=== PATIENT | female | born 1950 | race Caucasian/White ===

== ENCOUNTER 2018-09-16 05:23 | Inpatient (IN) | payer MEDICARE, OTHER ==
[2018-09-16] VITALS (16 sets, daily range): BP systolic 97–143; BP diastolic 48–70
[~2018-09-16] VITALS: Ht 157.5 cm; Wt 85.3 kg
--- OUTSIDE RECORDS SUMMARY | 2018-09-16 05:27 | XMS REPORT | Clinical Summary ---
Author Author LAURENCE [facility] Address Unknown Phone Unavailable Care Team Providers Care Senior Client Advisor Name Role Phone Pcp, No PCP Unavailable Allergies Comments Active Allergy Reactions Severity Noted Date "makes my inside shake for days" per pt Albuterol 05/25/2018 Medications End Date Status Medication Sig Dispensed Refills Start Date Active riluzole (RILUTEK) 50 mg Take 1 tablet 60 tablet 0 tablet (50 mg total) 8 by mouth every 12 (twelve) hours. Active acetaminophen (TYLENOL) 2 tablets 30 tablet 0 325 MG tablet (650 mg 8 total) by G-tube route every 6 (six) hours as needed for Pain or Fever (headache). Active acetylcysteine 20% Take 2 mLs by 30 mL 0 (MUCOMYST) 200 mg/mL (20 nebulization 8 %) nebulizer solution every 6 (six) hours. Active carboxymethylcellulose Place 1 drop 28 each 0 sodium (CELLUVISC, into both 8 REFRESH) 1 % DpGe eyes nightly. Active chlorhexidine (PERIDEX) Use as 120 mL 0 0.12 % solution directed 15 8 mLs in the mouth or throat 2 (two) times daily. Active sodium chloride 0.9%, NS, 5 mLs by 5 mL 0 injection Intra-Cathete 8 r route every 8 (eight) hours. Active senna-docusate (SENOKOT 1 tablet by 30 tablet 0 S) 8.6-50 mg per tablet G-tube route 8 nightly. Active pravastatin (PRAVACHOL) 1 tablet (20 30 tablet 0 20 MG tablet mg total) by 8 G-tube route nightly. Active potassium, sodium Take 1 packet 30 packet 0 phosphates (PHOS-NAK) by mouth 3 8 280-160-250 mg PwPk (three) times packet daily Through G-tube. Active ipratropium (ATROVENT) Take 2.5 mLs 75 mL 0 0.02 % nebulizer solution (0.5 mg 8 total) by nebulization every 6 (six) hours. Active heparin injection 5,000 Inject 1 mL 1 mL 0 units/mL for DVT (5,000 Units 8 prophylaxis/dialysis total) lock/IV bolus subcutaneousl y every 8 (eight) hours. Active heparin (PF) injection 10 2 mLs (20 0 units/mL Units total) 8 by Intra-Cathete r route every 8 (eight) hours. Active famotidine (PEPCID) 20 MG 1 tablet (20 60 tablet 0 tablet mg total) by 8 G-tube route every 12 (twelve) hours. 06/05/2019 Active insulin lispro (HUMALOG) Inject 0-8 10 mL 0 100 unit/mL injection Units 8 subcutaneousl y as needed (High blood sugar). Active insulin lispro (HUMALOG) Inject 0-4 10 mL 0 100 unit/mL injection Units 8 subcutaneousl y every night as needed (High blood sugar). Active HYDROmorphone (DILAUDID) Inject 1 mL 5 mL 0 0.5 mg/mL Syrg (0.5 mg 8 total) intravenously every 4 (four) hours as needed (if tramadol not adequate). Max Daily Amount: 3 mg 06/15/2018 simethicone (MYLICON) 80 1 tablet (80 30 tablet 0 MG chewable tablet mg total) by 8 G-tube route 4 (four) times daily for 10 days. 07/05/2018 OLANZapine (ZYPREXA) 2.5 1 tablet (2.5 30 tablet 0 MG tablet mg total) by 8 G-tube route nightly for 30 days. 06/15/2018 traMADol (ULTRAM) 50 mg 1 tablet (50 30 tablet 0 tablet mg total) by 8 G-tube route every 6 (six) hours as needed for Pain for up to 10 days. Max Daily Amount: 200 mg Active Problems Problem Noted Date History of progressive weakness 05/24/2018 Septic shock 05/24/2018 Severe protein-calorie malnutrition ([place]: less than 60% of standard 05/24/2018 weight) Atelectasis of left lung 05/24/2018 Acute respiratory failure with hypoxia and hypercapnia 05/23/2018 Encounters Care Team Description Date Type Specialty Manoj Saunders MD 06/02/2018 Anesthesia Event Edmund Forrest MD TRACHEOSTOMY 06/02/2018 Surgery 05/25/2018 Orders Only General Internal Medicine Stella Serna MD Siddique, MD Millie Velasquez, MD Meredith Acute hypercapnic respiratory failure (HCC); History of progressive weakness; Hypoxemic respiratory failure, chronic (HCC); Acute respiratory failure with hypoxia and hypercapnia (HCC); Atelectasis of left lung; Septic shock (HCC); Severe protein-calorie malnutrition ([place]: less than 60% of standard weight) (HCC); ALS (amyotrophic lateral sclerosis) (HCC); Hypervolemia, unspecified hypervolemia type 05/23/2018 Hospital Intensive Care - Encounter 06/05/2018 05/23/2018 Travel after 09/15/2017 Family History Medical History Relation Name Comments Colon cancer Father Breast cancer Maternal Aunt Pancreatic cancer Maternal Aunt Relation Name Status Comments Father Maternal Aunt Social History Date Tobacco Use Types Packs/Day Years Used Former Smoker Smokeless Tobacco: Never Used Comments: < 10 pack years Sex Assigned at Date Recorded Not on file Industry Job Start Date Occupation Not on file Not on file Not on file Travel End Travel History Travel Start No recent travel history available. Last Filed Vital Signs Time Taken Vital Sign Reading 06/05/2018 5:10 PM [employer] Blood Pressure 120/66 06/05/2018 5:10 PM [employer] Pulse 82 06/05/2018 5:10 PM [employer] Temperature 36.5 C (97.7 F) 06/05/2018 5:10 PM [employer] Respiratory Rate 14 06/05/2018 5:10 PM [employer] Oxygen Saturation 98% 06/05/2018 5:10 PM [employer] Inhaled Oxygen 40% Concentration 06/04/2018 5:00 AM [employer] Weight 117.1 kg (258 lb 2.5 oz) 05/23/2018 8:00 PM [employer] Height 157.5 cm (5' 2") 06/04/2018 5:00 AM [employer] Body Mass Index 47.22 Plan of Treatment Not on file Procedures Comments Procedure Name Priority Date/Time Associated Diagnosis REPORT OF PROCEDURE - 06/12/2018 ENDOSCOPY SCAN 10:21 AM [employer] RHYTHM STRIP - SCAN 06/12/2018 10:21 AM [employer] POCT-GLUCOSE METER Routine 06/05/2018 11:26 AM [employer] POCT-GLUCOSE METER Routine 06/05/2018 6:23 AM [employer] MAGNESIUM Routine 06/05/2018 4:47 AM [employer] BASIC METABOLIC PANEL (7) Routine 06/05/2018 4:47 AM [employer] POCT-GLUCOSE METER Routine 06/05/2018 12:12 AM [employer] CBC (HEMOGRAM ONLY) Routine 06/04/2018 10:02 PM [employer] POCT-GLUCOSE METER Routine 06/04/2018 3:31 PM [employer] POCT-GLUCOSE METER Routine 06/04/2018 1:13 PM [employer] POCT-GLUCOSE METER Routine 06/04/2018 6:42 AM [employer] POCT-GLUCOSE METER Routine 06/04/2018 6:02 AM [employer] BLOOD GAS, VENOUS Routine 06/04/2018 4:01 AM [employer] MAGNESIUM Routine 06/04/2018 4:01 AM [employer] BASIC METABOLIC PANEL (7) Routine 06/04/2018 4:01 AM [employer] XR CHEST 1 VIEW Routine 06/04/2018 PORTABLE/BEDSIDE 2:44 AM [employer] POCT-GLUCOSE METER Routine 06/04/2018 1:09 AM [employer] POCT-GLUCOSE METER Routine 06/04/2018 12:08 AM [employer] POCT-GLUCOSE METER Routine 06/03/2018 8:05 PM [employer] POCT-GLUCOSE METER Routine 06/03/2018 6:06 PM [employer] MAGNESIUM Routine 06/03/2018 12:56 PM [employer] POCT-GLUCOSE METER Routine 06/03/2018 12:52 PM [employer] ECG 12-LEAD Routine 06/03/2018 10:34 AM [employer] XR CHEST 1 VIEW Routine 06/03/2018 PORTABLE/BEDSIDE 3:56 AM [employer] CBC W/PLT COUNT & AUTO Routine 06/03/2018 DIFFERENTIAL 3:37 AM [employer] BLOOD GAS, VENOUS Routine 06/03/2018 3:37 AM [employer] CBC W/PLT COUNT & AUTO Routine 06/03/2018 DIFFERENTIAL 3:37 AM [employer] MAGNESIUM Routine 06/03/2018 3:37 AM [employer] BASIC METABOLIC PANEL (7) Routine 06/03/2018 3:37 AM [employer] POCT-GLUCOSE METER Routine 06/02/2018 7:42 PM [employer] POCT-GLUCOSE METER Routine 06/02/2018 4:43 PM [employer] ESOPHAGOGASTRODUODENOSCOP 06/02/2018 Amyotrophic lateral Y (EGD) 3:05 PM [employer] sclerosis (HCC) Case Notes 90 MINS PER [facility] Special Needs (ENDO EQUIPMENT) EGD SCOPE INSERTION,GASTROSTOMY 06/02/2018 Amyotrophic lateral TUBE-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 [employer] sclerosis (HCC) Case Notes 90 MINS PER [facility] [employer] Needs (ENDO EQUIPMENT) EGD SCOPE TRACHEOSTOMY 06/02/2018 Amyotrophic lateral 3:05 PM [employer] sclerosis (HCC) Case Notes 90 MINS PER [employer] Special Needs (ENDO EQUIPMENT) EGD SCOPE POCT-GLUCOSE METER Routine 06/02/2018 2:51 PM [employer] POCT-GLUCOSE METER Routine 06/02/2018 12:35 PM [employer] XR CHEST 1 VIEW Routine 06/02/2018 PORTABLE/BEDSIDE 7:12 AM [employer] BLOOD GAS, VENOUS Routine 06/02/2018 3:53 AM [employer] MAGNESIUM Routine 06/02/2018 3:53 AM [employer] BASIC METABOLIC PANEL (7) Routine 06/02/2018 3:53 AM [employer] POCT-GLUCOSE METER Routine 06/01/2018 11:56 PM [employer] LACTIC ACID, VENOUS Routine 06/01/2018 8:33 PM [employer] POCT-GLUCOSE METER Routine 06/01/2018 6:41 PM [employer] POCT-GLUCOSE METER Routine 06/01/2018 12:57 PM [employer] XR CHEST 1 VIEW STAT 06/01/2018 PORTABLE/BEDSIDE 8:20 AM [employer] BLOOD GAS, VENOUS Routine 06/01/2018 3:46 AM [employer] HEPARIN ASSAY - LOW Routine 06/01/2018 MOLECULAR WEIGHT 3:46 AM [employer] MAGNESIUM Routine 06/01/2018 3:46 AM [employer] BASIC METABOLIC PANEL (7) Routine 06/01/2018 3:46 AM [employer] POCT-GLUCOSE METER Routine 05/31/2018 5:53 PM [employer] POCT-GLUCOSE METER Routine 05/31/2018 12:38 PM [employer] XR CHEST 1 VIEW STAT 05/31/2018 PORTABLE/BEDSIDE 12:35 PM [employer] POCT-GLUCOSE METER Routine 05/31/2018 12:00 PM [employer] SPUTUM CULTURE + GRAM Routine 05/31/2018 STAIN 10:13 AM [employer] POCT-GLUCOSE METER Routine 05/31/2018 6:17 AM [employer] XR CHEST 1 VIEW Routine 05/31/2018 PORTABLE/BEDSIDE 4:26 AM [employer] CBC W/PLT COUNT & AUTO Routine 05/31/2018 DIFFERENTIAL 4:23 AM [employer] PHOSPHORUS Add-On 05/31/2018 4:23 AM [employer] MAGNESIUM Routine 05/31/2018 4:23 AM [employer] BASIC METABOLIC PANEL (7) Routine 05/31/2018 4:23 AM [employer] CBC W/PLT COUNT & AUTO Routine 05/31/2018 DIFFERENTIAL 4:23 AM [employer] POCT-GLUCOSE METER Routine 05/31/2018 12:05 AM [employer] POCT-GLUCOSE METER Routine 05/30/2018 6:04 PM [employer] MR PELVIS WITHOUT & WITH Routine 05/30/2018 IV CONTRAST 1:11 PM [employer] POCT-GLUCOSE METER Routine 05/30/2018 7:01 AM [employer] XR CHEST 1 VIEW Routine 05/30/2018 PORTABLE/BEDSIDE 6:53 AM [employer] BLOOD GAS, ARTERIAL Routine 05/30/2018 3:37 AM [employer] CBC W/PLT COUNT & AUTO Routine 05/30/2018 DIFFERENTIAL 3:29 AM [employer] MAGNESIUM Routine 05/30/2018 3:29 AM [employer] BASIC METABOLIC PANEL (7) Routine 05/30/2018 3:29 AM [employer] CBC W/PLT COUNT & AUTO Routine 05/30/2018 DIFFERENTIAL 3:29 AM [employer] POCT-GLUCOSE METER Routine 05/30/2018 12:36 AM [employer] POCT-GLUCOSE METER Routine 05/29/2018 6:24 PM [employer] POCT-GLUCOSE METER Routine 05/29/2018 12:28 PM [employer] POCT-GLUCOSE METER Routine 05/29/2018 5:57 AM [employer] XR CHEST 1 VIEW Routine 05/29/2018 PORTABLE/BEDSIDE 4:55 AM [employer] BLOOD GAS, VENOUS STAT 05/29/2018 4:11 AM [employer] CBC W/PLT COUNT & AUTO Routine 05/29/2018 DIFFERENTIAL 4:06 AM [employer] MAGNESIUM Routine 05/29/2018 4:06 AM [employer] BASIC METABOLIC PANEL (7) Routine 05/29/2018 4:06 AM [employer] CBC W/PLT COUNT & AUTO Routine 05/29/2018 DIFFERENTIAL 4:06 AM [employer] POCT-GLUCOSE METER Routine 05/28/2018 11:59 PM [employer] POCT-GLUCOSE METER Routine 05/28/2018 5:07 PM [employer] POCT-GLUCOSE METER Routine 05/28/2018 12:16 PM [employer] XR CHEST 1 VIEW Routine 05/28/2018 PORTABLE/BEDSIDE 8:16 AM [employer] US PELVIS Routine 05/28/2018 6:20 AM [employer] POCT-GLUCOSE METER Routine 05/28/2018 5:36 AM [employer] CBC W/PLT COUNT & AUTO Routine 05/28/2018 DIFFERENTIAL 4:04 AM [employer] PHOSPHORUS Routine 05/28/2018 4:04 AM [employer] MAGNESIUM Routine 05/28/2018 4:04 AM [employer] BASIC METABOLIC PANEL (7) Routine 05/28/2018 4:04 AM [employer] CBC W/PLT COUNT & AUTO Routine 05/28/2018 DIFFERENTIAL 4:04 AM [employer] BLOOD GAS, ARTERIAL Routine 05/28/2018 4:04 AM [employer] POCT-GLUCOSE METER Routine 05/27/2018 11:46 PM [employer] POCT-GLUCOSE METER Routine 05/27/2018 5:59 PM [employer] XR CHEST 1 VIEW Routine 05/27/2018 PORTABLE/BEDSIDE 5:55 PM [employer] XR CHEST 1 VIEW STAT 05/27/2018 PORTABLE/BEDSIDE 4:26 PM [employer] BLOOD GAS, VENOUS STAT 05/27/2018 3:12 PM [employer] POCT-GLUCOSE METER Routine 05/27/2018 12:10 PM [employer] POCT-GLUCOSE METER Routine 05/27/2018 5:32 AM [employer] CBC W/PLT COUNT & AUTO Routine 05/27/2018 DIFFERENTIAL 4:05 AM [employer] APTT Routine 05/27/2018 4:05 AM [employer] PHOSPHORUS Routine 05/27/2018 4:05 AM [employer] MAGNESIUM Routine 05/27/2018 4:05 AM [employer] BASIC METABOLIC PANEL (7) Routine 05/27/2018 4:05 AM [employer] CBC W/PLT COUNT & AUTO Routine 05/27/2018 DIFFERENTIAL 4:05 AM [employer] BLOOD GAS, ARTERIAL Routine 05/27/2018 4:04 AM [employer] POCT-GLUCOSE METER Routine 05/27/2018 12:11 AM [employer] POCT-GLUCOSE METER Routine 05/26/2018 5:34 PM [employer] BLOOD GAS, ARTERIAL STAT 05/26/2018 3:12 PM [employer] NEEDLE EMG, 2 EXTREMITY Routine 05/26/2018 3:11 PM [employer] BLOOD GAS, ARTERIAL STAT 05/26/2018 12:55 PM [employer] POCT-GLUCOSE METER Routine 05/26/2018 11:57 AM [employer] APTT Routine 05/26/2018 11:12 AM [employer] BLOOD GAS, ARTERIAL STAT 05/26/2018 9:40 AM [employer] POCT-GLUCOSE METER Routine 05/26/2018 6:32 AM [employer] APTT Routine 05/26/2018 4:26 AM [employer] CBC W/PLT COUNT & AUTO Routine 05/26/2018 DIFFERENTIAL 4:23 AM [employer] LIPID PANEL Routine 05/26/2018 4:23 AM [employer] PHOSPHORUS Routine 05/26/2018 4:23 AM [employer] MAGNESIUM Routine 05/26/2018 4:23 AM [employer] BASIC METABOLIC PANEL (7) Routine 05/26/2018 4:23 AM [employer] CBC W/PLT COUNT & AUTO Routine 05/26/2018 DIFFERENTIAL 4:23 AM [employer] BLOOD GAS, ARTERIAL Routine 05/26/2018 4:23 AM [employer] XR CHEST 1 VIEW Routine 05/26/2018 PORTABLE/BEDSIDE 3:50 AM [employer] POCT-GLUCOSE METER Routine 05/26/2018 12:09 AM [employer] APTT Routine 05/25/2018 9:37 PM [employer] APTT Routine 05/25/2018 7:49 PM [employer] POCT-GLUCOSE METER Routine 05/25/2018 6:58 PM [employer] B-TYPE NATRIURETIC FACTOR STAT 05/25/2018 (BNP) 1:15 PM [employer] APTT Routine 05/25/2018 12:33 PM [employer] US ABDOMEN LIMITED Routine 05/25/2018 12:10 PM [employer] POCT-GLUCOSE METER Routine 05/25/2018 11:52 AM [employer] RESPIRATORY PANEL [facility] Add-On 05/25/2018 11:08 AM [employer] APTT Routine 05/25/2018 10:55 AM [employer] BLOOD GAS, ARTERIAL Routine 05/25/2018 10:55 AM [employer] APTT Routine 05/25/2018 9:28 AM [employer] VANCOMYCIN LEVEL, TROUGH Timed 05/25/2018 9:28 AM [employer] POCT-GLUCOSE METER Routine 05/25/2018 5:58 AM [employer] XR CHEST 1 VIEW Routine 05/25/2018 PORTABLE/BEDSIDE 5:09 AM [employer] BLOOD GAS, ARTERIAL Routine 05/25/2018 4:48 AM [employer] CBC W/PLT COUNT & AUTO Routine 05/25/2018 DIFFERENTIAL 4:47 AM [employer] HIV-1 ANTIGEN WITH Routine 05/25/2018 HIV-1/2 ANTIBODY 4:47 AM [employer] FOLATE, SERUM Routine 05/25/2018 4:47 AM [employer] PREALBUMIN Routine 05/25/2018 4:47 AM [employer] PHOSPHORUS Routine 05/25/2018 4:47 AM [employer] MAGNESIUM Routine 05/25/2018 4:47 AM [employer] BASIC METABOLIC PANEL (7) Routine 05/25/2018 4:47 AM [employer] CBC W/PLT COUNT & AUTO Routine 05/25/2018 DIFFERENTIAL 4:47 AM [employer] ECG 12-LEAD Routine 05/25/2018 4:46 AM [employer] Procedure Note - Interface, External Ris In - 05/25/2018 4:54 AM [employer] Ventricula r Rate 125 BPM Atrial Rate 110 BPM QRS Duration 96 ms Q-T Interval 274 ms QTC Calculatio n(Bazett) 395 ms R [place] 1 degrees T [place] 70 degrees Atrial fibrillati on with rapid ventricula r response Abnormal ECG No previous ECGs available ECG 12-LEAD STAT 05/25/2018 4:46 AM [employer] MISCELLANEOUS LAB ORDER Routine 05/25/2018 12:59 AM [employer] POCT-GLUCOSE METER Routine 05/24/2018 11:54 PM [employer] URINALYSIS W/ REFLEX Routine 05/24/2018 URINE CULTURE 11:21 PM [employer] CREATININE, RANDOM URINE STAT 05/24/2018 11:21 PM [employer] SODIUM, RANDOM URINE STAT 05/24/2018 11:21 PM [employer] BLOOD GAS, ARTERIAL STAT 05/24/2018 10:28 PM [employer] PROTHROMBIN TIME/INR STAT 05/24/2018 10:28 PM [employer] APTT STAT 05/24/2018 10:28 PM [employer] CYTOLOGY AP Routine 05/24/2018 10:22 PM [employer] BODY FLUID CELL COUNT Routine 05/24/2018 WITH DIFFERENTIAL 8:45 PM [employer] SPIN/CONCENTRATION CHARGE Routine 05/24/2018 8:44 PM [employer] FUNGUS CULTURE + SMEAR BUSTER 05/24/2018 8:44 PM [employer] AFB CULTURE + SMEAR BUSTER 05/24/2018 8:44 PM [employer] LEGIONELLA CULTURE Routine 05/24/2018 8:44 PM [employer] BRONCHIAL CULTURE + GRAM BUSTER 05/24/2018 STAIN 8:44 PM [employer] XR CHEST 1 VIEW STAT 05/24/2018 PORTABLE/BEDSIDE 7:38 PM [employer] POCT-GLUCOSE METER Routine 05/24/2018 6:02 PM [employer] VENOUS DOPPLER LEGS Routine 05/24/2018 BILATERAL 5:49 PM [employer] VENOUS DOPPLER ARMS Routine 05/24/2018 BILATERAL 5:49 PM [employer] MR CERVICAL SPINE W/WO STAT 05/24/2018 CONTRAST 4:59 PM [employer] MR BRAIN WITHOUT & WITH STAT 05/24/2018 IV CONTRAST 4:59 PM [employer] ECHOCARDIOGRAM REPORT - 05/24/2018 SCAN 3:[address] [employer] [address] ABDOMEN/PELVIS WITH IV STAT 05/24/2018 CONTRAST 2:[address] [address] CHEST WITH IV CONTRAST STAT 05/24/2018 2:40 PM [employer] POCT-GLUCOSE METER Routine 05/24/2018 1:24 PM [employer] MRSA SCREEN STAT 05/24/2018 12:38 PM [employer] RAPID INFLUENZA A&B BUSTER 05/24/2018 SCREEN 12:38 PM [employer] FOLATE, RBC STAT 05/24/2018 12:28 PM [employer] VITAMIN B12 STAT 05/24/2018 12:28 PM [employer] TSH/FREE T4 IF INDICATED STAT 05/24/2018 12:28 PM [employer] B-TYPE NATRIURETIC FACTOR Routine 05/24/2018 (BNP) 12:28 PM [employer] 2D ECHO W/ DOPPLER STAT 05/24/2018 (CW/PW/COLOR) 11:42 AM [employer] 2D ECHO W/ DOPPLER Routine 05/24/2018 (CW/PW/COLOR) 10:47 AM [employer] CREATINE KINASE (CK) Routine 05/24/2018 10:23 AM [employer] SJOGREN'S ANTIBODIES Routine 05/24/2018 10:23 AM [employer] DOUBLE-STRANDED DNA Routine 05/24/2018 (DSDNA) ANTIBODY 10:23 AM [employer] ANTI-SHIRA AB (RNA, HENDRICKSON) Routine 05/24/2018 10:23 AM [employer] ANTI-NUCLEAR ANTIBODY Routine 05/24/2018 (GIOVANNI) 10:23 AM [employer] SPUTUM CULTURE + GRAM Routine 05/24/2018 STAIN 10:19 AM [employer] MISCELLANEOUS LAB ORDER Routine 05/24/2018 9:21 AM [employer] XR CHEST 1 VIEW Routine 05/24/2018 PORTABLE/BEDSIDE 5:00 AM [employer] CBC W/PLT COUNT & AUTO Routine 05/24/2018 DIFFERENTIAL 3:19 AM [employer] MAGNESIUM Routine 05/24/2018 3:19 AM [employer] BASIC METABOLIC PANEL (7) Routine 05/24/2018 3:19 AM [employer] CBC W/PLT COUNT & AUTO Routine 05/24/2018 DIFFERENTIAL 3:19 AM [employer] BLOOD GAS, ARTERIAL STAT 05/24/2018 3:15 AM [employer] POCT-GLUCOSE METER Routine 05/24/2018 12:14 AM [employer] BLOOD GAS, ARTERIAL STAT 05/23/2018 9:59 PM [employer] BLOOD CULTURE Routine 05/23/2018 9:59 PM [employer] STREP PNEUMONIAE ANTIGEN Routine 05/23/2018 8:40 PM [employer]ING LEGIONELLA URINE ANTIGEN Routine 05/23/2018 8:39 PM [employer] CBC W/PLT COUNT & AUTO STAT 05/23/2018 DIFFERENTIAL 8:34 PM [employer] TROPONIN I STAT 05/23/2018 8:34 PM [employer] LACTIC ACID, VENOUS STAT 05/23/2018 8:34 PM [employer] MAGNESIUM STAT 05/23/2018 8:34 PM [employer] COMPREHENSIVE METABOLIC STAT 05/23/2018 PANEL 8:34 PM [employer] CBC W/PLT COUNT & AUTO STAT 05/23/2018 DIFFERENTIAL 8:34 PM [employer] BLOOD CULTURE Routine 05/23/2018 8:34 PM [employer] XR CHEST 1 VIEW STAT 05/23/2018 PORTABLE/BEDSIDE 8:27 PM [employer] after 09/15/2017 Results * EKG-SCANNED (06/12/2018 10:21 AM [employer]) Narrative Performed At * RHYTHM STRIP - SCAN (06/12/2018 10:21 AM [employer]) Narrative Performed At * POC-Glucose meter (06/05/2018 11:26 AM [employer]) Only the most recent of 50 results within the time period is included. POC-Glucose Meter 133 (H)Comment: TESTED AT 70 - 110 mg/dL [address] [address] Specimen Blood Performing Organization Address [facility] Phone Number [address] [address] [phone] * Magnesium (06/05/2018 4:47 AM [employer]) Only the most recent of 15 results within the time period is included. Magnesium 1.9Comment: Specimen slightly 1.6 - 2.6 mg/dL [facility] Specimen Blood - Arm, Left Performing Organization Address [facility] Phone Number [address] [address] [phone] [place] [address] * Basic Metabolic Panel (06/05/2018 4:47 AM [employer]) Only the most recent of 13 results within the time period is included. Sodium 138 136 - 145 meq/L [facility] Potassium 3.9Comment: Specimen slightly 3.5 - 5.1 meq/L [facility] Chloride 103 98 - 107 meq/L [facility] CO2 28 22 - 29 meq/L [facility] BUN 13 7 - 21 mg/dL [facility] Creatinine 0.52 (L)Comment: Specimen 0.57 - 1.25 mg/dL [facility] slightly hemolyzed [facility] Glucose 107 (H) 70 - 105 mg/dL [facility] Calcium 9.2 8.4 - 10.2 mg/dL [facility] EGFR 117Comment: ESTIMATED GFR IS mL/min/1.73 sq m [facility] NOT ACCURATE CREATININE [facility] CLEARANCE IN PREDICTING GLOMERULAR FILTRATION RATE. ESTIMATED GFR IS NOT APPLICABLE FOR DIALYSIS PATIENTS. Specimen Blood - Arm, Left Performing Organization Address [facility] Cent[facility]ode Phone Number [facility] [address] [place] [address] [facility] * CBC (Hemogram only) (06/04/2018 10:02 PM [employer]) WBC 5.0 3.5 - 10.5 K/L [facility] RBC 3.98 3.93 - 5.22 M/L [facility] Hemoglobin 11.5 11.2 - 15.7 GM/DL [facility] Hematocrit 37.9 34.1 - 44.9 % [facility] MCV 95.2 (H) 79.4 - 94.8 fL [facility] MCH 28.9 25.6 - 32.2 pg [facility] MCHC 30.3 (L) 32.2 - 35.5 GM/DL [facility] RDW 13.5 11.7 - 14.4 % [facility] Platelets 167 150 - 450 K/CU MM [facility] MPV 9.3 (L) 9.4 - 12.3 fL [facility] nRBC 0 0 - 0 /100 WBC [facility] Specimen Blood - Arm, Left Performing Organization Address City/[facility]/Zipcode Phone Number [facility] [address] [place] [address] [phone] [address] * Blood gas, venous (06/04/2018 4:01 AM [employer]) Only the most recent of 6 results within the time period is included. pH, Luis Carlos 7.42 7.32 - 7.42 [facility] pCO2, Luis Carlos 46 41 - 51 mmHg [facility] pO2, Luis Carlos 41 (H) 25 - 40 mmHg [facility] O2 Sat, Luis Carlos 76.5 (H) 40.0 - 70.0 % [facility] HCO3, Luis Carlos 29 21 - 29 mmol/L [facility] Base Excess, Luis Carlos 4.0 (H) -2.0 - 3.0 mmol/L [facility] Patient Temperature 37.0 C [facility] FIO2 100.0 % [facility] Specimen Blood Performing Organization Address City/State/Zipcode Phone Number [facility] [address] [place] [address] [phone] [place] [address] * XR chest 1 view portable / bedside (06/04/2018 2:44 AM [employer]) Only the most recent of 16 results within the time period is included. Narrative Performed At FINAL REPORT GE RIS CLINICAL INDICATION: Support lines. Comparison: 05/04/2018 The patient is rotated to the right. The cardiomediastinal contours are grossly stable. Central pulmonary vascular prominence and bilateral parenchymal and pleural opacities are similar within variation of acquisition technique. There is no pneumothorax. Support lines are stable. Signed: Dallas Mae MD Report Verified Date/Time:06/04/2018 03:18:20 Reading Location: [address] Reading Room Procedure Note Interface, External Ris In - 06/04/2018 3:36 AM [employer] FINAL REPORT CLINICAL INDICATION: Support lines. Comparison: 05/04/2018 The patient is rotated to the right. The cardiomediastinal contours are grossly stable. Central pulmonary vascular prominence and bilateral parenchymal and pleural opacities are similar within variation of acquisition technique. There is no pneumothorax. Support lines are stable. Signed: Dallas Mae MD Report Verified Date/Time: 06/04/2018 03:18:20 Reading Location: [address] Reading Room Performing Organization Address City/[facility] Phone Number [facility] * ECG 12 lead (06/03/2018 10:34 AM [employer]) Only the most recent of 2 results within the time period is included. Narrative Performed At Ventricular Rate 75 BPM GE MUSE Atrial Rate 75 BPM P-R Interval 176 ms QRS Duration 90 ms Q-T Interval 374 ms QTC Calculation(Bazett) 417 ms P [place] 42 degrees R [place] 18 degrees T [place] 38 degrees Normal sinus rhythm Normal ECG When compared with ECG of 25-MAY-2018 04:46, Sinus rhythm has replaced Atrial fibrillation Vent. rate has decreased BY50 BPM Confirmed by MD MELVIN JORGE ([id number]) on 06/03/2018 1:54:28 PM Procedure Note Interface, External Ris In - 06/03/2018 1:54 PM [employer] Ventricular Rate 75 BPM Atrial Rate 75 BPM P-R Interval 176 ms QRS Duration 90 ms Q-T Interval 374 ms QTC Calculation(Bazett) 417 ms P [place] 42 degrees R [place] 18 degrees T [place] 38 degrees Normal sinus rhythm Normal ECG When compared with ECG of 25-MAY-2018 04:46, Sinus rhythm has replaced Atrial fibrillation Vent. rate has decreased BY 50 BPM Confirmed by MD MELVIN JORGE ([id number]) on 06/03/2018 1:54:28 PM Performing Organization Address [facility] Phone Number [facility] * CBC with platelet count + automated diff (06/03/2018 3:37 AM [employer]) Only the most recent of 10 results within the time period is included. WBC 6.0 3.5 - 10.5 K/L [facility] RBC 4.15 3.93 - 5.22 M/L [facility] Hemoglobin 11.8 11.2 - 15.7 GM/DL [facility] Hematocrit 39.5 34.1 - 44.9 % [facility] MCV 95.2 (H) 79.4 - 94.8 fL [facility] MCH 28.4 25.6 - 32.2 pg [facility] MCHC 29.9 (L) 32.2 - 35.5 GM/DL [facility] RDW 13.3 11.7 - 14.4 % [facility] Platelets 159 150 - 450 K/CU MM [facility] MPV 9.2 (L) 9.4 - 12.3 fL [facility] nRBC 0 0 - 0 /100 WBC [facility] % Neutros 90 % [facility] % Lymphs 6 % [facility] % Monos 3 % [facility] % Eos 0 % [facility] % Baso 0 % [facility] # Neutros 5.39 1.56 - 6.13 K/L [facility] # Lymphs 0.36 (L) 1.18 - 3.74 K/L [facility] # Monos 0.20 (L) 0.24 - 0.36 K/L [facility] # Eos 0.00 (L) 0.04 - 0.36 K/L [facility] # Baso 0.01 0.01 - 0.08 K/L [facility] Immature 1 0 - 1 % [facility] Granulocytes-[facility] Specimen Blood Performing Organization Address City/State/Zipcode Phone Number [facility] [address] [place] [address] MEDICAL CENTER * Lactic acid, venous, whole blood (06/01/2018 8:33 PM [employer]) Only the most recent of 2 results within the time period is included. Lactate, Venous 0.7Comment: Specimen slightly 0.5 - 2.2 mmol/L [facility] hemolyzed [facility] Specimen Blood Performing Organization Address City/[facility]ode Phone Number [place] [phone] [place] [address] [facility] * Heparin Assay - Low Molecular Weight (06/01/2018 3:46 AM [employer]) Anti 10A-Lovenox 0.52 (L) 0.60 - 2.00 u/ml [facility] Specimen Blood Narrative Performed At Anti-Factor 10-A Level (Heparin Assay for Low Molecular Weight Heparin) [facility] Monitoring Guidelines: [facility] Blood samples should be obtained 4 hours post subcutaneous injection (time of Peak level) Therapeutic Peak Levels: 0.6-1.0 units/mLtwice daily enoxaparin 1.0-2.0 units/mLonce daily enoxaparin Ref: CHEST 2012;[id number] Please collect anti-Xa level 4 hours after second Lovenox dose Performing Organization Address [facility] Phone Number [address] [address] [facility] * Sputum Culture + Gram Stain (05/31/2018 10:13 AM [employer]) Only the most recent of 2 results within the time period is included. Result 1+ Normal respiratory jeb [facility] Gram Stain Result 1+ WBCs [facility] Gram Stain Result 5-10 epithelial cells [facility] Gram Stain Result No organisms seen [facility] Specimen Sputum Performing Organization Address City/[facility]ode Phone Number [place] [phone] [place] [address] [facility] * Phosphorus (05/31/2018 4:23 AM [employer]) Only the most recent of 5 results within the time period is included. Phosphorus 3.6 2.3 - 4.7 mg/dL [facility] Specimen Blood - Line, Venous Performing Organization Address City/State/Zipcode Phone Number [facility] [address] [place] [address] MEDICAL CENTER * MR pelvis without & with IV contrast (05/30/2018 1:11 PM [employer]) Narrative Performed At FINAL REPORT [employer] RIS TECHNIQUE: MRI of the pelvis WITHOUT and WITH intravenous contrast. INDICATION: 68-year-old woman with adnexal mass. COMPARISON: Pelvic ultrasound 05/28/2018. FINDINGS: UTERUS: The uterus measures 9.1 x 7.7 x 6.9 cm cm. 6.3 x 5.7 x 6.9 cm T2 hyperintense intramural fibroid in the posterior fundus enhances to a lesser degree than the myometrium. Tiny cervical nabothian cysts. ENDOMETRIUM: IUD within the endometrial canal. The endometrium is homogeneous and measures 1.2 cm in thickness. OVARIES/ADNEXA: 9.1 x 4.6 x 4 cm fluid-filled tubular structure in the left adnexum abuts the left ovary, which is otherwise unremarkable. Right ovary is unremarkable. PERITONEUM/RETROPERITONEUM: No free fluid. BLADDER: The bladder is decompressed by Sanchez catheter. RECTUM: Rectum and mesorectum are unremarkable. LYMPH NODES: No lymphadenopathy. BONES AND SOFT TISSUES: Unremarkable. IMPRESSION: 9.1 cm fluid-filled tubular structure in the left adnexum, likely hydrosalpinx. Left ovarian cyst is less likely. Prominentand homogeneous endometrium, suggestive of endometrial hyperplasia. No focal endometrial lesion. Intramural uterine fibroid. RECOMMENDATION: Consider gynecology consultation. The above findings may be reassessed on follow-up pelvic ultrasound. Signed: Merced Jacob MD Report Verified Date/Time:05/30/2018 17:01:50 Reading Location: [facility] C013Y CT Body Reading Room Procedure Note Interface, External Ris In - 05/30/2018 5:04 PM [employer] FINAL REPORT TECHNIQUE: MRI of the pelvis WITHOUT and WITH intravenous contrast. INDICATION: 68-year-old woman with adnexal mass. COMPARISON: Pelvic ultrasound 05/28/2018. FINDINGS: UTERUS: The uterus measures 9.1 x 7.7 x 6.9 cm cm. 6.3 x 5.7 x 6.9 cm T2 hyperintense intramural fibroid in the posterior fundus enhances to a lesser degree than the myometrium. Tiny cervical nabothian cysts. ENDOMETRIUM: IUD within the endometrial canal. The endometrium is homogeneous and measures 1.2 cm in thickness. OVARIES/ADNEXA: 9.1 x 4.6 x 4 cm fluid-filled tubular structure in the left adnexum abuts the left ovary, which is otherwise unremarkable. Right ovary is unremarkable. PERITONEUM/RETROPERITONEUM: No free fluid. BLADDER: The bladder is decompressed by Sanchez catheter. RECTUM: Rectum and mesorectum are unremarkable. LYMPH NODES: No lymphadenopathy. BONES AND SOFT TISSUES: Unremarkable. IMPRESSION: 9.1 cm fluid-filled tubular structure in the left adnexum, likely hydrosalpinx. Left ovarian cyst is less likely. Prominent and homogeneous endometrium, suggestive of endometrial hyperplasia. No focal endometrial lesion. Intramural uterine fibroid. RECOMMENDATION: Consider gynecology consultation. The above findings may be reassessed on follow-up pelvic ultrasound. Signed: Merced Jacob MD Report Verified Date/Time: 05/30/2018 17:01:50 Reading Location: [facility] B1 C013Y CT Body Reading Room Performing Organization Address City/State/Zipcode Phone Number [facility] * Blood gas, arterial (05/30/2018 3:37 AM [employer]) Only the most recent of 12 results within the time period is included. pH, Arterial 7.49 (H) 7.35 - 7.45 [facility] pCO2, Arterial 41 35 - 45 mmHg [facility] pO2, Arterial 193 (H) 80 - 90 mmHg [facility] O2 Sat, Arterial 99.4 (H) 96.0 - 97.0 % [facility] HCO3, Arterial 31 (H) 21 - 29 mmol/L [facility] Base Excess, Arterial 6.7 (H) -2.0 - 3.0 mmol/L [facility] Patient Temperature 37.0 C [facility] FIO2 60.0 % [facility] Specimen Blood, Arterial Performing Organization Address City/State/Zipcode Phone Number [facility] [address] [place] [address] MEDICAL CENTER * US pelvis (05/28/2018 6:20 AM [employer]) Narrative Performed At FINAL REPORT Robin TECHNIQUE: Transabdominal grayscale ultrasound of the pelvis. INDICATION: 68-year-old woman with left ovarian cyst. COMPARISON: Chest, abdomen, and pelvis CT 05/24/2018. FINDINGS: UTERUS: The uterus measures 7.5 x 3.3 x 6.4 cm. Subserosal fibroid arising from the posterior uterine body measures 7.2 x 6.2 x 6.8 cm The endometrial echo complex measures approximately 0.5 cm, and contains a linear echogenic structure which correlates with implanted device on recent CT. OVARIES/ADNEXA: The right ovary is grossly unremarkable in appearance and measures 2.1 x 1.5 x 2 cm. 8.9 x 4.6 x 4.6 cm cystic structure in the left adnexum with suspected internal septations. PELVIS: No free fluid. IMPRESSION: Suboptimal evaluation on this transabdominal pelvic ultrasound. 8.9 cm complex appearing left adnexal cystic lesion. Primary ovarian neoplasm cannot be excluded. The endometrium appears slightly prominent, however accurate evaluation is somewhat limited on this transabdominal ultrasound and by artifact from implanted device in the endometrium. Subserosal uterine fibroid. RECOMMENDATION: Transvaginal pelvic ultrasound may be obtained for further evaluation of above findings. Alternatively, pelvic MRI with and without intravenous contrast may be obtained. Signed: Merced Jacob MD Report Verified Date/Time:05/28/2018 08:57:20 Reading Location: [address] Ultrasound Reading Room Procedure Note Interface, External Ris In - 05/28/2018 8:59 AM [employer] FINAL REPORT TECHNIQUE: Transabdominal grayscale ultrasound of the pelvis. INDICATION: 68-year-old woman with left ovarian cyst. COMPARISON: Chest, abdomen, and pelvis CT 05/24/2018. FINDINGS: UTERUS: The uterus measures 7.5 x 3.3 x 6.4 cm. Subserosal fibroid arising from the posterior uterine body measures 7.2 x 6.2 x 6.8 cm The endometrial echo complex measures approximately 0.5 cm, and contains a linear echogenic structure which correlates with implanted device on recent CT. OVARIES/ADNEXA: The right ovary is grossly unremarkable in appearance and measures 2.1 x 1.5 x 2 cm. 8.9 x 4.6 x 4.6 cm cystic structure in the left adnexum with suspected internal septations. PELVIS: No free fluid. IMPRESSION: Suboptimal evaluation on this transabdominal pelvic ultrasound. 8.9 cm complex appearing left adnexal cystic lesion. Primary ovarian neoplasm cannot be excluded. The endometrium appears slightly prominent, however accurate evaluation is somewhat limited on this transabdominal ultrasound and by artifact from implanted device in the endometrium. Subserosal uterine fibroid. RECOMMENDATION: Transvaginal pelvic ultrasound may be obtained for further evaluation of above findings. Alternatively, pelvic MRI with and without intravenous contrast may be obtained. Signed: Merced Jacob MD Report Verified Date/Time: 05/28/2018 08:57:20 Reading Location: [address] Ultrasound Reading Room Performing Organization Address City/[facility] Phone Number [facility] * aPTT (05/27/2018 4:05 AM [employer]) Only the most recent of 9 results within the time period is included. PTT 88.2 (H) 22.5 - 36.0 seconds [facility] Specimen Blood Performing Organization Address City/[facility]/Zipcode Phone Number [facility] [address] [place] [address] MEDICAL CENTER * NEEDLE EMG, 2 EXTREMITY (05/26/2018 3:11 PM [employer]) Narrative Performed At [facility] Neurophysiology Department ELECTROMYOGRAPHY / NERVE CONDUCTION STUDY [address] [place] [address] [phone] [place] [address] Name: Maira Early Address:Date of : 1950 Gender: Female Date of Exam: 05/26/2018 3:46 PM Referring Physician: Stella Serna Examining Physician: Lanie Cobb Patient History: Patient presents with several month history of weakness in arms and legs, weight loss, difficulty swallowing and breathing.Exam shows 5/5 strength except for 4/5 shoulder abduction, 2/5 hipflexor strength and 4/5 toe extensors.This study was done to evaluate for diffuse motor neuron disease, myopathy, or neuromuscular junction disorder. Temperature correction:Latency: 2.0 ms / C Velocity: 2 m/s / C Temperature RUE 26.8 C, RLE 22.8 C, LLE 24 C Motor Nerve Conduction: Nerve and Site Latency Amplitude Segment Latency Difference Distance Conduction Velocity Peroneal.R Ankle 7.1 ms *5.3 corrected 2.2 mV Extensor digitorum brevis-Ankle 7.1 ms 80 mm Fibula (head) 12.5 ms 2.1 mV Ankle-Fibula (head) 5.4 ms 280 mm 52 m/s Knee 14.6 ms 2.2 mV Fibula (head)-Knee 2.1 ms 105 mm 50 m/s Tibial.R Ankle 5.6 ms 4.7 mV Abductor hallucis-Ankle 5.6 ms 80 mm Popliteal fossa 13.8 ms 3.7 mV Ankle-Popliteal fossa 8.2 ms 335 mm 41 m/s Peroneal.L Ankle 6.0 ms 1.4 mV Extensor digitorum brevis-Ankle 6.0 ms 80 mm Fibula (head) 13.6 ms 1.4 mV Ankle-Fibula (head) 7.6 ms 280 mm 37 m/s *53 corrected Knee 16.5 ms 1.4 mV Fibula (head)-Knee 2.9 ms 105 mm 36 m/s *52 corrected Tibial.L Ankle 5.9 ms 3.0 mV Abductor hallucis-Ankle 5.9 ms 80 mm Popliteal fossa 14.5 ms 2.6 mV Ankle-Popliteal fossa 8.6 ms 345 mm 40 m/s Peroneal.L Fibula (head) 3.4 ms 1.5 mV Tibialis anterior-Fibula (head) 3.4 ms Popliteal fossa 5.2 ms 1.4 mV Fibula (head)-Popliteal fossa 1.8 ms 100 mm 56 m/s Peroneal.R Fibula (head) 4.0 ms 3.6 mV Tibialis anterior-Fibula (head) 4.0 ms Popliteal fossa 6.4 ms 2.5 mV Fibula (head)-Popliteal fossa 2.4 ms 100 mm 42 m/s Median.R Wrist 5.1 ms *4.1 corrected 1.6 mV Abductor pollicis brevis-Wrist 5.1 ms 60 mm Elbow 9.6 ms 1.6 mV Wrist-Elbow 4.5 ms 200 mm 44 m/s *54 corrected Ulnar.R Wrist 3.9 ms *2.9 corrected 5.2 mV Abductor digiti minimi (manus)-Wrist 3.9 ms 60 mm Below elbow 7.8 ms 4.2 mV Wrist-Below elbow 3.9 ms 180 mm 46 m/s *56 corrected Above elbow 9.6 ms 4.3 mV Below elbow-Above elbow 1.8 ms 90 mm 50 m/s F-Wave Studies Nerve M-Latency F-Latency Peroneal.R 14.6 53.4 Tibial.R 5.6 54.7 Peroneal.L 13.6 51.5 Tibial.L 14.5 56.3 Median.R 9.6 30.2 Ulnar.R 7.8 30.9 Sensory Nerve Conduction: Nerve and Site Onset Latency Peak Latency Amplitude Segment Latency Difference Distance Conduction Velocity Sural.R Lower leg 3.0 ms 4.2 ms 14 mV Ankle-Lower leg 3.0 ms 140 mm 33 m/s Sural.L Lower leg 3.5 ms 4.4 ms 4 mV Ankle-Lower leg 3.5 ms 140 mm 32 m/s Median.R Wrist 3.7 ms 5.1 ms *4.1 corrected 14 mV Digit II (index finger)-Wrist 3.7 ms 130 mm 36 m/s Ulnar.R Wrist 3.3 ms 4.1 ms *3.1 corrected 16 mV Digit V (little finger)-Wrist 3.3 ms 110 mm 33 m/s Radial.R Forearm 2.3 ms 2.9 ms 21 mV Anatomical snuff box-Forearm 2.3 ms 100 mm 34 m/s H-waves: Nerve Latency Amplitude (max) Tibial.R M-wave: 6.8 ms 2.6 mV H-wave: 33.5 ms 0.3 mV Tibial.L M-wave: 6.3 ms 2.0 mV H-wave: 33.1 ms 0.2 mV Repetitive Stimulation: Nerve Potential Amplitude Area Number Cecelia. Decr. Cecelia. Decr. Ulnar.R Baseline 10 stimuli at 2Hz 1 4.86 mV 0 % 19.50 mVms 0 % 2 4.85 mV 0 % 19.00 mVms 3 % 3 4.76 mV 2 % 18.60 mVms 5 % 4 4.76 mV 2 % 18.40 mVms 6 % 5 4.73 mV 3 % 18.00 mVms 8 % 6 4.66 mV 4 % 18.10 mVms 7 % 7 4.70 mV 3 % 18.20 mVms 7 % 8 4.83 mV 1 % 18.50 mVms 5 % 9 4.83 mV 1 % 18.00 mVms 8 % 10 4.75 mV 2 % 18.30 mVms 6 % 10 stimuli at 2Hz Immediately after exercise 1 4.77 mV 0 % 19.90 mVms 0 % 2 4.83 mV -1 % 19.40 mVms 3 % 3 4.83 mV -1 % 19.20 mVms 4 % 4 4.84 mV -1 % 19.20 mVms 4 % 5 4.88 mV -2 % 19.30 mVms 3 % 6 4.86 mV -2 % 19.20 mVms 4 % 7 4.85 mV -2 % 19.10 mVms 4 % 8 4.89 mV -3 % 19.20 mVms 4 % 9 4.97 mV -4 % 19.60 mVms 2 % 10 4.85 mV -2 % 18.70 mVms 6 % 10 stimuli at 2Hz1 minute post-exercise 1 5.05 mV 0 % 20.60 mVms 0 % 2 5.05 mV 0 % 20.10 mVms 2 % 3 5.03 mV 0 % 19.70 mVms 4 % 4 4.90 mV 3 % 19.70 mVms 4 % 5 5.07 mV 0 % 20.00 mVms 3 % 6 5.03 mV 0 % 19.80 mVms 4 % 7 5.14 mV -2 % 20.20 mVms 2 % 8 5.07 mV 0 % 19.90 mVms 3 % 9 5.10 mV -1 % 19.90 mVms 3 % 10 5.10 mV -1 % 20.00 mVms 3 % 10 stimuli at 2Hz 2 minutes post-exercise 1 5.13 mV 0 % 21.10 mVms 0 % 2 5.16 mV -1 % 20.30 mVms 4 % 3 5.16 mV -1 % 20.40 mVms 3 % 4 5.09 mV 1 % 20.00 mVms 5 % 5 5.07 mV 1 % 19.90 mVms 6 % 6 5.10 mV 1 % 20.20 mVms 4 % 7 5.06 mV 1 % 19.80 mVms 6 % 8 5.11 mV 0 % 20.10 mVms 5 % 9 5.14 mV 0 % 20.00 mVms 5 % 10 5.06 mV 1 % 19.80 mVms 6 % 10 stimuli at 2Hz 3 minutes post-exercise 1 5.31 mV 0 % 21.30 mVms 0 % 2 5.35 mV -1 % 20.60 mVms 3 % 3 5.18 mV 2 % 19.80 mVms 7 % 4 5.22 mV 2 % 20.20 mVms 5 % 5 5.13 mV 3 % 19.80 mVms 7 % 6 5.16 mV 3 % 19.70 mVms 8 % 7 5.22 mV 2 % 19.90 mVms 7 % 8 5.18 mV 2 % 19.80 mVms 7 % 9 5.23 mV 2 % 19.90 mVms 7 % 10 5.22 mV 2 % 20.00 mVms 6 % Accessory (spinal).R 5 stimuli at 2Hz Baseline 1 1.77 mV 0 % 13.80 mVms 0 % 2 1.88 mV -6 % 14.10 mVms -2 % 3 1.65 mV 7 % 13.40 mVms 3 % 4 1.75 mV 1 % 14.10 mVms -2 % 5 1.55 mV 12 % 12.30 mVms 11 % 5 stimuli at 2Hz Immediately after exercise 1 2.56 mV 0 % 24.70 mVms 0 % 2 2.52 mV 2 % 25.40 mVms -3 % 3 2.49 mV 3 % 22.60 mVms 9 % 4 2.61 mV -2 % 25.80 mVms -4 % 5 2.43 mV 5 % 22.70 mVms 8 % 5 stimuli at 2Hz 1 minute after exercise 1 2.46 mV 0 % 21.80 mVms 0 % 2 2.30 mV 7 % 20.60 mVms 6 % 3 2.40 mV 2 % 20.20 mVms 7 % 4 2.20 mV 11 % 19.40 mVms 11 % 5 2.16 mV 12 % 17.70 mVms 19 % 5 stimuli at 2Hz 2 minutes after exercise 1 2.71 mV 0 % 24.60 mVms 0 % 2 2.58 mV 5 % 22.80 mVms 7 % 3 2.60 mV 4 % 21.40 mVms 13 % 4 2.57 mV 5 % 21.40 mVms 13 % 5 2.49 mV 8 % 21.20 mVms 14 % 5 stimuli at 2Hz 3 minutes after exercise 1 2.59 mV 0 % 25.10 mVms 0 % 2 2.60 mV 0 % 23.20 mVms 8 % 3 2.51 mV 3 % 22.30 mVms 11 % 4 2.52 mV 3 % 22.20 mVms 12 % 5 2.52 mV 3 % 20.90 mVms 17 % Needle EMG Examination: Insertional Spontaneous Activity Volitional MUAPs Muscle Insertional Fibs +Wave Fasc Duration Amplitude Poly Pattern Effort Tibialis anterior.R Increased 1+ 1+ None Sl. Incr. Sl. Incr. None Mild Reduced Max. Gastrocnemius (Med head).R Increased None None None Normal Normal None Normal Max. Vastus medialis.R Increased 2+ 1+ None Sl. Incr. Normal None Mild Reduced Sub Max. Soleus.R Increased None 2+ None Sl. Incr. Normal Few Mild Reduced Max. Adductor longus.R Increased None 1+ None Normal Normal Few Normal Max. 1st dorsal interosseous.R Increased None 2+ None Sl. Incr. Sl. Incr. Few Mild Reduced Max. Flexor carpi radialis.R CRD None None None Sl. Incr. Sl. Incr. Few Mild Reduced Max. Biceps brachii.R Normal None None None Sl. Incr. Normal Few Mild Reduced Max. Triceps brachii.R Normal None None None Sl. Incr. Sl. Incr. Few Mild Reduced Max. Deltoid.R Increased None 1+ Few Sl. Incr. Sl. Incr. Few Mild Reduced Max. Ext digitorum communis.R Increased 1+ 2+ None Sl. Incr. Normal Few Mild Reduced Max. Brachioradialis.R Increased 1+ None None Sl. Incr. Normal Few Normal Max. Genioglossus.R Normal None None None TI TI TI TI TI Genioglossus.L Normal None None None TI TI TI TI TI Thoracic paraspinal.L Increased 2+ 2+ None Normal Normal None Normal Max. TI - limited by artifact Interpretation and Conclusions: 1.Sensory studies of the bilateral sural nerves showed normal findings except for slightly low left sural amplitude.The right median and ulnar nerves showed mild prolongation of peak latencies. The right radial nerve showed normal findings. 2.Motor studies of the bilateral peroneal (EDB), left peroneal (TA), and right median and ulnar nerves showed low amplitudes otherwise normal with temperature correction.The right peroneal (TA) and bilateral tibial nerves showed normal findings.F-wave latencies were normal. 3.H-wave reflexes recording at the soleus muscles showed normal but low amplitude latencies. 4.Repetitive nerve stimulation was done recording at the right ADM (abductor digiti minimi) and trapezius using stimulations at 2 Hz with a train of 10 for ulnar and 5 for trapezius, at baseline, immediately after 1 minute of exercise, and at 1, 2, and 3 minutes post-exercise.There was no significant decrement found. 5.Electromyography of the right upper, lower, left thoracic paraspinals and genioglossus was done using a disposable concentric needle.There was abnormal spontaneous activity in the L3-S1 myotomes (adductor longus, vastus medialis, anterior tibialis, soleus) and C5-C8 (deltoid, FCR, BR, EDC, FDI), as well as mid-thoracic paraspinals.There were mild chronic neurogenic changes in all muscles tested except the gastrocnemius and the genioglossus though the latter limited by artifact. 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 There is no electrophysiologic evidence of neuromuscular junction disorder. Lanie Cobb M.D. Procedure Note Interface, External Ris In - 05/26/2018 5:18 PM [employer]GER [employer] [facility] Neurophysiology Department ELECTROMYOGRAPHY / NERVE CONDUCTION STUDY [address] [place] [address] Name: Maira Early Address: Date of : 1950 Gender: Female Date of Exam: 05/26/2018 3:46 PM Referring Physician: Stella Serna Examining Physician: Lanie Cobb Patient History: Patient presents with several month history of weakness in arms and legs, weight loss, difficulty swallowing and breathing. Exam shows 5/5 strength except for 4/5 shoulder abduction, 2/5 hipflexor strength and 4/5 toe extensors. This study was done to evaluate for diffuse motor neuron disease, myopathy, or neuromuscular junction disorder. Temperature correction: Latency: 2.0 ms / C Velocity: 2 m/s / C Temperature RUE 26.8 C, RLE 22.8 C, LLE 24 C Motor Nerve Conduction: Nerve and Site Latency Amplitude Segment Latency Difference Distance Conduction Velocity Peroneal.R Ankle 7.1 ms *5.3 corrected 2.2 mV Extensor digitorum brevis-Ankle 7.1 ms 80 mm Fibula (head) 12.5 ms 2.1 mV Ankle-Fibula (head) 5.4 ms 280 mm 52 m/s Knee 14.6 ms 2.2 mV Fibula (head)-Knee 2.1 ms 105 mm 50 m/s Tibial.R Ankle 5.6 ms 4.7 mV Abductor hallucis-Ankle 5.6 ms 80 mm Popliteal fossa 13.8 ms 3.7 mV Ankle-Popliteal fossa 8.2 ms 335 mm 41 m/s Peroneal.L Ankle 6.0 ms 1.4 mV Extensor digitorum brevis-Ankle 6.0 ms 80 mm Fibula (head) 13.6 ms 1.4 mV Ankle-Fibula (head) 7.6 ms 280 mm 37 m/s *53 corrected Knee 16.5 ms 1.4 mV Fibula (head)-Knee 2.9 ms 105 mm 36 m/s *52 corrected Tibial.L Ankle 5.9 ms 3.0 mV Abductor hallucis-Ankle 5.9 ms 80 mm Popliteal fossa 14.5 ms 2.6 mV Ankle-Popliteal fossa 8.6 ms 345 mm 40 m/s Peroneal.L Fibula (head) 3.4 ms 1.5 mV Tibialis anterior-Fibula (head) 3.4 ms Popliteal fossa 5.2 ms 1.4 mV Fibula (head)-Popliteal fossa 1.8 ms 100 mm 56 m/s Peroneal.R Fibula (head) 4.0 ms 3.6 mV Tibialis anterior-Fibula (head) 4.0 ms Popliteal fossa 6.4 ms 2.5 mV Fibula (head)-Popliteal fossa 2.4 ms 100 mm 42 m/s Median.R Wrist 5.1 ms *4.1 corrected 1.6 mV Abductor pollicis brevis-Wrist 5.1 ms 60 mm Elbow 9.6 ms 1.6 mV Wrist-Elbow 4.5 ms 200 mm 44 m/s *54 corrected Ulnar.R Wrist 3.9 ms *2.9 corrected 5.2 mV Abductor digiti minimi (manus)-Wrist 3.9 ms 60 mm Below elbow 7.8 ms 4.2 mV Wrist-Below elbow 3.9 ms 180 mm 46 m/s *56 corrected Above elbow 9.6 ms 4.3 mV Below elbow-Above elbow 1.8 ms 90 mm 50 m/s F-Wave Studies Nerve M-Latency F-Latency Peroneal.R 14.6 53.4 Tibial.R 5.6 54.7 Peroneal.L 13.6 51.5 Tibial.L 14.5 56.3 Median.R 9.6 30.2 Ulnar.R 7.8 30.9 Sensory Nerve Conduction: Nerve and Site Onset Latency Peak Latency Amplitude Segment Latency Difference Distance Conduction Velocity Sural.R Lower leg 3.0 ms 4.2 ms 14 mV Ankle-Lower leg 3.0 ms 140 mm 33 m/s Sural.L Lower leg 3.5 ms 4.4 ms 4 mV Ankle-Lower leg 3.5 ms 140 mm 32 m/s Median.R Wrist 3.7 ms 5.1 ms *4.1 corrected 14 mV Digit II (index finger)-Wrist 3.7 ms 130 mm 36 m/s Ulnar.R Wrist 3.3 ms 4.1 ms *3.1 corrected 16 mV Digit V (little finger)-Wrist 3.3 ms 110 mm 33 m/s Radial.R Forearm 2.3 ms 2.9 ms 21 mV Anatomical snuff box-Forearm 2.3 ms 100 mm 34 m/s H-waves: Nerve Latency Amplitude (max) Tibial.R M-wave: 6.8 ms 2.6 mV H-wave: 33.5 ms 0.3 mV Tibial.L M-wave: 6.3 ms 2.0 mV H-wave: 33.1 ms 0.2 mV Repetitive Stimulation: Nerve Potential Amplitude Area Number Cecelia. Decr. Cecelia. Decr. Ulnar.R Baseline 10 stimuli at 2Hz 1 4.86 mV 0 % 19.50 mVms 0 % 2 4.85 mV 0 % 19.00 mVms 3 % 3 4.76 mV 2 % 18.60 mVms 5 % 4 4.76 mV 2 % 18.40 mVms 6 % 5 4.73 mV 3 % 18.00 mVms 8 % 6 4.66 mV 4 % 18.10 mVms 7 % 7 4.70 mV 3 % 18.20 mVms 7 % 8 4.83 mV 1 % 18.50 mVms 5 % 9 4.83 mV 1 % 18.00 mVms 8 % 10 4.75 mV 2 % 18.30 mVms 6 % 10 stimuli at 2Hz Immediately after exercise 1 4.77 mV 0 % 19.90 mVms 0 % 2 4.83 mV -1 % 19.40 mVms 3 % 3 4.83 mV -1 % 19.20 mVms 4 % 4 4.84 mV -1 % 19.20 mVms 4 % 5 4.88 mV -2 % 19.30 mVms 3 % 6 4.86 mV -2 % 19.20 mVms 4 % 7 4.85 mV -2 % 19.10 mVms 4 % 8 4.89 mV -3 % 19.20 mVms 4 % 9 4.97 mV -4 % 19.60 mVms 2 % 10 4.85 mV -2 % 18.70 mVms 6 % 10 stimuli at 2Hz 1 minute post-exercise 1 5.05 mV 0 % 20.60 mVms 0 % 2 5.05 mV 0 % 20.10 mVms 2 % 3 5.03 mV 0 % 19.70 mVms 4 % 4 4.90 mV 3 % 19.70 mVms 4 % 5 5.07 mV 0 % 20.00 mVms 3 % 6 5.03 mV 0 % 19.80 mVms 4 % 7 5.14 mV -2 % 20.20 mVms 2 % 8 5.07 mV 0 % 19.90 mVms 3 % 9 5.10 mV -1 % 19.90 mVms 3 % 10 5.10 mV -1 % 20.00 mVms 3 % 10 stimuli at 2Hz 2 minutes post-exercise 1 5.13 mV 0 % 21.10 mVms 0 % 2 5.16 mV -1 % 20.30 mVms 4 % 3 5.16 mV -1 % 20.40 mVms 3 % 4 5.09 mV 1 % 20.00 mVms 5 % 5 5.07 mV 1 % 19.90 mVms 6 % 6 5.10 mV 1 % 20.20 mVms 4 % 7 5.06 mV 1 % 19.80 mVms 6 % 8 5.11 mV 0 % 20.10 mVms 5 % 9 5.14 mV 0 % 20.00 mVms 5 % 10 5.06 mV 1 % 19.80 mVms 6 % 10 stimuli at 2Hz 3 minutes post-exercise 1 5.31 mV 0 % 21.30 mVms 0 % 2 5.35 mV -1 % 20.60 mVms 3 % 3 5.18 mV 2 % 19.80 mVms 7 % 4 5.22 mV 2 % 20.20 mVms 5 % 5 5.13 mV 3 % 19.80 mVms 7 % 6 5.16 mV 3 % 19.70 mVms 8 % 7 5.22 mV 2 % 19.90 mVms 7 % 8 5.18 mV 2 % 19.80 mVms 7 % 9 5.23 mV 2 % 19.90 mVms 7 % 10 5.22 mV 2 % 20.00 mVms 6 % Accessory (spinal).R 5 stimuli at 2Hz Baseline 1 1.77 mV 0 % 13.80 mVms 0 % 2 1.88 mV -6 % 14.10 mVms -2 % 3 1.65 mV 7 % 13.40 mVms 3 % 4 1.75 mV 1 % 14.10 mVms -2 % 5 1.55 mV 12 % 12.30 mVms 11 % 5 stimuli at 2Hz Immediately after exercise 1 2.56 mV 0 % 24.70 mVms 0 % 2 2.52 mV 2 % 25.40 mVms -3 % 3 2.49 mV 3 % 22.60 mVms 9 % 4 2.61 mV -2 % 25.80 mVms -4 % 5 2.43 mV 5 % 22.70 mVms 8 % 5 stimuli at 2Hz 1 minute after exercise 1 2.46 mV 0 % 21.80 mVms 0 % 2 2.30 mV 7 % 20.60 mVms 6 % 3 2.40 mV 2 % 20.20 mVms 7 % 4 2.20 mV 11 % 19.40 mVms 11 % 5 2.16 mV 12 % 17.70 mVms 19 % 5 stimuli at 2Hz 2 minutes after exercise 1 2.71 mV 0 % 24.60 mVms 0 % 2 2.58 mV 5 % 22.80 mVms 7 % 3 2.60 mV 4 % 21.40 mVms 13 % 4 2.57 mV 5 % 21.40 mVms 13 % 5 2.49 mV 8 % 21.20 mVms 14 % 5 stimuli at 2Hz 3 minutes after exercise 1 2.59 mV 0 % 25.10 mVms 0 % 2 2.60 mV 0 % 23.20 mVms 8 % 3 2.51 mV 3 % 22.30 mVms 11 % 4 2.52 mV 3 % 22.20 mVms 12 % 5 2.52 mV 3 % 20.90 mVms 17 % Needle EMG Examination: Insertional Spontaneous Activity Volitional MUAPs Muscle Insertional Fibs +Wave Fasc Duration Amplitude Poly Pattern Effort Tibialis anterior.R Increased 1+ 1+ None Sl. Incr. Sl. Incr. None Mild Reduced Max. Gastrocnemius (Med head).R Increased None None None Normal Normal None Normal Max. Vastus medialis.R Increased 2+ 1+ None Sl. Incr. Normal None Mild Reduced Sub Max. Soleus.R Increased None 2+ None Sl. Incr. Normal Few Mild Reduced Max. Adductor longus.R Increased None 1+ None Normal Normal Few Normal Max. 1st dorsal interosseous.R Increased None 2+ None Sl. Incr. Sl. Incr. Few Mild Reduced Max. Flexor carpi radialis.R CRD None None None Sl. Incr. Sl. Incr. Few Mild Reduced Max. Biceps brachii.R Normal None None None Sl. Incr. Normal Few Mild Reduced Max. Triceps brachii.R Normal None None None Sl. Incr. Sl. Incr. Few Mild Reduced Max. Deltoid.R Increased None 1+ Few Sl. Incr. Sl. Incr. Few Mild Reduced Max. Ext digitorum communis.R Increased 1+ 2+ None Sl. Incr. Normal Few Mild Reduced Max. Brachioradialis.R Increased 1+ None None Sl. Incr. Normal Few Normal Max. Genioglossus.R Normal None None None TI TI TI TI TI Genioglossus.L Normal None None None TI TI TI TI TI Thoracic paraspinal.L Increased 2+ 2+ None Normal Normal None Normal Max. TI - limited by artifact Interpretation and Conclusions: 1. Sensory studies of the bilateral sural nerves showed normal findings except for slightly low left sural amplitude. The right median and ulnar nerves showed mild prolongation of peak latencies. The right radial nerve showed normal findings. 2. Motor studies of the bilateral peroneal (EDB), left peroneal (TA), and right median and ulnar nerves showed low amplitudes otherwise normal with temperature correction. The right peroneal (TA) and bilateral tibial nerves showed normal findings. F-wave latencies were normal. 3. H-wave reflexes recording at the soleus muscles showed normal but low amplitude latencies. 4. Repetitive nerve stimulation was done recording at the right ADM (abductor digiti minimi) and trapezius using stimulations at 2 Hz with a train of 10 for ulnar and 5 for trapezius, at baseline, immediately after 1 minute of exercise, and at 1, 2, and 3 minutes post-exercise. There was no significant decrement found. 5. Electromyography of the right upper, lower, left thoracic paraspinals and genioglossus was done using a disposable concentric needle. There was abnormal spontaneous activity in the L3-S1 myotomes (adductor longus, vastus medialis, anterior tibialis, soleus) and C5-C8 (deltoid, FCR, BR, EDC, FDI), as well as mid-thoracic paraspinals. There were mild chronic neurogenic changes in all muscles tested except the gastrocnemius and the genioglossus though the latter limited by artifact. Conclusions: This is an abnormal electrodiagnostic study due to the followin. 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 There was no significant denervation in the bulbar region but testing in this region was limited by artifact. There is no electrophysiologic evidence of neuromuscular junction disorder. Lanie Cobb M.D. Performing Organization Address City/[facility] Phone Number Robin * Lipid panel (05/26/2018 4:23 AM [employer]NAGER [employer]) Triglycerides 135 mg/dL [facility] Cholesterol 122 mg/dL [facility] HDL 32 mg/dL [facility] LDL Calculated 63 mg/dL [facility] Specimen Blood Narrative Performed At Triglyceride Reference Range: [facility] Low Risk <150 [facility] [id number] High Risk 200-499 Very High Risk>=500 Cholesterol Reference Range: Low Risk <200 [id number] High Risk>240 HDL Cholesterol Reference Range: Low Risk >=60 High Risk <40 LDL Cholesterol Reference Range: Optimal<100 Near [id number] Very High >=190 Performing Organization Address [facility] Phone Number [place] [phone] [place] [address] [facility] * B-type Natriuretic Factor (BNP) (05/25/2018 1:15 PM [employer]) Only the most recent of 2 results within the time period is included. BNP 48 0 - 100 pg/mL [facility] Specimen Blood Performing Organization Address [facility] Cent[facility]ode Phone Number [facility] [address] [place] [address] [facility] * US abdomen limited (05/25/2018 12:10 PM [employer]NAGER [employer]) Narrative Performed At FINAL REPORT Robin History: Distended gallbladder, possible cholecystitis. FINDINGS: No previous ultrasounds are available for comparison. Correlation is made with CT of abdomen and pelvis performed May 24, 2018. Real-time sonographic examination of the right upper quadrant of the abdomen reveals a mildly enlarged liver measuring up to 17.4 cm in length. Hepatic echotexture appears normal. Two well-circumscribed anechoic lesions are seen in the liver, the largest in the right lobe measuring up to 3.7 x 3.0 x 3.2 cm in greatest dimensions. A smaller 1.5 x 1.2 x 1.3 cm anechoic lesion is seen in the left hepatic lobe. These are most consistent with benign hepatic cysts. No solid masses or other focal liver abnormalities are identified. The gallbladder is normal size measuring up to 3.5 cm in greatest transverse diameter. A large approximately 3.8 x 2.5 x 3.0 cm shadowing structure is seen in the gallbladder lumen, likely a large stone. There is no wall thickening or pericholecystic fluid to suggest acute cholecystitis. Sonographic Edgar sign is negative. No intra or extrahepatic ductal dilatation. The common bile duct measures up to 6 mm in diameter. No intrahepatic biliary ductal dilatation or visible intraductal stones. The portal vein measures 10 mm in diameter and appears patent by very limited color Doppler examination. The right kidney is normal size and echogenicity measuring up to 9.7 cm in length. There are no visible solid masses, cysts, stones or evidence for obstruction. Right renal cortical thickness measures 11 mm. No perinephric fluid collections are identified. The pancreas is unremarkable where visible but incompletely evaluated secondary to overlying bowel gas. Aorta and IVC are unremarkable. No ascites or abdominal fluid collections. IMPRESSION: 1. Cholelithiasis without ultrasound evidence for acute cholecystitis. 2. Probable benign hepatic cysts, the largest measuring up to 3.7 cm in the right hepatic lobe. 3. Mild hepatomegaly. Signed: Geremias Strauss MD Report Verified Date/Time:05/25/2018 13:25:12 Reading Location: [address] Ultrasound Reading Room Procedure Note Interface, External Ris In - 05/25/2018 1:27 PM MANAGER [employer]ING FINAL REPORT History: Distended gallbladder, possible cholecystitis. FINDINGS: No previous ultrasounds are available for comparison. Correlation is made with CT of abdomen and pelvis performed May 24, 2018. Real-time sonographic examination of the right upper quadrant of the abdomen reveals a mildly enlarged liver measuring up to 17.4 cm in length. Hepatic echotexture appears normal. Two well-circumscribed anechoic lesions are seen in the liver, the largest in the right lobe measuring up to 3.7 x 3.0 x 3.2 cm in greatest dimensions. A smaller 1.5 x 1.2 x 1.3 cm anechoic lesion is seen in the left hepatic lobe. These are most consistent with benign hepatic cysts. No solid masses or other focal liver abnormalities are identified. The gallbladder is normal size measuring up to 3.5 cm in greatest transverse diameter. A large approximately 3.8 x 2.5 x 3.0 cm shadowing structure is seen in the gallbladder lumen, likely a large stone. There is no wall thickening or pericholecystic fluid to suggest acute cholecystitis. Sonographic Edgar sign is negative. No intra or extrahepatic ductal dilatation. The common bile duct measures up to 6 mm in diameter. No intrahepatic biliary ductal dilatation or visible intraductal stones. The portal vein measures 10 mm in diameter and appears patent by very limited color Doppler examination. The right kidney is normal size and echogenicity measuring up to 9.7 cm in length. There are no visible solid masses, cysts, stones or evidence for obstruction. Right renal cortical thickness measures 11 mm. No perinephric fluid collections are identified. The pancreas is unremarkable where visible but incompletely evaluated secondary to overlying bowel gas. Aorta and IVC are unremarkable. No ascites or abdominal fluid collections. IMPRESSION: 1. Cholelithiasis without ultrasound evidence for acute cholecystitis. 2. Probable benign hepatic cysts, the largest measuring up to 3.7 cm in the right hepatic lobe. 3. Mild hepatomegaly. Signed: Geremias Strauss MD Report Verified Date/Time: 05/25/2018 13:25:12 Reading Location: [facility] B1 [id number] Ultrasound Reading Room Performing Organization Address City/State/Zipcode Phone Number GE RIS * RESPIRATORY PANEL [facility] (05/25/2018 11:08 AM MANAGER [employer]INING) Human Metapneumovirus Not detected Not detected, Equivocal [facility] Rhinovirus Not detected Not detected, [facility]ocal [facility] Influenza A Not detected Not detected, Equivocal [facility] INFLUENZA A (NO SUBTYPE) Not detected Not detected, Equivocal [facility] Influenza A subtype H1 Not detected Not detected, Equivocal [facility] Influenza A Subtype H3 Not detected Not detected, Equivocal [facility] Influenza A Subtype Not detected Not detected, Equivocal [facility] H1-2009 [facility] Influenza B Not detected Not detected, Equivocal [facility] Respiratory Syncytial Not detected Not detected, Equivocal [facility] Virus [facility] Parainfluenza Virus 1 Not detected Not detected, Equivocal [facility] Parainfluenza Virus 2 Not detected Not detected, Equivocal [facility] Parainfluenza virus 3 Not detected Not detected, Equivocal [facility] Parainfluenza Virus 4 Not detected Not detected, Equivocal [facility] Adenovirus Not detected Not detected, Equivocal [facility] Coronavirus 229E Not detected Not detected, Equivocal [facility] Coronavirus HKU1 Not detected Not detected, Equivocal [facility] Coronavirus NL63 Not detected Not detected, Equivocal [facility] Coronavirus OC43 Not detected Not detected, Equivocal [facility] Bordetella Pertussis Not detected Not detected, Equivocal [facility] Chlamydophila Pneumoniae Not detected Not detected, Equivocal [facility] Mycoplasma Pneumoniae Not detected Not detected, Equivocal [facility] Specimen Nasopharyngeal Narrative Performed At Other viruses and bacteria not targeted by this PCR panel cannot be excluded; [facility] therefore clinical correlation and follow up of serology, culture results, and [facility] other molecular studies is required. The results are not intended to be used as the sole means for clinical diagnosis or patient management decisions. This sample was tested at the [facility] using the [employer] Film[employer] Respiratory Panel. It is FDA cleared and has been verified and approved by the [facility] for clinical use on nasal swab specimens. It is not FDA-cleared for use on bronchial wash/lavage samples. However, for this sample type, validation was performed and test characteristics were determined and approved, by [facility] for clinical use under the Clinical Laboratory Improvement Amendments (CLIA) of 1988 requirements. Therefore, FDA clearance is not required.This laboratory is CLIA-certified and [employer] (CAP)-accredited to perform high complexity testing. Performing Organization Address City/[facility] Phone Number [address] * Vancomycin level, trough (05/25/2018 9:28 AM [employer]NAGER [employer]ING) Vancomycin Tr 6.5 (L) 10.0 - 20.0 ug/mL [facility] Specimen Blood Performing Organization Address [facility] Phone Number [address] * HIV-1 Antigen with HIV-1/2 Antibody (05/25/2018 4:47 AM MANAGER SALES TRAINING) HIV-1 Antigen with HIV NON-REACTIVE Nonreactive [facility] 1&2 Antibody [facility] Specimen Blood Performing Organization Address [facility] Phone Number [address] * Prealbumin (05/25/2018 4:47 AM [employer]GER [employer]ING) Prealbumin <3 (L) 14 - 45 mg/dL [facility] Specimen Blood Performing Organization Address [facility] Phone Number [address] * Folate, Serum (05/25/2018 4:47 AM MANAGER [employer]) Folate 2.6 (L) >=7.0 ng/mL [facility] Specimen Blood Performing Organization Address [facility] Phone Number [address] [address] [facility] * CMV PCR,quantitative (05/25/2018 12:59 AM [employer]GER [employer]ING) Only the most recent of 2 results within the time period is included. Scan Result [facility] Specimen BAL - BAL Narrative Performed At Performing Organization Address City/State/Zipcode Phone Number [facility] [address] [place], [place] * Urinalysis w/Microscopic + Reflex to Culture (05/24/2018 11:21 PM [employer]) Color, UA Yellow [facility] Clarity, UA Clear [facility] Specific Carbon, UA >1.050 (H) 1.001 - 1.035 [facility] pH, UA 6.5 5.0 - 8.0 [facility] Protein, UA 50 mg/dL (A) Negative [facility] Glucose, UA Negative Negative [facility] Ketones, UA 40 mg/dL (A) Negative [facility] Bilirubin, UA Negative Negative [facility] Blood, UA Trace (A) Negative [facility] Nitrite, UA Negative Negative [facility] Leukocytes, UA Negative Negative [facility] Urobilinogen, UA 2.0 (H) 0.2 - 1.0 mg/dL [facility] RBC, UA 4 /HPF [facility] WBC, UA 1 /HPF [facility] Mucus Many [facility] Squam Epithel, UA <1 /HPF [facility] Specimen Source [facility] Specimen Urine Performing Organization Address City/State/Zipcode Phone Number [place] [phone] [place], [place] [id number] [facility] * Sodium, random urine (05/24/2018 11:21 PM [employer]) Sodium Urine 28 meq/L [facility] Specimen Urine Narrative Performed At Reference Range: No Normals [facility] Performing Organization Address City/[facility] Phone Number [address] [address] [facility] * Creatinine, random urine (05/24/2018 11:21 PM [employer]GER [employer]) Creatinine, Ur 144.6 mg/dL [facility] Specimen Urine Narrative Performed At Reference Range: No Normals [facility] Performing Organization Address [facility] Phone Number [address] [address] [facility] * Prothrombin time/INR (05/24/2018 10:28 PM [employer]) Protime 16.6 (H) 11.7 - 14.7 seconds [facility] INR 1.3 <=5.9 [facility] Specimen Blood Narrative Performed At RECOMMENDED COUMADIN/WARFARIN INR THERAPY RANGES [facility] STANDARD DOSE: 2.0 - 3.0 Includes: PROPHYLAXIS for venous thrombosis, [facility] systemic embolization; TREATMENT for venous thrombosis and/or pulmonary embolus. HIGH RISK: Target INR is 2.5-3.5 for patients with mechanical heart valves. Performing Organization Address City/[facility] Phone Number [address] [address] [facility] * Cytology (05/24/2018 10:22 PM [employer]) Case Report Medical Cytology [facility] Report [facility] Case: [id number] Authorizing Provider:Ambrose Weinberg MDCollected: 05/24/20182 Ordering Location: [place] [address] ICUReceived: 05/25/20 18 0819 Pathologist: Thong, Vicenta Ella Specimen:Lung, Left Upper Lobe, GMS/PCP DIAGNOSIS LEFT UPPER LOBE LUNG BAL [facility] (CYTOSPINS): [facility] - NEGATIVE FOR MALIGNANCY SQUAMOUS CELLS, ACUTE INFLAMMATION, AND FEW MACROPHAGES The GMS stains are negative for Pneumocystis organisms. Other fungal elements (YEAST) are identified. No viral inclusions are seen. Signing Pathologist Direct Phone Line: [phone] CPT Code(s) 72687, 99571 [facility] CLINICAL DATA Acute hypoxemic respiratory [facility] failure, history of basal cell [facility] carcinoma SPECIMEN SOURCE LEFT UPPER LOBE LUNG BAL [facility] GROSS DESCRIPTION 20 mls mucoid; 3 cytospins, 1 [facility] Collected: [id number] Received: [id number] STATEMENT OF ADEQUACY Satisfactory [facility] SPECIAL STUDIES The interpretation of this [facility] case included the use of [facility] immunohistochemistry or special stains. GMS Immunohistochemistry technical testing was performed at [facility], Pathology Laboratory where it was developed and its performance characteristics were determined. It has not been cleared or approved by the U.S. Food and Drug Administration. The FDA has determined that such clearance or approval is not necessary. The test is used for clinical purposes. It should not be regarded as investigational or for research. This laboratory is certified under the Clinical Laboratory Improvement Amendments of 1988 (CLIA-88) as qualified to perform high complexity clinical laboratory testing. Gross assessment was [facility] [place] performed at [place], Department of [facility] Pathology, [address] [place] [id number], Technical component was [facility] [place] [facility] [place] performed at [place], [facility] Pathology, [address] [place] [id number], Professional component [facility] [place] [facility] [place] was performed at [place], Department [facility] Pathology, [address] [place] [id number], Specimen BAL - Lung, Left Upper Lobe Narrative Performed At Performing Organization Address [facility]/Zipcode Phone Number [facility] [address] [place] [address] [facility] * Body fluid cell count with differential (05/24/2018 8:45 PM [employer]NAGER [employer]) Appearance Slightly Cloudy (A) Clear [facility] Color Colorless Colorless, Straw [facility] RBCs 1,530 (H) <=1 /cu mm [facility] Adjusted WBC Count 1,545 (H) <=5 /cu mm [facility] Lining Cells 15 (H) <=1 /cu mm [facility] % Segs 83 % [facility] % Lymphs 9 % [facility] % Monos 8 % [facility] % Eos 0 % [facility] % Baso 0 % [facility] Container Body Fluid EDTA Tube [facility] Specimen BAL - Lung, Left Upper Lobe Performing Organization Address [facility]/Zipcode Phone Number [facility] [address] [place] [address] [facility] * SPIN/CONCENTRATION CHARGE (05/24/2018 8:44 PM [employer]GER [employer]) Concentration charged Done [facility] Specimen BAL - Lung, Left Upper Lobe Performing Organization Address City/[facility]/Zipcode Phone Number [facility] [address] [place] [address] [facility] * AFB culture + smear (05/24/2018 8:44 PM [employer]GER [employer]) Result No acid-fast bacilli isolated [facility] in 42 days [facility] AFB Smear No acid fast bacilli seen [facility] Specimen BAL - Lung, Left Upper Lobe Performing Organization Address [facility]/Zipcode Phone Number [facility] [address] [place] [phone] [facility] * Legionella culture (05/24/2018 8:44 PM [employer]GER [employer]) Result No Legionella species isolated [facility] Specimen BAL - Lung, Left Upper Lobe Performing Organization Address [facility]ode Phone Number [facility] [address] [place] [address] [facility] * Bacterial culture + gram stain (05/24/2018 8:44 PM [employer]GER [employer]) Result 3+ Normal respiratory jeb [facility] Gram Stain Result 2+ WBCs [facility] Gram Stain Result No organisms seen [facility] Specimen BAL - Lung, Left Upper Lobe Performing Organization Address [facility] Centercoor Phone Number [address] [address] [facility] * Fungus culture + smear (05/24/2018 8:44 PM [employer]GER [employer]) Result KAROL TROPICALIS (A) [facility] Result YEAST (A) [facility] Fungus Smear No fungi seen [facility] Specimen BAL - Lung, Left Upper Lobe Narrative Performed At Corrected report: mold entered in error. [facility] Performing Organization Address [facility] Centercoor Phone Number [address] [address] [facility] * Venous doppler legs bilateral (05/24/2018 5:49 PM [employer]GER [employer]) Ejection Fraction [facility]ART[facility] MKCKESSON CPACS Impressions Performed At Right Impression [facility] 1. There is no deep venous obstruction in the common femoral, profunda MKCKESSON CPACS femoral, femoral, popliteal, posterior tibial or peroneal veins. 2. There is no superficial venous obstruction in the great saphenous vein. Left Impression 1. There is no deep venous obstruction in the common femoral, profunda femoral, femoral, popliteal, posterior tibial or peroneal veins. 2. There is no superficial venous obstruction in the great saphenous vein. Conclusions Summary Venous duplex imaging and compression of the bilateral lower extremities were performed. The veins were adequately visualized. The bilateral venous systems were patent and compressible with no evidence of thrombus. The venous Doppler waveforms were phasic with respiration . Signature Velocities are measured in cm/s ; Diameters are measured in cm Narrative Performed At [facility] - Lower Extremities DVT Study [facility] Demographics [facility] Patient NameCOLLINS,Date of Study 05/24/2018 MAIRA 68 Visit [id number] male of 1950 Referring Stella Pringle Room Number [id number] Physician Daphne Net Technical Architect Richy Fatima Aisha Physician MD Ritesh Juan Procedure Type of Study: Veins: Lower Extremities DVT Study, VENOUS DOPPLER LEG, BILATERAL. Indications for Study:Arm swelling and concern for thrombus. Patient Status:TODAY. Study Location:Portable. Technical Quality:Adequate visualization. Risk Factors History of Disease + + + + !Diagnosis!Date!Comments ! + + + + !History/Risk Factors:!05/24/2018!HTN, DM, Morbid obesity! + + + + Procedure Note Interface, External Ris In - 05/25/2018 9:37 AM MANAGER [employer]ING [facility] - Lower Extremities DVT Study Demographics Patient Name EARLY, Date of Study 05/24/2018 MAIRA Age 68 Visit Number [id number] Gender Female Accession Number [id number] Date of 1950 Referring Stella Pringle Room Number [id number] Physician Daphne Net Technical Architect Richy Sanchez Interpreting Veronica Fatima S Physician MD Ritesh Juan Procedure Type of Study: Veins: Lower Extremities DVT Study, VENOUS DOPPLER LEG, BILATERAL. Indications for Study:Arm swelling and concern for thrombus. Patient Status:TODAY. Study Location:Portable. Technical Quality:Adequate visualization. Risk Factors History of Disease + + + + !Diagnosis !Date !Comments ! + + + + !History/Risk Factors: !05/24/2018!HTN, DM, Morbid obesity ! + + + + Impressions Right Impression 1. There is no deep venous obstruction in the common femoral, profunda femoral, femoral, popliteal, posterior tibial or peroneal veins. 2. There is no superficial venous obstruction in the great saphenous vein. Left Impression 1. There is no deep venous obstruction in the common femoral, profunda femoral, femoral, popliteal, posterior tibial or peroneal veins. 2. There is no superficial venous obstruction in the great saphenous vein. Conclusions Summary Venous duplex imaging and compression of the bilateral lower extremities were performed. The veins were adequately visualized. The bilateral venous systems were patent and compressible with no evidence of thrombus. The venous Doppler waveforms were phasic with respiration . Signature Velocities are measured in cm/s ; Diameters are measured in cm Performing Organization Address City/State/Zipcode Phone Number [facility] [employer] * Venous doppler arms bilateral (05/24/2018 5:49 PM MANAGER SAL[employer] TRAINING) Ejection Fraction [facility]CHO HEART[facility] ?ESSON CPACS Impressions Performed At Right Impression [facility] [employer] 1. There is no deep venous obstruction in the jugular, subclavian, axillary, [employer] brachial, radial or ulnar veins. 2. There is no superficial venous obstruction in the cephalic or basilic veins. Left Impression 1. There is no deep venous obstruction in the jugular, subclavian, axillary, brachial, radial or ulnar veins. 2. There is no superficial venous obstruction in the cephalic or basilic veins. Conclusions Summary Venous duplex imaging and compression of the bilateral upper extremities was performed. The veins were adequately visualized. The bilateral venous systems were patent and compressible with no evidence of thrombus. Signature Velocities are measured in cm/s ; Diameters are measured in cm Narrative Performed At [facility] - Upper Extremities Veins [facility]ART[facility] Demographics [facility] Patient NameCOLLINS,Date of Study 05/24/2018 MAIRA 68 Visit [id number] male of 1950 Referring Stella Pringle Room Number [id number] Physician Daphne Net Technical Architect SHMAIR Henley Physician MD Ritesh Juan Procedure Type of Study: Veins: Upper Extremities Veins, VENOUS DOPPLER ARMS, BILATERAL. Indications for Study:Leg swelling and concern for thrombus. Patient Status:TODAY. Study Location:Portable. Technical Quality:Adequate visualization. Risk Factors History of Disease + + + + !Diagnosis!Date!Comments ! + + + + !History/Risk Factors:!05/24/2018!HTN, DM, Morbid obesity! + + + + Procedure Note Interface, External Ris In - 05/25/2018 9:36 AM MANAGER SALES TRAINING [facility] - Upper Extremities Veins Demographics Patient Name EARLY, Date of Study 05/24/2018 MAIRA Age 68 Visit Number [id number] Gender Female Accession Number [id number] Date of 1950 Referring Stella Pringle Room Number [id number] Physician Daphne Net Technical Architect Richy Sanchez Interpreting Veronica Fatima S Physician MD Ritesh Juan Procedure Type of Study: Veins: Upper Extremities Veins, VENOUS DOPPLER ARMS, BILATERAL. Indications for Study:Leg swelling and concern for thrombus. Patient Status:TODAY. Study Location:Portable. Technical Quality:Adequate visualization. Risk Factors History of Disease + + + + !Diagnosis !Date !Comments ! + + + + !History/Risk Factors: !05/24/2018!HTN, DM, Morbid obesity ! + + + + Impressions Right Impression 1. There is no deep venous obstruction in the jugular, subclavian, axillary, brachial, radial or ulnar veins. 2. There is no superficial venous obstruction in the cephalic or basilic veins. Left Impression 1. There is no deep venous obstruction in the jugular, subclavian, axillary, brachial, radial or ulnar veins. 2. There is no superficial venous obstruction in the cephalic or basilic veins. Conclusions Summary Venous duplex imaging and compression of the bilateral upper extremities was performed. The veins were adequately visualized. The bilateral venous systems were patent and compressible with no evidence of thrombus. Signature Velocities are measured in cm/s ; Diameters are measured in cm Performing Organization Address City/State/Zipcode Phone Number [facility] [employer] [facility] MKCKESSON CPACS * MR cervical spine without & with IV contrast (05/24/2018 4:59 PM MANAGER SAL[employer]INING) Narrative Performed At FINAL REPORT [facility] MRI cervical spine with and without contrast 05/24/2018 at 1631. CLINICAL HISTORY: Neck pain, progressive weakness. TECHNIQUE: MRI of the cervical spine was performed utilizing the following sequences: Sagittal T1, T2, STIR; axial T1 and T2; postcontrast sagittal and axial T1. COMPARISON: None available. FINDINGS: The spinal cord is normal in size and contains no areas of abnormal signal intensity or enhancement. There is no fracture or malalignment. The skeleton is osteopenic. There are no osteolytic or osteoblastic lesions. Spinal canal diameter is within normal limits. Degenerative changes result in central canal and foraminal stenosis as follows: C2-3: Mild left foraminal stenosis. C3-4: Severe bilateral foraminal stenosis. C4-5: Mild central canal stenosis. Severe bilateral foraminal stenosis. C5-6: Moderate central canal stenosis. Severe bilateral foraminal stenosis. C6-7: Moderate central canal stenosis. Severe bilateral foraminal stenosis. There is atelectasis in the visualized left upper lung, with surrounding circumferential pleural fluid. IMPRESSION: 1. Normal cervical spinal cord. 2. Chronic appearing degenerative changes, without high-grade central canal stenosis. 3. Left upper lung atelectasis with surrounding pleural fluid. Signed: Vineet Macedo MD Report Verified Date/Time:05/24/2018 16:37:21 Reading Location: [address] Neuro Reading Room Procedure Note Interface, External Ris In - 05/24/2018 5:01 PM MANAGER SAL[employer] TRAINING FINAL REPORT MRI cervical spine with and without contrast 05/24/2018 at 1631. CLINICAL HISTORY: Neck pain, progressive weakness. TECHNIQUE: MRI of the cervical spine was performed utilizing the following sequences: Sagittal T1, T2, STIR; axial T1 and T2; postcontrast sagittal and axial T1. COMPARISON: None available. FINDINGS: The spinal cord is normal in size and contains no areas of abnormal signal intensity or enhancement. There is no fracture or malalignment. The skeleton is osteopenic. There are no osteolytic or osteoblastic lesions. Spinal canal diameter is within normal limits. Degenerative changes result in central canal and foraminal stenosis as follows: C2-3: Mild left foraminal stenosis. C3-4: Severe bilateral foraminal stenosis. C4-5: Mild central canal stenosis. Severe bilateral foraminal stenosis. C5-6: Moderate central canal stenosis. Severe bilateral foraminal stenosis. C6-7: Moderate central canal stenosis. Severe bilateral foraminal stenosis. There is atelectasis in the visualized left upper lung, with surrounding circumferential pleural fluid. IMPRESSION: 1. Normal cervical spinal cord. 2. Chronic appearing degenerative changes, without high-grade central canal stenosis. 3. Left upper lung atelectasis with surrounding pleural fluid. Signed: Vineet Macedo MD Report Verified Date/Time: 05/24/2018 16:37:21 Reading Location: [address] Neuro Reading Room Performing Organization Address City/State/Zipcode Phone Number [employer] [facility] * MR brain without & with IV contrast (05/24/2018 4:59 PM MANAGER SALES TRAINING) Narrative Performed At FINAL REPORT [facility] MRI Brain with and without contrast 05/24/2018 4:53 PM CLINICAL HISTORY: Neuro deficit(s), subacute ? MS, ALS, motor neuron disease; progressive weakness TECHNIQUE: Multiplanar, multisequence MR imaging of the brain was performed, utilizing the following imaging sequences: Axial T1, T2, FLAIR, GRE, DWI/ADC; sagittal T1; postcontrast axial, sagittal, and coronal T1. COMPARISON: None available. FINDINGS: There is no acute infarct, mass, hematoma, hydrocephalus, extra-axial collection, or abnormal intracranial enhancement. There is mild chronic supratentorial white matter leukoencephalopathy, which may be of microvascular or demyelinating etiology. There is generalized parenchymal volume loss. Normal appearing flow-voids are present within the major intracranial vascular structures. The sellar and pineal regions are normal. The craniovertebral junction is intact. The orbits, face, and skull base are without worrisome finding. IMPRESSION: Mild chronic supratentorial white matter leukoencephalopathy. No acute intracranial abnormality. Signed: Vineet Macedo MD Report Verified Date/Time:05/24/2018 16:55:17 Reading Location: [address] Neuro Reading Room Procedure Note Interface, External Ris In - 05/24/2018 5:01 PM MANAGER SAL[employer] TRAINING FINAL REPORT MRI Brain with and without contrast 05/24/2018 4:53 PM CLINICAL HISTORY: Neuro deficit(s), subacute ? MS, ALS, motor neuron disease; progressive weakness TECHNIQUE: Multiplanar, multisequence MR imaging of the brain was performed, utilizing the following imaging sequences: Axial T1, T2, FLAIR, GRE, DWI/ADC; sagittal T1; postcontrast axial, sagittal, and coronal T1. COMPARISON: None available. FINDINGS: There is no acute infarct, mass, hematoma, hydrocephalus, extra-axial collection, or abnormal intracranial enhancement. There is mild chronic supratentorial white matter leukoencephalopathy, which may be of microvascular or demyelinating etiology. There is generalized parenchymal volume loss. Normal appearing flow-voids are present within the major intracranial vascular structures. The sellar and pineal regions are normal. The craniovertebral junction is intact. The orbits, face, and skull base are without worrisome finding. IMPRESSION: Mild chronic supratentorial white matter leukoencephalopathy. No acute intracranial abnormality. Signed: Vineet Macedo MD Report Verified Date/Time: 05/24/2018 16:55:17 Reading Location: [address] Neuro Reading Room Performing Organization Address City/State/Zipcode Phone Number [facility] * ECHOCARDIOGRAM REPORT - SCAN (05/24/2018 3:50 PM MANAGER SALES TRAINING) Narrative Performed At * CT abdomen/pelvis with IV contrast (05/24/2018 2:40 PM MANAGER SALES TRAINING) Narrative Performed At FINAL REPORT Robin CT of the Chest, abdomen and pelvis dated Clinical information: Weight loss, unintended, non-localized abd pain Comment:Axial images of the chest, abdomen, and pelvis were obtained from thoracic inlet to the pubic symphysis [with GI and intravenous] contrast. This exam was performed according to our departmental dose-optimization program, which includes automated exposure control, adjustment of the mA and/or kV according to patient size and/or use of interactive reconstruction technique. Heart is normal in size.Great vessels are unremarkable. No adenopathy in the mediastinum or perihilar region. Trachea and mainstem bronchi are patent. Vague filling defects are seen in the right lower lobe pulmonary arteries. This may be artifactual. Recommend clinical correlation or further evaluated with CT PE protocol if is clinically indicated. There is atelectasis involving the left upper and lower lobe but. Subsegmental atelectasis is seen in the right lower lobe. Liver and spleen are normal in size. A cyst is seen in the right hepatic dome measuring 3 cm in size. A 1.5 cm cyst is seen in the lateral segment left hepatic lobe. Gallbladder is distended. Sludge is seen in the gallbladder. No biliary dilatation is noted. Pancreas and adrenals are unremarkable. Both kidneys are normal in size and functioning with bilateral excretion.No hydronephrosis, hydroureter, or urolithiasis is noted. The opacified small and large bowel are unremarkable. Appendix is not visualized. Uterus is normal in size. A 5.6 x 6.8 cm subserosal fibroid is noted. Diabetes seen. A 3.2 x 7.9 cm cyst is seen in the left adnexa suggestive of a left ovarian cyst. Impression: 1. Vague filling defects in the right lower lobe pulmonary artery. Please correlate clinically or further evaluate with CT PE study. 2. Atelectasis involving the left upper and lower lobe subsegmental atelectasis in the right lower lobe. 3. Liver cysts. 4. Left ovary cyst. Recommend follow-up with pelvic ultrasound. 5. Uterine leiomyoma. Signed: Ani Knox MD Report Verified Date/Time:05/24/2018 15:16:50 Reading Location: [address] Consult Reading Room Procedure Note Interface, External Ris In - 05/24/2018 3:18 PM MANAGER SALES TRAINING FINAL REPORT CT of the Chest, abdomen and pelvis dated Clinical information: Weight loss, unintended, non-localized abd pain Comment: Axial images of the chest, abdomen, and pelvis were obtained from thoracic inlet to the pubic symphysis [with GI and intravenous] contrast. This exam was performed according to our departmental dose-optimization program, which includes automated exposure control, adjustment of the mA and/or kV according to patient size and/or use of interactive reconstruction technique. Heart is normal in size. Great vessels are unremarkable. No adenopathy in the mediastinum or perihilar region. Trachea and mainstem bronchi are patent. Vague filling defects are seen in the right lower lobe pulmonary arteries. This may be artifactual. Recommend clinical correlation or further evaluated with CT PE protocol if is clinically indicated. There is atelectasis involving the left upper and lower lobe but. Subsegmental atelectasis is seen in the right lower lobe. Liver and spleen are normal in size. A cyst is seen in the right hepatic dome measuring 3 cm in size. A 1.5 cm cyst is seen in the lateral segment left hepatic lobe. Gallbladder is distended. Sludge is seen in the gallbladder. No biliary dilatation is noted. Pancreas and adrenals are unremarkable. Both kidneys are normal in size and functioning with bilateral excretion. No hydronephrosis, hydroureter, or urolithiasis is noted. The opacified small and large bowel are unremarkable. Appendix is not visualized. Uterus is normal in size. A 5.6 x 6.8 cm subserosal fibroid is noted. Diabetes seen. A 3.2 x 7.9 cm cyst is seen in the left adnexa suggestive of a left ovarian cyst. Impression: 1. Vague filling defects in the right lower lobe pulmonary artery. Please correlate clinically or further evaluate with CT PE study. 2. Atelectasis involving the left upper and lower lobe subsegmental atelectasis in the right lower lobe. 3. Liver cysts. 4. Left ovary cyst. Recommend follow-up with pelvic ultrasound. 5. Uterine leiomyoma. Signed: Ani Knox MD Report Verified Date/Time: 05/24/2018 15:16:50 Reading Location: [address] Consult Reading Room Performing Organization Address City/State/Zipcode Phone Number [facility] * CT chest with IV contrast (05/24/2018 2:40 PM MANAGER SALES TRAINING) Narrative Performed At FINAL REPORT Robin CT of the Chest, abdomen and pelvis dated Clinical information: Weight loss, unintended, non-localized abd pain Comment:Axial images of the chest, abdomen, and pelvis were obtained from thoracic inlet to the pubic symphysis [with GI and intravenous] contrast. This exam was performed according to our departmental dose-optimization program, which includes automated exposure control, adjustment of the mA and/or kV according to patient size and/or use of interactive reconstruction technique. Heart is normal in size.Great vessels are unremarkable. No adenopathy in the mediastinum or perihilar region. Trachea and mainstem bronchi are patent. Vague filling defects are seen in the right lower lobe pulmonary arteries. This may be artifactual. Recommend clinical correlation or further evaluated with CT PE protocol if is clinically indicated. There is atelectasis involving the left upper and lower lobe but. Subsegmental atelectasis is seen in the right lower lobe. Liver and spleen are normal in size. A cyst is seen in the right hepatic dome measuring 3 cm in size. A 1.5 cm cyst is seen in the lateral segment left hepatic lobe. Gallbladder is distended. Sludge is seen in the gallbladder. No biliary dilatation is noted. Pancreas and adrenals are unremarkable. Both kidneys are normal in size and functioning with bilateral excretion.No hydronephrosis, hydroureter, or urolithiasis is noted. The opacified small and large bowel are unremarkable. Appendix is not visualized. Uterus is normal in size. A 5.6 x 6.8 cm subserosal fibroid is noted. Diabetes seen. A 3.2 x 7.9 cm cyst is seen in the left adnexa suggestive of a left ovarian cyst. Impression: 1. Vague filling defects in the right lower lobe pulmonary artery. Please correlate clinically or further evaluate with CT PE study. 2. Atelectasis involving the left upper and lower lobe subsegmental atelectasis in the right lower lobe. 3. Liver cysts. 4. Left ovary cyst. Recommend follow-up with pelvic ultrasound. 5. Uterine leiomyoma. Signed: Ani Knox MD Report Verified Date/Time:05/24/2018 15:16:50 Reading Location: [address] Consult Reading Room Procedure Note Interface, External Ris In - 05/24/2018 3:18 PM MANAGER SALES TRAINING FINAL REPORT CT of the Chest, abdomen and pelvis dated Clinical information: Weight loss, unintended, non-localized abd pain Comment: Axial images of the chest, abdomen, and pelvis were obtained from thoracic inlet to the pubic symphysis [with GI and intravenous] contrast. This exam was performed according to our departmental dose-optimization program, which includes automated exposure control, adjustment of the mA and/or kV according to patient size and/or use of interactive reconstruction technique. Heart is normal in size. Great vessels are unremarkable. No adenopathy in the mediastinum or perihilar region. Trachea and mainstem bronchi are patent. Vague filling defects are seen in the right lower lobe pulmonary arteries. This may be artifactual. Recommend clinical correlation or further evaluated with CT PE protocol if is clinically indicated. There is atelectasis involving the left upper and lower lobe but. Subsegmental atelectasis is seen in the right lower lobe. Liver and spleen are normal in size. A cyst is seen in the right hepatic dome measuring 3 cm in size. A 1.5 cm cyst is seen in the lateral segment left hepatic lobe. Gallbladder is distended. Sludge is seen in the gallbladder. No biliary dilatation is noted. Pancreas and adrenals are unremarkable. Both kidneys are normal in size and functioning with bilateral excretion. No hydronephrosis, hydroureter, or urolithiasis is noted. The opacified small and large bowel are unremarkable. Appendix is not visualized. Uterus is normal in size. A 5.6 x 6.8 cm subserosal fibroid is noted. Diabetes seen. A 3.2 x 7.9 cm cyst is seen in the left adnexa suggestive of a left ovarian cyst. Impression: 1. Vague filling defects in the right lower lobe pulmonary artery. Please correlate clinically or further evaluate with CT PE study. 2. Atelectasis involving the left upper and lower lobe subsegmental atelectasis in the right lower lobe. 3. Liver cysts. 4. Left ovary cyst. Recommend follow-up with pelvic ultrasound. 5. Uterine leiomyoma. Signed: Ani Knox MD Report Verified Date/Time: 05/24/2018 15:16:50 Reading Location: [facility] [id number] Consult Reading Room Performing Organization Address City/State/Zipcode Phone Number GE RIS * Rapid Influenza A&B Screen (05/24/2018 12:38 PM MANAGER SALES TRAINING) Rapid Influenza A Antigen NEGATIVE LABORATORY FINDING Negative, Inconclusive [facility] Rapid influenza B Antigen NEGATIVE LABORATORY FINDING Negative, Inconclusive [facility] Specimen Nasal - Nares Performing Organization Address City/[facility]/Zipcode Phone Number [facility] * MRSA screen (05/24/2018 12:38 PM MANAGER SALES TRAINING) Result No MRSA isolated [facility] Specimen Nasal - Nares Performing Organization Address [facility] Phone Number [place] [phone] * TSH/Free T4 If Indicated (05/24/2018 12:28 PM MANAGER SALES TRAINING) TSH 1.88 0.35 - 4.94 uIU/mL [facility] Specimen Blood Performing Organization Address [facility] Phone Number [address] * Folate, RBC (05/24/2018 12:28 PM MANAGER SALES TRAINING) Folate, Rbc 606 >280 ng/mL RBC [facility] Specimen Blood Narrative Performed At Performing Lab [facility] [place] [address] [address] Delia Dow MD, PhD, [place] Performing Organization Address [facility] Phone Number [facility], [address] [place] [id number] * Vitamin B12 (05/24/2018 12:28 PM MANAGER SALES TRAINING) Vitamin B12 411 213 - 816 pg/mL [facility] Specimen Blood Performing Organization Address [facility] Phone Number [address] * 2D Echo W/Doppler(CW/PW/Color) (05/24/2018 10:47 AM MANAGER SALES TRAINING) Ejection Fraction [facility] Narrative Performed At Transthoracic Echocardiography Report (TTE) [facility] Demographics [facility] Patient Name EARLY, Date of Study 05/24/2018 MAIRA [id number] GenderFemale Visit Number [id number] RaceUnknown [id number] Number [id number] Number Date of Birth1950 Referring Physician Ambrose Weinberg MD Age68 year(s) Net Technical Architect Daria Benito [facility] Tere Davila InterpretingBuddy Coppola MD Physician Procedure Type of Study TTE procedure:2DECHO W DOPPLER(CW/PW/COLOR) (STAT) Indications:Shortness of breath. Clinical History HTN, DM, Former smoker, Asthma, AVERY on BiPAP, Hypoxemic, Hypercapnic, Intubated, Progressive weaknes, PINO, Basal cell carcinoma HGB 12.2 HCT 40.1 % Contrast Medium: Definity. Amount - 2 ml Height: 62 inches Weight: 112.04 kg (247 lbs) BSA: 2.09 m^2 BMI: 45.18 kg/m^2 HR: 83 bpm BP: 111/54 mmHg Summary 1. Normal LV size and function. LVEF is > 60% 2. Diastology: Unable to comment due to presence of significant MAC 3. Normal RV size and function 4. No significant valvular heart disease 5. Mild TR. Estimated PASP is 45-50 mm Hg 6. No pericardial effusion noted Previous Study No prior exam available for comparison. Signature Findings Technical Quality: Technically difficult exam. Left Ventricle The left ventricle is chamber size (by PSLAX dimension) is normal (female - LVIDd 3.8-5.2cm) . Normal LV wall thickness. All of the LV segments contract normally . Global LV systolic function normal . Estimated LVEF by qualitative assessment is normal (60%) . LV endocardium is adequately visualized with IV ultrasound enhancing agent. Degree of diastolic dysfunction (LAP assessment) is inconclusive due to mitral annular calcification . Increased (cardiac index 3.5-4.0 L/min/m2) cardiac output state at rest is noted. Left AtriumLA size is moderately enlarged (42-48 ml/m2) . Right VentricleThe right ventricular chamber size and systolic function are within normal limits. Right Atrium RA cavity size is normal . Aortic Valve Mild AoV cusp thickening and calcification. AoV cusp mobility is normal . A trace of aortic regurgitation. Mitral Valve Moderate mitral annular calcification. Tricuspid ValveMild tricuspid regurgitation. Estimated peak systolic PA pressure is 45-50 mmHg . Pulmonic Valve Normal PV structure and function by limited views and Doppler. AortaAortic root size (SInus of Valsalva diameter) is normal . Proximal ascending aorta size is normal . PericardiumNo significant pericardial effusion is visualized. IVC/SVC/PA/PV/PleuralThe estimated RA pressure by IVC dynamics 16-20mmHg . Chambers/Structures Left Atrium LA Volume: 93.19 ml LA Area: 26.68 cm^2 LA Vol. Index: 45 ml/m^2 Left Ventricle LVIDd: 3.89 cm LVEDV:80.77 ml LV Septum Diastolic: 0.95 cm LV PW Diastolic: 0.98 cm LVOT Diameter: 2.11 cm Right Atrium RA Vol. (Sngl Plane): 37.87 ml Right Ventricle TAPSE: 2.37 cm Aorta Ao Root S of Cecelia.: 2.85 cmAscending Aorta: 3.37 cm Doppler/Quantitative Measurements Mitral Valve MV Peak E-Wave: 0.74 m/sMV Peak A-Wave: 1.11 m/s E/A Ratio: 0.66 Peak Gradient: 2.17 mmHg Deceleration Time: 141 msec MV Noe. Peak: Tissue Doppler E' Lateral Velocity: 0.06 m/s E/E': 12.95 Aortic Valve Peak Velocity: 1.93 m/sMean Velocity: 1.37 m/s Peak Gradient: 14.89 mmHgMean Gradient: 8.44 mmHg AV Area (continuity): 2.87 cm^2 AV VTI: 35.78 cm AV DVI: 0.82 LVOT Peak Velocity: 1.37 m/s Peak Gradient: 7.5 mmHg Mean Velocity: 0.94 m/s Mean Gradient: 4.01 mmHg LVOT Diameter: 2.11 cmLVOT VTI: 29.35 cm LVOT Area: 3.5 cm^2 LVOT SV:102.58 ml LVOT CO: 8.51 l/min LVOT CI: 4.07 l/min/m^2 Tricuspid Valve TR Velocity: 2.84 m/s TR Gradient: 32.34 mmHg Procedure Note Interface, External Ris In - 05/24/2018 3:06 PM MANAGER SALES TRAINING Transthoracic Echocardiography Report (TTE) Demographics Patient Name EARLY, Date of Study 05/24/2018 MAIRA Gender Female Visit Number [id number] Race Unknown Room Number 7106 Number Date of 1950 Referring Physician Ambrose Weinberg MD Age 68 year(s) Net Technical Architect Daria Benito, [facility] Box Folding Machine Operator Ashlie Davila Interpreting Buddy Coppola MD Physician Procedure Type of Study TTE procedure:2DECHO W DOPPLER(CW/PW/COLOR) (STAT) Indications:Shortness of breath. Clinical History HTN, DM, Former smoker, Asthma, AVERY on BiPAP, Hypoxemic, Hypercapnic, Intubated, Progressive weaknes, PINO, Basal cell carcinoma HGB 12.2 HCT 40.1 % Contrast Medium: Definity. Amount - 2 ml Height: 62 inches Weight: 112.04 kg (247 lbs) BSA: 2.09 m^2 BMI: 45.18 kg/m^2 HR: 83 bpm BP: 111/54 mmHg Summary 1. Normal LV size and function. LVEF is > 60% 2. Diastology: Unable to comment due to presence of significant MAC 3. Normal RV size and function 4. No significant valvular heart disease 5. Mild TR. Estimated PASP is 45-50 mm Hg 6. No pericardial effusion noted Previous Study No prior exam available for comparison. Signature Findings Technical Quality: Technically difficult exam. Left Ventricle The left ventricle is chamber size (by PSLAX dimension) is normal (female - LVIDd 3.8-5.2cm) . Normal LV wall thickness. All of the LV segments contract normally . Global LV systolic function normal . Estimated LVEF by qualitative assessment is normal (60%) . LV endocardium is adequately visualized with IV ultrasound enhancing agent. Degree of diastolic dysfunction (LAP assessment) is inconclusive due to mitral annular calcification . Increased (cardiac index 3.5-4.0 L/min/m2) cardiac output state at rest is noted. Left Atrium LA size is moderately enlarged (42-48 ml/m2) . Right Ventricle The right ventricular chamber size and systolic function are within normal limits. Right Atrium RA cavity size is normal . Aortic Valve Mild AoV cusp thickening and calcification. AoV cusp mobility is normal . A trace of aortic regurgitation. Mitral Valve Moderate mitral annular calcification. Tricuspid Valve Mild tricuspid regurgitation. Estimated peak systolic PA pressure is 45-50 mmHg . Pulmonic Valve Normal PV structure and function by limited views and Doppler. Aorta Aortic root size (SInus of Valsalva diameter) is normal . Proximal ascending aorta size is normal . Pericardium No significant pericardial effusion is visualized. IVC/SVC/PA/PV/Pleural The estimated RA pressure by IVC dynamics 16-20mmHg . Chambers/Structures Left Atrium LA Volume: 93.19 ml LA Area: 26.68 cm^2 LA Vol. Index: 45 ml/m^2 Left Ventricle LVIDd: 3.89 cm LVEDV:80.77 ml LV Septum Diastolic: 0.95 cm LV PW Diastolic: 0.98 cm LVOT Diameter: 2.11 cm Right Atrium RA Vol. (Sngl Plane): 37.87 ml Right Ventricle TAPSE: 2.37 cm Aorta Ao Root S of Cecelia.: 2.85 cm Ascending Aorta: 3.37 cm Doppler/Quantitative Measurements Mitral Valve MV Peak E-Wave: 0.74 m/s MV Peak A-Wave: 1.11 m/s E/A Ratio: 0.66 Peak Gradient: 2.17 mmHg Deceleration Time: 141 msec MV Noe. Peak: Tissue Doppler E' Lateral Velocity: 0.06 m/s E/E': 12.95 Aortic Valve Peak Velocity: 1.93 m/s Mean Velocity: 1.37 m/s Peak Gradient: 14.89 mmHg Mean Gradient: 8.44 mmHg AV Area (continuity): 2.87 cm^2 AV VTI: 35.78 cm AV DVI: 0.82 LVOT Peak Velocity: 1.37 m/s Peak Gradient: 7.5 mmHg Mean Velocity: 0.94 m/s Mean Gradient: 4.01 mmHg LVOT Diameter: 2.11 cm LVOT VTI: 29.35 cm LVOT Area: 3.5 cm^2 LVOT SV:102.58 ml LVOT CO: 8.51 l/min LVOT CI: 4.07 l/min/m^2 Tricuspid Valve TR Velocity: 2.84 m/s TR Gradient: 32.34 mmHg Performing Organization Address [facility] Phone Number [facility] MKCKESSON CPA * Sjogren's antibodies (05/24/2018 10:23 AM MANAGER SALES TRAINING) Anti-Ss-A <1.0 NEG <1.0 NEGATIVE AI [facility] Anti-Ss-B <1.0 NEG <1.0 NEGATIVE AI [facility] Specimen Blood Narrative Performed At Performing Lab [facility] [employer] [address] Delia Dow MD, PhD, [place] Performing Organization Address [facility] [place] Phone Number [facility] [place], [address] [place], [place] [address] [employer] [id number] * Anti-SHIRA Ab (RNA, Hendricks[place]) (05/24/2018 10:23 AM MANAGER SALES TRAINING) Sm Antibody <1.0 NEG <1.0 NEGATIVE AI [facility] Sm/TOMOGRAPHY TECHNOLOGIST Antibody <1.0 NEG <1.0 NEGATIVE AI [facility] Specimen Blood Narrative Performed At Performing Lab [facility] [employer] [address] [address] Delia Dow MD, PhD, [place] Performing Organization Address [facility] [place] Phone Number [facility], [address] [place], [place] [address] [address] * Double-Stranded DNA (dsDNA) Antibody (05/24/2018 10:23 AM MANAGER SALES TRAINING) ds DNA Ab Negative [facility] Specimen Blood Performing Organization Address City/[facility] [place] [phone] [place] [address] * Anti-Nuclear Antibody (GIOVANNI) (05/24/2018 10:23 AM MANAGER SALES TRAINING) GIOVANNI Negative Negative [facility] Specimen Blood Narrative Performed At Test performed by IFA method. [facility] Test performed by IFA method. [facility] Performing Organization Address [facility] Phone Number [place] [phone] * Creatine Kinase (CK) (05/24/2018 10:23 AM MANAGER SALES TRAINING) Total CK 196 29 - 200 U/L [facility] Specimen Blood Performing Organization Address [facility] [place] [address] [phone] [place] [address] * Blood culture (05/23/2018 9:59 PM MANAGER SALES TRAINING) Only the most recent of 2 results within the time period is included. Result No growth in 5 days [facility] Specimen Blood - Arm, Left Performing Organization Address [facility] [place] [address] [phone] * Strep pneumoniae antigen (05/23/2018 8:40 PM MANAGER SALES TRAINING) Strep pneumoniae Antigen Presumptive negative for Presumptive negative for [facility] pneumococcal pneumonia - see pneumococcal pneumonia - [facility] comment see comment, Presumptive negative for pneumococcal meningitis - see comment Specimen Urine - Urine, Unspecified Source Narrative Performed At Presumptive negative for pneumococcal pneumonia, suggesting no current or recent [facility] pneumococcal infection. Infection due to S. pneumoniae cannot be ruled out since [facility] the antigen present in the sample may be below the detection limit of the test. Performing Organization Address City/[facility]/Zipcode Phone Number [address] [address] [facility] * Legionella antigen, urine (05/23/2018 8:39 PM MANAGER SALES TRAINING) Legionella Urine Antigen Negative - see commentComment: [facility] Negative for L. pneumophila [facility] serogroup 1 antigen, suggesting no recent or current infection with this serogroup. Legionellosis cannot be ruled out since other serogroups and species may cause disease. Specimen Urine Performing Organization Address City/[facility]/Zipcode Phone Number [address] [address] [facility] * Troponin I (05/23/2018 8:34 PM MANAGER SALES TRAINING) Troponin I 0.02 0.00 - 0.03 ng/mL [facility] Specimen Blood Performing Organization Address City/[facility] Phone Number [address] [address] [facility] * Comprehensive metabolic panel (05/23/2018 8:34 PM MANAGER SALES TRAINING) Protein, Total 6.2 6.0 - 8.3 gm/dL [facility] Albumin 3.2 (L) 3.5 - 5.0 g/dL [facility] Alkaline Phosphatase 54 40 - 150 U/L [facility] Total Bilirubin 0.4 0.2 - 1.2 mg/dL [facility] Sodium 139 136 - 145 meq/L [facility] Potassium 4.5 3.5 - 5.1 meq/L [facility] Chloride 101 98 - 107 meq/L [facility] CO2 31 (H) 22 - 29 meq/L [facility] BUN 20 7 - 21 mg/dL [facility] Creatinine 0.61 0.57 - 1.25 mg/dL [facility] Glucose 131 (H) 70 - 105 mg/dL [facility] Calcium 8.6 8.4 - 10.2 mg/dL [facility] AST 21 5 - 34 U/L [facility] ALT 17 6 - 55 U/L [facility] EGFR 97Comment: ESTIMATED GFR IS mL/min/1.73 sq m [facility] NOT ACCURATE CREATININE [facility] CLEARANCE IN PREDICTING GLOMERULAR FILTRATION RATE. ESTIMATED GFR IS NOT APPLICABLE FOR DIALYSIS PATIENTS. Specimen Blood Performing Organization Address City/State/Zipcode Phone Number [address] [address] [facility] after 09/15/2017 Insurance Payer Benefit Subscriber ID Type Phone Address Plan / Group MEDICARE MEDICARE A xxxxxxxxxxx Medicare B OTHER-COMMERCIAL GENERIC xxxxxxxxxx COMMERCIAL [phone] (Work) Advance Directives For more information, please contact: [place] [id number] [place] [address] Date Inactivated Comments Code Status Date Activated Full Code 05/23/2018 8:08 PM This code status was determined by: Patient
--- OUTSIDE RECORDS SUMMARY | 2018-09-16 05:29 | XMS REPORT ---
Author Author [facility] Address Unknown Phone Unavailable Care Team Providers Care Computer Operations Manager Name Role Phone WILD [place] Unavailable Unavailable Deonte Calvert Unavailable Unavailable Ed Simmons Unavailable Unavailable Kristin Reich Unavailable Unavailable Vitaly Thao Unavailable Unavailable Payers Payer Name Policy Type Policy Number Effective Date Expiration Date Problems This patient has no known problems. Allergies, Adverse Reactions, Alerts Allergy Name Allergy Type Status Severity Reaction(s) Onset Date Inactive Date Treating Clinician Comments albuterol DA Active U 2018-07-30 00:00:00 Medications This patient has no known medications. Results Test Description Test Time Test Comments Text Results Atomic Results Result Comments GLUBED 2018-08-06 11:15:00 GLUBED (test code=GLUBED) 113 MG/DL 70-110 Performed by certified sorter operator at [facility] CBC W/O [id number] 09:33:00* Test Item Value Reference Range Comments WHITE BLOOD CELL (test code=WBC) 7.70 x10 3/uL 4.5-11.0 RED BLOOD CELL (test code=RBC) 3.20 x10 6/uL 3.54-5.02 HEMOGLOBIN (test code=HGB) 9.6 g/dL 11.0-15.0 HEMATOCRIT (test code=HCT) 30.6 % 33.0-45.0 MEAN CELL VOLUME (test code=MCV) 95.6 fL 81.0-99.0 MEAN CELL HGB (test code=MCH) 30.0 pg 27.0-33.0 MEAN CELL HGB CONCETRATION (test code=MCHC) 31.4 g/dL 33.0-37.0 RED CELL DISTRIBUTION WIDTH CV (test code=RDW) 14.7 % 11.5-14.5 RED CELL DISTRIBUTION WIDTH SD (test code=RDW-SD) 51.1 fL 37.0-54.0 PLATELET COUNT (test code=PLT) 195 x10 3/uL 150-400 MEAN PLATELET VOLUME (test code=MPV) 10.0 fL 7.0-9.0 BASIC METABOLIC [id number] 07:01:00* Test Item Value Reference Range Comments SODIUM (test code=NA) 138 mEq/L 134-147 POTASSIUM (test code=K) 3.2 mEq/L 3.4-5.0 CHLORIDE (test code=CL) 105 mEq/L 100-108 CARBON DIOXIDE (test code=CO2) 29 mEq/L 21-33 ANION GAP (test code=GAP) 7 0-20 GLUCOSE (test code=GLU) 95 mg/dL 70-110 BLOOD UREA NITROGEN (test code=BUN) 11 mg/dL 7-18 GLOMERULAR FILTRATION RATE (test code=GFR) 352.2 80-90 Units of measure=ml/min/1.73 m2 CREATININE (test code=CREAT) 0.2 mg/dL 0.6-1.3 CALCIUM (test code=CA) 8.5 mg/dL 8.0-10.5 [id number] 07:01:00* Test Item Value Reference Range Comments PHOSPHOROUS (test code=PHOS) 2.5 mg/dL 2.5-4.9 [id number] 07:01:00* Test Item Value Reference Range Comments MAGNESIUM (test code=MAG) 2.00 mg/dL 1.8-2.4 [id number] 06:46:00* Test Item Value Reference Range Comments GLUBED (test code=GLUBED) 96 MG/DL 70-110 Performed by certified sorter operator at [facility] [id number] 23:31:00* Test Item Value Reference Range Comments GLUBED (test code=GLUBED) 117 MG/DL 70-110 Performed by certified sorter operator at [facility] [id number] 13:12:00* Test Item Value Reference Range Comments GLUBED (test code=GLUBED) 163 MG/DL 70-110 Performed by certified sorter operator at [facility] - XR CHEST 1 [id number] 09:09:00 FAX: She Mittal MD [place]: St: [facility] FAX: Elias Fowler I [phone] Name: MAIRA EARLY [facility] : 1950 Age/S: 68/F [address] [place] [address] Unit #: [id number] Loc: G.M301 [place] [address] Phys: She Mittal MD Acct: [id number] Dis Date: Status: ADM IN PHONE #: [phone] Exam Date: 08/05/2018534 FAX #: [phone] Reason: trach/vented pt EXAMS: CPT CODE: [id number] XR CHEST 1 V [id number] EXAM: CHEST SINGLE VIEW HISTORY: 68-year-old female with tracheostomy COMPARISON: None. FINDINGS: Interstitial opacities in the bilateral lung bases. Additional haziness in the right lung base with obscuration of the right hemidiaphragm. Mild biapical scarring. The cardiomediastinal silhouette is normal for projection. No acute osseous abnormality. Right upper extremity PICC noted with the catheter tip at the superior cavoatrial junction. Tracheostomy tube noted terminating approximately 4.8 cm from the elissa. IMPRESSION: 1. Interstitial opacities in the bilateral lower lungs. Differential considerations include chronic fibrotic changes, edema, and atypical infection. 2. Additional haziness in the right lung base may represent atelectasis/consolidation versus small effusion. SL: [id number] at 0909 Reported and signed by: Macrina Jerome M.D. CC: She Mittal MD; Elias Suazo MD Technologist: Sudha Ponce RT(R); RT Fortunato(R) Trnscrd Date/Time/By: 08/05/2018 (908) : By: [email or web address] Orig Print D/T: S: 08/05/2018 (911) PAGE 1 Signed Report BASIC METABOLIC [id number] 05:35:00* Test Item Value Reference Range Comments SODIUM (test code=NA) 138 mEq/L 134-147 POTASSIUM (test code=K) 3.7 mEq/L 3.4-5.0 CHLORIDE (test code=CL) 105 mEq/L 100-108 CARBON DIOXIDE (test code=CO2) 29 mEq/L 21-33 ANION GAP (test code=GAP) 8 0-20 GLUCOSE (test code=GLU) 135 mg/dL 70-110 BLOOD UREA NITROGEN (test code=BUN) 13 mg/dL 7-18 GLOMERULAR FILTRATION RATE (test code=GFR) 352.2 80-90 Units of measure=ml/min/1.73 m2 CREATININE (test code=CREAT) 0.2 mg/dL 0.6-1.3 CALCIUM (test code=CA) 9.1 mg/dL 8.0-10.5 [id number] 05:35:00* Test Item Value Reference Range Comments PHOSPHOROUS (test code=PHOS) 2.6 mg/dL 2.5-4.9 [id number] 05:35:00* Test Item Value Reference Range Comments MAGNESIUM (test code=MAG) 1.80 mg/dL 1.8-2.4 [id number] 04:30:00* Test Item Value Reference Range Comments GLUBED (test code=GLUBED) 178 MG/DL 70-110 Performed by certified sorter operator at [facility] [id number] 18:00:00* Test Item Value Reference Range Comments GLUBED (test code=GLUBED) 121 MG/DL 70-110 Performed by certified sorter operator at [facility] [id number] 12:01:00* Test Item Value Reference Range Comments GLUBED (test code=GLUBED) 128 MG/DL 70-110 Performed by certified sorter operator at [facility] BASIC METABOLIC [id number] 06:53:00* Test Item Value Reference Range Comments SODIUM (test code=NA) 137 mEq/L 134-147 POTASSIUM (test code=K) 3.7 mEq/L 3.4-5.0 CHLORIDE (test code=CL) 104 mEq/L 100-108 CARBON DIOXIDE (test code=CO2) 30 mEq/L 21-33 ANION GAP (test code=GAP) 7 0-20 GLUCOSE (test code=GLU) 126 mg/dL 70-110 BLOOD UREA NITROGEN (test code=BUN) 17 mg/dL 7-18 GLOMERULAR FILTRATION RATE (test code=GFR) 220.6 80-90 Units of measure=ml/min/1.73 m2 CREATININE (test code=CREAT) 0.3 mg/dL 0.6-1.3 CALCIUM (test code=CA) 8.4 mg/dL 8.0-10.5 [id number] 06:53:00* Test Item Value Reference Range Comments PHOSPHOROUS (test code=PHOS) 2.2 mg/dL 2.5-4.9 [id number] 06:53:00* Test Item Value Reference Range Comments MAGNESIUM (test code=MAG) 1.90 mg/dL 1.8-2.4 [id number] 06:02:00* Test Item Value Reference Range Comments GLUBED (test code=GLUBED) 117 MG/DL 70-110 Performed by certified sorter operator at [facility] [id number] 23:40:00* Test Item Value Reference Range Comments GLUBED (test code=GLUBED) 150 MG/DL 70-110 Performed by certified sorter operator at [facility] [id number] 21:24:00* Test Item Value Reference Range Comments GLUBED (test code=GLUBED) 197 MG/DL 70-110 Performed by certified sorter operator at [facility] [id number] 11:43:00* Test Item Value Reference Range Comments GLUBED (test code=GLUBED) 133 MG/DL 70-110 Performed by certified sorter operator at [facility] COMPREHENSIVE METABOLIC [id number] 06:22:00* Test Item Value Reference Range Comments SODIUM (test code=NA) 137 mEq/L 134-147 POTASSIUM (test code=K) 3.5 mEq/L 3.4-5.0 CHLORIDE (test code=CL) 103 mEq/L 100-108 CARBON DIOXIDE (test code=CO2) 30 mEq/L 21-33 ANION GAP (test code=GAP) 8 0-20 GLUCOSE (test code=GLU) 135 mg/dL 70-110 BLOOD UREA NITROGEN (test code=BUN) 14 mg/dL 7-18 GLOMERULAR FILTRATION RATE (test code=GFR) 352.2 80-90 Units of measure=ml/min/1.73 m2 CREATININE (test code=CREAT) 0.2 mg/dL 0.6-1.3 TOTAL PROTEIN (test code=PROT) 6.7 g/dL 6.4-8.2 ALBUMIN (test code=ALB) 2.00 g/dL 3.4-5.0 CALCIUM (test code=CA) 8.8 mg/dL 8.0-10.5 BILIRUBIN TOTAL (test code=BILT) 0.20 mg/dL 0.0-1.0 SGOT/AST (test code=AST) 20 IUnit/L 15-37 SGPT/ALT (test code=ALT) 44 IUnit/L 15-65 ALKALINE PHOSPHATASE TOTAL (test code=ALKP) 99 IUnit/L 20-125 [id number] 06:22:00* Test Item Value Reference Range Comments PHOSPHOROUS (test code=PHOS) 2.7 mg/dL 2.5-4.9 [id number] 06:22:00* Test Item Value Reference Range Comments TRIGLYCERIDES (test code=TRIG) 171 mg/dL 40-150 [id number] 06:22:00* Test Item Value Reference Range Comments MAGNESIUM (test code=MAG) 1.80 mg/dL 1.8-2.4 [id number] 06:22:00* Test Item Value Reference Range Comments PREALBUMIN (test code=PREALB) 16.6 mg/dL 16.0-40.0 PROTHROMBIN [id number] 06:17:00* Test Item Value Reference Range Comments PROTHROMBIN TIME PATIENT (test code=PTP) 13.7 SECONDS 9.3-12.9 INTERNATIONAL NORMAL RATIO (test code=INR) 1.2 0.8-1.2 TARGET INR BY INDICATION Indication INR1. Prophylaxis of venous thrombosis 2.0 - 3.0 (orthopedic surgery), Prophylaxis of venous thrombosis (other than high-risk surgery), Treatment of Deep Vein Thrombosis/Pulmonary Embolism, Prevention of systemic embolism - Tissue heart valves, Acute Myocardial Infarction (to prevent systemic embolism), Valvular heart disease, Atrial Fibrillation, B[place]aflet mechanical valve in aortic position.2. Mechanical prosthetic valves (high risk), 2.5 - 3.5 Presence of Lupus Anticoagulant or Antiphospholipid Antibodies, Prevention of systemic embolism - Acute Myocardial Infarction (to prevent recurrent infarct). THROMBOPLASTIN TIME [id number] 06:17:00* Test Item Value Reference Range Comments THROMBOPLASTIN TIME PARTIAL (test code=PTT) 28.7 Seconds 25.0-39.5 Therapeutic Range: 61.8-83.8 Sec Effective 07/28/2013 CBC W/AUTO [id number] 05:58:00* Test Item Value Reference Range Comments WHITE BLOOD CELL (test code=WBC) 7.44 x10 3/uL 4.5-11.0 RED BLOOD CELL (test code=RBC) 3.53 x10 6/uL 3.54-5.02 HEMOGLOBIN (test code=HGB) 10.4 g/dL 11.0-15.0 HEMATOCRIT (test code=HCT) 33.7 % 33.0-45.0 MEAN CELL VOLUME (test code=MCV) 95.5 fL 81.0-99.0 MEAN CELL HGB (test code=MCH) 29.5 pg 27.0-33.0 MEAN CELL HGB CONCETRATION (test code=MCHC) 30.9 g/dL 33.0-37.0 RED CELL DISTRIBUTION WIDTH CV (test code=RDW) 14.1 % 11.5-14.5 RED CELL DISTRIBUTION WIDTH SD (test code=RDW-SD) 49.0 fL 37.0-54.0 PLATELET COUNT (test code=PLT) 196 x10 3/uL 150-400 MEAN PLATELET VOLUME (test code=MPV) 9.8 fL 7.0-9.0 NEUTROPHIL % (test code=NT%) 57.8 % 56.0-77.0 IMMATURE GRANULOCYTE % (test code=IG%) 0.5 % 0.0-2.0 LYMPHOCYTE % (test code=LY%) 30.5 % 14.0-32.0 MONOCYTE % (test code=MO%) 8.6 % 4.8-9.0 EOSINOPHIL % (test code=EO%) 2.2 % 0.3-3.7 BASOPHIL % (test code=BA%) 0.4 % 0.0-2.0 NUCLEATED RBC % (test code=NRBC%) 0.0 % 0-0 NEUTROPHIL # (test code=NT#) 4.30 x10 3/uL 2.0-7.6 IMMATURE GRANULOCYTE # (test code=IG#) 0.04 x10 3/uL 0.00-0.03 LYMPHOCYTE # (test code=LY#) 2.27 x10 3/uL 1.0-3.8 MONOCYTE # (test code=MO#) 0.64 x10 3/uL 0.1-0.8 EOSINOPHIL # (test code=EO#) 0.16 x10 3/uL 0.0-0.2 BASOPHIL # (test code=BA#) 0.03 x10 3/uL 0.0-0.2 NUCLEATED RBC # (test code=NRBC#) 0.00 x10 3/uL 0.0-0.1 MANUAL DIFF REQUIRED (test code=MDIFF) NO [id number] 05:39:00* Test Item Value Reference Range Comments GLUBED (test code=GLUBED) 124 MG/DL 70-110 Performed by certified sorter operator at [facility] [id number] 23:36:00* Test Item Value Reference Range Comments GLUBED (test code=GLUBED) 201 MG/DL 70-110 Performed by certified sorter operator at [facility] [id number] 17:21:00* Test Item Value Reference Range Comments GLUBED (test code=GLUBED) 151 MG/DL 70-110 Performed by certified sorter operator at [facility] [id number] 12:07:00* Test Item Value Reference Range Comments GLUBED (test code=GLUBED) 115 MG/DL 70-110 Performed by certified sorter operator at [facility] [id number] 07:55:00* Test Item Value Reference Range Comments PHOSPHOROUS (test code=PHOS) 2.8 mg/dL 2.5-4.9 COMMENTS: ADD ON LABS TO THIS MORNING OR DRAW THEM [id number] 07:55:00* Test Item Value Reference Range Comments MAGNESIUM (test code=MAG) 2.10 mg/dL 1.8-2.4 COMMENTS: ADD ON LABS TO THIS MORNING OR DRAW THEM [facility] 2018-08-02 05:42:00* Test Item Value Reference Range Comments SODIUM (test code=NA) 136 mEq/L 134-147 POTASSIUM (test code=K) 3.1 mEq/L 3.4-5.0 CHLORIDE (test code=CL) 98 mEq/L 100-108 CARBON DIOXIDE (test code=CO2) 34 mEq/L 21-33 ANION GAP (test code=GAP) 7 0-20 GLUCOSE (test code=GLU) 157 mg/dL 70-110 BLOOD UREA NITROGEN (test code=BUN) 17 mg/dL 7-18 GLOMERULAR FILTRATION RATE (test code=GFR) 220.6 80-90 Units of measure=ml/min/1.73 m2 CREATININE (test code=CREAT) 0.3 mg/dL 0.6-1.3 CALCIUM (test code=CA) 9.8 mg/dL 8.0-10.5 CBC W/AUTO [id number] 05:34:00* Test Item Value Reference Range Comments WHITE BLOOD CELL (test code=WBC) 7.94 x10 3/uL 4.5-11.0 RED BLOOD CELL (test code=RBC) 3.65 x10 6/uL 3.54-5.02 HEMOGLOBIN (test code=HGB) 10.6 g/dL 11.0-15.0 HEMATOCRIT (test code=HCT) 35.0 % 33.0-45.0 MEAN CELL VOLUME (test code=MCV) 95.9 fL 81.0-99.0 MEAN CELL HGB (test code=MCH) 29.0 pg 27.0-33.0 MEAN CELL HGB CONCETRATION (test code=MCHC) 30.3 g/dL 33.0-37.0 RED CELL DISTRIBUTION WIDTH CV (test code=RDW) 14.2 % 11.5-14.5 RED CELL DISTRIBUTION WIDTH SD (test code=RDW-SD) 49.4 fL 37.0-54.0 PLATELET COUNT (test code=PLT) 190 x10 3/uL 150-400 MEAN PLATELET VOLUME (test code=MPV) 9.9 fL 7.0-9.0 NEUTROPHIL % (test code=NT%) 60.4 % 56.0-77.0 IMMATURE GRANULOCYTE % (test code=IG%) 0.9 % 0.0-2.0 LYMPHOCYTE % (test code=LY%) 28.1 % 14.0-32.0 MONOCYTE % (test code=MO%) 7.9 % 4.8-9.0 EOSINOPHIL % (test code=EO%) 2.3 % 0.3-3.7 BASOPHIL % (test code=BA%) 0.4 % 0.0-2.0 NUCLEATED RBC % (test code=NRBC%) 0.0 % 0-0 NEUTROPHIL # (test code=NT#) 4.80 x10 3/uL 2.0-7.6 IMMATURE GRANULOCYTE # (test code=IG#) 0.07 x10 3/uL 0.00-0.03 LYMPHOCYTE # (test code=LY#) 2.23 x10 3/uL 1.0-3.8 MONOCYTE # (test code=MO#) 0.63 x10 3/uL 0.1-0.8 EOSINOPHIL # (test code=EO#) 0.18 x10 3/uL 0.0-0.2 BASOPHIL # (test code=BA#) 0.03 x10 3/uL 0.0-0.2 NUCLEATED RBC # (test code=NRBC#) 0.00 x10 3/uL 0.0-0.1 MANUAL DIFF REQUIRED (test code=MDIFF) NO [id number] 23:46:00* Test Item Value Reference Range Comments GLUBED (test code=GLUBED) 86 MG/DL 70-110 Performed by certified sorter operator at [facility] [id number] 20:27:00* Test Item Value Reference Range Comments GLUBED (test code=GLUBED) 146 MG/DL 70-110 Performed by certified sorter operator at [facility] [id number] 17:54:00* Test Item Value Reference Range Comments GLUBED (test code=GLUBED) 119 MG/DL 70-110 Performed by certified sorter operator at [facility] [id number] 12:17:00* Test Item Value Reference Range Comments GLUBED (test code=GLUBED) 127 MG/DL 70-110 Performed by certified sorter operator at [facility] COMPREHENSIVE METABOLIC [id number] 08:52:00* Test Item Value Reference Range Comments SODIUM (test code=NA) 139 mEq/L 134-147 POTASSIUM (test code=K) 2.7 mEq/L 3.4-5.0 CHLORIDE (test code=CL) 98 mEq/L 100-108 CARBON DIOXIDE (test code=CO2) 37 mEq/L 21-33 ANION GAP (test code=GAP) 7 0-20 GLUCOSE (test code=GLU) 99 mg/dL 70-110 BLOOD UREA NITROGEN (test code=BUN) 22 mg/dL 7-18 GLOMERULAR FILTRATION RATE (test code=GFR) 220.6 80-90 Units of measure=ml/min/1.73 m2 CREATININE (test code=CREAT) 0.3 mg/dL 0.6-1.3 TOTAL PROTEIN (test code=PROT) 7.5 g/dL 6.4-8.2 ALBUMIN (test code=ALB) 2.10 g/dL 3.4-5.0 CALCIUM (test code=CA) 10.0 mg/dL 8.0-10.5 BILIRUBIN TOTAL (test code=BILT) 0.30 mg/dL 0.0-1.0 SGOT/AST (test code=AST) 32 IUnit/L 15-37 SGPT/ALT (test code=ALT) 69 IUnit/L 15-65 ALKALINE PHOSPHATASE TOTAL (test code=ALKP) 126 IUnit/L 20-125 [id number] 08:52:00* Test Item Value Reference Range Comments PHOSPHOROUS (test code=PHOS) 3.3 mg/dL 2.5-4.9 [id number] 08:52:00* Test Item Value Reference Range Comments TRIGLYCERIDES (test code=TRIG) 172 mg/dL 40-150 [id number] 08:52:00* Test Item Value Reference Range Comments MAGNESIUM (test code=MAG) 2.00 mg/dL 1.8-2.4 [id number] 08:52:00* Test Item Value Reference Range Comments PREALBUMIN (test code=PREALB) 16.0 mg/dL 16.0-40.0 [id number] 07:07:00* Test Item Value Reference Range Comments GLUBED (test code=GLUBED) 143 MG/DL 70-110 Performed by certified sorter operator at [facility] [id number] 07:07:00* Test Item Value Reference Range Comments GLUBED (test code=GLUBED) 141 MG/DL 70-110 Performed by certified sorter operator at [facility] [id number] 03:42:00* Test Item Value Reference Range Comments GLUBED (test code=GLUBED) 144 MG/DL 70-110 Performed by certified sorter operator at [facility] [id number] 03:42:00* Test Item Value Reference Range Comments GLUBED (test code=GLUBED) 148 MG/DL 70-110 Performed by certified sorter operator at [facility] [id number] 17:57:00* Test Item Value Reference Range Comments GLUBED (test code=GLUBED) 141 MG/DL 70-110 Performed by certified sorter operator at [facility] [id number] 12:29:00* Test Item Value Reference Range Comments GLUBED (test code=GLUBED) 96 MG/DL 70-110 Performed by certified sorter operator at [facility] COMPREHENSIVE METABOLIC [id number] 07:36:00* Test Item Value Reference Range Comments SODIUM (test code=NA) 139 mEq/L 134-147 POTASSIUM (test code=K) 3.5 mEq/L 3.4-5.0 CHLORIDE (test code=CL) 98 mEq/L 100-108 CARBON DIOXIDE (test code=CO2) 39 mEq/L 21-33 ANION GAP (test code=GAP) 6 0-20 GLUCOSE (test code=GLU) 171 mg/dL 70-110 BLOOD UREA NITROGEN (test code=BUN) 27 mg/dL 7-18 GLOMERULAR FILTRATION RATE (test code=GFR) 220.6 80-90 Units of measure=ml/min/1.73 m2 CREATININE (test code=CREAT) 0.3 mg/dL 0.6-1.3 TOTAL PROTEIN (test code=PROT) 7.3 g/dL 6.4-8.2 ALBUMIN (test code=ALB) 2.00 g/dL 3.4-5.0 CALCIUM (test code=CA) 10.1 mg/dL 8.0-10.5 BILIRUBIN TOTAL (test code=BILT) 0.20 mg/dL 0.0-1.0 SGOT/AST (test code=AST) 48 IUnit/L 15-37 SGPT/ALT (test code=ALT) 84 IUnit/L 15-65 ALKALINE PHOSPHATASE TOTAL (test code=ALKP) 125 IUnit/L 20-125 COMPREHENSIVE METABOLIC [id number] 07:33:00* Test Item Value Reference Range Comments SODIUM (test code=NA) 139 mEq/L 134-147 POTASSIUM (test code=K) 3.5 mEq/L 3.4-5.0 CHLORIDE (test code=CL) 98 mEq/L 100-108 CARBON DIOXIDE (test code=CO2) 39 mEq/L 21-33 ANION GAP (test code=GAP) 6 0-20 GLUCOSE (test code=GLU) 171 mg/dL 70-110 BLOOD UREA NITROGEN (test code=BUN) 27 mg/dL 7-18 GLOMERULAR FILTRATION RATE (test code=GFR) 220.6 80-90 Units of measure=ml/min/1.73 m2 CREATININE (test code=CREAT) 0.3 mg/dL 0.6-1.3 TOTAL PROTEIN (test code=PROT) g/dL 6.4-8.2 ALBUMIN (test code=ALB) 2.00 g/dL 3.4-5.0 CALCIUM (test code=CA) 10.1 mg/dL 8.0-10.5 BILIRUBIN TOTAL (test code=BILT) mg/dL 0.0-1.0 SGOT/AST (test code=AST) 48 IUnit/L 15-37 SGPT/ALT (test code=ALT) 84 IUnit/L 15-65 ALKALINE PHOSPHATASE TOTAL (test code=ALKP) IUnit/L 20-125 CBC W/AUTO [id number] 07:29:00* Test Item Value Reference Range Comments WHITE BLOOD CELL (test code=WBC) 7.24 x10 3/uL 4.5-11.0 RED BLOOD CELL (test code=RBC) 3.57 x10 6/uL 3.54-5.02 HEMOGLOBIN (test code=HGB) 10.4 g/dL 11.0-15.0 HEMATOCRIT (test code=HCT) 35.0 % 33.0-45.0 MEAN CELL VOLUME (test code=MCV) 98.0 fL 81.0-99.0 MEAN CELL HGB (test code=MCH) 29.1 pg 27.0-33.0 MEAN CELL HGB CONCETRATION (test code=MCHC) 29.7 g/dL 33.0-37.0 RED CELL DISTRIBUTION WIDTH CV (test code=RDW) 14.1 % 11.5-14.5 RED CELL DISTRIBUTION WIDTH SD (test code=RDW-SD) 51.3 fL 37.0-54.0 PLATELET COUNT (test code=PLT) 176 x10 3/uL 150-400 MEAN PLATELET VOLUME (test code=MPV) 9.9 fL 7.0-9.0 NEUTROPHIL % (test code=NT%) 61.6 % 56.0-77.0 IMMATURE GRANULOCYTE % (test code=IG%) 0.3 % 0.0-2.0 LYMPHOCYTE % (test code=LY%) 27.2 % 14.0-32.0 MONOCYTE % (test code=MO%) 9.4 % 4.8-9.0 EOSINOPHIL % (test code=EO%) 1.2 % 0.3-3.7 BASOPHIL % (test code=BA%) 0.3 % 0.0-2.0 NUCLEATED RBC % (test code=NRBC%) 0.0 % 0-0 NEUTROPHIL # (test code=NT#) 4.46 x10 3/uL 2.0-7.6 IMMATURE GRANULOCYTE # (test code=IG#) 0.02 x10 3/uL 0.00-0.03 LYMPHOCYTE # (test code=LY#) 1.97 x10 3/uL 1.0-3.8 MONOCYTE # (test code=MO#) 0.68 x10 3/uL 0.1-0.8 EOSINOPHIL # (test code=EO#) 0.09 x10 3/uL 0.0-0.2 BASOPHIL # (test code=BA#) 0.02 x10 3/uL 0.0-0.2 NUCLEATED RBC # (test code=NRBC#) 0.00 x10 3/uL 0.0-0.1 MANUAL DIFF REQUIRED (test code=MDIFF) NO URINALYSIS [id number] 07:23:00* Test Item Value Reference Range Comments UA COLOR (test code=COLU) DAJA YEL/STRAW UA APPEARANCE (test code=APPU) CLOUDY CLEAR UA GLUCOSE DIPSTICK (test code=DGLUU) NEGATIVE NEGATIVE UA BILIRUBIN DIPSTICK (test code=BILU) NEGATIVE NEGATIVE UA KETONE DIPSTICK (test code=KETU) NEGATIVE NEGATIVE UA SPECIFIC GRAVITY (test code=SGU) 1.025 1.005-1.030 UA BLOOD DIPSTICK (test code=LUKE) 1+ NEGATIVE UA PH DIPSTICK (test code=MICHELLE) 6.0 5.0-7.0 UA PROTEIN DIPSTICK (test code=PROU) 1+ NEGATIVE UA UROBILINIOGEN DIPSTICK (test code=URO) 0.2 mg/dL 0.2-1.0 UA NITRITE DIPSTICK (test code=SURAJ) NEGATIVE NEGATIVE UA LEUKOCYTE ESTERASE DIPSTICK (test code=LEUU) 3+ NEGATIVE UA WBC (test code=WBCU) >50 WBC/HPF 0-3 UA RBC (test code=RBCU) 21-50 RBC/HPF 0-3 UA BACTERIA (test code=BACU) 4+ /HPF NONE SEEN UA SQUAMOUS CELLS (test code=SQU) 0-5 /HPF NONE SEEN UA CALCIUM OXALATE CRYSTALS (test code=CAOXU) TRACE /HPF NONE SEEN UA HYALINE CAST (test code=HYALU) 3-5 /LPF NONE SEEN UA MUCUS (test code=MUCU) 3+ /LPF NONE SEEN UA YEAST (BUDDING) (test code=YEASTUBD) 1+ /HPF NONE UA CULT [id number] 07:23:00* Test Item Value Reference Range Comments UA CULTURE NEEDED? (test code=UACULT) YES,WBC>10 & EPI<=25 Criteria Culture Chk Criteria met, Urine Culture in-process. PROTHROMBIN [id number] 07:19:00* Test Item Value Reference Range Comments PROTHROMBIN TIME PATIENT (test code=PTP) 13.7 SECONDS 9.3-12.9 INTERNATIONAL NORMAL RATIO (test code=INR) 1.2 0.8-1.2 TARGET INR BY INDICATION Indication INR1. Prophylaxis of venous thrombosis 2.0 - 3.0 (orthopedic surgery), Prophylaxis of venous thrombosis (other than high-risk surgery), Treatment of Deep Vein Thrombosis/Pulmonary Embolism, Prevention of systemic embolism - Tissue heart valves, Acute Myocardial Infarction (to prevent systemic embolism), Valvular heart disease, Atrial Fibrillation, Bileaflet mechanical valve in aortic position.2. Mechanical prosthetic valves (high risk), 2.5 - 3.5 Presence of Lupus Anticoagulant or Antiphospholipid Antibodies, Prevention of systemic embolism - Acute Myocardial Infarction (to prevent recurrent infarct). [id number] 01:15:00* Test Item Value Reference Range Comments GLUBED (test code=GLUBED) 82 MG/DL 70-110 Performed by certified sorter operator at [facility] AFB CULTURE + [id number] 07:00:00* Test Item Value Reference Range Comments CULTURE (BEAKER) (test iofg=1675) No acid-fast bacilli isolated in 42 days AFB SMEAR (BEAKER) (test afub=926) No acid fast bacilli seen FUNGUS CULTURE + [id number] 13:57:00* Test Item Value Reference Range Comments CULTURE (BEAKER) (test kguf=2286) Yeast FUNGUS SMEAR (BEAKER) (test tufe=0216) No fungi seen Corrected report: mold entered in error. POCT-GLUCOSE [id number] 11:31:00* Test Item Value Reference Range Comments POC-GLUCOSE METER (BEAKER) (test jvsi=9526) 133 mg/dL 70-110 TESTED AT [address] [address] POCT-GLUCOSE [id number] 06:41:00* Test Item Value Reference Range Comments POC-GLUCOSE METER (BEAKER) (test enun=0192) 118 mg/dL 70-110 TESTED AT [address] [address] [id number] 05:27:00* Test Item Value Reference Range Comments MAGNESIUM (BEAKER) (test slhe=638) 1.9 mg/dL 1.6-2.6 Specimen slightly hemolyzed BASIC METABOLIC [id number] 05:27:00* Test Item Value Reference Range Comments SODIUM (BEAKER) (test xwyt=905) 138 meq/L 136-145 POTASSIUM (BEAKER) (test ltqu=447) 3.9 meq/L 3.5-5.1 Specimen slightly hemolyzed CHLORIDE (BEAKER) (test cdiw=295) 103 meq/L 98-107 CO2 (BEAKER) (test cwrb=747) 28 meq/L 22-29 BLOOD UREA NITROGEN (BEAKER) (test miyn=510) 13 mg/dL 7-21 CREATININE (BEAKER) (test iljz=354) 0.52 mg/dL 0.57-1.25 Specimen slightly hemolyzed GLUCOSE RANDOM (BEAKER) (test fole=522) 107 mg/dL 70-105 CALCIUM (BEAKER) (test ujjw=004) 9.2 mg/dL 8.4-10.2 EGFR (BEAKER) (test kqul=9660) 117 mL/min/1.73 sq m ESTIMATED GFR IS NOT ACCURATE CREATININE CLEARANCE IN PREDICTING GLOMERULAR FILTRATION RATE. ESTIMATED GFR IS NOT APPLICABLE FOR DIALYSIS PATIENTS. POCT-GLUCOSE [id number] 00:14:00* Test Item Value Reference Range Comments POC-GLUCOSE METER (BEAKER) (test jzoj=0236) 90 mg/dL 70-110 TESTED AT [address] [address] CBC (HEMOGRAM ONLY)2018-06-04 22:51:00* Test Item Value Reference Range Comments WHITE BLOOD CELL COUNT (BEAKER) (test okhn=017) 5.0 K/ L 3.5-10.5 RED BLOOD CELL COUNT (BEAKER) (test hlus=631) 3.98 M/ L 3.93-5.22 HEMOGLOBIN (BEAKER) (test zjii=086) 11.5 GM/DL 11.2-15.7 HEMATOCRIT (BEAKER) (test jhyr=938) 37.9 % 34.1-44.9 MEAN CORPUSCULAR VOLUME (BEAKER) (test lftv=759) 95.2 fL 79.4-94.8 MEAN CORPUSCULAR HEMOGLOBIN (BEAKER) (test etiw=859) 28.9 pg 25.6-32.2 MEAN CORPUSCULAR HEMOGLOBIN CONC (BEAKER) (test ibjw=690) 30.3 GM/DL 32.2-35.5 RED CELL DISTRIBUTION WIDTH (BEAKER) (test bfki=926) 13.5 % 11.7-14.4 PLATELET COUNT (BEAKER) (test pbre=390) 167 K/CU MM 150-450 MEAN PLATELET VOLUME (BEAKER) (test sbre=476) 9.3 fL 9.4-12.3 NUCLEATED RED BLOOD CELLS (BEAKER) (test hfgr=393) 0 /100 WBC 0-0 POCT-GLUCOSE [id number] 15:34:00* Test Item Value Reference Range Comments POC-GLUCOSE METER (BEAKER) (test jgyt=0588) 139 mg/dL 70-110 TESTED AT [address] [address] POCT-GLUCOSE [id number] 13:15:00* Test Item Value Reference Range Comments POC-GLUCOSE METER (BEAKER) (test hpii=9446) 75 mg/dL 70-110 TESTED AT [address] [address] POCT-GLUCOSE [id number] 06:44:00* Test Item Value Reference Range Comments POC-GLUCOSE METER (BEAKER) (test dfkf=5880) 108 mg/dL 70-110 TESTED AT [address] [address] POCT-GLUCOSE [id number] 06:12:00* Test Item Value Reference Range Comments POC-GLUCOSE METER (BEAKER) (test fmlf=6856) 73 mg/dL 70-110 TESTED AT [address] [address] [id number] 04:46:00* Test Item Value Reference Range Comments MAGNESIUM (BEAKER) (test zxnb=064) 1.8 mg/dL 1.6-2.6 BASIC METABOLIC [id number] 04:46:00* Test Item Value Reference Range Comments SODIUM (BEAKER) (test gjxo=401) 134 meq/L 136-145 POTASSIUM (BEAKER) (test xhel=918) 3.4 meq/L 3.5-5.1 CHLORIDE (BEAKER) (test rlpr=720) 100 meq/L 98-107 CO2 (BEAKER) (test pxzl=028) 25 meq/L 22-29 BLOOD UREA NITROGEN (BEAKER) (test ohnn=008) 15 mg/dL 7-21 CREATININE (BEAKER) (test bilq=546) 0.53 mg/dL 0.57-1.25 GLUCOSE RANDOM (BEAKER) (test qxwy=237) 74 mg/dL 70-105 CALCIUM (BEAKER) (test ksgv=636) 9.0 mg/dL 8.4-10.2 EGFR (BEAKER) (test xjgd=2703) 114 mL/min/1.73 sq m ESTIMATED GFR IS NOT ACCURATE CREATININE CLEARANCE IN PREDICTING GLOMERULAR FILTRATION RATE. ESTIMATED GFR IS NOT APPLICABLE FOR DIALYSIS PATIENTS. BLOOD GAS, [id number] 04:22:00* Test Item Value Reference Range Comments PH VENOUS (BEAKER) (test gyno=988) 7.42 7.32-7.42 PCO2 VENOUS (BEAKER) (test veql=306) 46 mmHg 41-51 PO2 VENOUS (BEAKER) (test jtwt=590) 41 mmHg 25-40 O2 SATURATION VENOUS (BEAKER) (test yjxh=486) 76.5 % 40.0-70.0 HCO3 VENOUS (BEAKER) (test ajco=669) 29 mmol/L 21-29 BASE EXCESS VENOUS (BEAKER) (test vifw=321) 4.0 mmol/L -2.0-3.0 PATIENT TEMPERATURE (BEAKER) (test mcnu=1176) 37.0 C FIO2 (BEAKER) (test dyln=6245) 100.0 % RAD, CHEST, 1 VIEW, NON [id number] 03:18:00Reason for exam:->intubated patientShould this be performed at the bedside?->YesFINAL REPORT CLINICAL INDICATION: Support lines. Comparison: 05/04/2018 The patient is rotated to the right. The cardiomediastinal contours are grossly stable. Central pulmonary vascular prominence and bilateral parenchymal and pleural opacities are similar within variation of acquisition technique. There is no pneumothorax. Support lines are stable. Signed: Linette Mae MDReport Verified Date/Time: 06/04/2018 03:18:20 Reading Location: [address] Reading Room -GLUCOSE [id number] 01:11:00* Test Item Value Reference Range Comments POC-GLUCOSE METER (BEAKER) (test bxsy=0694) 108 mg/dL 70-110 TESTED AT [place] [id number] [facility] [address] POCT-GLUCOSE [id number] 00:10:00* Test Item Value Reference Range Comments POC-GLUCOSE METER (BEAKER) (test zjvj=5631) 77 mg/dL 70-110 TESTED AT [address] [address] POCT-GLUCOSE [id number] 20:07:00* Test Item Value Reference Range Comments POC-GLUCOSE METER (BEAKER) (test xpha=7984) 123 mg/dL 70-110 TESTED AT [address] [address] SPUTUM CULTURE + GRAM [id number] 18:39:00* Test Item Value Reference Range Comments CULTURE (BEAKER) (test lifr=3880) 1+ Normal respiratory jeb present GRAM STAIN RESULT (BEAKER) (test exjh=8277) 1+ WBCs GRAM STAIN RESULT (BEAKER) (test sqtg=06366) 5-10 epithelial cells GRAM STAIN RESULT (BEAKER) (test mgwp=55940) No organisms seen LEGIONELLA [id number] 18:32:00* Test Item Value Reference Range Comments CULTURE (BEAKER) (test jtiq=3651) No Legionella species isolated POCT-GLUCOSE [id number] 18:28:00* Test Item Value Reference Range Comments POC-GLUCOSE METER (BEAKER) (test qsfa=1698) 70 mg/dL 70-110 TESTED AT [address] [address] [id number] 13:34:00* Test Item Value Reference Range Comments MAGNESIUM (BEAKER) (test ygbg=219) 2.0 mg/dL 1.6-2.6 POCT-GLUCOSE [id number] 12:55:00* Test Item Value Reference Range Comments POC-GLUCOSE METER (BEAKER) (test nyji=8691) 81 mg/dL 70-110 TESTED AT [address] [address] RAD, CHEST, 1 VIEW, NON [id number] 06:18:00Reason for exam:->intubated patientShould this be performed at the bedside?->YesFINAL REPORT RAD, CHEST, 1 VIEW, NON DEPT INDICATION: intubated patient COMPARISON: Prior day's exam FINDINGS: Portable frontal view of the chest. IMPRESSION: Support Lines: Interval placement of tracheostomy cannula. Interval removal of the previously seen enteric tube. Otherwise unchanged support apparatus. Lungs and pleura: Unchanged airspace and pleural opacities. No pneumothorax.Heart and mediastinum: Stable contours. Additional findings: None. Signed: Trish Ruiz Verified Date/Time: 06/03/2018 06:18:49 Reading Location: [address] Neuro Reading Room [id number] 04:31:00* Test Item Value Reference Range Comments MAGNESIUM (BEAKER) (test yaqt=071) 1.9 mg/dL 1.6-2.6 BASIC METABOLIC [id number] 04:31:00* Test Item Value Reference Range Comments SODIUM (BEAKER) (test adau=611) 136 meq/L 136-145 POTASSIUM (BEAKER) (test olph=738) 4.6 meq/L 3.5-5.1 CHLORIDE (BEAKER) (test uiam=450) 102 meq/L 98-107 CO2 (BEAKER) (test defs=732) 27 meq/L 22-29 BLOOD UREA NITROGEN (BEAKER) (test ahdw=419) 10 mg/dL 7-21 CREATININE (BEAKER) (test ootr=874) 0.51 mg/dL 0.57-1.25 GLUCOSE RANDOM (BEAKER) (test dmgf=897) 107 mg/dL 70-105 CALCIUM (BEAKER) (test emmg=039) 9.0 mg/dL 8.4-10.2 EGFR (BEAKER) (test vzwh=1817) 120 mL/min/1.73 sq m ESTIMATED GFR IS NOT ACCURATE CREATININE CLEARANCE IN PREDICTING GLOMERULAR FILTRATION RATE. ESTIMATED GFR IS NOT APPLICABLE FOR DIALYSIS PATIENTS. BLOOD GAS, [id number] 04:22:00* Test Item Value Reference Range Comments PH VENOUS (BEAKER) (test bkzy=942) 7.39 7.32-7.42 PCO2 VENOUS (BEAKER) (test nfnm=743) 51 mmHg 41-51 PO2 VENOUS (BEAKER) (test acdl=169) 42 mmHg 25-40 O2 SATURATION VENOUS (BEAKER) (test gvzn=925) 76.4 % 40.0-70.0 HCO3 VENOUS (BEAKER) (test alzv=360) 30 mmol/L 21-29 BASE EXCESS VENOUS (BEAKER) (test lmos=409) 3.9 mmol/L -2.0-3.0 PATIENT TEMPERATURE (BEAKER) (test rpal=8973) 37.0 C CBC W/PLT COUNT & AUTO [id number] 03:58:00* Test Item Value Reference Range Comments WHITE BLOOD CELL COUNT (BEAKER) (test audu=069) 6.0 K/ L 3.5-10.5 RED BLOOD CELL COUNT (BEAKER) (test fjzh=915) 4.15 M/ L 3.93-5.22 HEMOGLOBIN (BEAKER) (test rems=619) 11.8 GM/DL 11.2-15.7 HEMATOCRIT (BEAKER) (test ymwl=469) 39.5 % 34.1-44.9 MEAN CORPUSCULAR VOLUME (BEAKER) (test gjhh=046) 95.2 fL 79.4-94.8 MEAN CORPUSCULAR HEMOGLOBIN (BEAKER) (test tsad=182) 28.4 pg 25.6-32.2 MEAN CORPUSCULAR HEMOGLOBIN CONC (BEAKER) (test apvq=315) 29.9 GM/DL 32.2-35.5 RED CELL DISTRIBUTION WIDTH (BEAKER) (test jhjq=708) 13.3 % 11.7-14.4 PLATELET COUNT (BEAKER) (test skdl=560) 159 K/CU MM 150-450 MEAN PLATELET VOLUME (BEAKER) (test hkbb=159) 9.2 fL 9.4-12.3 NUCLEATED RED BLOOD CELLS (BEAKER) (test wvnj=425) 0 /100 WBC 0-0 NEUTROPHILS RELATIVE PERCENT (BEAKER) (test nsqv=431) 90 % LYMPHOCYTES RELATIVE PERCENT (BEAKER) (test sioz=960) 6 % MONOCYTES RELATIVE PERCENT (BEAKER) (test xfqs=187) 3 % EOSINOPHILS RELATIVE PERCENT (BEAKER) (test qcpw=696) 0 % BASOPHILS RELATIVE PERCENT (BEAKER) (test oglp=593) 0 % NEUTROPHILS ABSOLUTE COUNT (BEAKER) (test pted=029) 5.39 K/ L 1.56-6.13 LYMPHOCYTES ABSOLUTE COUNT (BEAKER) (test fnir=772) 0.36 K/ L 1.18-3.74 MONOCYTES ABSOLUTE COUNT (BEAKER) (test lefx=293) 0.20 K/ L 0.24-0.36 EOSINOPHILS ABSOLUTE COUNT (BEAKER) (test ptvh=139) 0.00 K/ L 0.04-0.36 BASOPHILS ABSOLUTE COUNT (BEAKER) (test avci=300) 0.01 K/ L 0.01-0.08 IMMATURE GRANULOCYTES-RELATIVE PERCENT (BEAKER) (test rikl=2645) 1 % 0-1 POCT-GLUCOSE [id number] 19:44:00* Test Item Value Reference Range Comments POC-GLUCOSE METER (BEAKER) (test fifn=4565) 95 mg/dL 70-110 TESTED AT [facility] [address] [facility] [address] POCT-GLUCOSE [id number] 16:45:00* Test Item Value Reference Range Comments POC-GLUCOSE METER (BEAKER) (test kwdq=1296) 75 mg/dL 70-110 TESTED AT [facility] [address] [facility] [address] POCT-GLUCOSE [id number] 14:52:00* Test Item Value Reference Range Comments POC-GLUCOSE METER (BEAKER) (test jrkx=6365) 78 mg/dL 70-110 TESTED AT [facility] [address] [facility] [address] POCT-GLUCOSE [id number] 12:42:00* Test Item Value Reference Range Comments POC-GLUCOSE METER (BEAKER) (test wlbi=2892) 66 mg/dL 70-110 TESTED AT [facility] [address] [facility] [address] RAD, CHEST, 1 VIEW, NON [id number] 07:34:00Reason for exam:->intubated patientShould this be performed at the bedside?->YesFINAL REPORT Chest one view. Clinical history: intubated patient Comparison: 06/01/2018 Discussion: A frontal chest is provided. Cardiomediastinal contours are unchanged. Lines and tubes are in stable position. There is mild vascular congestion. Unchanged bibasilar pleural parenchymal opacities. No pneumothorax. Signed: Devon Ortega Verified Date/Time: 06/02/2018 07:34:14 Reading Location: [facility] Radiology Reading Room D GAS, [id number] 04:48:00* Test Item Value Reference Range Comments PH VENOUS (BEAKER) (test gxvo=841) 7.43 7.32-7.42 PCO2 VENOUS (BEAKER) (test wfbo=527) 49 mmHg 41-51 PO2 VENOUS (BEAKER) (test mxfr=105) 35 mmHg 25-40 O2 SATURATION VENOUS (BEAKER) (test hjqj=595) 67.8 % 40.0-70.0 HCO3 VENOUS (BEAKER) (test jyif=175) 32 mmol/L 21-29 BASE EXCESS VENOUS (BEAKER) (test bzoz=704) 6.4 mmol/L -2.0-3.0 PATIENT TEMPERATURE (BEAKER) (test smkl=1157) 37.0 C [id number] 04:27:00* Test Item Value Reference Range Comments MAGNESIUM (BEAKER) (test obpw=118) 1.9 mg/dL 1.6-2.6 BASIC METABOLIC [id number] 04:27:00* Test Item Value Reference Range Comments SODIUM (BEAKER) (test pkub=264) 138 meq/L 136-145 POTASSIUM (BEAKER) (test dyim=089) 3.7 meq/L 3.5-5.1 CHLORIDE (BEAKER) (test izrc=293) 101 meq/L 98-107 CO2 (BEAKER) (test cguk=202) 31 meq/L 22-29 BLOOD UREA NITROGEN (BEAKER) (test usyj=480) 13 mg/dL 7-21 CREATININE (BEAKER) (test yccn=608) 0.52 mg/dL 0.57-1.25 GLUCOSE RANDOM (BEAKER) (test mhmv=793) 94 mg/dL 70-105 CALCIUM (BEAKER) (test cvaa=279) 8.8 mg/dL 8.4-10.2 EGFR (BEAKER) (test omcs=2429) 117 mL/min/1.73 sq m ESTIMATED GFR IS NOT ACCURATE CREATININE CLEARANCE IN PREDICTING GLOMERULAR FILTRATION RATE. ESTIMATED GFR IS NOT APPLICABLE FOR DIALYSIS PATIENTS. POCT-GLUCOSE [id number] 00:18:00* Test Item Value Reference Range Comments POC-GLUCOSE METER (BEAKER) (test pydc=3301) 106 mg/dL 70-110 TESTED AT [address] [address] LACTIC ACID, VENOUS, WHOLE [id number] 21:06:00* Test Item Value Reference Range Comments LACTATE BLOOD VENOUS (2) (BEAKER) (test wzmj=2010) 0.7 mmol/L 0.5-2.2 Specimen slightly hemolyzed POCT-GLUCOSE [id number] 18:43:00* Test Item Value Reference Range Comments POC-GLUCOSE METER (BEAKER) (test lpbv=8898) 71 mg/dL 70-110 TESTED AT [address] [address] POCT-GLUCOSE [id number] 12:59:00* Test Item Value Reference Range Comments POC-GLUCOSE METER (BEAKER) (test hrdm=5046) 91 mg/dL 70-110 TESTED AT [facility] [address] [facility] [address] RAD, CHEST, 1 VIEW, NON [id number] 08:53:00Reason for exam:->intubated patientShould this be performed at the bedside?->YesFINAL REPORT Chest one view. Clinical history: intubated patient Comparison: 05/31/2018 Discussion: A frontal chest is provided. Cardiomediastinal contours are unchanged. Lines and tubes are in stable position. There is bibasilar atelectasis/consolidation, and small bilateral pleural effusions, similar to the prior exam. No pneumothorax. Signed: Devon Ortega Verified Date/Time: 06/01/2018 08:53:09 Reading Location: [facility] Radiology Reading Room RIN ASSAY - LOW MOLECULAR [id number] 07:50:00* Test Item Value Reference Range Comments LOVENOX-ANTI 10A (BEAKER) (test dvzi=5647) 0.52 u/ml 0.60-2.00 Anti-Factor 10-A Level (Heparin Assay for Low Molecular Weight Heparin)Monitorin g Guidelines: Blood samples should be obtained 4 hours post subcutaneous injecti on (time of Peak level) Therapeutic Peak Levels: 0.6-1.0 units/mL twice daily e noxaparin 1.0-2.0 units/mL once daily enoxaparinRef: CHEST 2012;141:[id number] ease collect anti-Xa level 4 hours after second Lovenox doseBLOOD GAS, VENOUS 2018-06-01 04:28:00* Test Item Value Reference Range Comments PH VENOUS (BEAKER) (test dodk=846) 7.40 7.32-7.42 PCO2 VENOUS (BEAKER) (test urpg=223) 50 mmHg 41-51 PO2 VENOUS (BEAKER) (test vnre=954) 43 mmHg 25-40 O2 SATURATION VENOUS (BEAKER) (test npdr=003) 78.3 % 40.0-70.0 HCO3 VENOUS (BEAKER) (test sifm=647) 30 mmol/L 21-29 BASE EXCESS VENOUS (BEAKER) (test drnp=130) 4.4 mmol/L -2.0-3.0 PATIENT TEMPERATURE (BEAKER) (test rhag=5978) 37.0 C [id number] 04:19:00* Test Item Value Reference Range Comments MAGNESIUM (BEAKER) (test mdxp=394) 1.7 mg/dL 1.6-2.6 BASIC METABOLIC [id number] 04:19:00* Test Item Value Reference Range Comments SODIUM (BEAKER) (test cqat=612) 136 meq/L 136-145 POTASSIUM (BEAKER) (test fffy=120) 3.5 meq/L 3.5-5.1 CHLORIDE (BEAKER) (test enma=309) 102 meq/L 98-107 CO2 (BEAKER) (test wbhh=169) 26 meq/L 22-29 BLOOD UREA NITROGEN (BEAKER) (test tifm=485) 11 mg/dL 7-21 CREATININE (BEAKER) (test oxfz=306) 0.51 mg/dL 0.57-1.25 GLUCOSE RANDOM (BEAKER) (test dyyz=613) 104 mg/dL 70-105 CALCIUM (BEAKER) (test xfzq=954) 8.6 mg/dL 8.4-10.2 EGFR (BEAKER) (test mssm=9786) 120 mL/min/1.73 sq m ESTIMATED GFR IS NOT ACCURATE CREATININE CLEARANCE IN PREDICTING GLOMERULAR FILTRATION RATE. ESTIMATED GFR IS NOT APPLICABLE FOR DIALYSIS PATIENTS. POCT-GLUCOSE [id number] 17:56:00* Test Item Value Reference Range Comments POC-GLUCOSE METER (BEAKER) (test nfyl=7099) 77 mg/dL 70-110 TESTED AT [facility] [address] [facility] [address] [id number] 16:11:00* Test Item Value Reference Range Comments PHOSPHORUS (BEAKER) (test zise=647) 3.6 mg/dL 2.3-4.7 RAD, CHEST, 1 VIEW, NON [id number] 13:20:00Reason for exam:->Post Power PICC insertion LUE for tip verificationShould this be performed at the bedside?->Yes FINAL REPORT AP chest HISTORY: PICC placement COMPARISON: 05/31/2018 IMPRESSION:Left arm PICC present. Tip at mid SVC. Remainder support l jeannette unchanged. Cardiomegaly, hypoinflation and interstitial edema unchanged. No pneumothorax. Signed: Noelle Farrar Verified Date/Time: 05/31/2018 13:20:55 Reading Location: [facility] C013X Ortho Consult Reading Room Electronical ly signed by: NOELLE FARRAR M.D. on 05/31/2018 01:20 PM POCT-GLUCOSE [id number] 12:39:00* Test Item Value Reference Range Comments POC-GLUCOSE METER (BEAKER) (test crxz=3880) 134 mg/dL 70-110 TESTED AT [address] [address] POCT-GLUCOSE [id number] 12:11:00* Test Item Value Reference Range Comments POC-GLUCOSE METER (BEAKER) (test zjza=1086) 67 mg/dL 70-110 Notified KWABENA HANSON/TESTED AT [address] [address] POCT-GLUCOSE [id number] 06:44:00* Test Item Value Reference Range Comments POC-GLUCOSE METER (BEAKER) (test ykds=0599) 112 mg/dL 70-110 TESTED AT [address] [address] RAD, CHEST, 1 VIEW, NON [id number] 05:19:00Reason for exam:->intubated patientShould this be performed at the bedside?->YesFINAL REPORT RAD, CHEST, 1 VIEW, NON DEPT INDICATION: intubated patient COMPARISON: Prior day's exam FINDINGS: Portable frontal view of the chest. IMPRESSION: Support Lines: Endotracheal tube terminates 4.0 cm above the elissa. Slight interval retraction of the left IJ central venous catheter with tip overlying the cavoatrial junction. Otherwise unchanged support apparatus. Lungs and pleura: Grossly airspace and pleural opacities, when allowing for differences in technique /projection. No pneumothorax.Heart and mediastinum: Stable contours. Additional findings: None. Signed: Trish Ruiz Verified Date/Time: 05/31/2018 05:19:01 Reading Location: [facility] B1 C013T Transitional Reading Room Electronically signed by: TRISH RUIZ MD on 2017 05:19 AM [id number] 05:06:00* Test Item Value Reference Range Comments MAGNESIUM (BEAKER) (test mnxf=586) 1.9 mg/dL 1.6-2.6 BASIC METABOLIC [id number] 05:06:00* Test Item Value Reference Range Comments SODIUM (BEAKER) (test oiac=585) 136 meq/L 136-145 POTASSIUM (BEAKER) (test gbmw=723) 3.9 meq/L 3.5-5.1 CHLORIDE (BEAKER) (test kesz=499) 101 meq/L 98-107 CO2 (BEAKER) (test bany=417) 28 meq/L 22-29 BLOOD UREA NITROGEN (BEAKER) (test ryjq=471) 7 mg/dL 7-21 CREATININE (BEAKER) (test iocm=396) 0.50 mg/dL 0.57-1.25 GLUCOSE RANDOM (BEAKER) (test ehjr=381) 102 mg/dL 70-105 CALCIUM (BEAKER) (test oswq=935) 8.9 mg/dL 8.4-10.2 EGFR (BEAKER) (test irbf=1678) 122 mL/min/1.73 sq m ESTIMATED GFR IS NOT ACCURATE CREATININE CLEARANCE IN PREDICTING GLOMERULAR FILTRATION RATE. ESTIMATED GFR IS NOT APPLICABLE FOR DIALYSIS PATIENTS. CBC W/PLT COUNT & AUTO [id number] 04:49:00* Test Item Value Reference Range Comments WHITE BLOOD CELL COUNT (BEAKER) (test orsb=548) 5.8 K/ L 3.5-10.5 RED BLOOD CELL COUNT (BEAKER) (test bhqq=626) 3.85 M/ L 3.93-5.22 HEMOGLOBIN (BEAKER) (test zcwh=037) 11.4 GM/DL 11.2-15.7 HEMATOCRIT (BEAKER) (test ests=240) 36.0 % 34.1-44.9 MEAN CORPUSCULAR VOLUME (BEAKER) (test xdid=512) 93.5 fL 79.4-94.8 MEAN CORPUSCULAR HEMOGLOBIN (BEAKER) (test rqcr=598) 29.6 pg 25.6-32.2 MEAN CORPUSCULAR HEMOGLOBIN CONC (BEAKER) (test hkqs=699) 31.7 GM/DL 32.2-35.5 RED CELL DISTRIBUTION WIDTH (BEAKER) (test fzqd=138) 13.8 % 11.7-14.4 PLATELET COUNT (BEAKER) (test bscl=494) 163 K/CU MM 150-450 MEAN PLATELET VOLUME (BEAKER) (test zgka=025) 10.0 fL 9.4-12.3 NUCLEATED RED BLOOD CELLS (BEAKER) (test ahnr=983) 0 /100 WBC 0-0 NEUTROPHILS RELATIVE PERCENT (BEAKER) (test bbys=196) 64 % LYMPHOCYTES RELATIVE PERCENT (BEAKER) (test mzpz=013) 22 % MONOCYTES RELATIVE PERCENT (BEAKER) (test nlac=850) 11 % EOSINOPHILS RELATIVE PERCENT (BEAKER) (test qmsp=262) 2 % BASOPHILS RELATIVE PERCENT (BEAKER) (test xhlv=823) 0 % NEUTROPHILS ABSOLUTE COUNT (BEAKER) (test hbik=109) 3.68 K/ L 1.56-6.13 LYMPHOCYTES ABSOLUTE COUNT (BEAKER) (test epdi=916) 1.28 K/ L 1.18-3.74 MONOCYTES ABSOLUTE COUNT (BEAKER) (test sfta=968) 0.65 K/ L 0.24-0.36 EOSINOPHILS ABSOLUTE COUNT (BEAKER) (test gvla=719) 0.12 K/ L 0.04-0.36 BASOPHILS ABSOLUTE COUNT (BEAKER) (test lnzl=277) 0.02 K/ L 0.01-0.08 IMMATURE GRANULOCYTES-RELATIVE PERCENT (BEAKER) (test tosy=3705) 0 % 0-1 POCT-GLUCOSE [id number] 00:22:00* Test Item Value Reference Range Comments POC-GLUCOSE METER (BEAKER) (test wodp=9347) 113 mg/dL 70-110 TESTED AT [facility] [address] [facility] [address] POCT-GLUCOSE [id number] 18:08:00* Test Item Value Reference Range Comments POC-GLUCOSE METER (BEAKER) (test grin=2402) 127 mg/dL 70-110 TESTED AT [facility] [address] [facility] [address] MR, PELVIS, [id number] 17:01:00FINAL REPORT TECHNIQUE: MRI of the pelvis WITHOUT and WITH intravenous contrast. INDICATION: 68-year-old woman with adnexal mass. COMPARISON: Pelvic ultrasound 05/28/2018. FINDINGS: UTERUS: The uterus measures 9.1 x 7.7 x 6.9 cm cm. 6.3 x 5.7 x 6.9 cm T2 hyperintense intramural fibroid in the posterior fundus enhances to a lesser degree than the myometrium. Tiny cervical nabothian cysts.ENDOMETRIUM: IUD within the endometrial canal. The endometrium is homogeneous and measures 1.2 cm in thickness.OVARIES/ADNEXA: 9.1 x 4.6 x 4 cm fluid-filled tubular structure in the left adnexum abuts the left ovary, which is otherwise unremarkable. Right ovary is unremarkable. PERITONEUM/RETROPERITONEUM: No free fluid. BLADDER: The bladder is decompressed by Sanchez catheter.RECTUM: Rectum and mesorectum are unremarkable. LYMPH NODES: No lymphadenopathy. BONES AND SOFT TISSUES: Unremarkable. IMPRESSION:9.1 cm fluid-filled tubular structure in the left adnexum, likely hydrosalpinx. Left ovarian cyst is less likely. Prominent and homogeneous endometrium, suggestive of endometrial hyperplasia. No focal endometrial lesion. Intramural uterine fibroid. RECOMMENDATION:Consider gyne cology consultation. The above findings may be reassessed on follow-up pelvic ul trasound. Signed: Merced Jacob MDReport Verified Date/Time: 05/30/2018 17:01 :50 Reading Location: [place] [id number] CT Body Reading Room , CHEST, 1 VIEW, NON DEPT 2018-05-30 10:35:00Reason for exam:->intubated patientShould this be performed at the bedside?->YesFINAL REPORT TECHNIQUE: Frontal view of the chest. INDICATION: 68-year-old woman after intubation. COMPARISON: Chest radiograph 05/29/2018. FINDINGS: LINES/TUBES: Unchanged. LUNGS: No significant change in patchy airspace opacities in the right lower lung zone and reticular opacities in the left lower lung zone. PLEURA: Unchanged small bilateral pleural effusions. No pneumothorax. HEART AND MEDIASTINUM: The cardiomediastinal silhouette is prominent, but unchanged. Atherosclerotic calcifications in the thoracic aorta. SOFT TISSUES AND BONES: Unremarkable. IMPRESSION:No significant change since 05/29/2018. Signed: Merced Jacob MDReport Verified Date/Time: 05/30/2018 10:35:20 Reading Location: [facility] C013Y CT Body Reading Room - GLUCOSE [id number] 07:02:00* Test Item Value Reference Range Comments POC-GLUCOSE METER (BEAKER) (test qsjv=0644) 131 mg/dL 70-110 TESTED AT [facility] [address] [facility] [address] [id number] 04:50:00* Test Item Value Reference Range Comments MAGNESIUM (BEAKER) (test tvke=839) 1.8 mg/dL 1.6-2.6 BASIC METABOLIC [id number] 04:50:00* Test Item Value Reference Range Comments SODIUM (BEAKER) (test ppud=510) 138 meq/L 136-145 POTASSIUM (BEAKER) (test dxxm=113) 4.0 meq/L 3.5-5.1 CHLORIDE (BEAKER) (test bqbg=742) 100 meq/L 98-107 CO2 (BEAKER) (test cdxj=821) 30 meq/L 22-29 BLOOD UREA NITROGEN (BEAKER) (test vcjt=207) 6 mg/dL 7-21 CREATININE (BEAKER) (test qjpl=106) 0.51 mg/dL 0.57-1.25 GLUCOSE RANDOM (BEAKER) (test ecbr=665) 121 mg/dL 70-105 CALCIUM (BEAKER) (test akyt=890) 8.8 mg/dL 8.4-10.2 EGFR (BEAKER) (test jygp=2878) 120 mL/min/1.73 sq m ESTIMATED GFR IS NOT ACCURATE CREATININE CLEARANCE IN PREDICTING GLOMERULAR FILTRATION RATE. ESTIMATED GFR IS NOT APPLICABLE FOR DIALYSIS PATIENTS. BLOOD GAS, [id number] 04:20:00* Test Item Value Reference Range Comments PH ARTERIAL (BEAKER) (test nfkq=218) 7.49 7.35-7.45 PCO2 ARTERIAL (BEAKER) (test nvvx=982) 41 mmHg 35-45 PO2 ARTERIAL (BEAKER) (test bdbu=784) 193 mmHg 80-90 O2 SATURATION ARTERIAL (BEAKER) (test uuuy=715) 99.4 % 96.0-97.0 HCO3 ARTERIAL (BEAKER) (test lhes=502) 31 mmol/L 21-29 BASE EXCESS ARTERIAL (BEAKER) (test udql=079) 6.7 mmol/L -2.0-3.0 PATIENT TEMPERATURE (BEAKER) (test gvoa=7613) 37.0 C FIO2 (BEAKER) (test pgbe=6465) 60.0 % CBC W/PLT COUNT & AUTO [id number] 04:20:00* Test Item Value Reference Range Comments WHITE BLOOD CELL COUNT (BEAKER) (test tzhw=870) 6.2 K/ L 3.5-10.5 RED BLOOD CELL COUNT (BEAKER) (test aisl=892) 4.05 M/ L 3.93-5.22 HEMOGLOBIN (BEAKER) (test ohxo=460) 11.7 GM/DL 11.2-15.7 HEMATOCRIT (BEAKER) (test kewl=298) 37.7 % 34.1-44.9 MEAN CORPUSCULAR VOLUME (BEAKER) (test bgsf=575) 93.1 fL 79.4-94.8 MEAN CORPUSCULAR HEMOGLOBIN (BEAKER) (test icig=197) 28.9 pg 25.6-32.2 MEAN CORPUSCULAR HEMOGLOBIN CONC (BEAKER) (test rapd=179) 31.0 GM/DL 32.2-35.5 RED CELL DISTRIBUTION WIDTH (BEAKER) (test ipoj=301) 13.9 % 11.7-14.4 PLATELET COUNT (BEAKER) (test bnyf=673) 144 K/CU MM 150-450 MEAN PLATELET VOLUME (BEAKER) (test llec=969) 10.0 fL 9.4-12.3 NUCLEATED RED BLOOD CELLS (BEAKER) (test mloi=247) 0 /100 WBC 0-0 NEUTROPHILS RELATIVE PERCENT (BEAKER) (test bdsm=972) 69 % LYMPHOCYTES RELATIVE PERCENT (BEAKER) (test qnil=974) 17 % MONOCYTES RELATIVE PERCENT (BEAKER) (test wlhm=323) 12 % EOSINOPHILS RELATIVE PERCENT (BEAKER) (test xbcz=051) 1 % BASOPHILS RELATIVE PERCENT (BEAKER) (test yflj=014) 0 % NEUTROPHILS ABSOLUTE COUNT (BEAKER) (test bhyp=053) 4.28 K/ L 1.56-6.13 LYMPHOCYTES ABSOLUTE COUNT (BEAKER) (test rllx=622) 1.08 K/ L 1.18-3.74 MONOCYTES ABSOLUTE COUNT (BEAKER) (test zsmv=514) 0.76 K/ L 0.24-0.36 EOSINOPHILS ABSOLUTE COUNT (BEAKER) (test dglr=747) 0.08 K/ L 0.04-0.36 BASOPHILS ABSOLUTE COUNT (BEAKER) (test gsyv=609) 0.02 K/ L 0.01-0.08 IMMATURE GRANULOCYTES-RELATIVE PERCENT (BEAKER) (test vkxz=4954) 0 % 0-1 POCT-GLUCOSE [id number] 00:38:00* Test Item Value Reference Range Comments POC-GLUCOSE METER (BEAKER) (test jejb=2998) 147 mg/dL 70-110 TESTED AT [address] [address] POCT-GLUCOSE [id number] 18:41:00* Test Item Value Reference Range Comments POC-GLUCOSE METER (ADRYAN) (test lybf=7225) 116 mg/dL 70-110 TESTED AT [address] [address] POCT-GLUCOSE [id number] 13:16:00* Test Item Value Reference Range Comments POC-GLUCOSE METER (ADRYAN) (test rqix=9500) 133 mg/dL 70-110 TESTED AT [address] [address] RAD, CHEST, 1 VIEW, NON [id number] 07:22:00Reason for exam:->intubated patientShould this be performed at the bedside?->YesFINAL REPORT RAD, CHEST, 1 VIEW, NON DEPT INDICATION: intubated patient COMPARISON: Prior day's exam FINDINGS: Portable frontal view of the chest. IMPRESSION: Support Lines: Stable. Lungs and pleura: Unchanged appearance of the air spaces. No pneumothorax.Heart and mediastinum: Stable contours. Additional findings: None. Signed: JR Dominguez Robert MDReport Verified Date/Time: 05/29/2018 07:22:09 Reading Location: [facility] Radiology Reading Room - GLUCOSE [id number] 05:59:00* Test Item Value Reference Range Comments POC-GLUCOSE METER (BEAKER) (test skej=2916) 148 mg/dL 70-110 TESTED AT [facility] [address] [facility] [address] BLOOD [id number] 05:02:00* Test Item Value Reference Range Comments CULTURE (BEAKER) (test inyn=3597) No growth in 5 days BLOOD [id number] 05:02:00* Test Item Value Reference Range Comments CULTURE (BEAKER) (test avgp=2910) No growth in 5 days [id number] 04:40:00* Test Item Value Reference Range Comments MAGNESIUM (BEAKER) (test tdny=055) 1.7 mg/dL 1.6-2.6 BASIC METABOLIC [id number] 04:40:00* Test Item Value Reference Range Comments SODIUM (BEAKER) (test cxia=724) 139 meq/L 136-145 POTASSIUM (BEAKER) (test tfhl=503) 3.8 meq/L 3.5-5.1 CHLORIDE (BEAKER) (test qabh=488) 99 meq/L 98-107 CO2 (BEAKER) (test doqc=026) 31 meq/L 22-29 BLOOD UREA NITROGEN (BEAKER) (test dlhz=231) 6 mg/dL 7-21 CREATININE (BEAKER) (test xeqp=527) 0.49 mg/dL 0.57-1.25 GLUCOSE RANDOM (BEAKER) (test ceii=560) 122 mg/dL 70-105 CALCIUM (BEAKER) (test ibzq=092) 8.9 mg/dL 8.4-10.2 EGFR (BEAKER) (test qhnn=2741) 125 mL/min/1.73 sq m ESTIMATED GFR IS NOT ACCURATE CREATININE CLEARANCE IN PREDICTING GLOMERULAR FILTRATION RATE. ESTIMATED GFR IS NOT APPLICABLE FOR DIALYSIS PATIENTS. BLOOD GAS, [id number] 04:24:00* Test Item Value Reference Range Comments PH VENOUS (BEAKER) (test veyw=495) 7.45 7.32-7.42 PCO2 VENOUS (BEAKER) (test ibdb=477) 49 mmHg 41-51 PO2 VENOUS (BEAKER) (test nvja=507) 36 mmHg 25-40 O2 SATURATION VENOUS (BEAKER) (test ninh=022) 70.1 % 40.0-70.0 HCO3 VENOUS (BEAKER) (test nime=187) 34 mmol/L 21-29 BASE EXCESS VENOUS (BEAKER) (test gjwo=578) 8.4 mmol/L -2.0-3.0 PATIENT TEMPERATURE (BEAKER) (test knuc=3000) 37.0 C CBC W/PLT COUNT & AUTO [id number] 04:17:00* Test Item Value Reference Range Comments WHITE BLOOD CELL COUNT (BEAKER) (test ibgs=695) 5.8 K/ L 3.5-10.5 RED BLOOD CELL COUNT (BEAKER) (test prmi=705) 3.86 M/ L 3.93-5.22 HEMOGLOBIN (BEAKER) (test csgp=578) 11.2 GM/DL 11.2-15.7 HEMATOCRIT (BEAKER) (test xzmi=159) 35.9 % 34.1-44.9 MEAN CORPUSCULAR VOLUME (BEAKER) (test lnpm=927) 93.0 fL 79.4-94.8 MEAN CORPUSCULAR HEMOGLOBIN (BEAKER) (test gkkd=537) 29.0 pg 25.6-32.2 MEAN CORPUSCULAR HEMOGLOBIN CONC (BEAKER) (test umku=786) 31.2 GM/DL 32.2-35.5 RED CELL DISTRIBUTION WIDTH (BEAKER) (test atlr=678) 13.9 % 11.7-14.4 PLATELET COUNT (BEAKER) (test lddu=765) 136 K/CU MM 150-450 MEAN PLATELET VOLUME (BEAKER) (test lqyt=279) 9.7 fL 9.4-12.3 NUCLEATED RED BLOOD CELLS (BEAKER) (test ntbt=335) 0 /100 WBC 0-0 NEUTROPHILS RELATIVE PERCENT (BEAKER) (test vuxj=625) 69 % LYMPHOCYTES RELATIVE PERCENT (BEAKER) (test fbax=137) 16 % MONOCYTES RELATIVE PERCENT (BEAKER) (test ytne=362) 13 % EOSINOPHILS RELATIVE PERCENT (BEAKER) (test hlxg=976) 1 % BASOPHILS RELATIVE PERCENT (BEAKER) (test wosf=734) 0 % NEUTROPHILS ABSOLUTE COUNT (BEAKER) (test crrp=077) 4.02 K/ L 1.56-6.13 LYMPHOCYTES ABSOLUTE COUNT (BEAKER) (test qvrf=153) 0.94 K/ L 1.18-3.74 MONOCYTES ABSOLUTE COUNT (BEAKER) (test isln=332) 0.75 K/ L 0.24-0.36 EOSINOPHILS ABSOLUTE COUNT (BEAKER) (test ekoq=821) 0.07 K/ L 0.04-0.36 BASOPHILS ABSOLUTE COUNT (BEAKER) (test iqrn=775) 0.02 K/ L 0.01-0.08 IMMATURE GRANULOCYTES-RELATIVE PERCENT (BEAKER) (test cmor=3576) 0 % 0-1 POCT-GLUCOSE [id number] 00:04:00* Test Item Value Reference Range Comments POC-GLUCOSE METER (BEAKER) (test wvul=8529) 126 mg/dL 70-110 TESTED AT [facility] [address] [facility] [address] POCT-GLUCOSE [id number] 17:21:00* Test Item Value Reference Range Comments POC-GLUCOSE METER (BEAKER) (test ysmu=8155) 81 mg/dL 70-110 TESTED AT [facility] [address] [facility] [address] BRONCHIAL CULTURE + GRAM [id number] 16:46:00* Test Item Value Reference Range Comments CULTURE (BEAKER) (test vsqc=2061) 3+ Normal respiratory jeb present GRAM STAIN RESULT (BEAKER) (test fhsi=2914) 2+ WBCs GRAM STAIN RESULT (BEAKER) (test rzra=47463) No organisms seen POCT-GLUCOSE [id number] 12:21:00* Test Item Value Reference Range Comments POC-GLUCOSE METER (BEAKER) (test jpkf=4049) 139 mg/dL 70-110 TESTED AT [facility] [address] [facility] [address] Aerobic bacterial blood [id number] 11:38:00Test Ordered to Rule Out VTE/DVT? NNo growth in 5 days.^No growth in 5 days.^LBlood anaerobic culture 2018-05-28 11:38:00Test Ordered to Rule Out VTE/DVT? NNo growth in 5 days.^No growth in 5 days.^[place]/S, [id number] 08:57:00Reason for exam:->left ovarian cyst, ? malignancyShould this be performed at the bedside?->YesFINAL REPORT TECHNIQUE: Transabdominal grayscale ultrasound of the [...] a linear echogenic structure which correlates with impl anted device on recent CT. OVARIES/ADNEXA: The right ovary is grossly unremarkab le in appearance and measures 2.1 x 1.5 x 2 cm. 8.9 x 4.6 x 4.6 cm cystic struct ure in the left adnexum with suspected internal septations. PELVIS: No free flui d. IMPRESSION:Suboptimal evaluation on this transabdominal pelvic ultrasound. 8.9 cm complex appearing left adnexal cystic lesion. Primary ovarian neoplasm ca nnot be excluded. The endometrium appears slightly prominent, however accurate e valuation is somewhat limited on this transabdominal ultrasound and by artifact from implanted device in the endometrium. Subserosal uterine fibroid. RECOMMENDA TION:Transvaginal pelvic ultrasound may be obtained for further evaluation of ab ove findings. Alternatively, pelvic MRI with and without intravenous contrast ma y be obtained. Signed: Merced Jacob MDReport Verified Date/Time: 05/28/2018 08:57:20 Reading Location: [address] Ultrasound Reading Room Electronicall y signed by: MERCED JACOB MD on 05/28/2018 08:57 AM RAD, CHEST, 1 VIEW, NON [id number] 08:31:00Reason for exam:->intubated patientShould this be performed at the bedside?->YesFINAL REPORT RAD, CHEST, 1 VIEW, NON DEPT INDICATION: intubated patient COMPARISON: Prior day's exam FINDINGS: Portable frontal view of the chest. IMPRESSION: Support Lines: Interval placement of enteric tube. Side port is not visible and likely outside the imaged volume. Remaining support hardware is stable. Lungs and pleura: Layering right effusion is unchanged. Left lung remains clear. No pneumothorax.Heart and mediastinum: The visible contours are stable.Additional findings: None. Signed: JR Dominguez Robert MDReport Verified Date/Time: 05/28/2018 08:31:07 Reading Location: [facility] Rad[facility] Reading Room - GLUCOSE [id number] 05:52:00* Test Item Value Reference Range Comments POC-GLUCOSE METER (BEAKER) (test qicp=5545) 155 mg/dL 70-110 TESTED AT [facility] [address] [facility] [address] CBC W/PLT COUNT & AUTO [id number] 05:21:00* Test Item Value Reference Range Comments WHITE BLOOD CELL COUNT (BEAKER) (test mwsc=135) 9.3 K/ L 3.5-10.5 RED BLOOD CELL COUNT (BEAKER) (test ngpn=877) 3.77 M/ L 3.93-5.22 HEMOGLOBIN (BEAKER) (test dqfq=383) 11.0 GM/DL 11.2-15.7 HEMATOCRIT (BEAKER) (test fbud=316) 35.7 % 34.1-44.9 MEAN CORPUSCULAR VOLUME (BEAKER) (test citf=678) 94.7 fL 79.4-94.8 MEAN CORPUSCULAR HEMOGLOBIN (BEAKER) (test eppk=438) 29.2 pg 25.6-32.2 MEAN CORPUSCULAR HEMOGLOBIN CONC (BEAKER) (test hght=803) 30.8 GM/DL 32.2-35.5 RED CELL DISTRIBUTION WIDTH (BEAKER) (test tmtl=173) 13.5 % 11.7-14.4 PLATELET COUNT (BEAKER) (test uxnk=895) 151 K/CU MM 150-450 MEAN PLATELET VOLUME (BEAKER) (test usgr=538) 10.2 fL 9.4-12.3 NUCLEATED RED BLOOD CELLS (BEAKER) (test leun=981) 0 /100 WBC 0-0 NEUTROPHILS RELATIVE PERCENT (BEAKER) (test tomr=989) 81 % LYMPHOCYTES RELATIVE PERCENT (BEAKER) (test ghwz=067) 9 % MONOCYTES RELATIVE PERCENT (BEAKER) (test pxlo=648) 11 % EOSINOPHILS RELATIVE PERCENT (BEAKER) (test qysa=003) 0 % BASOPHILS RELATIVE PERCENT (BEAKER) (test jjlq=023) 0 % NEUTROPHILS ABSOLUTE COUNT (BEAKER) (test ewuy=082) 7.46 K/ L 1.56-6.13 LYMPHOCYTES ABSOLUTE COUNT (BEAKER) (test jtyk=484) 0.79 K/ L 1.18-3.74 MONOCYTES ABSOLUTE COUNT (BEAKER) (test ynrm=449) 0.97 K/ L 0.24-0.36 EOSINOPHILS ABSOLUTE COUNT (BEAKER) (test mtfe=479) 0.01 K/ L 0.04-0.36 BASOPHILS ABSOLUTE COUNT (BEAKER) (test xtfh=823) 0.01 K/ L 0.01-0.08 IMMATURE GRANULOCYTES-RELATIVE PERCENT (BEAKER) (test rizp=9332) 0 % 0-1 [id number] 05:11:00* Test Item Value Reference Range Comments PHOSPHORUS (BEAKER) (test kbdk=899) 2.4 mg/dL 2.3-4.7 [id number] 05:11:00* Test Item Value Reference Range Comments MAGNESIUM (BEAKER) (test ucrx=135) 1.6 mg/dL 1.6-2.6 BASIC METABOLIC [id number] 05:11:00* Test Item Value Reference Range Comments SODIUM (BEAKER) (test boko=007) 136 meq/L 136-145 POTASSIUM (BEAKER) (test zjqz=183) 4.2 meq/L 3.5-5.1 CHLORIDE (BEAKER) (test cnol=591) 102 meq/L 98-107 CO2 (BEAKER) (test fvyu=945) 27 meq/L 22-29 BLOOD UREA NITROGEN (BEAKER) (test hssq=514) 11 mg/dL 7-21 CREATININE (BEAKER) (test fwqr=376) 0.48 mg/dL 0.57-1.25 GLUCOSE RANDOM (BEAKER) (test vezv=248) 126 mg/dL 70-105 CALCIUM (BEAKER) (test wjau=162) 8.5 mg/dL 8.4-10.2 EGFR (BEAKER) (test knri=7334) 128 mL/min/1.73 sq m ESTIMATED GFR IS NOT ACCURATE CREATININE CLEARANCE IN PREDICTING GLOMERULAR FILTRATION RATE. ESTIMATED GFR IS NOT APPLICABLE FOR DIALYSIS PATIENTS. BLOOD GAS, [id number] 04:55:00* Test Item Value Reference Range Comments PH ARTERIAL (BEAKER) (test lszp=797) 7.46 7.35-7.45 PCO2 ARTERIAL (BEAKER) (test ykex=450) 42 mmHg 35-45 PO2 ARTERIAL (BEAKER) (test zksa=434) 229 mmHg 80-90 O2 SATURATION ARTERIAL (BEAKER) (test afis=819) 99.5 % 96.0-97.0 HCO3 ARTERIAL (BEAKER) (test bliw=050) 30 mmol/L 21-29 BASE EXCESS ARTERIAL (BEAKER) (test urjm=745) 5.0 mmol/L -2.0-3.0 PATIENT TEMPERATURE (BEAKER) (test rerm=8599) 36.5 C FIO2 (BEAKER) (test niea=0912) 100.0 % POCT-GLUCOSE [id number] 23:55:00* Test Item Value Reference Range Comments POC-GLUCOSE METER (BEAKER) (test fldu=0169) 197 mg/dL 70-110 [address]ED AT [address] [address] RAD, CHEST, 1 VIEW, NON [id number] 18:08:00Reason for exam:->reassess ET tube placementShould this be performed at the bedside?->YesFINAL REPORT Follow up Chest radiograph Clinical History: Reassess endotracheal tube placementComparison: May 27, 2018Views: One AP portable Chest x-ray:The cardiac and mediastinal silhouettes are unchanged. There is no evidence of a pneumothorax. There is evidence of a moderate right pleural effusion. There is no evidence of overt cardiac failure. There is evidence of a right lower lung zone focal parenchymal opacity. The endotracheal tube and left internal jugular catheter are satisfactorily positioned and unchanged. Impression:As compared to the prior study the endotracheal tube has been retracted. There is improved aeration in the right lung. There remains a right pleural effusion with compressive atelectasis or pneumonia in the right lung base. Signed: Kylah Viramontes Verified Date/Time: 05/27/2018 18:08:06 Read ing Location: [facility] B1 C013W Consult Reading Room -GLUCOSE [id number] 18:00:00* Test Item Value Reference Range Comments POC-GLUCOSE METER (BEAKER) (test hdox=9273) 100 mg/dL 70-110 TESTED AT [facility] [address] [facility] [address] RAD, CHEST, 1 VIEW, NON [id number] 16:48:00Reason for exam:->s/p intubationShould this be performed at the bedside?->YesFINAL REPORT RAD, CHEST, 1 VIEW, NON DEPT INDICATION: s/p intubation COMPARISON: Prior day's exam FINDINGS: Portable frontal view of the chest. IMPRESSION: Support Lines: Stable. Lungs and pleura: Increasing consolidation and enlarging effusion on the right. Left lung is unchanged. No pneumothorax.Heart and mediastinum: Stable contours. Additional findings: None. Signed: JR Dominguez Robert MDReport Verified Date/Time: 05/27/2018 16:48:34 Reading Location: [address] Consult Reading Room D GAS, [id number] 15:32:00* Test Item Value Reference Range Comments PH VENOUS (BEAKER) (test fxbd=641) 7.23 7.32-7.42 PCO2 VENOUS (BEAKER) (test bnzg=800) 77 mmHg 41-51 PO2 VENOUS (BEAKER) (test bqlt=376) 45 mmHg 25-40 O2 SATURATION VENOUS (BEAKER) (test ktfj=095) 70.4 % 40.0-70.0 HCO3 VENOUS (BEAKER) (test etsr=961) 31 mmol/L 21-29 BASE EXCESS VENOUS (BEAKER) (test hdfs=271) 1.8 mmol/L -2.0-3.0 PATIENT TEMPERATURE (BEAKER) (test wcds=7390) 37.0 C POCT-GLUCOSE [id number] 12:15:00* Test Item Value Reference Range Comments POC-GLUCOSE METER (BEAKER) (test nwru=8529) 96 mg/dL 70-110 TESTED AT [facility] [address] [facility] [address] SPIN/CONCENTRATION [id number] 07:12:00* Test Item Value Reference Range Comments CONCENTRATION CHARGED (BEAKER) (test yuvj=1467) Done POCT-GLUCOSE [id number] 05:55:00* Test Item Value Reference Range Comments POC-GLUCOSE METER (BEAKER) (test twdf=9897) 96 mg/dL 70-110 TESTED AT [facility] [address] [facility] [address] [id number] 05:11:00* Test Item Value Reference Range Comments PHOSPHORUS (BEAKER) (test jsrv=067) 3.3 mg/dL 2.3-4.7 [id number] 05:11:00* Test Item Value Reference Range Comments MAGNESIUM (BEAKER) (test dtmi=441) 2.1 mg/dL 1.6-2.6 BASIC METABOLIC [id number] 05:11:00* Test Item Value Reference Range Comments SODIUM (BEAKER) (test xyln=983) 136 meq/L 136-145 POTASSIUM (BEAKER) (test ixit=411) 4.7 meq/L 3.5-5.1 CHLORIDE (BEAKER) (test bkqa=868) 102 meq/L 98-107 CO2 (BEAKER) (test flpi=511) 30 meq/L 22-29 BLOOD UREA NITROGEN (BEAKER) (test uixu=138) 12 mg/dL 7-21 CREATININE (BEAKER) (test cfwr=322) 0.45 mg/dL 0.57-1.25 GLUCOSE RANDOM (BEAKER) (test eesk=629) 79 mg/dL 70-105 CALCIUM (BEAKER) (test wqvl=408) 8.6 mg/dL 8.4-10.2 EGFR (BEAKER) (test kxmj=3071) 138 mL/min/1.73 sq m ESTIMATED GFR IS NOT ACCURATE CREATININE CLEARANCE IN PREDICTING GLOMERULAR FILTRATION RATE. ESTIMATED GFR IS NOT APPLICABLE FOR DIALYSIS PATIENTS. [id number] 05:08:00* Test Item Value Reference Range Comments PARTIAL THROMBOPLASTIN TIME (BEAKER) (test wfht=065) 88.2 seconds 22.5-36.0 BLOOD GAS, [id number] 04:53:00* Test Item Value Reference Range Comments PH ARTERIAL (BEAKER) (test lehd=752) 7.33 7.35-7.45 PCO2 ARTERIAL (BEAKER) (test vuuu=005) 62 mmHg 35-45 PO2 ARTERIAL (BEAKER) (test srpj=134) 209 mmHg 80-90 O2 SATURATION ARTERIAL (BEAKER) (test ulcs=192) 99.3 % 96.0-97.0 HCO3 ARTERIAL (BEAKER) (test uemw=302) 32 mmol/L 21-29 BASE EXCESS ARTERIAL (BEAKER) (test xepv=977) 4.6 mmol/L -2.0-3.0 PATIENT TEMPERATURE (BEAKER) (test hmbg=1506) 36.5 C FIO2 (BEAKER) (test pxzl=6388) 40.0 % CBC W/PLT COUNT & AUTO [id number] 04:51:00* Test Item Value Reference Range Comments WHITE BLOOD CELL COUNT (BEAKER) (test hoie=868) 5.3 K/ L 3.5-10.5 RED BLOOD CELL COUNT (BEAKER) (test zosu=007) 3.85 M/ L 3.93-5.22 HEMOGLOBIN (BEAKER) (test eofj=338) 11.1 GM/DL 11.2-15.7 HEMATOCRIT (BEAKER) (test rgmw=270) 37.7 % 34.1-44.9 MEAN CORPUSCULAR VOLUME (BEAKER) (test dhud=676) 97.9 fL 79.4-94.8 MEAN CORPUSCULAR HEMOGLOBIN (BEAKER) (test alip=850) 28.8 pg 25.6-32.2 MEAN CORPUSCULAR HEMOGLOBIN CONC (BEAKER) (test lxbj=578) 29.4 GM/DL 32.2-35.5 RED CELL DISTRIBUTION WIDTH (BEAKER) (test qgjk=782) 13.9 % 11.7-14.4 PLATELET COUNT (BEAKER) (test ahjl=716) 104 K/CU MM 150-450 MEAN PLATELET VOLUME (BEAKER) (test sbwg=225) 10.2 fL 9.4-12.3 NUCLEATED RED BLOOD CELLS (BEAKER) (test lqqv=543) 0 /100 WBC 0-0 NEUTROPHILS RELATIVE PERCENT (BEAKER) (test ycdu=794) 77 % LYMPHOCYTES RELATIVE PERCENT (BEAKER) (test uiwf=444) 13 % MONOCYTES RELATIVE PERCENT (BEAKER) (test chqn=462) 9 % EOSINOPHILS RELATIVE PERCENT (BEAKER) (test wwda=805) 1 % BASOPHILS RELATIVE PERCENT (BEAKER) (test pdjh=446) 0 % NEUTROPHILS ABSOLUTE COUNT (BEAKER) (test toct=049) 4.04 K/ L 1.56-6.13 LYMPHOCYTES ABSOLUTE COUNT (BEAKER) (test wnsz=312) 0.67 K/ L 1.18-3.74 MONOCYTES ABSOLUTE COUNT (BEAKER) (test zzip=566) 0.47 K/ L 0.24-0.36 EOSINOPHILS ABSOLUTE COUNT (BEAKER) (test ajcu=619) 0.04 K/ L 0.04-0.36 BASOPHILS ABSOLUTE COUNT (BEAKER) (test kzns=224) 0.01 K/ L 0.01-0.08 IMMATURE GRANULOCYTES-RELATIVE PERCENT (BEAKER) (test vhfv=4892) 1 % 0-1 DOUBLE-STRANDED DNA (DSDNA) [id number] 03:43:00* Test Item Value Reference Range Comments ANTI-DNA DS (BEAKER) (test gtvn=7629) Negative POCT-GLUCOSE [id number] 00:22:00* Test Item Value Reference Range Comments POC-GLUCOSE METER (BEAKER) (test zamh=5060) 92 mg/dL 70-110 TESTED AT [address] [address] MRSA [id number] 18:53:00* Test Item Value Reference Range Comments CULTURE (BEAKER) (test ogul=5392) No MRSA isolated SPUTUM CULTURE + GRAM [id number] 18:51:00* Test Item Value Reference Range Comments CULTURE (BEAKER) (test nbyw=2141) <1+ Normal respiratory jeb present GRAM STAIN RESULT (BEAKER) (test kbef=6402) 2+ WBCs GRAM STAIN RESULT (BEAKER) (test qbah=08168) 0-5 epithelial cells GRAM STAIN RESULT (BEAKER) (test sdav=90804) <1+ gram positive rods GRAM STAIN RESULT (BEAKER) (test xmuz=160872) <1+ gram positive cocci in pairs POCT-GLUCOSE [id number] 17:40:00* Test Item Value Reference Range Comments POC-GLUCOSE METER (BEAKER) (test pixc=9617) 103 mg/dL 70-110 TESTED AT [address] [address] NEEDLE EMG, 2 [id number] 17:18:00Reason for exam:->c/f motor neuron diseaseBaylor Kentfield HospitalNeurophysiology DepartmentELECTROMYOGRAPHY / NERVE CONDUCTION STUDY [address] [place] [address] [address] [place], [place] [id number] Name: Maira Early : Date of : 1950 Gender: Female Date of Exam: 05/26/2018 3:46 PMReferring Physician: Lyla Tomlin Physician: Lanie Alston Patient History: Patient presents with several month [...] 22.8 C, LLE 24 C Motor Nerve Conduction:Nerve and Site Latency Amplitude Segment LatencyDifference Distance Cond uctionVelocityPeroneal.RAnkle 7.1 ms *5.3 corrected 2.2 mV Extensor digitorum br eran-Ankle 7.1 ms 80 mm Fibula (head) 12.5 ms 2.1 mV Ankle-Fibula (head) 5.4 ms 280 mm 52 m/sKnee 14.6 ms 2.2 mV Fibula (head)-Knee 2.1 ms 105 mm 50 m/sTibial.R Ankle 5.6 ms 4.7 mV Abductor hallucis-Ankle 5.6 ms 80 mm Popliteal fossa 13.8 ms 3.7 mV Ankle-Popliteal fossa 8.2 ms 335 mm 41 m/sPeroneal.LAnkle 6.0 ms 1.4 mV Extensor digitorum brevis-Ankle 6.0 ms 80 mm Fibula (head) 13.6 ms 1.4 mV Ankle- Fibula (head) 7.6 ms 280 mm 37 m/s *53 corrected Knee 16.5 ms 1.4 mV Fibula (hea d)-Knee 2.9 ms 105 mm 36 m/s *52 correctedTibial.LAnkle 5.9 ms 3.0 mV Abductor h allucis-Ankle 5.9 ms 80 mm Popliteal fossa 14.5 ms 2.6 mV Ankle-Popliteal fossa 8.6 ms 345 mm 40 m/sPeroneal.LFibula (head) 3.4 ms 1.5 mV Tibialis anterior-Fibu la (head) 3.4 ms Popliteal fossa 5.2 ms 1.4 mV Fibula (head)-Popliteal fossa 1. 8 ms 100 mm 56 m/sPeroneal.RFibula (head) 4.0 ms 3.6 mV Tibialis anterior-Fibula (head) 4.0 ms Popliteal fossa 6.4 ms 2.5 mV Fibula (head)-Popliteal fossa 2.4 ms 100 mm 42 m/sMedian.RWrist 5.1 ms *4.1 corrected 1.6 mV Abductor pollicis christiano vis-Wrist 5.1 ms 60 mm Elbow 9.6 ms 1.6 mV Wrist-Elbow 4.5 ms 200 mm 44 m/s *54 correctedUlnar.RWrist 3.9 ms *2.9 corrected 5.2 mV Abductor digiti minimi (manu s)-Wrist 3.9 ms 60 mm Below elbow 7.8 ms 4.2 mV Wrist-Below elbow 3.9 ms 180 mm 46 m/s *56 correctedAbove elbow 9.6 ms 4.3 mV Below elbow-Above elbow 1.8 ms 90 mm 50 m/sF-Wave StudiesNerve M-Latency F-LatencyPeroneal.R 14.6 53.4Tibial.R 5.6 54.7Peroneal.L 13.6 51.5Tibial.L 14.5 56.3Median.R 9.6 30.2Ulnar.R 7.8 30.9Sens ory Nerve Conduction:Nerve and Site Onset Latency PeakLatency Amplitude Segment LatencyDifference Distance ConductionVelocitySural.RLower leg 3.0 ms 4.2 ms 14 & #[id number];V Ankle-Lower leg 3.0 ms 140 mm 33 m/sSural.LLower leg 3.5 ms 4.4 ms 4 & #[id number];V Ankle-Lower leg 3.5 ms 140 mm 32 m/sMedian.RWrist 3.7 ms 5.1 ms *4.1 co rrected 14 婍V Digit II (index finger)-Wrist 3.7 ms 130 mm 36 m/sUlnar.RWrist 3.3 ms 4.1 ms *3.1 corrected 16 𑵂V Digit V (little finger)-Wrist 3.3 ms 110 mm 33 m/sRadial.RForearm 2.3 ms 2.9 ms 21 𔣨V Anatomical snuff box-Forearm 2.3 ms 100 mm 34 m/sH-waves:Nerve Latency Amplitude (max)Tibial.R M-wave: 6.8 ms 2.6 mVH-wave: 33.5 ms 0.3 mVTibial.L M-wave: 6.3 ms 2.0 mVH-wave: 33.1 ms 0.2 mVRepetitive Stimulation:Nerve Potential Amplitude Area Number Cecelia. Decr. Cecelia. [...] 5.22 mV 2 % 20.00 mVms 6 %Accessory (spinal).R 5 stimuli at 2Hz Baseline 1 [...] 2.52 mV 3 % 20.90 mVms 17 %Needle EMG Examination: Insertional S pontaneous Activity Volitional MUAPsMuscle Insertional Fibs +Wave Fasc Duration Amplitude Poly Pattern EffortTibialis anterior.R Increased 1+ 1+ None Sl. Incr. Sl. Incr. None Mild Reduced Max.Gastrocnemius (Med head).R Increased None None N one Normal Normal None Normal Max.Vastus medialis.R Increased 2+ 1+ None Sl. Inc r. Normal None Mild Reduced Sub Max.Soleus.R Increased None 2+ None Sl. Incr. No rmal Few Mild Reduced Max.Adductor longus.R Increased None 1+ None Normal Normal Few Normal Max.1st dorsal interosseous.R Increased None 2+ None Sl. Incr. Sl. I ncr. Few Mild Reduced Max.Flexor carpi radialis.R CRD None None None Sl. Incr. S l. Incr. Few Mild Reduced Max.Biceps brachii.R Normal None None None Sl. Incr. N ormal Few Mild Reduced Max.Triceps brachii.R Normal None None None Sl. Incr. Sl. Incr. Few Mild Reduced Max.Deltoid.R Increased None 1+ Few Sl. Incr. Sl. Incr. Few Mild Reduced Max.Ext digitorum communis.R Increased 1+ 2+ None Sl. Incr. Nor mal Few Mild Reduced Max.Brachioradialis.R Increased 1+ None None Sl. Incr. Norm al Few Normal Max.Genioglossus.R Normal None None None TI TI TI TI TIGenioglossu s.L Normal None None None TI TI TI TI TIThoracic paraspinal.L Increased 2+ 2+ No ne Normal Normal None Normal Max.TI - limited by artifactInterpretation and Conc lusions: 1. Sensory studies of the bilateral sural nerves showed normal finding s except for slightly low left sural amplitude. The right median and ulnar nerv es showed mild prolongation of peak latencies. The right radial nerve showed no rmal findings.2. Motor studies of the bilateral peroneal (EDB), left peroneal ( TA), and right median and ulnar nerves showed low amplitudes otherwise normal wi th temperature correction. The right peroneal (TA) and bilateral tibial nerves showed normal findings. F-wave latencies were normal. 3. H-wave reflexes recor ding at the soleus muscles showed normal but low amplitude latencies.4. Repetit jazmine nerve stimulation was done recording at the right ADM (abductor digiti minim i) and trapezius using stimulations at 2 Hz with a train of 10 for ulnar and 5 f or trapezius, at baseline, immediately after 1 minute of exercise, and at 1, 2, and 3 minutes post-exercise. There was no significant decrement found.5. Elect romyography of the right upper, lower, left thoracic paraspinals and genioglossu s was done using a disposable concentric needle. There was abnormal spontaneous activity in the L3-S1 myotomes (adductor longus, vastus medialis, anterior tibi geena, soleus) and C5-C8 (deltoid, FCR, BR, EDC, FDI), as well as mid-thoracic pa raspinals. There were mild chronic neurogenic changes in all muscles tested exc ept the gastrocnemius and the genioglossus though the latter limited by artifact . Conclusions: This is an abnormal electrodiagnostic study due to the followin. 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 There was no significant denervation in the bulbar region but testing in this region was limi nikhil by artifact. There is no electrophysiologic evidence of neuromuscular junct ion disorder. Lanie Cobb M.D. Electr onically signed by: LANIE COBB MD on 05/26/2018 05:18 PM BLOOD GAS, [id number] 15:38:00* Test Item Value Reference Range Comments PH ARTERIAL (BEAKER) (test eytm=864) 7.31 7.35-7.45 PCO2 ARTERIAL (BEAKER) (test lwwt=482) 62 mmHg 35-45 PO2 ARTERIAL (BEAKER) (test wpgw=781) 96 mmHg 80-90 O2 SATURATION ARTERIAL (BEAKER) (test uibw=561) 96.5 % 96.0-97.0 HCO3 ARTERIAL (BEAKER) (test yzzz=795) 31 mmol/L 21-29 BASE EXCESS ARTERIAL (BEAKER) (test pcbz=970) 2.9 mmol/L -2.0-3.0 PATIENT TEMPERATURE (BEAKER) (test qdnm=6784) 37.0 C FIO2 (BEAKER) (test vyzx=4623) 40.0 % BLOOD GAS, [id number] 13:25:00* Test Item Value Reference Range Comments PH ARTERIAL (BEAKER) (test hzju=082) 7.32 7.35-7.45 PCO2 ARTERIAL (BEAKER) (test nxux=747) 59 mmHg 35-45 PO2 ARTERIAL (BEAKER) (test zqqg=800) 183 mmHg 80-90 O2 SATURATION ARTERIAL (BEAKER) (test rpbm=352) 99.1 % 96.0-97.0 HCO3 ARTERIAL (BEAKER) (test klrp=860) 30 mmol/L 21-29 BASE EXCESS ARTERIAL (BEAKER) (test ktof=647) 2.5 mmol/L -2.0-3.0 PATIENT TEMPERATURE (BEAKER) (test gsir=5137) 36.4 C FIO2 (BEAKER) (test rnbo=0793) 40.0 % POCT-GLUCOSE [id number] 12:04:00* Test Item Value Reference Range Comments POC-GLUCOSE METER (BEAKER) (test qyrl=1973) 116 mg/dL 70-110 [address]ED AT [address] [address] [id number] 11:36:00* Test Item Value Reference Range Comments PARTIAL THROMBOPLASTIN TIME (BEAKER) (test iziu=313) 74.1 seconds 22.5-36.0 BLOOD GAS, [id number] 09:53:00* Test Item Value Reference Range Comments PH ARTERIAL (BEAKER) (test wmpc=157) 7.35 7.35-7.45 PCO2 ARTERIAL (BEAKER) (test txub=685) 58 mmHg 35-45 PO2 ARTERIAL (BEAKER) (test yxex=806) 186 mmHg 80-90 O2 SATURATION ARTERIAL (BEAKER) (test ibpi=249) 99.2 % 96.0-97.0 HCO3 ARTERIAL (BEAKER) (test ovws=882) 31 mmol/L 21-29 BASE EXCESS ARTERIAL (BEAKER) (test xynl=843) 4.1 mmol/L -2.0-3.0 PATIENT TEMPERATURE (BEAKER) (test ycde=4952) 36.3 C FIO2 (BEAKER) (test sxsh=1414) 40.0 % POCT-GLUCOSE [id number] 06:41:00* Test Item Value Reference Range Comments POC-GLUCOSE METER (BEAKER) (test osqs=9655) 111 mg/dL 70-110 TESTED AT [address] [address] [id number] 05:26:00* Test Item Value Reference Range Comments PHOSPHORUS (BEAKER) (test wsrj=857) 2.1 mg/dL 2.3-4.7 [id number] 05:26:00* Test Item Value Reference Range Comments MAGNESIUM (BEAKER) (test xscg=974) 2.0 mg/dL 1.6-2.6 BASIC METABOLIC [id number] 05:26:00* Test Item Value Reference Range Comments SODIUM (BEAKER) (test wufk=641) 138 meq/L 136-145 POTASSIUM (BEAKER) (test vyyw=234) 3.8 meq/L 3.5-5.1 CHLORIDE (BEAKER) (test daxw=743) 104 meq/L 98-107 CO2 (BEAKER) (test ckab=904) 31 meq/L 22-29 BLOOD UREA NITROGEN (BEAKER) (test cazc=450) 18 mg/dL 7-21 CREATININE (BEAKER) (test uatr=444) 0.52 mg/dL 0.57-1.25 GLUCOSE RANDOM (BEAKER) (test inph=282) 140 mg/dL 70-105 CALCIUM (BEAKER) (test wwdh=888) 8.3 mg/dL 8.4-10.2 EGFR (BEAKER) (test ukae=0107) 117 mL/min/1.73 sq m ESTIMATED GFR IS NOT ACCURATE CREATININE CLEARANCE IN PREDICTING GLOMERULAR FILTRATION RATE. ESTIMATED GFR IS NOT APPLICABLE FOR DIALYSIS PATIENTS. LIPID [id number] 05:26:00* Test Item Value Reference Range Comments TRIGLYCERIDES (BEAKER) (test kxeo=505) 135 mg/dL CHOLESTEROL (BEAKER) (test fwgt=810) 122 mg/dL HDL CHOLESTEROL (BEAKER) (test fnhf=370) 32 mg/dL LDL CHOLESTEROL CALCULATED (BEAKER) (test ambl=079) 63 mg/dL Triglyceride Reference Range: Low Risk <150 Borderline 150-199 High Risk 200-499 Very High Risk >=500Cholesterol Reference Range: Low Risk <200 Borderline 200-239 High Risk >240HDL Cholesterol Reference Range: Low Risk >=60 High Risk <40LDL Cholesterol Reference Range: Optimal <100 Near Optimal 100-129 Borderline 130-159 High 160-189 Very High >=190 APTT 2018-05-26 05:23:00* Test Item Value Reference Range Comments PARTIAL THROMBOPLASTIN TIME (BEAKER) (test ycwt=660) 77.9 seconds 22.5-36.0 BLOOD GAS, [id number] 05:13:00* Test Item Value Reference Range Comments PH ARTERIAL (BEAKER) (test bvbh=447) 7.37 7.35-7.45 PCO2 ARTERIAL (BEAKER) (test alvy=110) 53 mmHg 35-45 PO2 ARTERIAL (BEAKER) (test vejb=877) 220 mmHg 80-90 O2 SATURATION ARTERIAL (BEAKER) (test gkfw=949) 99.4 % 96.0-97.0 HCO3 ARTERIAL (BEAKER) (test etqx=102) 30 mmol/L 21-29 BASE EXCESS ARTERIAL (BEAKER) (test wgpo=502) 3.1 mmol/L -2.0-3.0 PATIENT TEMPERATURE (BEAKER) (test ebqm=3882) 37.0 C FIO2 (BEAKER) (test bhkx=0018) 40.0 % ANTI-NUCLEAR ANTIBODY (GIOVANNI)2018-05-26 05:08:00* Test Item Value Reference Range Comments ANTI-NUCLEAR ANTIBODY (GIOVANNI) (BEAKER) (test hqnu=048) Negative Negative Test performed by IFA method.Test performed by IFA method.CBC W/PLT COUNT & AUTO [id number] 05:05:00* Test Item Value Reference Range Comments WHITE BLOOD CELL COUNT (BEAKER) (test ltxt=648) 7.4 K/ L 3.5-10.5 RED BLOOD CELL COUNT (BEAKER) (test atea=682) 4.18 M/ L 3.93-5.22 HEMOGLOBIN (BEAKER) (test fapu=761) 12.7 GM/DL 11.2-15.7 HEMATOCRIT (BEAKER) (test nmrn=901) 40.1 % 34.1-44.9 MEAN CORPUSCULAR VOLUME (BEAKER) (test xppo=695) 95.9 fL 79.4-94.8 MEAN CORPUSCULAR HEMOGLOBIN (BEAKER) (test dkki=390) 30.4 pg 25.6-32.2 MEAN CORPUSCULAR HEMOGLOBIN CONC (BEAKER) (test yqya=173) 31.7 GM/DL 32.2-35.5 RED CELL DISTRIBUTION WIDTH (BEAKER) (test prhq=152) 14.0 % 11.7-14.4 PLATELET COUNT (BEAKER) (test jqht=217) 143 K/CU MM 150-450 MEAN PLATELET VOLUME (BEAKER) (test vmiv=041) 10.4 fL 9.4-12.3 NUCLEATED RED BLOOD CELLS (BEAKER) (test sdlo=047) 0 /100 WBC 0-0 NEUTROPHILS RELATIVE PERCENT (BEAKER) (test tluz=102) 69 % LYMPHOCYTES RELATIVE PERCENT (BEAKER) (test wais=199) 21 % MONOCYTES RELATIVE PERCENT (BEAKER) (test yyuz=123) 9 % EOSINOPHILS RELATIVE PERCENT (BEAKER) (test hlzb=776) 1 % BASOPHILS RELATIVE PERCENT (BEAKER) (test gppr=516) 0 % NEUTROPHILS ABSOLUTE COUNT (BEAKER) (test wxcx=840) 5.15 K/ L 1.56-6.13 LYMPHOCYTES ABSOLUTE COUNT (BEAKER) (test stkr=336) 1.52 K/ L 1.18-3.74 MONOCYTES ABSOLUTE COUNT (BEAKER) (test gnck=963) 0.65 K/ L 0.24-0.36 EOSINOPHILS ABSOLUTE COUNT (BEAKER) (test fwfb=111) 0.06 K/ L 0.04-0.36 BASOPHILS ABSOLUTE COUNT (BEAKER) (test pvgb=442) 0.01 K/ L 0.01-0.08 IMMATURE GRANULOCYTES-RELATIVE PERCENT (BEAKER) (test ngwg=9687) 0 % 0-1 RAD, CHEST, 1 VIEW, NON [id number] 03:57:00Reason for exam:-> intubationShould this be performed at the bedside?->YesFINAL REPORT CLINICAL INDICATION: Support lines. Comparison: 05/25/2018 The patient is rotated to the right. The cardiomediastinal contours are stable. The lung volumes are low. Central pulmonary vascular congestion and bilateral parenchymal and pleural opacities are similar within variation of acquisition technique. There is no pneumothorax. Support lines are stable. Signed: Linette Mae Verified Date/Time: 05/26/2018 03:57:14 Reading Location: [address] Reading Room -GLUCOSE [id number] 00:20:00* Test Item Value Reference Range Comments POC-GLUCOSE METER (BEAKER) (test gcih=0893) 111 mg/dL 70-110 TESTED AT [facility] [address] [facility] [address] [id number] 21:56:00* Test Item Value Reference Range Comments PARTIAL THROMBOPLASTIN TIME (BEAKER) (test imxb=886) 55.1 seconds 22.5-36.0 [id number] 20:16:00* Test Item Value Reference Range Comments PARTIAL THROMBOPLASTIN TIME (BEAKER) (test ubgu=987) 110.4 seconds 22.5-36.0 POCT-GLUCOSE [id number] 19:29:00* Test Item Value Reference Range Comments POC-GLUCOSE METER (ADRYAN) (test lbuy=8754) 109 mg/dL 70-110 TESTED AT [facility] [address] [facility] [address] B-TYPE NATRIURETIC FACTOR (BNP)2018-05-25 14:06:00* Test Item Value Reference Range Comments B-TYPE NATRIURETIC PEPTIDE (ROSAAKER) (test udem=403) 48 pg/mL 0-100 U/S, ABDOMINAL, [id number] 13:25:00Abdomen limited area? Add comment if clarification is needed.->Gall BladderReason for exam:->? cholecystitis; gallbladder distended on CTShould this be performed at the bedside?->YesFINAL REPORT History: Distended gallbladder, possible cho lecystitis. FINDINGS: No previous ultrasounds are available for comparison. Darrin elation is made with CT of abdomen and pelvis performed May 24, 2018. Real- time sonographic examination of the right upper quadrant of the abdomen reveals a mildly enlarged liver measuring up to 17.4 cm in length. Hepatic echotexture a ppears normal. Two well-circumscribed anechoic lesions are seen in the liver, th e largest in the right lobe measuring up to 3.7 x 3.0 x 3.2 cm in greatest dimen sions. A smaller 1.5 x 1.2 x 1.3 cm anechoic lesion is seen in the left hepatic lobe. These are most consistent with benign hepatic cysts. No solid masses or ot her focal liver abnormalities are identified. The gallbladder is normal size dasha suring up to 3.5 cm in greatest transverse diameter. A large approximately 3.8 x 2.5 x 3.0 cm shadowing structure is seen in the gallbladder lumen, likely a lar ge stone. There is no wall thickening or pericholecystic fluid to suggest acute cholecystitis. Sonographic Edgar sign is negative. No intra or extrahepatic eagle geovanna dilatation. The common bile duct measures up to 6 mm in diameter. No intrahe patic biliary ductal dilatation or visible intraductal stones. The portal vein m easures 10 mm in diameter and appears patent by very limited color Doppler exami nation. The right kidney is normal size and echogenicity measuring up to 9.7 cm in length. There are no visible solid masses, cysts, stones or evidence for obst ruction. Right renal cortical thickness measures 11 mm. No perinephric fluid col lections are identified. The pancreas is unremarkable where visible but incomple tely evaluated secondary to overlying bowel gas. Aorta and IVC are unremarkable. No ascites or abdominal fluid collections. IMPRESSION: 1. Cholelithiasis without ultrasound evidence for acute cholecystitis. 2. Probable benign hepatic cysts, the largest measuring up to 3.7 cm in the right hepatic lobe. 3. Mild hepatomeg jaylene. Signed: Geremias Strauss MDReport Verified Date/Time: 05/25/2018 13:25:12 Estefany gonsalez Location: [facility] [id number] Ultrasound Reading Room [id number] 13:01:00 Medical Cytology Report Case: [id number] Authorizing Provider: Ambrose Weinberg MD Collected: 05/24/20182221 Ordering Location: [place] [address] ICU Received: 05/25/2018 0819 Pathologist: Vicenta Benito Specimen: Lung, Left Upper Lobe, GMS/PCP LEFT UPPER LOBE LUNG BAL (CYTOSPINS): - NEGATIVE FOR MALIGNANCY SQUAMOUS CELLS, ACUTE INFLAMMATION, AND FEW MACROPHAGES The GMS stains are negative for Pneumocystis organisms. Other fungal elements (YEAST) are i dentified. No viral inclusions are seen. Signing Pathologist Direct Catarina ne Line: [phone] signed by Vicenta Benito on 05/25/2018 at 1:01 [id number], [id number] hypoxemic respiratory failure, history of basal ce ll carcinomaLEFT UPPER LOBE LUNG BAL20 mls mucoid; 3 cytospins, 1 GMS Collected: [id number]: [id number] interpretation of this case included the use of immunohistochemistry or special stains. GMSImmunohistochemistry technical testing was performed at [facility], Pathology Laboratory where it was developed and its performance characteristics were determined. It has not been cleared or approved by the U.S. Food and Drug Administration. The [facility] has determined that such clearance or approval is not necessary. The test is used for clinical purposes. It should not be regarded as investigational or for research. This laboratory is certified under the Clinical Laboratory Improvement Amendments of 1988 (CLIA-88) as qualified to perform high complexity clinical l aboratory testing.[facility], Department of Pathology, [address] [place] [address], [facility], [facility], [address] [place] [address], [facility], [facility], [address] [place] [address], [id number] 13:00:00* Test Item Value Reference Range Comments PARTIAL THROMBOPLASTIN TIME (BEAKER) (test vvwq=630) 65.1 seconds 22.5-36.0 POCT-GLUCOSE [id number] 12:12:00* Test Item Value Reference Range Comments POC-GLUCOSE METER (BEAKER) (test idtc=6871) 102 mg/dL 70-110 TESTED AT [address] [address] [id number] 11:43:00* Test Item Value Reference Range Comments PARTIAL THROMBOPLASTIN TIME (BEAKER) (test ewed=606) 119.5 seconds 22.5-36.0 RESPIRATORY PANEL [id number] 11:10:00* Test Item Value Reference Range Comments HUMAN METAPNEUMOVIRUS (BEAKER) (test ajcu=4016) Not detected Not detected, Equivocal RHINOVIRUS (BEAKER) (test zkfq=4680) Not detected Not detected, Equivocal INFLUENZA A (BEAKER) (test sppq=9228) Not detected Not detected, Equivocal INFLUENZA A (NO SUBTYPE) (test ccuw=2261) Not detected Not detected, Equivocal INFLUENZA A SUBTYPE H1 (BEAKER) (test ryuy=4455) Not detected Not detected, Equivocal INFLUENZA A SUBTYPE H3 (BEAKER) (test fstd=1406) Not detected Not detected, Equivocal INFLUENZA A SUBTYPE H1-2009 (BEAKER) (test juov=9812) Not detected Not detected, Equivocal INFLUENZA B (BEAKER) (test gcms=2455) Not detected Not detected, Equivocal RESPIRATORY SYNCYTIAL VIRUS (BEAKER) (test xzqm=8327) Not detected Not detected, Equivocal PARAINFLUENZA VIRUS 1 (BEAKER) (test nhff=1302) Not detected Not detected, Equivocal PARAINFLUENZA VIRUS 2 (BEAKER) (test tbsa=7497) Not detected Not detected, Equivocal PARAINFLUENZA VIRUS 3 (BEAKER) (test mwlh=3448) Not detected Not detected, Equivocal PARAINFLUENZA VIRUS 4 (BEAKER) (test pevd=0279) Not detected Not detected, Equivocal ADENOVIRUS (BEAKER) (test auoi=6467) Not detected Not detected, Equivocal CORONAVIRUS 229E (BEAKER) (test llmc=1020) Not detected Not detected, Equivocal CORONAVIRUS HKU1 (BEAKER) (test uuwz=2115) Not detected Not detected, Equivocal CORONAVIRUS NL63 (BEAKER) (test tkzm=4517) Not detected Not detected, Equivocal CORONAVIRUS OC43 (BEAKER) (test uucl=0286) Not detected Not detected, Equivocal BORDETELLA PERTUSSIS (BEAKER) (test yofp=3741) Not detected Not detected, Equivocal CHLAMYDOPHILA PNEUMONIAE (BEAKER) (test gumh=2581) Not detected Not detected, Equivocal MYCOPLASMA PNEUMONIAE (BEAKER) (test drtl=3687) Not detected Not detected, Equivocal Other viruses and bacteria not targeted by this PCR panel cannot be excluded; th erefore clinical correlation and follow up of serology, culture results, and oth er molecular studies is required. The results are not intended to be used as the sole means for clinical diagnosis or patient management decisions. This sample was tested at the [facility] Molecular Diagnostics Laboratory using the [employer] Film[employer] rray Respiratory Panel. It is FDA cleared and has been verified and approved by the [facility] for clinical use on nasal swab specim ens. It is not FDA-cleared for use on bronchial wash/lavage samples. However, fo r this sample type, validation was performed and test characteristics were deter mined and approved, by [facility] laboratory for clinical use u nder the Clinical Laboratory Improvement Amendments (CLIA) of 1988 requirements. Therefore, FDA clearance is not required. This laboratory is CLIA-certified and [employer] (CAP)-accredited to perform high complexity t esting.BLOOD GAS, [id number] 11:09:00* Test Item Value Reference Range Comments PH ARTERIAL (AKER) (test kbts=480) 7.34 7.35-7.45 PCO2 ARTERIAL (BEAKER) (test xeeq=706) 57 mmHg 35-45 PO2 ARTERIAL (BEAKER) (test tdvo=057) 101 mmHg 80-90 O2 SATURATION ARTERIAL (BEAKER) (test tnfj=442) 97.1 % 96.0-97.0 HCO3 ARTERIAL (BEAKER) (test vanh=332) 30 mmol/L 21-29 BASE EXCESS ARTERIAL (BEAKER) (test wcas=835) 2.8 mmol/L -2.0-3.0 PATIENT TEMPERATURE (BEAKER) (test vyhf=7951) 37.0 C FIO2 (BEAKER) (test ofxh=6556) 40.0 % VANCOMYCIN LEVEL, [id number] 10:35:00* Test Item Value Reference Range Comments VANCOMYCIN TROUGH (BEAKER) (test pcqq=482) 6.5 ug/mL 10.0-20.0 [id number] 10:15:00* Test Item Value Reference Range Comments PARTIAL THROMBOPLASTIN TIME (BEAKER) (test bjgq=563) > seconds 22.5-36.0 POCT-GLUCOSE [id number] 06:10:00* Test Item Value Reference Range Comments POC-GLUCOSE METER (BEAKER) (test qczq=4328) 95 mg/dL 70-110 TESTED AT [facility] [address] [facility] [address] FOLATE, [id number] 05:57:00* Test Item Value Reference Range Comments FOLATE (BEAKER) (test slpv=999) 2.6 ng/mL >=7.0 HIV-1 ANTIGEN WITH HIV-1/2 [id number] 05:40:00* Test Item Value Reference Range Comments HIV-1 ANTIGEN WITH HIV 1\T\2 ANTIBODY (2) (BEAKER) (test cwmp=1777) Nonreactive Nonreactive CBC W/PLT COUNT & AUTO [id number] 05:33:00* Test Item Value Reference Range Comments WHITE BLOOD CELL COUNT (BEAKER) (test lzki=980) 7.5 K/ L 3.5-10.5 RED BLOOD CELL COUNT (BEAKER) (test qxtu=579) 3.95 M/ L 3.93-5.22 HEMOGLOBIN (BEAKER) (test jrix=781) 11.4 GM/DL 11.2-15.7 HEMATOCRIT (BEAKER) (test jqhk=129) 37.7 % 34.1-44.9 MEAN CORPUSCULAR VOLUME (BEAKER) (test vrxc=670) 95.4 fL 79.4-94.8 MEAN CORPUSCULAR HEMOGLOBIN (BEAKER) (test alqc=598) 28.9 pg 25.6-32.2 MEAN CORPUSCULAR HEMOGLOBIN CONC (BEAKER) (test gxlj=178) 30.2 GM/DL 32.2-35.5 RED CELL DISTRIBUTION WIDTH (BEAKER) (test ltrc=961) 13.9 % 11.7-14.4 PLATELET COUNT (BEAKER) (test aget=469) 129 K/CU MM 150-450 MEAN PLATELET VOLUME (BEAKER) (test lfex=376) 10.0 fL 9.4-12.3 NUCLEATED RED BLOOD CELLS (BEAKER) (test pthh=831) 0 /100 WBC 0-0 NEUTROPHILS RELATIVE PERCENT (BEAKER) (test vhmi=689) 83 % LYMPHOCYTES RELATIVE PERCENT (BEAKER) (test dipu=215) 10 % MONOCYTES RELATIVE PERCENT (BEAKER) (test fyyb=922) 7 % EOSINOPHILS RELATIVE PERCENT (BEAKER) (test iamj=715) 0 % BASOPHILS RELATIVE PERCENT (BEAKER) (test llyh=596) 0 % NEUTROPHILS ABSOLUTE COUNT (BEAKER) (test lvdu=515) 6.22 K/ L 1.56-6.13 LYMPHOCYTES ABSOLUTE COUNT (BEAKER) (test xgul=434) 0.74 K/ L 1.18-3.74 MONOCYTES ABSOLUTE COUNT (BEAKER) (test lqqo=386) 0.54 K/ L 0.24-0.36 EOSINOPHILS ABSOLUTE COUNT (BEAKER) (test jlbm=764) 0.01 K/ L 0.04-0.36 BASOPHILS ABSOLUTE COUNT (BEAKER) (test ummi=432) 0.01 K/ L 0.01-0.08 IMMATURE GRANULOCYTES-RELATIVE PERCENT (BEAKER) (test ehpr=1870) 0 % 0-1 [id number] 05:24:00* Test Item Value Reference Range Comments PHOSPHORUS (BEAKER) (test chir=849) 1.9 mg/dL 2.3-4.7 [id number] 05:24:00* Test Item Value Reference Range Comments MAGNESIUM (BEAKER) (test fqyp=724) 1.7 mg/dL 1.6-2.6 BASIC METABOLIC [id number] 05:24:00* Test Item Value Reference Range Comments SODIUM (BEAKER) (test fzqr=638) 134 meq/L 136-145 POTASSIUM (BEAKER) (test zjzx=789) 3.8 meq/L 3.5-5.1 CHLORIDE (BEAKER) (test zvft=927) 100 meq/L 98-107 CO2 (BEAKER) (test qsls=114) 28 meq/L 22-29 BLOOD UREA NITROGEN (BEAKER) (test glba=197) 19 mg/dL 7-21 CREATININE (BEAKER) (test mbar=522) 0.52 mg/dL 0.57-1.25 GLUCOSE RANDOM (BEAKER) (test kmcy=085) 79 mg/dL 70-105 CALCIUM (BEAKER) (test jkuu=901) 8.1 mg/dL 8.4-10.2 EGFR (BEAKER) (test oqpn=3877) 117 mL/min/1.73 sq m ESTIMATED GFR IS NOT ACCURATE CREATININE CLEARANCE IN PREDICTING GLOMERULAR FILTRATION RATE. ESTIMATED GFR IS NOT APPLICABLE FOR DIALYSIS PATIENTS. [id number] 05:23:00* Test Item Value Reference Range Comments PREALBUMIN (BEAKER) (test orgy=346) < mg/dL 14-45 BLOOD GAS, [id number] 05:18:00* Test Item Value Reference Range Comments PH ARTERIAL (BEAKER) (test sncs=611) 7.44 7.35-7.45 PCO2 ARTERIAL (BEAKER) (test gkpm=985) 44 mmHg 35-45 PO2 ARTERIAL (BEAKER) (test goli=703) 147 mmHg 80-90 O2 SATURATION ARTERIAL (BEAKER) (test acax=205) 98.9 % 96.0-97.0 HCO3 ARTERIAL (BEAKER) (test ibwn=976) 29 mmol/L 21-29 BASE EXCESS ARTERIAL (BEAKER) (test efjn=880) 4.5 mmol/L -2.0-3.0 PATIENT TEMPERATURE (BEAKER) (test pair=3292) 38.0 C FIO2 (BEAKER) (test xqsr=3040) 40.0 % RAD, CHEST, 1 VIEW, NON [id number] 04:11:00Reason for exam:-> intubationShould this be performed at the bedside?->YesFINAL REPORT CLINICAL INDICATION: Support lines. Comparison: 05/24/2018 1933 hours The cardiomediastinal contours are stable. Central pulmonary vascular congestion and bilateral parenchymal and left pleural opacities are similar within variation of acquisition technique. There is no pneumothorax. Support lines are stable. Signed: Linette Mae MDReport Verified Date/Time: 05/25/2018 04:11:27 Reading Location: [address] Reading Room -GLUCOSE METER 2018-05-25 00:07:00* Test Item Value Reference Range Comments POC-GLUCOSE METER (BEAKER) (test lkyr=4633) 105 mg/dL 70-110 TESTED AT [address] [address] URINALYSIS W/ REFLEX URINE [id number] 23:49:00* Test Item Value Reference Range Comments COLOR (BEAKER) (test qglr=941) Yellow CLARITY (BEAKER) (test zwuv=054) Clear SPECIFIC GRAVITY UA (BEAKER) (test ppcn=623) > 1.001-1.035 PH UA (BEAKER) (test uxec=301) 6.5 5.0-8.0 PROTEIN UA (BEAKER) (test sizy=289) 50 mg/dL Negative GLUCOSE UA (BEAKER) (test iadc=981) Negative Negative KETONES UA (BEAKER) (test jvwc=623) 40 mg/dL Negative BILIRUBIN UA (BEAKER) (test gcyb=021) Negative Negative BLOOD UA (BEAKER) (test mfsu=992) Trace Negative NITRITE UA (BEAKER) (test stnm=991) Negative Negative LEUKOCYTE ESTERASE UA (BEAKER) (test uczz=429) Negative Negative UROBILINOGEN UA (BEAKER) (test lhpx=484) 2.0 mg/dL 0.2-1.0 RBC UA (BEAKER) (test hrir=822) 4 /HPF WBC UA (BEAKER) (test lwbi=808) 1 /HPF MUCUS (BEAKER) (test lbbz=6271) Many SQUAMOUS EPITHELIAL (BEAKER) (test cvct=424) < /HPF SOURCE(BEAKER) (test nqbx=2373) CREATININE, RANDOM [id number] 23:41:00* Test Item Value Reference Range Comments CREATININE URINE (BEAKER) (test zfjx=434) 144.6 mg/dL Reference Range: No NormalsSODIUM, RANDOM [id number] 23:41:00* Test Item Value Reference Range Comments SODIUM URINE (BEAKER) (test vwrz=622) 28 meq/L Reference Range: No NormalsBODY FLUID CELL COUNT WITH [id number] 23:35:00* Test Item Value Reference Range Comments APPEARANCE FLUID (BEAKER) (test rpiu=905) Slightly Cloudy Clear COLOR FLUID (BEAKER) (test pfss=512) Colorless Colorless, Straw RBC FLUID (BEAKER) (test zupz=598) 1530 /cu mm <=1 ADJUSTED WBC FLUID (BEAKER) (test czzp=7438) 1545 /cu mm <=5 LINING CELLS (BEAKER) (test nrdr=7281) 15 /cu mm <=1 NEUTROPHILS FLUID (BEAKER) (test lqpy=6294) 83 % LYMPHS FLUID (BEAKER) (test yykr=605) 9 % MONO/MACROPHAGE FLUID (BEAKER) (test agpl=204) 8 % EOSINOPHILS FLUID (BEAKER) (test dtua=927) 0 % BASO FLUID (BEAKER) (test rowf=665) 0 % CONTAINER BODY FLUID (BEAKER) (test ggra=2787) EDTA Tube [id number] 22:50:00* Test Item Value Reference Range Comments PARTIAL THROMBOPLASTIN TIME (BEAKER) (test ixaz=357) 30.9 seconds 22.5-36.0 PROTHROMBIN TIME/[id number] 22:49:00* Test Item Value Reference Range Comments PROTIME (BEAKER) (test csog=016) 16.6 seconds 11.7-14.7 INR (BEAKER) (test mfel=708) 1.3 <=5.9 RECOMMENDED COUMADIN/WARFARIN INR THERAPY RANGESSTANDARD DOSE: 2.0 - 3.0 Inclu audrey: PROPHYLAXIS for venous thrombosis, systemic embolization; TREATMENT for raimundo ous thrombosis and/or pulmonary embolus.HIGH RISK: Target INR is 2.5-3.5 for pat ients with mechanical heart valves.BLOOD GAS, [id number] 22:38:00* Test Item Value Reference Range Comments PH ARTERIAL (BEAKER) (test yxea=519) 7.35 7.35-7.45 PCO2 ARTERIAL (BEAKER) (test cgwu=595) 56 mmHg 35-45 PO2 ARTERIAL (BEAKER) (test bvos=114) 86 mmHg 80-90 O2 SATURATION ARTERIAL (BEAKER) (test hyly=861) 96.1 % 96.0-97.0 HCO3 ARTERIAL (BEAKER) (test bcnh=721) 30 mmol/L 21-29 BASE EXCESS ARTERIAL (BEAKER) (test lsxr=711) 3.0 mmol/L -2.0-3.0 PATIENT TEMPERATURE (BEAKER) (test gfmc=7993) 36.5 C FIO2 (BEAKER) (test pjdd=1620) 40.0 % RAD, CHEST, 1 VIEW, NON [id number] 20:03:00Reason for exam:->for central line placementShould this be performed at the bedside?->YesFINAL REPORT CLINICAL INDICATION: Central line placement Comparison: Same dated 0459 hours The examination is limited by low lung volumes and significant rightward rotation. A left IJ CVC tip overlies the superior vena cava without associated pneumothorax or hematoma. The cardiomediastinal contours are grossly stable. Worsening opacity in the perihilar lungs may reflect accommodation of atelectasis and edema but pneumonitis should be excluded clinically. Support lines are otherwise stable. 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 No acute intracranial abnormality. Signed: [facility] Date/Time: 05/24/2018 16:55:17 Reading Location: [address] Neuro Reading Room , SPINE, CERVICAL, [id number] 16:37:00FINAL REPORT MRI cervical spine with and without [...] as follows: C2-3: Mild left foraminal stenosis. C3- 4: Severe bilateral foraminal stenosis. C4-5: Mild central canal stenosis. Severe bilateral foraminal stenosis. C5-6: Moderate central canal stenosis. Severe bilateral foraminal stenosis. C6-7: Moderate central canal stenosis. Severe bilateral foraminal stenosis. There is atelectasis in the visualized left upper lung, with surrounding circumferential pleural fluid. IMPRESSION: 1. Nor mal cervical spinal cord. 2. Chronic appearing degenerative changes, without hig h-grade central canal stenosis. 3. Left upper lung atelectasis with surrounding pleural fluid. Signed: Iris Macedo MDReport Verified Date/Time: 05/24/2018 16:37:21 Reading Location: [facility] C013V Neuro Reading Room Electronically s igned by: IRIS MACEDO M.D. on 05/24/2018 04:[address], CHEST, WITH CONTRAST 2018-05-24 15:16:00FINAL REPORT CT of the Chest, abdomen and pelvis dated Clinical information: Weight loss, unintended, non- localized abd pain Comment: Axial images of the chest, abdomen, and pelvis were obtained from thoracic inlet to the pubic symphysis [with GI and intravenous] contrast. This exam was performed according to our departmental dose- optimization program, which includes automated exposure control, adjustment [...] 5.6 x 6.8 cm subserosal fibroid is noted . Diabetes seen. A 3.2 x 7.9 cm cyst is seen in the left adnexa suggestive of a left ovarian cyst. Impression: 1. Vague filling defects in the right lower lobe pulmonary artery. Please correlate clinically or further evaluate with CT PE lizzette dy.2. Atelectasis involving the left upper and lower lobe subsegmental atelectas is in the right lower lobe.3. Liver cysts.4. Left ovary cyst. Recommend follow-u p with pelvic ultrasound.5. Uterine leiomyoma. Signed: Ani Knoxstephon Garcia fipark Date/Time: 05/24/2018 15:16:50 Reading Location: [facility] B1 C013W Consult Read ing Room P M CT, [id number] 15:16:00FINAL REPORT CT of the Chest, abdomen and [...] 5.6 x 6.8 cm subserosal fibroid is noted . Diabetes seen. A 3.2 x 7.9 cm cyst is seen in the left adnexa suggestive of a left ovarian cyst. Impression: 1. Vague filling defects in the right lower lobe pulmonary artery. Please correlate clinically or further evaluate with CT PE lizzette dy.2. Atelectasis involving the left upper and lower lobe subsegmental atelectas is in the right lower lobe.3. Liver cysts.4. Left ovary cyst. Recommend follow-u p with pelvic ultrasound.5. Uterine leiomyoma. Signed: Ani Knox MDReport Veri fied Date/Time: 05/24/2018 15:16:50 Reading Location: [address] Consult Read [facility] Room P M POCT-GLUCOSE [id number] 13:50:00* Test Item Value Reference Range Comments POC-GLUCOSE METER (BEAKER) (test ddiq=8689) 103 mg/dL 70-110 TESTED AT [facility] [address] [place] [address] VITAMIN [id number] 13:36:00* Test Item Value Reference Range Comments VITAMIN B12 (BEAKER) (test howe=212) 411 pg/mL 213-816 TSH/FREE T4 IF [id number] 13:36:00* Test Item Value Reference Range Comments THYROID STIMULATING HORMONE (BEAKER) (test lopi=249) 1.88 uIU/mL 0.35-4.94 RAPID INFLUENZA A&B [id number] 13:30:00* Test Item Value Reference Range Comments RAPID INFLUENZA A AG (BEAKER) (test cmwf=3847) Negative Negative, Inconclusive RAPID INFLUENZA B AG (BEAKER) (test isrk=9559) Negative Negative, Inconclusive B-TYPE NATRIURETIC FACTOR (BNP)2018-05-24 12:59:00* Test Item Value Reference Range Comments B-TYPE NATRIURETIC PEPTIDE (BEAKER) (test spcj=163) 65 pg/mL 0-100 CREATINE KINASE (CK)2018-05-24 10:57:00* Test Item Value Reference Range Comments CREATINE KINASE TOTAL (BEAKER) (test aupx=064) 196 U/L 29-200 STREP PNEUMONIAE [id number] 09:59:00* Test Item Value Reference Range Comments STREP PNEUMONIAE ANTIGEN (BEAKER) (test lbbg=6751) Presumptive negative for pneumococcal pneumonia - see comment Presumptive negative for pneumococcal pneumonia - see commen Presumptive negative for pneumococcal pneumonia, suggesting no current or recent pneumococcal infection. Infection due to S. pneumoniae cannot be ruled out since the antigen present in the sample may be below the detection limit of the test. LEGIONELLA ANTIGEN, [id number] 09:58:00* Test Item Value Reference Range Comments L. PNEUMOPHILA SEROGP 1 UR AG (BEAKER) (test stgi=8856) Negative - see comment Negative for L. pneumophila serogroup 1 antigen, suggesting no recent or current infection with this serogroup. Legionellosis cannot be ruled out since other serogroups and species may cause disease. Glucose blood [id number] 09:13:00* Test Item Value Reference Range Comments Glucose blood fingerstick (test zbrq=CQO3156) 108 mg/dL 65-120 RAD, CHEST, 1 VIEW, NON [id number] 07:19:00Reason for exam:-> intubationShould this be performed at the bedside?->YesFINAL REPORT INDICATION: intubation COMPARISON:May 23, 2018 at 8:12 PM TECHNIQUE: Chest radiograph, single view, portable technique. FINDINGS / IMPRESSION: Endotracheal tube appears in good position. Nasogastric tube also noted. There is widening of the mid mediastinum which may be related to slight obliquity of the radiograph. Cardiac shadow is prominent and there is suggestion of pulmonary venous congestion. No overt pulmonary edema and no large pleural effusion. No pneumothorax demonstrated. Signed: [facility] Verified Date/Time: 05/24/2018 07:19:22 Reading Location: [address] Consult Reading Room D GAS, [id number] 04:30:00* Test Item Value Reference Range Comments PH ARTERIAL (BEAKER) (test yrrb=645) 7.44 7.35-7.45 PCO2 ARTERIAL (BEAKER) (test bhxj=105) 46 mmHg 35-45 PO2 ARTERIAL (BEAKER) (test xdnp=055) 163 mmHg 80-90 O2 SATURATION ARTERIAL (BEAKER) (test rhof=153) 99.1 % 96.0-97.0 HCO3 ARTERIAL (BEAKER) (test yqrh=812) 30 mmol/L 21-29 BASE EXCESS ARTERIAL (BEAKER) (test ypdj=672) 5.4 mmol/L -2.0-3.0 PATIENT TEMPERATURE (BEAKER) (test mojv=9594) 37.8 C FIO2 (BEAKER) (test hzso=4792) 60.0 % [id number] 03:47:00* Test Item Value Reference Range Comments MAGNESIUM (BEAKER) (test lqsi=269) 2.2 mg/dL 1.6-2.6 Specimen slightly hemolyzed BASIC METABOLIC [id number] 03:47:00* Test Item Value Reference Range Comments SODIUM (BEAKER) (test rtph=190) 139 meq/L 136-145 POTASSIUM (BEAKER) (test ijxl=389) 4.3 meq/L 3.5-5.1 Specimen slightly hemolyzed CHLORIDE (BEAKER) (test abbm=219) 102 meq/L 98-107 CO2 (BEAKER) (test kysd=136) 29 meq/L 22-29 BLOOD UREA NITROGEN (BEAKER) (test vwtn=688) 22 mg/dL 7-21 CREATININE (BEAKER) (test ccpw=741) 0.59 mg/dL 0.57-1.25 Specimen slightly hemolyzed GLUCOSE RANDOM (BEAKER) (test tvrd=048) 112 mg/dL 70-105 CALCIUM (BEAKER) (test mpsh=527) 8.6 mg/dL 8.4-10.2 EGFR (BEAKER) (test ftim=1184) 101 mL/min/1.73 sq m ESTIMATED GFR IS NOT ACCURATE CREATININE CLEARANCE IN PREDICTING GLOMERULAR FILTRATION RATE. ESTIMATED GFR IS NOT APPLICABLE FOR DIALYSIS PATIENTS. CBC W/PLT COUNT & AUTO [id number] 03:32:00* Test Item Value Reference Range Comments WHITE BLOOD CELL COUNT (BEAKER) (test kjnq=894) 8.5 K/ L 3.5-10.5 RED BLOOD CELL COUNT (BEAKER) (test nrvl=983) 4.09 M/ L 3.93-5.22 HEMOGLOBIN (BEAKER) (test hibn=915) 12.2 GM/DL 11.2-15.7 HEMATOCRIT (BEAKER) (test ktnb=778) 40.1 % 34.1-44.9 MEAN CORPUSCULAR VOLUME (BEAKER) (test gljb=685) 98.0 fL 79.4-94.8 MEAN CORPUSCULAR HEMOGLOBIN (BEAKER) (test nhxw=693) 29.8 pg 25.6-32.2 MEAN CORPUSCULAR HEMOGLOBIN CONC (BEAKER) (test rhzq=778) 30.4 GM/DL 32.2-35.5 RED CELL DISTRIBUTION WIDTH (BEAKER) (test sabz=894) 13.5 % 11.7-14.4 PLATELET COUNT (BEAKER) (test kdtf=168) 153 K/CU MM 150-450 MEAN PLATELET VOLUME (BEAKER) (test myuu=308) 10.2 fL 9.4-12.3 NUCLEATED RED BLOOD CELLS (BEAKER) (test dgcq=908) 0 /100 WBC 0-0 NEUTROPHILS RELATIVE PERCENT (BEAKER) (test rxrd=912) 78 % LYMPHOCYTES RELATIVE PERCENT (BEAKER) (test liih=521) 11 % MONOCYTES RELATIVE PERCENT (BEAKER) (test yugb=140) 10 % EOSINOPHILS RELATIVE PERCENT (BEAKER) (test mxpy=809) 0 % BASOPHILS RELATIVE PERCENT (BEAKER) (test flbk=576) 0 % NEUTROPHILS ABSOLUTE COUNT (BEAKER) (test erip=156) 6.68 K/ L 1.56-6.13 LYMPHOCYTES ABSOLUTE COUNT (BEAKER) (test fske=727) 0.94 K/ L 1.18-3.74 MONOCYTES ABSOLUTE COUNT (BEAKER) (test utsw=046) 0.86 K/ L 0.24-0.36 EOSINOPHILS ABSOLUTE COUNT (BEAKER) (test mtbv=009) 0.00 K/ L 0.04-0.36 BASOPHILS ABSOLUTE COUNT (BEAKER) (test ctjn=256) 0.00 K/ L 0.01-0.08 IMMATURE GRANULOCYTES-RELATIVE PERCENT (BEAKER) (test pvnn=2118) 1 % 0-1 POCT-GLUCOSE [id number] 00:20:00* Test Item Value Reference Range Comments POC-GLUCOSE METER (BEAKER) (test wzac=2758) 117 mg/dL 70-110 TESTED AT [facility] [address] [facility] [address] BLOOD GAS, [id number] 22:10:00* Test Item Value Reference Range Comments PH ARTERIAL (BEAKER) (test hlom=548) 7.58 7.35-7.45 PCO2 ARTERIAL (BEAKER) (test azmj=837) 33 mmHg 35-45 PO2 ARTERIAL (BEAKER) (test mici=652) 196 mmHg 80-90 O2 SATURATION ARTERIAL (BEAKER) (test wkyl=740) 99.5 % 96.0-97.0 HCO3 ARTERIAL (BEAKER) (test lkhb=430) 30 mmol/L 21-29 BASE EXCESS ARTERIAL (BEAKER) (test wdvj=388) 8.3 mmol/L -2.0-3.0 PATIENT TEMPERATURE (BEAKER) (test ethp=1693) 37.5 C FIO2 (BEAKER) (test powy=0538) 100.0 % TROPONIN [id number] 21:34:00* Test Item Value Reference Range Comments TROPONIN I (BEAKER) (test lkrv=492) 0.02 ng/mL 0.00-0.03 [id number] 21:28:00* Test Item Value Reference Range Comments MAGNESIUM (BEAKER) (test gexs=494) 2.1 mg/dL 1.6-2.6 COMPREHENSIVE METABOLIC [id number] 21:28:00* Test Item Value Reference Range Comments TOTAL PROTEIN (BEAKER) (test innh=956) 6.2 gm/dL 6.0-8.3 ALBUMIN (BEAKER) (test zewm=2196) 3.2 g/dL 3.5-5.0 ALKALINE PHOSPHATASE (BEAKER) (test jhlw=245) 54 U/L 40-150 BILIRUBIN TOTAL (BEAKER) (test oasu=189) 0.4 mg/dL 0.2-1.2 SODIUM (BEAKER) (test lzrz=125) 139 meq/L 136-145 POTASSIUM (BEAKER) (test bcgi=413) 4.5 meq/L 3.5-5.1 CHLORIDE (BEAKER) (test kfup=769) 101 meq/L 98-107 CO2 (BEAKER) (test vyit=841) 31 meq/L 22-29 BLOOD UREA NITROGEN (BEAKER) (test yxex=374) 20 mg/dL 7-21 CREATININE (BEAKER) (test wjfy=761) 0.61 mg/dL 0.57-1.25 GLUCOSE RANDOM (BEAKER) (test bhte=541) 131 mg/dL 70-105 CALCIUM (BEAKER) (test dziz=348) 8.6 mg/dL 8.4-10.2 AST (SGOT) (BEAKER) (test hsmi=505) 21 U/L 5-34 ALT (SGPT) (BEAKER) (test qbtq=268) 17 U/L 6-55 EGFR (BEAKER) (test rdzc=3121) 97 mL/min/1.73 sq m ESTIMATED GFR IS NOT ACCURATE CREATININE CLEARANCE IN PREDICTING GLOMERULAR FILTRATION RATE. ESTIMATED GFR IS NOT APPLICABLE FOR DIALYSIS PATIENTS. LACTIC ACID, VENOUS, WHOLE [id number] 21:24:00* Test Item Value Reference Range Comments LACTATE BLOOD VENOUS (2) (BEAKER) (test fhrd=6862) 1.2 mmol/L 0.5-2.2 CBC W/PLT COUNT & AUTO [id number] 21:15:00* Test Item Value Reference Range Comments WHITE BLOOD CELL COUNT (BEAKER) (test tpeg=062) 6.4 K/ L 3.5-10.5 RED BLOOD CELL COUNT (BEAKER) (test upjv=662) 4.26 M/ L 3.93-5.22 HEMOGLOBIN (BEAKER) (test qskr=064) 12.5 GM/DL 11.2-15.7 HEMATOCRIT (BEAKER) (test xpts=071) 41.6 % 34.1-44.9 MEAN CORPUSCULAR VOLUME (BEAKER) (test vyne=488) 97.7 fL 79.4-94.8 MEAN CORPUSCULAR HEMOGLOBIN (BEAKER) (test qvdz=442) 29.3 pg 25.6-32.2 MEAN CORPUSCULAR HEMOGLOBIN CONC (BEAKER) (test kbku=694) 30.0 GM/DL 32.2-35.5 RED CELL DISTRIBUTION WIDTH (BEAKER) (test niha=568) 13.5 % 11.7-14.4 PLATELET COUNT (BEAKER) (test pxkv=825) 140 K/CU MM 150-450 MEAN PLATELET VOLUME (BEAKER) (test ubdv=268) 10.0 fL 9.4-12.3 NUCLEATED RED BLOOD CELLS (BEAKER) (test xfpd=082) 0 /100 WBC 0-0 NEUTROPHILS RELATIVE PERCENT (BEAKER) (test zslm=447) 87 % LYMPHOCYTES RELATIVE PERCENT (BEAKER) (test deve=293) 10 % MONOCYTES RELATIVE PERCENT (BEAKER) (test eibq=538) 2 % EOSINOPHILS RELATIVE PERCENT (BEAKER) (test twgd=460) 0 % BASOPHILS RELATIVE PERCENT (BEAKER) (test grpq=516) 0 % NEUTROPHILS ABSOLUTE COUNT (BEAKER) (test rwxa=417) 5.57 K/ L 1.56-6.13 LYMPHOCYTES ABSOLUTE COUNT (BEAKER) (test lkec=629) 0.66 K/ L 1.18-3.74 MONOCYTES ABSOLUTE COUNT (BEAKER) (test wfzz=829) 0.15 K/ L 0.24-0.36 EOSINOPHILS ABSOLUTE COUNT (BEAKER) (test gyob=288) 0.00 K/ L 0.04-0.36 BASOPHILS ABSOLUTE COUNT (BEAKER) (test roqj=748) 0.00 K/ L 0.01-0.08 IMMATURE GRANULOCYTES-RELATIVE PERCENT (BEAKER) (test oaqy=6910) 0 % 0-1 RAD, CHEST, 1 VIEW, NON [id number] 20:29:00Reason for exam:-> intubationShould this be performed at the bedside?->YesFINAL REPORT History: Intubation. Comparison: None. Findings: A single view of the chest is submitted. The examination is limited by low lung volumes and rotation to the left. The tip of an endotracheal tube is above the elissa at the level of the superior clavicular heads. The cardiac silhouette is partially obscured by elevated left hemidiaphragm and leftward rotation. There is atherosclerotic calcification of the aorta. A small left pleural effusion is suspected. There is mild central pulmonary vascular congestion. Bibasilar opacities may reflect a combination of atelectasis and edema but pneumonitis should be excluded clinically. There is no pneumothorax or acute bony abnormality. An enteric tube traverses examination to the upper abdomen. Signed: Linette Mae MDReport Verified Date/Time: 05/23/2018 20:29:16 Reading Location: [address] Reading Room Chest Single [id number] 20:01:00[place] [address] RADIOLOGY SERVICES REPORT Name: MAIRA EARLY Acct Number: [id number] :1950 Age:68 Sex:F Ord Phys: Patrick Fuller A PAC Unit Number: [id number] Prim Care Dr: Rashard Simmons MD Status: [facility] ER ER Exam Date: 05/23/18 EXAM DESCRI PTION: RAD - Chest Single View - 05/23/2018 6:05 pm CLINICAL HISTORY: In tubation, respiratory distress COMPARISON: May 23 TECHNIQUE: AP portable chest image was obtained 1750 hour . FINDINGS: Endotracheal t ube has been repositioned. Tip is mid aortic arch level 2 cm above the elissa. N o identifiable change to the NG tube. Heart, vasculature and lung markings are s table. IMPRESSION: ET tube repositioned to the mid aortic arch level, 2 c m above the elissa. Signed By: Geremias Garcia MD Signed AT: 07/23/172009 Chest Single [id number] 17:53:00[facility] [place] [address] RADIOLOGY SERVICES REPORT Name: MAIRA EARLY Acct Number: [id number] :1950 Age:68 Sex:F Ord Phys: Patrick Fuller PAC Unit Number: [id number] Prim Care Dr: Rashard Simmons MD Status: [facility] ER ER Exam Date: 05/23/18 EXAM DESCRI PTION: RAD - Chest Single View - 05/23/2018 5:43 pm CLINICAL HISTORY: In tubation, respiratory distress COMPARISON: May 23 TECHNIQUE: AP portable chest image was obtained 1731 hours . FINDINGS: Endotracheal tube tip is at the right mainstem bronchus origin. NG tube is well positioned. L susan volumes are low. Patchy left base opacification is present along with small left pleural effusion. This is similar to the exam earlier in the day. Heart siz e is normal. No pneumothorax. No right-sided pleural effusion. No acute bony abn ormality seen. No acute aortic findings suspected. IMPRESSION: Endotrache al tube tip is at the right mainstem bronchus origin. NG tube is well posi tioned. Left base pneumonia with minimal pleural effusion unchanged from e arlier in the day. Signed By: Geremias Garcia MD Signed AT: 175 Arterial blood gas [id number] 17:44:00* Test Item Value Reference Range Comments Blood gas pH assay (test zugt=48526-1) 7.35 7.35-7.45 Repaeat ABG, RRD, PT ON VENT:AC16, VT500, FIO2.35@Other Dr: Repeated & Called to MUSHTAQ HUA on 05/23/18 at 1744 by BELENSOUMYA Was there 100% Readback? Y Blood partial pressure of carbon dioxide measurement (test lqme=85426-9) 66.6 mm[Hg] 35-45 Blood partial pressure of oxygen measurement (test bkyl=03473-9) 103.0 mm[Hg] 75-100 Blood Gas HCO3 (test code=ABGHCO3) 35.4 mmol/L 22-28 Blood base excess determination (test hgcj=2270-4) 9.6 mmol/L Arterial blood oxygen saturation measurement (test iejh=3683-2) 97.7 % 92-98.5 Arterial blood fractional oxyhemoglobin (test xulx=4930-4) 95.3 % 94-97 Arterial blood carboxyhemoglobin measurement (test dqqd=2745-1) 1.4 % 0-1.5 Blood Gas Methemoglobin (test code=ABGMETHB) 1.1 % 0-1.5 Blood Gas THB (test code=ABGTHB) 14.1 g/dL 12-18 Blood Gas Inspired Oxygen (test code=ABGFIO2) 35.0 % Comment Bed:2Urine dipstick testing at pvnoj-ts-icrf8935-11-24 17:31:00* Test Item Value Reference Range Comments Urine specific gravity measurement (test txak=1572-7) 1.030 1.005-1.030 Urine glucose detection (test hwyl=9234-6) Negative NEG Urine Ketones (test code=UKET) NEGATIVE NEG Urine blood detection (test ukte=17207-0) Negative NEG Urine pH (test niqt=3326-8) 5.5 5.0-7.0 Urinalysis with microscopy (test xtvq=54976-7) 1+ NEG Urine Nitrate (test code=UNIT) NEGATIVE NEG Urine Leukocyte Esterase (test code=UESTR) NEGATIVE NEG Comment Bed:2 mdm NEG NEG NEG NEG NEG 5.5 1+ Y 1.030Arterial blood gas vaslcsyazvh7088-70-18 15:38:00* Test Item Value Reference Range Comments Blood gas pH assay (test oyvk=16271-4) 7.25 7.35-7.45 +ID//ALLENS, RRA DRAW, PT ON BIPAP 14/02,R14, FIO2.30@Other Dr: Repeated & Called to MUSHTAQ HUA on 05/23/18 at 1537 by BELENSOUMYA Was there 100% Readback?Y Blood partial pressure of carbon dioxide measurement (test mzwm=50613-9) 89.4 mm[Hg] 35-45 Blood partial pressure of oxygen measurement (test kpha=26570-3) 71.4 mm[Hg] 75-100 Blood Gas HCO3 (test code=ABGHCO3) 38.1 mmol/L 22-28 Blood base excess determination (test ruax=5653-7) 10.8 mmol/L Arterial blood oxygen saturation measurement (test ibnw=5199-3) 91.5 % 92-98.5 Arterial blood fractional oxyhemoglobin (test bwmj=5041-5) 89.4 % 94-97 Arterial blood carboxyhemoglobin measurement (test wwwt=3110-8) 1.3 % 0-1.5 Blood Gas Methemoglobin (test code=ABGMETHB) 1.0 % 0-1.5 Blood Gas THB (test code=ABGTHB) 14.3 g/dL 12-18 Blood Gas Inspired Oxygen (test code=ABGFIO2) 30.0 % Comment Bed:7Complete blood count (CBC) with automated white blood cell (WBC) aoncuivqckbi4060-94-50 13:40:00* Test Item Value Reference Range Comments White blood cell count (test sdqc=MPR5149) 7.0 4.3-10.9 Blood erythrocytes count (number/volume) (test icey=05626-5) 4.81 M/ul 3.86-4.86 Hemoglobin measurement (test hzhq=AFY0057) 14.6 g/dL 12.0-15.0 Blood hematocrit (volume fraction) (test ejne=97809-8) 45.2 % 36.0-45.0 MCV (test xdmu=14451-1) 93.8 fL 80-100 MCH (test jgtp=85854-2) 30.4 pg 27.0-35.0 MCHC (test code=MCHC) 32.4 g/dL 32.0-36.0 Platelets (test code=PLT) 176 152-406 Red Cell Distribution Width (test code=RDW) 14.4 % 12.1-15.2 Blood platelet mean volume (test debi=84583-5) 8.2 fL 7.6-11.3 Neutrophils % (test code=KELLI%) 90.6 % 41.7-73.7 Lymphocytes/leuk NFr Bld (test defw=93550-3) 6.0 % 15.3-44.8 Monocyte percentage (test sbge=9388-6) 3.1 % 3.3-12.3 Eosinophil % (test ooco=161-6) 0.0 % 0-4.4 Basophil % (test bqkn=31466-2) 0.3 % 0-1.3 Absolute neutrophil count (test fgst=995-8) 6.3 1.8-8.0 Absolute lymphocyte count (test wyty=87780-1) 0.4 0.7-4.9 Absolute monocyte count (test igut=214-4) 0.2 0.1-1.3 Absolute Eosinophils (test code=EOA) 0.0 0-0.5 Absolute Basophils (test code=BASA) 0.0 0-0.5 Complete blood count, platelets with manual bjsnazvbzstx7525-86-46 13:40:00* Test Item Value Reference Range Comments Segmented Neutrophils (test code=SEG) 88 % 40-80 Lymphocyte count (test pfes=JCY2787) 9 % 15-42 Monocytes (test code=MN) 3 % 0-10 Blood morphology interpretation narrative (test binh=45234-0) NOT SEEN NOT SEEN Head Brain Wo [id number] 13:32:00[place] [address] RADIOLOGY SERVICES REPORT Name: MAIRA EARLY Acct Number: [id number] :1950 Age:68 Sex:F Ord Phys: Patrick Fuller PAC Unit Number: [id number] [facility] Dr: Rashard Simmons MD Status: REG ER ER Exam Date: 05/23/18 EXAM DESCRIPTION: CT - Head Brain Wo Cont - 05/23/2018 1:16 pm CLINICAL HISTORY: Transient alteration of awareness COMPARISON: None. TECHNIQUE: Axial 5 mm thick images of the head were obtained without IV contrast. All CT scans are performed using dose optimization technique as appropriate and may include automated exposure control or mA/KV adjustment according to patient size. FINDINGS: No intracranial hemorrhage, mass, edema or shift of mid-line structures. No acute infarction changes seen. No significant atrophy or chronic ischemic change. Ventricles are normal. Mastoid air cells and visualized portions of the paranasal sinuses are clear. No acute bony findings. IMPRESSION: Negative non- contrast CT head examination for acute finding. Signed By: Geremias Garcia MD Signed AT: 05/23/18 1333 [id number] 13:21:00 * Test Item Value Reference Range Comments Procalcitonin (test code=PROCAL) 0.41 ng/mL <0.50 Reference Range: </=0.5 ng/mL Systemic infection (sepsis) is not likely. Local bacterial infection is possible. >0.5 to </=2.0 ng/mL Systemic infection (sepsis) is possible, but other conditions are known to elevate PCT as well. > 2 ng/mL Systemic infection (sepsis) is likely, unless other causes are known. >10 ng/mL Important systemic inflammatory response, almost exclusively due to severe bacterial sepsis or septic shock. Test Ordered to Rule Out VTE/DVT? NBasic Metabolic [id number] 13:10:00* Test Item Value Reference Range Comments Serum or plasma sodium measurement (moles/volume) (test zwrr=1667-8) 140 mmol/L 136-145 Potassium [Moles/volume] in Serum or Plasma (test pbzm=9926-7) 4.5 mmol/L 3.5-5.1 Chloride [Moles/volume] in Serum or Plasma (test yejr=3419-5) 96 mmol/L 98-107 Carbon dioxide, total [Moles/volume] in Serum or Plasma (test xrjx=1664-3) 39 mmol/L 21-32 Glucose [Mass/volume] in Serum or Plasma (test npcq=9529-8) 121 mg/dL 74-106 Urea nitrogen [Mass/volume] in Serum or Plasma (test rlry=6744-3) 20 mg/dL 7-18 Creatinine [Mass/volume] in Serum or Plasma (test icmn=4591-7) 0.60 mg/dL 0.55-1.3 Glomerular Filtration Rate (test code=GFR) > 90 =/>90 FOR CHRONIC KIDNEY DISEASE: GFR STAGE DESCRIPTION=/>90 STAGE 1 NORMAL--OR-- MINIMAL KIDNEY DAMAGE WITH NORMAL GFR 60-89 STAGE 2 MILD DECREASE IN GFR 30-59 STAGE 3 MODERATE DECREASE IN GFR 15-29 STAGE 4 SEVERE DECREASE IN GFR <15 STAGE 5 KIDNEY FAILURE The Glomerular Filtration Rate (GFR) has been calculated using the IDMS-Traceable MDRD Study Equation. Calcium [Mass/volume] in Serum or Plasma (test zmsl=01347-8) 8.9 mg/dL 8.5-10.1 Test Ordered to Rule Out VTE/DVT? NLiver (Hepatic) Syaeuzbm0898-61-83 13:10:00* Test Item Value Reference Range Comments Aspartate aminotransferase [Enzymatic activity/volume] in Serum or Plasma by With P-5 (test ijcg=30465-7) 30 U/L 15-37 Alanine aminotransferase [Enzymatic activity/volume] in Serum or Plasma by With P-5'- (test ftkk=8172-7) 27 U/L 12-78 Alkaline phosphatase [Enzymatic activity/volume] in Serum or Plasma (test lwlx=4787-8) 77 U/L 45-117 Bilirubin.total [Mass/volume] in Serum or Plasma (test oidf=4239-9) 0.4 mg/dL 0.2-1.0 Bilirubin.direct [Mass/volume] in Serum or Plasma (test dhmy=6030-7) 0.2 mg/dL 0-0.2 Protein [Mass/volume] in Serum or Plasma (test aisi=9303-3) 7.7 g/dL 6.4-8.2 Albumin [Mass/volume] in Serum or Plasma by Bromocresol purple (BCP) dye binding meth (test mxyq=23336-8) 3.3 g/dL 3.4-5.0 Globulin (test code=GLOB) 4.4 g/dL 2.3-3.5 Albumin/Globulin Ratio (test code=A/G) 0.8 1.1-1.8 Test Ordered to Rule Out VTE/DVT? NTroponin I.cardiac [Mass/volume] in Serum or Iitrxe2580-84-33 13:10:00* Test Item Value Reference Range Comments Troponin I.cardiac [Mass/volume] in Serum or Plasma (test cicc=53170-4) 0.04 ng/mL 0.0-0.045 Test Ordered to Rule Out VTE/DVT? NNatriuretic peptide.B prohormone N-Terminal [Mass/volume] in Serum or Uwrqoc6630-40-19 13:10:00* Test Item Value Reference Range Comments Natriuretic peptide.B prohormone N-Terminal [Mass/volume] in Serum or Plasma (test wdqy=76637-0) 1453 pg/mL <125 Test Ordered to Rule Out VTE/DVT? NMagnesium [Mass/volume] in Serum or Plasma 2018-05-23 13:10:00* Test Item Value Reference Range Comments Magnesium [Mass/volume] in Serum or Plasma (test cdfi=54402-6) 2.5 mg/dL 1.8-2.4 Test Ordered to Rule Out VTE/DVT? NProthrombin time (PT) with international normalized ratio (INR)2018-05-23 12:52:00* Test Item Value Reference Range Comments PT Prothrombin Time (test code=PROTIME) 14.6 s 9.5-12.5 INR in Blood by Coagulation assay (test oijx=87472-6) 1.23 Monitor pts using INR value (not prothrombin time) INR Coumadin Therapy: Low Range (prophylaxis) 2.0-3.0 High Range (high risk of clot formation) 2.5-3.5 [facility] 12:19:00[facility] [place] [address] [facility] REPORT Name: MAIRA EARLY Acct Number: [id number] :1950 Age:68 Sex:F Ord Phys: Patrick Fuller PAC Unit Number: [id number] Prim Care Dr: Rashard Simmons MD Status: REG ER ER Exam Date: 05/23/18 EXAM DESCRIPTION: RAD - Chest Single View - 05/23/2018 11:18 am CLINICAL HISTORY: Decreased O2 saturation COMPARISON: Portable September 2017 TECHNIQUE: AP portable chest image was obtained 1103 hours . FINDINGS: Left base patchy opacification is present suspected to be pneumonia. Minimal pleural fluid likely present as well. Baseline interstitial pattern is not substantially different from comparison. Heart and vasculature are normal. No pneumothorax or measurable right pleural effusion. No acute bony abnormality seen. No acute aortic findings suspected. IMPRESSION: Suspected mild or early left lung base pneumonia. Signed By: Geremias Garcia MD Signed AT: 05/23/18 1220 Arterial blood gas djitwesziyr0022-21-96 12:14:00* Test Item Value Reference Range Comments Blood gas pH assay (test prmq=14750-1) 7.18 7.35-7.45 Blood partial pressure of carbon dioxide measurement (test kbuh=87765-0) 113.0 mm[Hg] 35-45 Blood partial pressure of oxygen measurement (test zmol=53772-9) 79.3 mm[Hg] 75-100 Blood Gas HCO3 (test code=ABGHCO3) 40.2 mmol/L 22-28 Blood base excess determination (test ykrc=0510-4) 11.8 mmol/L Arterial blood oxygen saturation measurement (test hosw=2021-8) 91.3 % 92-98.5 Arterial blood fractional oxyhemoglobin (test sjkf=0258-8) 89.5 % 94-97 Arterial blood carboxyhemoglobin measurement (test iqgn=6791-0) 1.0 % 0-1.5 Blood Gas Methemoglobin (test code=ABGMETHB) 1.0 % 0-1.5 Blood Gas THB (test code=ABGTHB) 14.6 g/dL 12-18 Blood Gas Inspired Oxygen (test code=ABGFIO2) 30.0 % DRAWN FROM R-RA (+ID/) PT ON BIPAP E=16 E=7 RATE 14 FIO2 .30 Repeated & Called to MUSHTAQ SWANN on 05/23/18 at 1213 by SHANNON Was there 100% Readback? Y Lactate [Moles/volume] in Serum or Vguuyf1168-56-49 11:21:00* Test Item Value Reference Range Comments Lactate [Moles/volume] in Serum or Plasma (test xuch=3926-3) 1.0 mmol/L 0.4-2.0 Test Ordered to Rule Out VTE/DVT? NInfluenza Type A Vhjfjqe4781-20-45 11:17:00* Test Item Value Reference Range Comments FLU A ----- (test code=FLUA) NEGATIVE (could be below detectable limits, suggest culture) Comment Bed:7 Test Ordered to Rule Out VTE/DVT? NInfluenza Type B Antigen 2018-05-23 11:17:00* Test Item Value Reference Range Comments FLU B ----- (test code=FLUB) NEGATIVE (could be below detectable levels, suggest culture) Comment Bed:7 Test Ordered to Rule Out VTE/DVT? NArterial blood gas measurement 2018-05-23 11:09:00* Test Item Value Reference Range Comments Blood gas pH assay (test xydh=21301-4) 7.13 7.35-7.45 Blood partial pressure of carbon dioxide measurement (test sqch=91798-2) 127.0 mm[Hg] 35-45 Blood partial pressure of oxygen measurement (test mmvf=71927-8) 336.0 mm[Hg] 75-100 Blood Gas HCO3 (test code=ABGHCO3) 40.7 mmol/L 22-28 Blood base excess determination (test lakp=8373-1) 11.5 mmol/L Arterial blood oxygen saturation measurement (test esab=8326-2) 99.0 % 92-98.5 Arterial blood fractional oxyhemoglobin (test xfdv=0734-6) 97.2 % 94-97 Arterial blood carboxyhemoglobin measurement (test aprc=0051-1) 0.8 % 0-1.5 Blood Gas Methemoglobin (test code=ABGMETHB) 1.0 % 0-1.5 Blood Gas THB (test code=ABGTHB) 14.7 g/dL 12-18 Blood Gas Inspired Oxygen (test code=ABGFIO2) 100.0 % POSITIVE ID//ALLENS TEST; FIO2 100% NRB; LEFT RADIAL STICK. @Other Dr: Repeated & Called to MART LANDIN on 05/23/18 at 1108 by NEHEMIAS Was there 100% Readback? Comment Bed:7DEXA, BONE DENSITY AXIAL EHTHD7374-26-93 00:00:00[place] [address] RAD[facility]OLOGY SERVICES REPORT Name: EARLYMAIRA Acct Number: [id number] :1950 Age:67 Sex:F Ord Phys: Rashard Simmons MD Unit Number: [id number] Prim Care Dr: Status: REG REF RAD Exam Date: 02/18/18 Indication: postmenopaus al; screening for osteoporosis; height loss; Clinical Information Provided b y Patient: Patient maximum height was 64 Menopause Age 47 No regular weight bearing exercise Do es not regularly consume dairy products Drinks caffeinated beverages O nset of menses at age 9 Number of children 1 Bone Density: Exam date 02/18/2018 BMD Region (g/cm2) T-score Z- Score Classif ication AP Spine (L1-L4) 1.142 0.9 2.9 Normal Femoral Ne ck (Left) 0.723 -1.1 0.6 Osteopenia Total Hip (Left) 0.941 0.0 1.4 Normal World Health Organizati on criteria for BMD impression classify patients as normal (T-score at or above -1.0), Osteopenia (T-score between -1.0 and -2.5), or Osteoporosis (T-score at o r below -2.5 10-year Fracture Risk: Major Osteoporotic Fracture 7 .5% Hip Fracture 0.7% Reported Risk Factors: [place] ( ), Neck BMD=0.723, BMI=45.7 Impression: The patient has low bone mass, based on the Left Femoral Neck T-score. The patient has an estimated ten-year risk of hip fracture of 0.7% and an estimated ten-year risk of major fracture of 7.5% ba sed on the WHO FRAX algorithm. Discussion: BONE DENSITY IS LOW AT ONE OR MOR E SKELETAL SITES. This patients T-score is low at one or more skeletal sites. It meets the World Health Organizations (WHO) criteria for low bone mass (T-score between -1.0 and 2.5). The patients 10-year risk of hip fracture as c alculated by FRAX is less than the threshold where pharmacological therapy is re commended by the National Osteoporosis Foundation (NOF). However, all treatment decisions require clinical judgment and consideration of individual patient fac tors, including patient preferences, comorbidities, previous drug use, risk fact ors not captured in the FRAX model (e.g., frailty, falls, vitamin D deficiency, increased bone turnover, interval significant decline in bone density) and possi ble under or overestimation of fracture risk by FRAX, The patient should follow a healthful lifestyle (good nutrition with adequate calcium and vitamin D, and appropriate weight bearing exercise.) Follow-Up: Consider repeating this stud y in 2-3 years to reassess this patients status, or sooner if there is some ne w clinical indications: Reported by: Dr. Balbuena on 02/18/2018 at 9:08:00 AM Signed By: Pedro Balbuena MD Signed AT: 02/25/18 1507 Glucose blood eexfomcsdif1608-20-69 12:04:00* Test Item Value Reference Range Comments Glucose blood fingerstick (test dtci=NHV8152) 191 mg/dL 65-120 Glucose blood vymosnjjlwh1389-60-23 08:15:00* Test Item Value Reference Range Comments Glucose blood fingerstick (test olxr=SCT2956) 171 mg/dL 65-120 Basic Metabolic Pjpvh0865-73-98 04:33:00* Test Item Value Reference Range Comments Sodium level (test pfpd=BOE7050) 138 meq/L 135-145 3.7 Chloride measurement (test qctk=YTE8386) 106 meq/L 101-111 Bicarbonate (test code=CO2) 28 meq/L 21-31 Glucose measurement (test fgqs=ZTF1696) 217 mg/dL 65-120 ADA Clinical Practice Recommendation: <100 mg/dl=Normal Fasting Glucose BUN Bld-mCnc (test fbwa=9030-1) 22 mg/dL 6-20 Creatinine measurement (test ebrs=AMR4075) 0.64 mg/dL 0.44-1.00 The creatinine method used has been calibrated to be traceable to Isotope dilution Mass Spectrometry (IDMS). For more information: www.nkdep.nih.gov Estimated glomerular filtration rate (GFR) determination (test vmiw=94954-8) >90 mL =/>90 FOR CHRONIC KIDNEY DISEASE: GFR STAGE DESCRIPTION=/>90 STAGE 1 NORMAL--OR-- MINIMAL KIDNEY DAMAGE WITH NORMAL GFR 60-89 STAGE 2 MILD DECREASE IN GFR 30-59 STAGE 3 MODERATE DECREASE IN GFR 15-29 STAGE 4 SEVERE DECREASE IN GFR <15 STAGE 5 KIDNEY FAILURE The Glomerular Filtration Rate (GFR) has been calculated using the IDMS-Traceable MDRD Study Equation. Calcium Level (test code=CA) 8.7 mg/dL 8.5-10.5 Primary Language Nepali Primary Language QusgzrjLltawgpkk3354-41-05 04:33:00* Test Item Value Reference Range Comments Magnesium (test code=MG) 1.7 mg/dL 1.8-2.5 Primary Language Nepali Primary Language EnglishComplete blood count (CBC) with automated white blood cell (WBC) wnhqxfhghtmf5989-94-49 04:25:00* Test Item Value Reference Range Comments White blood cell count (test rqrr=CQZ0061) 5.5 4.3-10.9 Blood erythrocytes count (number/volume) (test fiao=83524-1) 4.39 M/ul 3.86-4.86 Hemoglobin measurement (test zhpz=MSZ1807) 13.0 g/dL 12.0-15.0 Blood hematocrit (volume fraction) (test gpoe=14179-3) 40.2 % 36.0-45.0 MCV (test tvgs=08145-2) 91.5 fL 80-100 MCH (test pxwp=20839-7) 29.7 pg 27.0-35.0 MCHC (test code=MCHC) 32.4 g/dL 32.0-36.0 Platelets (test code=PLT) 178 152-406 Red Cell Distribution Width (test code=RDW) 13.5 % 12.1-15.2 Blood platelet mean volume (test fcdi=45393-0) 8.0 fL 7.6-11.3 Neutrophils % (test code=KELLI%) 83.0 % 41.7-73.7 Lymphocytes/leuk NFr Bld (test lacn=09630-5) 14.8 % 15.3-44.8 Monocyte percentage (test fnor=8788-2) 1.9 % 3.3-12.3 Eosinophil % (test vhbg=401-4) 0.1 % 0-4.4 Basophil % (test qxne=76184-9) 0.2 % 0-1.3 Absolute neutrophil count (test gphh=111-7) 4.6 1.8-8.0 Absolute lymphocyte count (test etir=87390-8) 0.8 0.7-4.9 Absolute monocyte count (test jlbl=178-3) 0.1 0.1-1.3 Absolute Eosinophils (test code=EOA) 0.0 0-0.5 Absolute Basophils (test code=BASA) 0.0 0-0.5 Primary Language EnglishComprehensive metabolic cczkg9899-03-79 21:33:00* Test Item Value Reference Range Comments Sodium level (test nryq=PAV1013) 136 meq/L 135-145 3.1 Chloride measurement (test hkre=ASH6746) 101 meq/L 101-111 Bicarbonate (test code=CO2) 31 meq/L 21-31 Glucose measurement (test nxny=JSR2712) 133 mg/dL 65-120 ADA Clinical Practice Recommendation: <100 mg/dl=Normal Fasting Glucose BUN Bld-mCnc (test jzga=6627-4) 21 mg/dL 6-20 Creatinine measurement (test qdyt=ONU7454) 0.64 mg/dL 0.44-1.00 The creatinine method used has been calibrated to be traceable to Isotope dilution Mass Spectrometry (IDMS). For more information: www.nkdep.nih.gov Estimated glomerular filtration rate (GFR) determination (test qukp=94336-0) >90 mL =/>90 FOR CHRONIC KIDNEY DISEASE: GFR STAGE DESCRIPTION=/>90 STAGE 1 NORMAL--OR-- MINIMAL KIDNEY DAMAGE WITH NORMAL GFR 60-89 STAGE 2 MILD DECREASE IN GFR 30-59 STAGE 3 MODERATE DECREASE IN GFR 15-29 STAGE 4 SEVERE DECREASE IN GFR <15 STAGE 5 KIDNEY FAILURE The Glomerular Filtration Rate (GFR) has been calculated using the IDMS-Traceable MDRD Study Equation. Aspartate aminotransferase (AST) measurement (test dtqz=SOE9746) 21 [iU]/L 10-42 ALT/SGPT (test code=SGPT) 22 [iU]/L 10-60 Alkaline Phosphatase (test code=ALK) 75 [iU]/L 42-121 Bilirubin total (test ulyk=HZA9312) 0.3 mg/dL 0.3-1.2 Calcium Level (test code=CA) 9.1 mg/dL 8.5-10.5 Serum total protein measurement (test mqvu=8681-3) 6.9 g/dL 6.0-8.3 Albumin measurement (test yqxk=QUH1066) 2.9 g/dL 3.2-5.5 Globulin (test code=GLOB) 4.0 g/dL 2.3-3.5 Albumin/Globulin Ratio (test code=A/G) 0.7 1.1-1.8 Comment Bed:14Complete blood count (CBC) with automated white blood cell (WBC) zsilprtzuesp2991-92-38 21:04:00* Test Item Value Reference Range Comments White blood cell count (test kzau=ZJX1732) 7.5 4.3-10.9 Blood erythrocytes count (number/volume) (test enob=55197-8) 4.45 M/ul 3.86-4.86 Hemoglobin measurement (test lhgc=AEY3675) 13.3 g/dL 12.0-15.0 Blood hematocrit (volume fraction) (test gyhb=33657-3) 39.9 % 36.0-45.0 MCV (test xfrb=88143-0) 89.8 fL 80-100 MCH (test hjmh=77560-3) 29.8 pg 27.0-35.0 MCHC (test code=MCHC) 33.2 g/dL 32.0-36.0 Platelets (test code=PLT) 178 152-406 Red Cell Distribution Width (test code=RDW) 13.5 % 12.1-15.2 Blood platelet mean volume (test fgqd=31667-8) 7.8 fL 7.6-11.3 Neutrophils % (test code=KELLI%) 59.2 % 41.7-73.7 Lymphocytes/leuk NFr Bld (test bssc=52833-7) 28.2 % 15.3-44.8 Monocyte percentage (test lkpl=2630-8) 10.5 % 3.3-12.3 Eosinophil % (test zixk=829-7) 1.4 % 0-4.4 Basophil % (test qqij=77977-9) 0.7 % 0-1.3 Absolute neutrophil count (test zshx=363-0) 4.4 1.8-8.0 Absolute lymphocyte count (test uzjp=90558-2) 2.1 0.7-4.9 Absolute monocyte count (test syse=578-5) 0.8 0.1-1.3 Absolute Eosinophils (test code=EOA) 0.1 0-0.5 Absolute Basophils (test code=BASA) 0.0 0-0.5 Brain natriuretic peptide (BNP) qfolfbrxfwx3268-36-06 23:14:00* Test Item Value Reference Range Comments Brain natriuretic peptide (BNP) measurement (test hdht=32519-8) 16 pg/mL <=100 Troponin (Emerg Dept Use Only)2017-10-18 23:12:00* Test Item Value Reference Range Comments Troponin (Emerg Dept Use Only) (test code=TROPED) < 0.03 <0.03 Comment Bed:5 Test Ordered to Rule Out VTE/DVT? NBasic Metabolic Rlvwr0306-69-31 23:09:00* Test Item Value Reference Range Comments Sodium level (test siau=LNO9050) 135 meq/L 135-145 3.4 Chloride measurement (test vwxq=FBI2422) 100 meq/L 101-111 Bicarbonate (test code=CO2) 31 meq/L 21-31 Glucose measurement (test rncm=YVD6187) 131 mg/dL 65-120 ADA Clinical Practice Recommendation: <100 mg/dl=Normal Fasting Glucose BUN Bld-mCnc (test unzf=7814-6) 22 mg/dL 6-20 Creatinine measurement (test bqwu=KRE4899) 0.66 mg/dL 0.44-1.00 The creatinine method used has been calibrated to be traceable to Isotope dilution Mass Spectrometry (IDMS). For more information: www.nkdep.nih.gov Estimated glomerular filtration rate (GFR) determination (test ltfk=57470-2) 89 mL =/>90 FOR CHRONIC KIDNEY DISEASE: GFR STAGE DESCRIPTION=/>90 STAGE 1 NORMAL--OR-- MINIMAL KIDNEY DAMAGE WITH NORMAL GFR 60-89 STAGE 2 MILD DECREASE IN GFR 30-59 STAGE 3 MODERATE DECREASE IN GFR 15-29 STAGE 4 SEVERE DECREASE IN GFR <15 STAGE 5 KIDNEY FAILURE The Glomerular Filtration Rate (GFR) has been calculated using the IDMS-Traceable MDRD Study Equation. Calcium Level (test code=CA) 8.9 mg/dL 8.5-10.5 Liver (Hepatic) Vxneevvi5108-40-14 23:09:00* Test Item Value Reference Range Comments Aspartate aminotransferase (AST) measurement (test xixd=ADT8592) 25 [iU]/L 10-42 ALT/SGPT (test code=SGPT) 25 [iU]/L 10-60 Alkaline Phosphatase (test code=ALK) 75 [iU]/L 42-121 Bilirubin total (test zvlx=FKO3091) 0.5 mg/dL 0.3-1.2 Bilirubin direct (test kzjc=0246-6) 0.2 mg/dL 0-0.2 Serum total protein measurement (test irmu=4274-4) 7.5 g/dL 6.0-8.3 Albumin measurement (test bhkw=FKL6059) 3.8 g/dL 3.2-5.5 Globulin (test code=GLOB) 3.7 g/dL 2.3-3.5 Albumin/Globulin Ratio (test code=A/G) 1.0 1.1-1.8 Wptndnwuo1647-91-25 23:09:00* Test Item Value Reference Range Comments Magnesium (test code=MG) 1.6 mg/dL 1.8-2.5 Prothrombin time (PT) with international normalized ratio (INR)2017-10-18 22:56:00* Test Item Value Reference Range Comments PT Prothrombin Time (test code=PROTIME) 12.9 s 9.5-12.5 INR in Blood by Coagulation assay (test absx=29184-0) 1.09 Monitor pts using INR value (not prothrombin time) INR Coumadin Therapy: Low Range (prophylaxis) 2.0-3.0 High Range (high risk of clot formation) 2.5-3.5 Test Ordered to Rule Out VTE/DVT? N Test Ordered to Rule Out VTE/DVT? NPTT, Activated Partial Wfgzmg4287-37-61 22:56:00* Test Item Value Reference Range Comments PTT, Activated Partial Thromb (test code=PTT) 27.7 s 24.3-36.9 Test Ordered to Rule Out VTE/DVT? N Test Ordered to Rule Out VTE/DVT? NComplete blood count (CBC) with automated white blood cell (WBC) jrwdggujbtxd3712-48-37 22:44:00* Test Item Value Reference Range Comments White blood cell count (test luwk=NYF7812) 7.3 4.3-10.9 Blood erythrocytes count (number/volume) (test fcgo=70872-4) 4.65 M/ul 3.86-4.86 Hemoglobin measurement (test dqmf=UMY8276) 13.8 g/dL 12.0-15.0 Blood hematocrit (volume fraction) (test upyz=79256-2) 42.0 % 36.0-45.0 MCV (test eecy=21755-4) 90.3 fL 80-100 MCH (test ncqa=88050-1) 29.6 pg 27.0-35.0 MCHC (test code=MCHC) 32.8 g/dL 32.0-36.0 Platelets (test code=PLT) 191 152-406 Red Cell Distribution Width (test code=RDW) 13.4 % 12.1-15.2 Blood platelet mean volume (test zoyc=19704-6) 8.0 fL 7.6-11.3 Neutrophils % (test code=KELLI%) 59.7 % 41.7-73.7 Lymphocytes/leuk NFr Bld (test gyti=57782-6) 26.2 % 15.3-44.8 Monocyte percentage (test pjxp=9988-2) 10.8 % 3.3-12.3 Eosinophil % (test buwu=402-3) 2.5 % 0-4.4 Basophil % (test qrpk=78320-7) 0.8 % 0-1.3 Absolute neutrophil count (test qttu=795-1) 4.4 1.8-8.0 Absolute lymphocyte count (test jaka=65541-6) 1.9 0.7-4.9 Absolute monocyte count (test tyhc=923-3) 0.8 0.1-1.3 Absolute Eosinophils (test code=EOA) 0.2 0-0.5 Absolute Basophils (test code=BASA) 0.1 0-0.5 [place] [address] [facility] RE[place] Name: MAIRA EARLY Acct Number: [id number] :1950 Age:67 Sex:F Ord Phys: Robinson Mishra MD Unit Number: [id number] Prim Care Dr: Rashard Simmons MD Status: REG ER ER Exam Date: 10/19/17 EXAM DESCRIPTION: RAD - Chest Single View - 10/19/2017 8:46 pm CLINICAL HISTORY: Pneumonia COMPARISON: 10/18/2017 FINDINGS: Portable technique limits examination quality. Mild improvement in lung aeration is noted since comparative study. Mild interstitial prominence persists. No focal consolidation detected. The heart is mildly enlarged in size. No displaced fractures.Degenerative changes are present both shoulders. IMPRESSION: Mild improvement lung aeration since preceding day's study. Signed By: Pedro Balbuena MD Signed AT: 10/19/172058 [facility] [place] [address] [facility] REPORT Name: MAIRA EARLY Acct Number: [id number] :1950 Age:67 Sex:F Ord Phys: Vitaly Thao MD Unit Number: [id number] Prim Care Dr: Rashard Simmons MD Status: DEP ER ER Exam Date: 10/18/17 EXAM DESCRIPTION: RAD - Chest Single View - 10/18/2017 10:29 pm CLINICAL HISTORY: Shortness of breath COMPARISON: 11/15/2015 FINDINGS: Portable technique limits examination quality. Linear opacities in both lung bases noted with small left pleural effusion, probably representing atelectasis or developing pneumonia. The heart is mildly prominent size. No displaced fractures. Signed By: Pedro Balbuena MD Signed AT: 10/19/17 0648
--- OUTSIDE RECORDS SUMMARY | 2018-09-16 05:29 | XMS REPORT | Continuity of Care Document ---
Author Author [facility] Address [address] [place] [address] Care Team Providers Care Relationship Manager Name Role Phone Rashard Simmons PCP Robinson Mishra Rndphys Kristin Reich Attphys Allergies, Adverse Reactions, Alerts No known allergies. Medications Active Medications Medication Dose Units Route Sig Qty Days Start Date Discontinued Date Status Instructions Metformin Er 500 MG ORAL TWICE DAILY October 20, 2017 Active Spironolact/Hydrochlorothiazid 25 MG ORAL DAILY October 20, 2017 Active Albuterol Inhaler 2 PUFF INHALATION Q6H PRN For Shortness Of Breath October 20, 2017 Active Levofloxacin 500 MG ORAL DAILY 10 October 20, 2017 Active Budesonide/Formoterol Fumarate 1 PUFF INHALATION TWICE DAILY 1 October 20, 2017 Active Problem List Active Problems Medical Problem Onset Date Status Diabetes mellitus October 20, 2017 Active HTN (hypertension) October 20, 2017 Active Pneumonia October 20, 2017 Active Obesity October 20, 2017 Active Procedures Procedure Date Status Chest Single View October 19, 2017 completed Chest Single View October 18, 2017 completed Relevant Diagnostic Tests and/or Laboratory Data Laboratory Results Test Date/Time Result Interp. Ref. Range Result Comment White Blood Count October 20, 2017 3:48am 5.5 K/uL 4.3-10.9 Delta: 7.5 on 10/19/17 Red Blood Count October 20, 2017 3:48am 4.39 M/uL 3.86-4.86 Hemoglobin October 20, 2017 3:48am 13.0 g/dL 12.0-15.0 Hematocrit October 20, 2017 3:48am 40.2 % 36.0-45.0 Mean Corpuscular Volume October 20, 2017 3:48am 91.5 fL 80-100 Mean Corpuscular Hemoglobin October 20, 2017 3:48am 29.7 pg 27.0-35.0 Mean Corpuscular Hemoglobin Concent October 20, 2017 3:48am 32.4 g/dL 32.0-36.0 Platelet Count October 20, 2017 3:48am 178 K/uL 152-406 Red Cell Distribution Width October 20, 2017 3:48am 13.5 % 12.1-15.2 Mean Platelet Volume October 20, 2017 3:48am 8.0 fL 7.6-11.3 Neutrophils % October 20, 2017 3:48am 83.0 % High 41.7-73.7 Lymphocytes % October 20, 2017 3:48am 14.8 % Low 15.3-44.8 Monocytes % October 20, 2017 3:48am 1.9 % Low 3.3-12.3 Eosinophils % October 20, 2017 3:48am 0.1 % 0-4.4 Basophils % October 20, 2017 3:48am 0.2 % 0-1.3 Absolute Neutrophil October 20, 2017 3:48am 4.6 K/uL 1.8-8.0 Absolute Lymphocytes (CBC) October 20, 2017 3:48am 0.8 K/uL 0.7-4.9 Absolute Monocytes (CBC) October 20, 2017 3:48am 0.1 K/uL 0.1-1.3 Absolute Eosinophils (CBC) October 20, 2017 3:48am 0.0 K/uL 0-0.5 Absolute Basophils (CBC) October 20, 2017 3:48am 0.0 K/uL 0-0.5 Prothrombin Time October 18, 2017 10:35pm 12.9 SECONDS High 9.5-12.5 INR International Normalized Ratio October 18, 2017 10:35pm 1.09 Monitor pts using INR value (not prothrombin time) INR Coumadin Therapy: Low Range (prophylaxis) 2.0-3.0 High Range (high risk of clot formation) 2.5-3.5 Activated Partial Thromboplast Time October 18, 2017 10:35pm 27.7 SECONDS 24.3-36.9 Sodium Level October 20, 2017 3:48am 138 mEq/L 135-145 Potassium Level October 20, 2017 3:48am 3.7 mEq/L 3.6-5.0 Chloride Level October 20, 2017 3:48am 106 mEq/L 101-111 Carbon Dioxide Level October 20, 2017 3:48am 28 mEq/L 21-31 Glucose Level October 20, 2017 3:48am 217 mg/dL High 65-120 ADA Clinical Practice Recommendation: <100 mg/dl=Normal Fasting Glucose Bedside Glucose October 20, 2017 11:40am 191 mg/dl High 65-120 Blood Urea Nitrogen October 20, 2017 3:48am 22 mg/dL High 6-20 Creatinine October 20, 2017 3:48am 0.64 mg/dL 0.44-1.00 The creatinine method used has been calibrated to be traceable to Isotope dilution Mass Spectrometry (IDMS). For more information: www.nkdep.nih.gov Estimat Glomerular Filtration Rate October 20, 2017 3:48am > 90 mL/min 90- FOR CHRONIC KIDNEY DISEASE: GFR STAGE DESCRIPTION =/>90 STAGE 1 NORMAL--OR-- MINIMAL KIDNEY DAMAGE WITH NORMAL GFR 60-89 STAGE 2 MILD DECREASE IN GFR 30-59 STAGE 3 MODERATE DECREASE IN GFR 15-29 STAGE 4 SEVERE DECREASE IN GFR <15 STAGE 5 KIDNEY FAILURE The Glomerular Filtration Rate (GFR) has been calculated using the IDMS-Traceable MDRD Study Equation. Aspartate Amino Transf (AST/SGOT) October 19, 2017 8:53pm 21 IU/L 10-42 Alanine Aminotransferase (ALT/SGPT) October 19, 2017 8:53pm 22 IU/L 10-60 Alkaline Phosphatase October 19, 2017 8:53pm 75 IU/L 42-121 Total Bilirubin October 19, 2017 8:53pm 0.3 mg/dL 0.3-1.2 Direct Bilirubin October 18, 2017 10:35pm 0.2 mg/dL 0-0.2 Calcium Level October 20, 2017 3:48am 8.7 mg/dL 8.5-10.5 Serum Total Protein October 19, 2017 8:53pm 6.9 g/dL 6.0-8.3 Albumin October 19, 2017 8:53pm 2.9 g/dL Low 3.2-5.5 Globulin October 19, 2017 8:53pm 4.0 g/dL High 2.3-3.5 Albumin/Globulin Ratio October 19, 2017 8:53pm 0.7 Low 1.1-1.8 Rapid Troponin I October 18, 2017 10:35pm < 0.03 ng/mL B-Type Natriuretic Peptide October 18, 2017 10:35pm 16 pg/ml Magnesium Level October 20, 2017 3:48am 1.7 mg/dL Low 1.8-2.5 Discharge Summary Encounter: Discharged Inpatient Admit Date: October 19, 2017 10:08pm Discharge Date: October 20, 2017 1:30pm [facility] NAME: DORIAN TERESA ADMITTING: Tito Hanna MD ADMIT DATE: 10/19/17 ATTENDING: Tito Hanna MD : 1950 ACCOUNT NO: [id number] PATIENT TYPE: ADM IN LOCATION: [address] [place] [address] Name: Dorian Teresa Age: 67 yrs Sex: Female : 1950 Arrival Date: 10/19/2017 Time: 19:35 Bed 14 Private MD: Rashard Simmons T Diagnosis: Pneumonia due to other specified bacteria;Hypoxemia Presentation: 10/19 19:38 Presenting complaint: Patient states: Dx with PNE here yesterday, has taken one dose of la1 abx at home, not feeling better, still coughing. Transition of care: patient was not received from another setting of care. Onset of symptoms was October 19, 2017. Initial Sepsis Screen: Does the patient meet any 2 criteria? No. Patient's initial sepsis screen is negative. Does the patient have a suspected source of infection? No. Patient's initial sepsis screen is negative. Care prior to arrival: None. 19:38 Method Of Arrival: Wheelchair la1 19:38 Acuity: AMA 3 la1 Historical: - Allergies: 19:39 No Known Allergies; la1 - PMHx: 19:39 Diabetes - NIDDM; Hypertension; la1 - Immunization history:: Adult Immunizations up to date. - Social history:: Smoking status: Patient/guardian denies using tobacco. Screenin:31 Abuse screen: Denies threats or abuse. Denies injuries from another. Nutritional bs1 screening: No deficits noted. Tuberculosis screening: No symptoms or risk factors identified. Fall Risk None identified. Assessment: 20:51 General: Appears uncomfortable, ill, Behavior is calm, appropriate for age. Pain: bs1 Complains of pain in chest from cough Pain does not radiate. Neuro: Level of Consciousness is awake, alert, obeys commands, Oriented to person, place, time, situation, Appropriate for age Acid Loader are equal bilaterally Moves all extremities. Cardiovascular: Denies chest pain, palpitations, Heart tones S1 S2 present Capillary refill < 3 seconds Patient's skin is warm and dry. Respiratory: Reports shortness of breath at rest on exertion cough that is productive, Airway is patent Trachea midline Respiratory effort is even, unlabored, Respiratory pattern is regular, symmetrical, Breath sounds are coarse bilaterally. Respiratory: Reports reports congestion. GI: No deficits noted. No signs and/or symptoms were reported involving the gastrointestinal system. : No deficits noted. No signs and/or symptoms were reported regarding the genitourinary system. EENT: No deficits noted. No signs and/or symptoms were reported regarding the EENT system. Derm: Skin is intact, Skin is pink, warm \T\ dry. Musculoskeletal: Circulation, motion, and sensation intact. Capillary refill < 3 seconds, Range of motion: intact in all extremities. 21:45 Reassessment: Patient appears in no apparent distress at this time. Patient and/or bs1 family updated on plan of care and expected duration. Pain level reassessed. Patient is alert, oriented x 3, equal unlabored respirations, skin warm/dry/pink. Pending lab results. 22:45 Reassessment: Patient appears in no apparent distress at this time. No changes from bs1 previously documented assessment. Patient and/or family updated on plan of care and expected duration. Pain level reassessed. Patient is alert, oriented x 3, equal unlabored respirations, skin warm/dry/pink. Pending results of Xray. 23:33 Reassessment: Patient appears in no apparent distress at this time. No changes from bs1 previously documented assessment. Patient and/or family updated on plan of care and expected duration. Pain level reassessed. Patient is alert, oriented x 3, equal unlabored respirations, skin warm/dry/pink. Patient being admmitted. 23:55 Reassessment: Report given to KWABENA Marr. bs1 Vital Signs: 19:39 BP 129 / 63; Pulse 80; Resp 19; Temp 98.8(TE); Pulse Ox 95% on R/A; Weight 118.39 kg; la1 Height 5 ft. 3 in. (160.02 cm); 21:00 Pulse 79; Resp 25; jb5 21:05 BP 114 / 67; Pulse 76; Pulse Ox 98% on R/A; bs1 21:11 BP 114 / 67; ao 22:30 BP 132 / 57; Pulse 93; Resp 18 S; Pulse Ox 93% on R/A; bs1 23:30 BP 140 / 50; Pulse 73; Resp 19; Pulse Ox 94% on R/A; bs1 23:52 BP 126 / 59; Pulse 73; Resp 18; Pulse Ox 94% on R/A; bs1 19:39 Body Mass Index 46.23 (118.39 kg, 160.02 cm) la1 ED Course: 19:35 Patient arrived in ED. es 19:37 Rashard Simmons MD is Private Physician. es 19:39 Triage completed. la1 19:40 Arm band placed on left wrist. la1 20:26 Robinson Mishra MD is Attending Physician. tw4 20:44 Toña Quinn, KWABENA is Primary Nurse. bs1 20:46 Chest Single View XRAY In Process Unspecified. EDMS 20:53 Inserted saline lock: 22 gauge in right antecubital area, using aseptic technique. jb5 Blood collected. 22:08 Tito Smith MD is Hospitalizing Provider. tw4 23:31 Patient has correct armband on for positive identification. Bed in low position. Call bs1 light in reach. Side rails up X 1. Pulse ox on. NIBP on. Warm blanket given. 23:33 No provider procedures requiring assistance completed. bs1 23:56 Patient admitted, IV remains in place. intact. bs1 Administered Medications: 20:38 CANCELLED (Physician Discretion): Albuterol 2.5 mg Inhalation once tw4 21:16 Drug: SOLU-Medrol 125 mg Route: IVP; Site: right antecubital; bs1 21:30 Follow up: Response: No adverse reaction bs1 22:35 Drug: Rocephin - (cefTRIAXone) 1 grams Route: IVPB; Infused Over: 30 mins; Site: right bs1 antecubital; 23:51 Follow up: IV Status: Completed infusion bs1 22:42 Not Given (Physician Discretion): Rocephin (cefTRIAXone) 50 mg/kg IVPB once; not to bs1 exceed 2 grams 23:05 Drug: AZITHromycin 500 mg Route: IVPB; Infused Over: 1 hrs; Site: right antecubital; bs1 23:51 Follow up: IV Status: Infusion continued upon admission bs1 Outcome: 22:08 Decision to Hospitalize by Provider. tw4 23:55 Admitted to Tele accompanied by tech, via wheelchair, room 409, with chart, Report bs1 called to KWABENA Marr 23:55 Condition: stable 23:55 Instructed on the need for admit, Demonstrated understanding of instructions. 23:58 Patient left the ED. bs1 Signatures: Dispatcher [employer] Lyndsay Valverde Lee RN RN la1 Sarthak Damico RN RN ao Broussard, Jennifer jb5 Salazar, Brittany, RN RN bs1 Robinson Mishra MD MD tw4 10/19/17 [id number] Advance Directives Advance Directive Response Recorded Date/Time Does Patient Have Living Will No October 20, 2017 6:00am Durable Power of Icebox Man for Health Care No October 20, 2017 12:30am Would you like additional information No October 20, 2017 12:30am Chief Complaint and Reason for Visit Encounter Admit Date Chief Complaint Reason for Visit Discharged Inpatient October 19, 2017 10:08pm PNEUMONIA DUE TO OTHER SPECIFIED BACTERIA, Diabetes mellitus Hypertension Obesity Pneumonia Hospital Discharge Instructions No known hospital discharge instructions. Hospital Discharge Medications Medication Dose Units Route Sig Qty Days Order Date Status Instructions Metformin Er 500 MG ORAL TWICE DAILY October 20, 2017 Active Spironolact/Hydrochlorothiazid 25 MG ORAL DAILY October 20, 2017 Active Albuterol Inhaler 2 PUFF INHALATION Q6H PRN For Shortness Of Breath October 20, 2017 Active Levofloxacin 500 MG ORAL DAILY 10 October 20, 2017 Active Budesonide/Formoterol Fumarate 1 PUFF INHALATION TWICE DAILY 1 October 20, 2017 Active Encounters Encounter Facility Location Admit Date Discharge Date Attending Provider Discharged Inpatient [facility] TELEMETRY UNIT October 19, 2017 10:08pm October 20, 2017 1:30pm Berkley Reichta Departed Emergency [facility] EMERGENCY DEPT October 18, 2017 9:02pm October 19, 2017 12:45am Encounter Diagnosis Onset Date Diabetes mellitus October 20, 2017 Hypertension October 20, 2017 Obesity October 20, 2017 Pneumonia October 20, 2017 Family History Query Response Instance Date Recorded Comment Nurses notes Rheumatoid Arthritis Mother October 20, 2017 12:30am Nurses notes Colon Cancer Father October 20, 2017 12:30am Medical History Lung disease Other (see notes) Mother October 20, 2017 12:30am Medical History Cancer Other (see notes) Father October 20, 2017 12:30am Functional Status Query Response Date Recorded Comment Mental Status Oriented to Own Ability October 20, 2017 12:00pm Query Response Date Recorded Comment Bathe Self Independent October 20, 2017 12:30am Completes ADL's Without Assistance Yes October 20, 2017 12:30am Cook for Self Independent October 20, 2017 12:30am Dress/[place] Self Independent October 20, 2017 12:30am Feed Self Independent October 20, 2017 12:30am Toileting Independent October 20, 2017 12:30am Immunizations No known immunizations. Payers Payer Name Policy Type Covered Alliance Party Covered Alliance Party Id Relationship Subscriber Subscriber Id MEDICARE Medicare Primary DORIAN TERESA [id number] SAME PATIENT (SELF) Plan of Care Instructions Chronic Obstructive Pulmonary Disease Community-Acquired Pneumonia, Adult PROBLEM: (chronic obstructive pulmonary disease) GOAL: Clear understanding of disease process INSTRUCTIONS: Please f/u (follow up) with Dr Rahman in the clinic 2 week New medication levaquin 500mg daily for 10 days Symbicort 1 puff BID You will need to get outpt PFT's done. Diet: Regular Activity: Ad marlee Social History Query Response Date Recorded Comment Alcohol Use? No October 20, 2017 12:30am CD- Drugs? No October 20, 2017 12:30am Query Response Start Date Stop Date Smoking Status Former smoker June 30, 1966 June 30, 1995 Vital Signs Vital Reading Result Reference Range Collection Date/Time Height 5 ft 3 in October 20, 2017 12:30am Weight 269 lb 6 oz October 20, 2017 12:30am Temperature 97.4 F 96.8 F-100.9 F October 20, 2017 8:00am Pulse 61 BPM 50-90 October 20, 2017 8:00am Respiration 18 RPM 12-October 20, 2017 8:00am Pulse Oximetry 98 % 91- October 20, 2017 8:00am Blood Pressure Systolic 149 90-140 October 20, 2017 8:00am Blood Pressure Diastolic 61 60-90 October 20, 2017 8:00am Body Mass Index 47.7 October 20, 2017 12:30am
--- NOTE | 2018-09-16 05:40 | NUR ---
PT PLACED ON VENTILATOR PRVC 14/FIO2 60%/VT 450
--- NOTE | 2018-09-16 05:51 | NUR ---
Aldo rivera in ED - 09/16/18 at 0552 by MARYLOU FIO2PT PLACED ONTO VENTILATOR PRVC 14/VT 450/FIO2 60%
--- NOTE | 2018-09-16 05:52 | NUR ---
PTS SATS 88% INCREASED FIO2 TO 100% SATS 96%
[2018-09-16] MEDS ORDERED: POLYVINYL ALCOH15 ML OU (06:05)
[2018-09-16] MEDS ORDERED: LASIX20 MG GT (06:05)
[2018-09-16] MEDS ORDERED: ACETAMINOPHEN325 M1 GT (06:05)
[2018-09-16] MEDS ORDERED: ZINC SULFATE220 MG GT (06:05)
[2018-09-16] MEDS ORDERED: LORAZEPAM1 MG GT (06:05)
[2018-09-16] MEDS ORDERED: HUMALOG100 UNIT/3 (06:05)
[2018-09-16] MEDS ORDERED: LEXAPRO10 MG GT (06:05)
[2018-09-16] MEDS ORDERED: IPRATROPIU0.2 MG/1 M NEB (06:05)
[2018-09-16] MEDS ORDERED: DILTIAZEM HCL30 MG GT (06:05)
[2018-09-16] MEDS ORDERED: VENELEX OINTMEN60 GM TOP (06:05)
[2018-09-16] MEDS ORDERED: TRAZODONE HCL50 MG GT (06:05)
[2018-09-16] MEDS ORDERED: ZOFRAN4 MG GT (06:05)
[2018-09-16] MEDS ORDERED: APIXABAN GT (06:05)
[2018-09-16] MEDS ORDERED: ZYVOX600 MG GT (06:05)
[2018-09-16 06:10] LABS: BASOPHILS % 0.2 % (0.0-1.0); EOSINOPHILS # (AUTO) 0.1 (0.0-0.4); EOSINOPHILS % 0.4 % (0.0-6.0); HEMATOCRIT 33.8 % (34.2-44.1); HEMOGLOBIN 9.8 g/dL (12.0-16.0); LYMPHOCYTES # (AUTO) 1.3 (1.0-3.2); LYMPHOCYTES % 9.8 % (18.0-39.1); MEAN CORPUSCULAR VOLUME 96.6 fL (81-99); MONOCYTES % 7.3 % (4.4-11.3); NEUTROPHILS # (AUTO) 10.8 (2.1-6.9); NEUTROPHILS % 81.6 % (38.7-80.0); PLATELET COUNT 394 x10e3/uL (140-360); RED CELL DISTRIBUTION WIDTH 15.2 % (11.7-14.4)
[2018-09-16 06:19] LABS: CLARITY,URINE CLOUDY (CLEAR); COLOR,URINE YELLOW (YELLOW); KETONES,URINE NEGATIVE (NEGATIVE); LEUKOCYTE ESTERASE ,URINE NEGATIVE (NEGATIVE); NITRITE,URINE NEGATIVE (NEGATIVE); PROTEIN,URINE DIPSTICK TRACE (NEGATIVE); URINE UROBILINOGEN 1 mg/dL (0.2 - 1)
[2018-09-16 06:20] LABS: BILIRUBIN,URINE NEGATIVE (NEGATIVE)
--- NOTE | 2018-09-16 06:21 | Diagnostic Imaging Report ---
Examination: Single AP view of the chest. COMPARISON: None. INDICATION: Low oxygen saturation, shortness of breath IMPRESSION: 1. Lines and Tubes: Tracheostomy tube in place. 2. Lungs are well inflated. Bibasilar atelectatic changes. Left retrocardiac opacity and obscuration of the left hemidiaphragm, likely reflecting left pleural effusion and associated atelectasis. Bilateral interstitial opacities extending from the caroline, consistent with interstitial pulmonary edema. 3. Enlarged cardiac silhouette Central pulmonary venous congestion. 4. No acute bony abnormalities. Signed by: Dr. Julio Mendiola M.D. on 09/16/2018 6:18 AM
[2018-09-16 06:22] LABS: INR 1.32
[2018-09-16 06:23] LABS: PARTIAL THROMBOPLASTIN TIME 43.9 seconds (23.8-35.5)
[2018-09-16 06:49] LABS: B-TYPE NATRIURETIC PEPTIDE2 86.3 pg/mL (0-100)
[2018-09-16] MEDS ORDERED: SODIUM CHLORIDE 0.9% 1000ML 1,000 ML IV SCH (06:50)
[2018-09-16 06:53] LABS: EPITHELIAL CELLS,URINE FEW /LPF
[2018-09-16 06:54] LABS: AMORPHOUS SEDIMENT,URINE MODERATE (FEW); BACTERIA,URINE MODERATE /HPF
--- NOTE | 2018-09-16 06:59 | NUR ---
REPORT TO PEDRO DUGGAN RN
[2018-09-16] MEDS ORDERED: VANCOMYCIN HCL 1GM/NS 250 ML BAG IV SCH (07:00)
[2018-09-16 07:50] LABS: ALANINE AMINOTRANSFERASE 19 IU/L (0-55); ALBUMIN 2.1 g/dL (3.5-5.0); ALBUMIN/GLOBULIN RATIO 0.4 (0.8-2.0); ALKALINE PHOSPHATASE 107 IU/L (40-150); ANION GAP 13.7 mmol/L (8-16); BLOOD UREA NITROGEN 17 mg/dL (7-26); BUN/CREATININE RATIO 32 (6-25); CALCIUM 10.3 mg/dL (8.4-10.2); CARBON DIOXIDE 39 mmol/L (22-29); CHLORIDE 91 mmol/L (98-107); CREATINE KINASE 7 IU/L (29-168); CREATININE, SERUM 0.53 mg/dL (0.57-1.11); EST GLOMERULAR FILTRATION RATE > 60 ML/MIN (60-); GLUCOSE 199 mg/dL (74-118); POTASSIUM 3.7 mmol/L (3.5-5.1); SODIUM 140 mmol/L (136-145)
[2018-09-16] MEDS: PIPER-TAZ 3.375 GM 50 ML IV SCH ×3 (07:55→20:14)
[2018-09-16] MEDS: IPRATROPIUM BROMIDE 0.02% 2.5 ML NEB NEB SCH ×3 (07:57→20:00)
[2018-09-16] MEDS: VANCOMYCIN 1GM/NS 250 ML 250 ML IV SCH (08:31)
[2018-09-16] MEDS ORDERED: ENOXAPARIN SOD INJ 40 MG/0.4 ML SYR SC SCH (09:00)
--- NOTE | 2018-09-16 09:24 | NUR ---
PT STARTED TO DE-SAT TO 86 PRIOR TO MOVING PT RE-CHECKED VENT SETTINGS, SUCTIONED PT PT BRIEFLY AMBU BAGGED WHILE VENT SETTINGS WERE BEING RE-CHECKED THEN PT REATTACHED TO VENT PT ADVISED TO INCREASE RESP AND CALM SELF DOWN PER PT WHEN PT BECOMES ANXIOUS PT WILL DE-SAT PT HELPED TO CALM SELF DOWN DR Joey NIEVES CALLED FOR FURTHER ORDERS PT SAT GRADUALLY INCREASED TO 91% CURRENTLY PT APPEARS MUCH CALMER; AFTER PT SAT INCREASED AND PT BECAME MORE STABLE PT MOVED TO ICU
--- NOTE | 2018-09-16 09:40 | NUR ---
Patient to Room 196; mechanical ventilation to trach. Paged Dr Aisha Chiu for orders.
[2018-09-16 09:46] LABS: ABG PCO2 47 mmHg (41-51); ABG PH 7.56 (7.31-7.41); ABG PO2 78 mmHg (80-105)
--- OUTSIDE RECORDS SUMMARY | 2018-09-16 09:46 | XMS REPORT | Clinical Summary ---
Author Author LAURENCE [facility] Address Unknown Phone Unavailable Care Team Providers Care Prescriptionist Name Role Phone Pcp, No PCP Unavailable [...] Taken Vital Sign Reading 06/05/2018 5:10 PM SMOKEHOUSE OPERATOR Blood Pressure 120/66 06/05/2018 5:10 PM SMOKEHOUSE OPERATOR Pulse 82 06/05/2018 5:10 PM SMOKEHOUSE OPERATOR Temperature 36.5 C (97.7 F) 06/05/2018 5:10 PM SMOKEHOUSE OPERATOR Respiratory Rate 14 06/05/2018 5:10 PM SMOKEHOUSE OPERATOR Oxygen Saturation 98% 06/05/2018 5:10 PM SMOKEHOUSE OPERATOR Inhaled Oxygen 40% Concentration 06/04/2018 5:00 AM SMOKEHOUSE OPERATOR Weight 117.1 kg (258 lb 2.5 oz) 05/23/2018 8:00 PM SMOKEHOUSE OPERATOR Height 157.5 cm (5' 2") 06/04/2018 5:00 AM SMOKEHOUSE OPERATOR Body Mass Index 47.22 Plan of Treatment Not on file Procedures Comments Procedure Name Priority Date/Time Associated Diagnosis REPORT OF PROCEDURE - 06/12/2018 ENDOSCOPY SCAN 10:21 AM SMOKEHOUSE OPERATOR RHYTHM STRIP - SCAN 06/12/2018 10:21 AM SMOKEHOUSE OPERATOR POCT-GLUCOSE METER Routine 06/05/2018 11:26 AM SMOKEHOUSE OPERATOR POCT-GLUCOSE METER Routine 06/05/2018 6:23 AM SMOKEHOUSE OPERATOR MAGNESIUM Routine 06/05/2018 4:47 AM SMOKEHOUSE OPERATOR BASIC METABOLIC PANEL (7) Routine 06/05/2018 4:47 AM SMOKEHOUSE OPERATOR POCT-GLUCOSE METER Routine 06/05/2018 12:12 AM SMOKEHOUSE OPERATOR CBC (HEMOGRAM ONLY) Routine 06/04/2018 10:02 PM SMOKEHOUSE OPERATOR POCT-GLUCOSE METER Routine 06/04/2018 3:31 PM SMOKEHOUSE OPERATOR POCT-GLUCOSE METER Routine 06/04/2018 1:13 PM SMOKEHOUSE OPERATOR POCT-GLUCOSE METER Routine 06/04/2018 6:42 AM SMOKEHOUSE OPERATOR POCT-GLUCOSE METER Routine 06/04/2018 6:02 AM SMOKEHOUSE OPERATOR BLOOD GAS, VENOUS Routine 06/04/2018 4:01 AM SMOKEHOUSE OPERATOR MAGNESIUM Routine 06/04/2018 4:01 AM SMOKEHOUSE OPERATOR BASIC METABOLIC PANEL (7) Routine 06/04/2018 4:01 AM SMOKEHOUSE OPERATOR XR CHEST 1 VIEW Routine 06/04/2018 PORTABLE/BEDSIDE 2:44 AM SMOKEHOUSE OPERATOR POCT-GLUCOSE METER Routine 06/04/2018 1:09 AM SMOKEHOUSE OPERATOR POCT-GLUCOSE METER Routine 06/04/2018 12:08 AM SMOKEHOUSE OPERATOR POCT-GLUCOSE METER Routine 06/03/2018 8:05 PM SMOKEHOUSE OPERATOR POCT-GLUCOSE METER Routine 06/03/2018 6:06 PM SMOKEHOUSE OPERATOR MAGNESIUM Routine 06/03/2018 12:56 PM SMOKEHOUSE OPERATOR POCT-GLUCOSE METER Routine 06/03/2018 12:52 PM SMOKEHOUSE OPERATOR ECG 12-LEAD Routine 06/03/2018 10:34 AM SMOKEHOUSE OPERATOR XR CHEST 1 VIEW Routine 06/03/2018 PORTABLE/BEDSIDE 3:56 AM SMOKEHOUSE OPERATOR CBC W/PLT COUNT & AUTO Routine 06/03/2018 DIFFERENTIAL 3:37 AM SMOKEHOUSE OPERATOR BLOOD GAS, VENOUS Routine 06/03/2018 3:37 AM SMOKEHOUSE OPERATOR CBC W/PLT COUNT & AUTO Routine 06/03/2018 DIFFERENTIAL 3:37 AM SMOKEHOUSE OPERATOR MAGNESIUM Routine 06/03/2018 3:37 AM SMOKEHOUSE OPERATOR BASIC METABOLIC PANEL (7) Routine 06/03/2018 3:37 AM SMOKEHOUSE OPERATOR POCT-GLUCOSE METER Routine 06/02/2018 7:42 PM SMOKEHOUSE OPERATOR POCT-GLUCOSE METER Routine 06/02/2018 4:43 PM SMOKEHOUSE OPERATOR ESOPHAGOGASTRODUODENOSCOP 06/02/2018 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) Case Notes 90 MINS PER [facility] Special Needs (ENDO EQUIPMENT) EGD SCOPE INSERTION,GASTROSTOMY 06/02/2018 Amyotrophic lateral TUBE-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 SMOKEHOUSE OPERATOR sclerosis (HCC) Case Notes 90 MINS PER [facility] Special Needs (ENDO EQUIPMENT) EGD SCOPE TRACHEOSTOMY 06/02/2018 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) Case Notes 90 MINS PER [facility]ONG Special Needs (ENDO EQUIPMENT) EGD SCOPE POCT-GLUCOSE METER Routine 06/02/2018 2:51 PM SMOKEHOUSE OPERATOR POCT-GLUCOSE METER Routine 06/02/2018 12:35 PM SMOKEHOUSE OPERATOR XR CHEST 1 VIEW Routine 06/02/2018 PORTABLE/BEDSIDE 7:12 AM SMOKEHOUSE OPERATOR BLOOD GAS, VENOUS Routine 06/02/2018 3:53 AM SMOKEHOUSE OPERATOR MAGNESIUM Routine 06/02/2018 3:53 AM SMOKEHOUSE OPERATOR BASIC METABOLIC PANEL (7) Routine 06/02/2018 3:53 AM SMOKEHOUSE OPERATOR POCT-GLUCOSE METER Routine 06/01/2018 11:56 PM SMOKEHOUSE OPERATOR LACTIC ACID, VENOUS Routine 06/01/2018 8:33 PM SMOKEHOUSE OPERATOR POCT-GLUCOSE METER Routine 06/01/2018 6:41 PM SMOKEHOUSE OPERATOR POCT-GLUCOSE METER Routine 06/01/2018 12:57 PM SMOKEHOUSE OPERATOR XR CHEST 1 VIEW STAT 06/01/2018 PORTABLE/BEDSIDE 8:20 AM SMOKEHOUSE OPERATOR BLOOD GAS, VENOUS Routine 06/01/2018 3:46 AM SMOKEHOUSE OPERATOR HEPARIN ASSAY - LOW Routine 06/01/2018 MOLECULAR WEIGHT 3:46 AM SMOKEHOUSE OPERATOR MAGNESIUM Routine 06/01/2018 3:46 AM SMOKEHOUSE OPERATOR BASIC METABOLIC PANEL (7) Routine 06/01/2018 3:46 AM SMOKEHOUSE OPERATOR POCT-GLUCOSE METER Routine 05/31/2018 5:53 PM SMOKEHOUSE OPERATOR POCT-GLUCOSE METER Routine 05/31/2018 12:38 PM SMOKEHOUSE OPERATOR XR CHEST 1 VIEW STAT 05/31/2018 PORTABLE/BEDSIDE 12:35 PM SMOKEHOUSE OPERATOR POCT-GLUCOSE METER Routine 05/31/2018 12:00 PM SMOKEHOUSE OPERATOR SPUTUM CULTURE + GRAM Routine 05/31/2018 STAIN 10:13 AM SMOKEHOUSE OPERATOR POCT-GLUCOSE METER Routine 05/31/2018 6:17 AM SMOKEHOUSE OPERATOR XR CHEST 1 VIEW Routine 05/31/2018 PORTABLE/BEDSIDE 4:26 AM SMOKEHOUSE OPERATOR CBC W/PLT COUNT & AUTO Routine 05/31/2018 DIFFERENTIAL 4:23 AM SMOKEHOUSE OPERATOR PHOSPHORUS Add-On 05/31/2018 4:23 AM SMOKEHOUSE OPERATOR MAGNESIUM Routine 05/31/2018 4:23 AM SMOKEHOUSE OPERATOR BASIC METABOLIC PANEL (7) Routine 05/31/2018 4:23 AM SMOKEHOUSE OPERATOR CBC W/PLT COUNT & AUTO Routine 05/31/2018 DIFFERENTIAL 4:23 AM SMOKEHOUSE OPERATOR POCT-GLUCOSE METER Routine 05/31/2018 12:05 AM SMOKEHOUSE OPERATOR POCT-GLUCOSE METER Routine 05/30/2018 6:04 PM SMOKEHOUSE OPERATOR MR PELVIS WITHOUT & WITH Routine 05/30/2018 IV CONTRAST 1:11 PM SMOKEHOUSE OPERATOR POCT-GLUCOSE METER Routine 05/30/2018 7:01 AM SMOKEHOUSE OPERATOR XR CHEST 1 VIEW Routine 05/30/2018 PORTABLE/BEDSIDE 6:53 AM SMOKEHOUSE OPERATOR BLOOD GAS, ARTERIAL Routine 05/30/2018 3:37 AM SMOKEHOUSE OPERATOR CBC W/PLT COUNT & AUTO Routine 05/30/2018 DIFFERENTIAL 3:29 AM SMOKEHOUSE OPERATOR MAGNESIUM Routine 05/30/2018 3:29 AM SMOKEHOUSE OPERATOR BASIC METABOLIC PANEL (7) Routine 05/30/2018 3:29 AM SMOKEHOUSE OPERATOR CBC W/PLT COUNT & AUTO Routine 05/30/2018 DIFFERENTIAL 3:29 AM SMOKEHOUSE OPERATOR POCT-GLUCOSE METER Routine 05/30/2018 12:36 AM SMOKEHOUSE OPERATOR POCT-GLUCOSE METER Routine 05/29/2018 6:24 PM SMOKEHOUSE OPERATOR POCT-GLUCOSE METER Routine 05/29/2018 12:28 PM SMOKEHOUSE OPERATOR POCT-GLUCOSE METER Routine 05/29/2018 5:57 AM SMOKEHOUSE OPERATOR XR CHEST 1 VIEW Routine 05/29/2018 PORTABLE/BEDSIDE 4:55 AM SMOKEHOUSE OPERATOR BLOOD GAS, VENOUS STAT 05/29/2018 4:11 AM SMOKEHOUSE OPERATOR CBC W/PLT COUNT & AUTO Routine 05/29/2018 DIFFERENTIAL 4:06 AM SMOKEHOUSE OPERATOR MAGNESIUM Routine 05/29/2018 4:06 AM SMOKEHOUSE OPERATOR BASIC METABOLIC PANEL (7) Routine 05/29/2018 4:06 AM SMOKEHOUSE OPERATOR CBC W/PLT COUNT & AUTO Routine 05/29/2018 DIFFERENTIAL 4:06 AM SMOKEHOUSE OPERATOR POCT-GLUCOSE METER Routine 05/28/2018 11:59 PM SMOKEHOUSE OPERATOR POCT-GLUCOSE METER Routine 05/28/2018 5:07 PM SMOKEHOUSE OPERATOR POCT-GLUCOSE METER Routine 05/28/2018 12:16 PM SMOKEHOUSE OPERATOR XR CHEST 1 VIEW Routine 05/28/2018 PORTABLE/BEDSIDE 8:16 AM SMOKEHOUSE OPERATOR US PELVIS Routine 05/28/2018 6:20 AM SMOKEHOUSE OPERATOR POCT-GLUCOSE METER Routine 05/28/2018 5:36 AM SMOKEHOUSE OPERATOR CBC W/PLT COUNT & AUTO Routine 05/28/2018 DIFFERENTIAL 4:04 AM SMOKEHOUSE OPERATOR PHOSPHORUS Routine 05/28/2018 4:04 AM SMOKEHOUSE OPERATOR MAGNESIUM Routine 05/28/2018 4:04 AM SMOKEHOUSE OPERATOR BASIC METABOLIC PANEL (7) Routine 05/28/2018 4:04 AM SMOKEHOUSE OPERATOR CBC W/PLT COUNT & AUTO Routine 05/28/2018 DIFFERENTIAL 4:04 AM SMOKEHOUSE OPERATOR BLOOD GAS, ARTERIAL Routine 05/28/2018 4:04 AM SMOKEHOUSE OPERATOR POCT-GLUCOSE METER Routine 05/27/2018 11:46 PM SMOKEHOUSE OPERATOR POCT-GLUCOSE METER Routine 05/27/2018 5:59 PM SMOKEHOUSE OPERATOR XR CHEST 1 VIEW Routine 05/27/2018 PORTABLE/BEDSIDE 5:55 PM SMOKEHOUSE OPERATOR XR CHEST 1 VIEW STAT 05/27/2018 PORTABLE/BEDSIDE 4:26 PM SMOKEHOUSE OPERATOR BLOOD GAS, VENOUS STAT 05/27/2018 3:12 PM SMOKEHOUSE OPERATOR POCT-GLUCOSE METER Routine 05/27/2018 12:10 PM SMOKEHOUSE OPERATOR POCT-GLUCOSE METER Routine 05/27/2018 5:32 AM SMOKEHOUSE OPERATOR CBC W/PLT COUNT & AUTO Routine 05/27/2018 DIFFERENTIAL 4:05 AM SMOKEHOUSE OPERATOR APTT Routine 05/27/2018 4:05 AM SMOKEHOUSE OPERATOR PHOSPHORUS Routine 05/27/2018 4:05 AM SMOKEHOUSE OPERATOR MAGNESIUM Routine 05/27/2018 4:05 AM SMOKEHOUSE OPERATOR BASIC METABOLIC PANEL (7) Routine 05/27/2018 4:05 AM SMOKEHOUSE OPERATOR CBC W/PLT COUNT & AUTO Routine 05/27/2018 DIFFERENTIAL 4:05 AM SMOKEHOUSE OPERATOR BLOOD GAS, ARTERIAL Routine 05/27/2018 4:04 AM SMOKEHOUSE OPERATOR POCT-GLUCOSE METER Routine 05/27/2018 12:11 AM SMOKEHOUSE OPERATOR POCT-GLUCOSE METER Routine 05/26/2018 5:34 PM SMOKEHOUSE OPERATOR BLOOD GAS, ARTERIAL STAT 05/26/2018 3:12 PM SMOKEHOUSE OPERATOR NEEDLE EMG, 2 EXTREMITY Routine 05/26/2018 3:11 PM SMOKEHOUSE OPERATOR BLOOD GAS, ARTERIAL STAT 05/26/2018 12:55 PM SMOKEHOUSE OPERATOR POCT-GLUCOSE METER Routine 05/26/2018 11:57 AM SMOKEHOUSE OPERATOR APTT Routine 05/26/2018 11:12 AM SMOKEHOUSE OPERATOR BLOOD GAS, ARTERIAL STAT 05/26/2018 9:40 AM SMOKEHOUSE OPERATOR POCT-GLUCOSE METER Routine 05/26/2018 6:32 AM SMOKEHOUSE OPERATOR APTT Routine 05/26/2018 4:26 AM SMOKEHOUSE OPERATOR CBC W/PLT COUNT & AUTO Routine 05/26/2018 DIFFERENTIAL 4:23 AM SMOKEHOUSE OPERATOR LIPID PANEL Routine 05/26/2018 4:23 AM SMOKEHOUSE OPERATOR PHOSPHORUS Routine 05/26/2018 4:23 AM SMOKEHOUSE OPERATOR MAGNESIUM Routine 05/26/2018 4:23 AM SMOKEHOUSE OPERATOR BASIC METABOLIC PANEL (7) Routine 05/26/2018 4:23 AM SMOKEHOUSE OPERATOR CBC W/PLT COUNT & AUTO Routine 05/26/2018 DIFFERENTIAL 4:23 AM SMOKEHOUSE OPERATOR BLOOD GAS, ARTERIAL Routine 05/26/2018 4:23 AM SMOKEHOUSE OPERATOR XR CHEST 1 VIEW Routine 05/26/2018 PORTABLE/BEDSIDE 3:50 AM SMOKEHOUSE OPERATOR POCT-GLUCOSE METER Routine 05/26/2018 12:09 AM SMOKEHOUSE OPERATOR APTT Routine 05/25/2018 9:37 PM SMOKEHOUSE OPERATOR APTT Routine 05/25/2018 7:49 PM SMOKEHOUSE OPERATOR POCT-GLUCOSE METER Routine 05/25/2018 6:58 PM SMOKEHOUSE OPERATOR B-TYPE NATRIURETIC FACTOR STAT 05/25/2018 (BNP) 1:15 PM SMOKEHOUSE OPERATOR APTT Routine 05/25/2018 12:33 PM SMOKEHOUSE OPERATOR US ABDOMEN LIMITED Routine 05/25/2018 12:10 PM SMOKEHOUSE OPERATOR POCT-GLUCOSE METER Routine 05/25/2018 11:52 AM SMOKEHOUSE OPERATOR RESPIRATORY PANEL [facility] Add-On 05/25/2018 11:08 AM SMOKEHOUSE OPERATOR APTT Routine 05/25/2018 10:55 AM SMOKEHOUSE OPERATOR BLOOD GAS, ARTERIAL Routine 05/25/2018 10:55 AM SMOKEHOUSE OPERATOR APTT Routine 05/25/2018 9:28 AM SMOKEHOUSE OPERATOR VANCOMYCIN LEVEL, TROUGH Timed 05/25/2018 9:28 AM SMOKEHOUSE OPERATOR POCT-GLUCOSE METER Routine 05/25/2018 5:58 AM SMOKEHOUSE OPERATOR XR CHEST 1 VIEW Routine 05/25/2018 PORTABLE/BEDSIDE 5:09 AM SMOKEHOUSE OPERATOR BLOOD GAS, ARTERIAL Routine 05/25/2018 4:48 AM SMOKEHOUSE OPERATOR CBC W/PLT COUNT & AUTO Routine 05/25/2018 DIFFERENTIAL 4:47 AM SMOKEHOUSE OPERATOR HIV-1 ANTIGEN WITH Routine 05/25/2018 HIV-1/2 ANTIBODY 4:47 AM SMOKEHOUSE OPERATOR FOLATE, SERUM Routine 05/25/2018 4:47 AM SMOKEHOUSE OPERATOR PREALBUMIN Routine 05/25/2018 4:47 AM SMOKEHOUSE OPERATOR PHOSPHORUS Routine 05/25/2018 4:47 AM SMOKEHOUSE OPERATOR MAGNESIUM Routine 05/25/2018 4:47 AM SMOKEHOUSE OPERATOR BASIC METABOLIC PANEL (7) Routine 05/25/2018 4:47 AM SMOKEHOUSE OPERATOR CBC W/PLT COUNT & AUTO Routine 05/25/2018 DIFFERENTIAL 4:47 AM SMOKEHOUSE OPERATOR ECG 12-LEAD Routine 05/25/2018 4:46 AM SMOKEHOUSE OPERATOR Procedure Note - Interface, External Ris In - 05/25/2018 4:54 AM SMOKEHOUSE OPERATOR Ventricula r Rate 125 BPM Atrial Rate 110 BPM QRS Duration 96 ms Q-T Interval 274 ms QTC Calculatio n(Bazett) 395 ms R Frost 1 degrees T Frost 70 degrees Atrial fibrillati on with rapid ventricula r response Abnormal ECG No previous ECGs available ECG 12-LEAD STAT 05/25/2018 4:46 AM SMOKEHOUSE OPERATOR MISCELLANEOUS LAB ORDER Routine 05/25/2018 12:59 AM SMOKEHOUSE OPERATOR POCT-GLUCOSE METER Routine 05/24/2018 11:54 PM SMOKEHOUSE OPERATOR URINALYSIS W/ REFLEX Routine 05/24/2018 URINE CULTURE 11:21 PM SMOKEHOUSE OPERATOR CREATININE, RANDOM URINE STAT 05/24/2018 11:21 PM SMOKEHOUSE OPERATOR SODIUM, RANDOM URINE STAT 05/24/2018 11:21 PM SMOKEHOUSE OPERATOR BLOOD GAS, ARTERIAL STAT 05/24/2018 10:28 PM SMOKEHOUSE OPERATOR PROTHROMBIN TIME/INR STAT 05/24/2018 10:28 PM SMOKEHOUSE OPERATOR APTT STAT 05/24/2018 10:28 PM SMOKEHOUSE OPERATOR CYTOLOGY AP Routine 05/24/2018 10:22 PM SMOKEHOUSE OPERATOR BODY FLUID CELL COUNT Routine 05/24/2018 WITH DIFFERENTIAL 8:45 PM SMOKEHOUSE OPERATOR SPIN/CONCENTRATION CHARGE Routine 05/24/2018 8:44 PM SMOKEHOUSE OPERATOR FUNGUS CULTURE + SMEAR BUSTER 05/24/2018 8:44 PM SMOKEHOUSE OPERATOR AFB CULTURE + SMEAR BUSTER 05/24/2018 8:44 PM SMOKEHOUSE OPERATOR LEGIONELLA CULTURE Routine 05/24/2018 8:44 PM SMOKEHOUSE OPERATOR BRONCHIAL CULTURE + GRAM BUSTER 05/24/2018 STAIN 8:44 PM SMOKEHOUSE OPERATOR XR CHEST 1 VIEW STAT 05/24/2018 PORTABLE/BEDSIDE 7:38 PM SMOKEHOUSE OPERATOR POCT-GLUCOSE METER Routine 05/24/2018 6:02 PM SMOKEHOUSE OPERATOR VENOUS DOPPLER LEGS Routine 05/24/2018 BILATERAL 5:49 PM SMOKEHOUSE OPERATOR VENOUS DOPPLER ARMS Routine 05/24/2018 BILATERAL 5:49 PM SMOKEHOUSE OPERATOR MR CERVICAL SPINE W/WO STAT 05/24/2018 CONTRAST 4:59 PM SMOKEHOUSE OPERATOR MR BRAIN WITHOUT & WITH STAT 05/24/2018 IV CONTRAST 4:59 PM SMOKEHOUSE OPERATOR ECHOCARDIOGRAM REPORT - 05/24/2018 SCAN 3:[address] ABDOMEN/PELVIS WITH IV STAT 05/24/2018 CONTRAST 2:[address] CHEST WITH IV CONTRAST STAT 05/24/2018 2:40 PM SMOKEHOUSE OPERATOR POCT-GLUCOSE METER Routine 05/24/2018 1:24 PM SMOKEHOUSE OPERATOR MRSA SCREEN STAT 05/24/2018 12:38 PM SMOKEHOUSE OPERATOR RAPID INFLUENZA A&B BUSTER 05/24/2018 SCREEN 12:38 PM SMOKEHOUSE OPERATOR FOLATE, RBC STAT 05/24/2018 12:28 PM SMOKEHOUSE OPERATOR VITAMIN B12 STAT 05/24/2018 12:28 PM SMOKEHOUSE OPERATOR TSH/FREE T4 IF INDICATED STAT 05/24/2018 12:28 PM SMOKEHOUSE OPERATOR B-TYPE NATRIURETIC FACTOR Routine 05/24/2018 (BNP) 12:28 PM SMOKEHOUSE OPERATOR 2D ECHO W/ DOPPLER STAT 05/24/2018 (CW/PW/COLOR) 11:42 AM SMOKEHOUSE OPERATOR 2D ECHO W/ DOPPLER Routine 05/24/2018 (CW/PW/COLOR) 10:47 AM SMOKEHOUSE OPERATOR CREATINE KINASE (CK) Routine 05/24/2018 10:23 AM SMOKEHOUSE OPERATOR SJOGREN'S ANTIBODIES Routine 05/24/2018 10:23 AM SMOKEHOUSE OPERATOR DOUBLE-STRANDED DNA Routine 05/24/2018 (DSDNA) ANTIBODY 10:23 AM SMOKEHOUSE OPERATOR ANTI-SHIRA AB (RNA, HENDRICKSON) Routine 05/24/2018 10:23 AM SMOKEHOUSE OPERATOR ANTI-NUCLEAR ANTIBODY Routine 05/24/2018 (GIOVANNI) 10:23 AM SMOKEHOUSE OPERATOR SPUTUM CULTURE + GRAM Routine 05/24/2018 STAIN 10:19 AM SMOKEHOUSE OPERATOR MISCELLANEOUS LAB ORDER Routine 05/24/2018 9:21 AM SMOKEHOUSE OPERATOR XR CHEST 1 VIEW Routine 05/24/2018 PORTABLE/BEDSIDE 5:00 AM SMOKEHOUSE OPERATOR CBC W/PLT COUNT & AUTO Routine 05/24/2018 DIFFERENTIAL 3:19 AM SMOKEHOUSE OPERATOR MAGNESIUM Routine 05/24/2018 3:19 AM SMOKEHOUSE OPERATOR BASIC METABOLIC PANEL (7) Routine 05/24/2018 3:19 AM SMOKEHOUSE OPERATOR CBC W/PLT COUNT & AUTO Routine 05/24/2018 DIFFERENTIAL 3:19 AM SMOKEHOUSE OPERATOR BLOOD GAS, ARTERIAL STAT 05/24/2018 3:15 AM SMOKEHOUSE OPERATOR POCT-GLUCOSE METER Routine 05/24/2018 12:14 AM SMOKEHOUSE OPERATOR BLOOD GAS, ARTERIAL STAT 05/23/2018 9:59 PM SMOKEHOUSE OPERATOR BLOOD CULTURE Routine 05/23/2018 9:59 PM SMOKEHOUSE OPERATOR STREP PNEUMONIAE ANTIGEN Routine 05/23/2018 8:40 PM SMOKEHOUSE OPERATOR LEGIONELLA URINE ANTIGEN Routine 05/23/2018 8:39 PM SMOKEHOUSE OPERATOR CBC W/PLT COUNT & AUTO STAT 05/23/2018 DIFFERENTIAL 8:34 PM SMOKEHOUSE OPERATOR TROPONIN I STAT 05/23/2018 8:34 PM SMOKEHOUSE OPERATOR LACTIC ACID, VENOUS STAT 05/23/2018 8:34 PM SMOKEHOUSE OPERATOR MAGNESIUM STAT 05/23/2018 8:34 PM SMOKEHOUSE OPERATOR COMPREHENSIVE METABOLIC STAT 05/23/2018 PANEL 8:34 PM SMOKEHOUSE OPERATOR CBC W/PLT COUNT & AUTO STAT 05/23/2018 DIFFERENTIAL 8:34 PM SMOKEHOUSE OPERATOR BLOOD CULTURE Routine 05/23/2018 8:34 PM SMOKEHOUSE OPERATOR XR CHEST 1 VIEW STAT 05/23/2018 PORTABLE/BEDSIDE 8:27 PM SMOKEHOUSE OPERATOR after 09/15/2017 Results * EKG-SCANNED (06/12/2018 10:21 AM SMOKEHOUSE OPERATOR) Narrative Performed At * RHYTHM STRIP - SCAN (06/12/2018 10:21 AM SMOKEHOUSE OPERATOR) Narrative Performed At * POC-Glucose meter (06/05/2018 11:26 AM SMOKEHOUSE OPERATOR) Only the most recent of 50 results within the time period is included. POC-Glucose Meter 133 (H)Comment: TESTED AT 70 - 110 mg/dL [address] [address] Specimen Blood Performing Organization Address [facility] Phone Number [address] [address] [phone] [address] * Magnesium (06/05/2018 4:47 AM SMOKEHOUSE OPERATOR) Only the most recent of 15 results within the time period is included. Magnesium 1.9Comment: Specimen slightly 1.6 - 2.6 mg/dL [facility] Specimen Blood - Arm, Left Performing Organization Address [facility] Phone Number [address] [address] [phone] [place] [address] * Basic Metabolic Panel (06/05/2018 4:47 AM SMOKEHOUSE OPERATOR) Only the most recent of 13 results within the time period is included. Sodium 138 136 - 145 meq/L [facility] Potassium 3.9Comment: Specimen slightly 3.5 - 5.1 meq/L [facility] Chloride 103 98 - 107 meq/L [facility] CO2 28 22 - 29 meq/L [facility] BUN 13 7 - 21 mg/dL [facility] Creatinine 0.52 (L)Comment: Specimen 0.57 - 1.25 mg/dL [facility] slightly hemolyzed [facility] Glucose 107 (H) 70 - 105 mg/dL [facility] Calcium 9.2 8.4 - 10.2 mg/dL [facility] EGFR 117Comment: ESTIMATED GFR IS mL/min/1.73 sq m [facility] NOT ACCURATE CREATININE [facility] CLEARANCE IN PREDICTING GLOMERULAR FILTRATION RATE. ESTIMATED GFR IS NOT APPLICABLE FOR DIALYSIS PATIENTS. Specimen Blood - Arm, Left Performing Organization Address [facility] Phone Number [facility] [address] [place] [address] [facility] * CBC (Hemogram only) (06/04/2018 10:02 PM SMOKEHOUSE OPERATOR) WBC 5.0 3.5 - 10.5 K/L [facility] RBC 3.98 3.93 - 5.22 M/L [facility] Hemoglobin 11.5 11.2 - 15.7 GM/DL [facility] Hematocrit 37.9 34.1 - 44.9 % [facility] MCV 95.2 (H) 79.4 - 94.8 fL [facility] MCH 28.9 25.6 - 32.2 pg [facility] MCHC 30.3 (L) 32.2 - 35.5 GM/DL [facility] RDW 13.5 11.7 - 14.4 % [facility] Platelets 167 150 - 450 K/CU MM [facility] MPV 9.3 (L) 9.4 - 12.3 fL [facility] nRBC 0 0 - 0 /100 WBC [facility] Specimen Blood - Arm, Left Performing Organization Address City/[facility]/Zipcode Phone Number [facility] [address] [place] [address] [phone] [address] * Blood gas, venous (06/04/2018 4:01 AM SMOKEHOUSE OPERATOR) Only the most recent of 6 results within the time period is included. pH, Luis Carlos 7.42 7.32 - 7.42 [facility] pCO2, Luis Carlos 46 41 - 51 mmHg [facility] pO2, Luis Carlos 41 (H) 25 - 40 mmHg [facility] O2 Sat, Luis Carlos 76.5 (H) 40.0 - 70.0 % [facility] HCO3, Luis Carlos 29 21 - 29 mmol/L [facility] Base Excess, Luis Carlos 4.0 (H) -2.0 - 3.0 mmol/L [facility] Patient Temperature 37.0 C [facility] FIO2 100.0 % [facility] Specimen Blood Performing Organization Address City/State/Zipcode Phone Number [facility] [address] [place] [address] [phone] [place] [address] * XR chest 1 view portable / bedside (06/04/2018 2:44 AM SMOKEHOUSE OPERATOR) Only the most recent of 16 results [...] MD Report Verified Date/Time:06/04/2018 03:18:20 Reading Location: [address] Reading Room Procedure Note Interface, External Ris In - 06/04/2018 3:36 AM SMOKEHOUSE OPERATOR FINAL REPORT CLINICAL INDICATION: Support lines. Comparison: 05/04/2018 The patient is rotated to the right. The cardiomediastinal contours are grossly stable. Central pulmonary vascular prominence and bilateral parenchymal and pleural opacities are similar within variation of acquisition technique. There is no pneumothorax. Support lines are stable. Signed: Dallas Mae MD Report Verified Date/Time: 06/04/2018 03:18:20 Reading Location: [address] Reading Room Performing Organization Address City/[facility] Phone Number [facility] * ECG 12 lead (06/03/2018 10:34 AM SMOKEHOUSE OPERATOR) Only the most recent of 2 results within the time period is included. Narrative Performed At Ventricular Rate 75 BPM GE MUSE Atrial Rate 75 BPM P-R Interval 176 ms QRS Duration 90 ms Q-T Interval 374 ms QTC Calculation(Bazett) 417 ms P Frost 42 degrees R Frost 18 degrees T Frost 38 degrees Normal sinus rhythm Normal ECG When compared with ECG of 25-MAY-2018 04:46, Sinus rhythm has replaced Atrial fibrillation Vent. rate has decreased BY50 BPM Confirmed by MD MELVIN JORGE ([id number]) on 06/03/2018 1:54:28 PM Procedure Note Interface, External Ris In - 06/03/2018 1:54 PM SMOKEHOUSE OPERATOR Ventricular Rate 75 BPM Atrial Rate 75 BPM P-R Interval 176 ms QRS Duration 90 ms Q-T Interval 374 ms QTC Calculation(Bazett) 417 ms P Frost 42 degrees R Frost 18 degrees T Frost 38 degrees Normal sinus rhythm Normal ECG When compared with ECG of 25-MAY-2018 04:46, Sinus rhythm has replaced Atrial fibrillation Vent. rate has decreased BY 50 BPM Confirmed by MD MELVIN JORGE ([id number]) on 06/03/2018 1:54:28 PM Performing Organization Address [facility] Phone Number GE MUSE * CBC with platelet count + automated diff (06/03/2018 3:37 AM SMOKEHOUSE OPERATOR) Only the most recent of 10 results within the time period is included. WBC 6.0 3.5 - 10.5 K/L [facility] RBC 4.15 3.93 - 5.22 M/L [facility] Hemoglobin 11.8 11.2 - 15.7 GM/DL [facility] Hematocrit 39.5 34.1 - 44.9 % [facility] MCV 95.2 (H) 79.4 - 94.8 fL [facility] MCH 28.4 25.6 - 32.2 pg [facility] MCHC 29.9 (L) 32.2 - 35.5 GM/DL [facility] RDW 13.3 11.7 - 14.4 % [facility] Platelets 159 150 - 450 K/CU MM [facility] MPV 9.2 (L) 9.4 - 12.3 fL [facility] nRBC 0 0 - 0 /100 WBC [facility] % Neutros 90 % [facility] % Lymphs 6 % [facility] % Monos 3 % [facility] % Eos 0 % [facility] % Baso 0 % [facility] # Neutros 5.39 1.56 - 6.13 K/L [facility] # Lymphs 0.36 (L) 1.18 - 3.74 K/L [facility] # Monos 0.20 (L) 0.24 - 0.36 K/L [facility] # Eos 0.00 (L) 0.04 - 0.36 K/L [facility] # Baso 0.01 0.01 - 0.08 K/L [facility] Immature 1 0 - 1 % [facility] Granulocytes-[facility] Specimen Blood Performing Organization Address City/State/Zipcode Phone Number [facility] [address] [place] [address] MEDICAL CENTER * Lactic acid, venous, whole blood (06/01/2018 8:33 PM SMOKEHOUSE OPERATOR) Only the most recent of 2 results within the time period is included. Lactate, Venous 0.7Comment: Specimen slightly 0.5 - 2.2 mmol/L [facility] hemolyzed [facility] Specimen Blood Performing Organization Address City/[facility] Phone Number [place] [phone] [place] [address] [facility] * Heparin Assay - Low Molecular Weight (06/01/2018 3:46 AM SMOKEHOUSE OPERATOR) Anti 10A-Lovenox 0.52 (L) 0.60 - 2.00 u/ml [facility] Specimen Blood Narrative Performed At Anti-Factor 10-A Level (Heparin Assay for Low Molecular Weight Heparin) [facility] Monitoring Guidelines: [facility] Blood samples should be obtained 4 hours post subcutaneous injection (time of Peak level) Therapeutic Peak Levels: 0.6-1.0 units/mLtwice daily enoxaparin 1.0-2.0 units/mLonce daily enoxaparin Ref: CHEST 2012;[id number] Please collect anti-Xa level 4 hours after second Lovenox dose Performing Organization Address [facility] Phone Number [address] [address] [facility] * Sputum Culture + Gram Stain (05/31/2018 10:13 AM SMOKEHOUSE OPERATOR) Only the most recent of 2 results within the time period is included. Result 1+ Normal respiratory jeb [facility] Gram Stain Result 1+ WBCs [facility] Gram Stain Result 5-10 epithelial cells [facility] Gram Stain Result No organisms seen [facility] Specimen Sputum Performing Organization Address City/[facility] Phone Number [place] [phone] [place] [address] [facility] * Phosphorus (05/31/2018 4:23 AM SMOKEHOUSE OPERATOR) Only the most recent of 5 results within the time period is included. Phosphorus 3.6 2.3 - 4.7 mg/dL [facility] Specimen Blood - Line, Venous Performing Organization Address City/State/Zipcode Phone Number [facility] [address] [place] [address] MED[facility]ENTER * MR pelvis without & with IV contrast (05/30/2018 1:11 PM SMOKEHOUSE OPERATOR) Narrative Performed At FINAL REPORT [employer] RIS TECHNIQUE: MRI of the pelvis WITHOUT [...] MD Report Verified Date/Time:05/30/2018 17:01:50 Reading Location: [facility] C013Y CT Body Reading Room Procedure Note Interface, External Ris In - 05/30/2018 5:04 PM SMOKEHOUSE OPERATOR FINAL REPORT TECHNIQUE: MRI of the pelvis [...] Report Verified Date/Time: 05/30/2018 17:01:50 Reading Location: [facility] B1 C013Y CT Body Reading Room Performing Organization Address City/State/Zipcode Phone Number GE RIS * Blood gas, arterial (05/30/2018 3:37 AM SMOKEHOUSE OPERATOR) Only the most recent of 12 results within the time period is included. pH, Arterial 7.49 (H) 7.35 - 7.45 [facility] pCO2, Arterial 41 35 - 45 mmHg [facility] pO2, Arterial 193 (H) 80 - 90 mmHg [facility] O2 Sat, Arterial 99.4 (H) 96.0 - 97.0 % [facility] HCO3, Arterial 31 (H) 21 - 29 mmol/L [facility] Base Excess, Arterial 6.7 (H) -2.0 - 3.0 mmol/L [facility] Patient Temperature 37.0 C [facility] FIO2 60.0 % [facility] Specimen Blood, Arterial Performing Organization Address City/State/Zipcode Phone Number [facility] [address] [place] [address] MEDICAL [facility]ENTER * US pelvis (05/28/2018 6:20 AM SMOKEHOUSE OPERATOR) Narrative Performed At FINAL REPORT [employer] TECHNIQUE: Transabdominal grayscale ultrasound of the pelvis. [...] MD Report Verified Date/Time:05/28/2018 08:57:20 Reading Location: [address] Ultrasound Reading Room Procedure Note Interface, External Ris In - 05/28/2018 8:59 AM SMOKEHOUSE OPERATOR FINAL REPORT TECHNIQUE: Transabdominal grayscale ultrasound of [...] Report Verified Date/Time: 05/28/2018 08:57:20 Reading Location: [address] Ultrasound Reading Room Performing Organization Address City/[facility] Phone Number [employer] * aPTT (05/27/2018 4:05 AM SMOKEHOUSE OPERATOR) Only the most recent of 9 results within the time period is included. PTT 88.2 (H) 22.5 - 36.0 seconds [facility] Specimen Blood Performing Organization Address City/[facility]/Zipcode Phone Number [facility] [address] [place] [address] [facility] * NEEDLE EMG, 2 EXTREMITY (05/26/2018 3:11 PM SMOKEHOUSE OPERATOR) Narrative Performed At [facility] [employer] Neurophysiology Department ELECTROMYOGRAPHY / NERVE CONDUCTION STUDY [address] [place] [address] [address] [place] [address] Name: Maira Early Address:Date of [...] External Ris In - 05/26/2018 5:18 PM SMOKEHOUSE OPERATOR [facility] Neurophysiology Department ELECTROMYOGRAPHY / NERVE CONDUCTION STUDY [address] [place] [address] Name: Maira Early Address: Date of : [...] disorder. Lanie Cobb M.D. Performing Organization Address City/[facility] Phone Number [employer] * Lipid panel (05/26/2018 4:23 AM SMOKEHOUSE OPERATOR) Triglycerides 135 mg/dL [facility] Cholesterol 122 mg/dL [facility] HDL 32 mg/dL [facility] LDL Calculated 63 mg/dL [facility] Specimen Blood Narrative Performed At Triglyceride Reference Range: [facility] Low Risk <150 [facility] [id number] High Risk 200-499 Very High Risk>=500 Cholesterol Reference Range: Low Risk <200 [id number] High Risk>240 HDL Cholesterol Reference Range: Low Risk >=60 High Risk <40 LDL Cholesterol Reference Range: Optimal<100 Near Jdrdhmf240-252 Xrvbxrmfng322-306 Mcax858-478 Very High >=190 Performing Organization Address [facility] Phone Number [place] [phone] [place] [address] [facility] * B-type Natriuretic Factor (BNP) (05/25/2018 1:15 PM SMOKEHOUSE OPERATOR) Only the most recent of 2 results within the time period is included. BNP 48 0 - 100 pg/mL [facility] Specimen Blood Performing Organization Address [facility] Phone Number [facility] [address] [place] [address] [facility] * US abdomen limited (05/25/2018 12:10 PM SMOKEHOUSE OPERATOR) Narrative Performed At FINAL REPORT [employer] History: Distended gallbladder, possible cholecystitis. FINDINGS: No [...] MD Report Verified Date/Time:05/25/2018 13:25:12 Reading Location: [address] Ultrasound Reading Room Procedure Note Interface, External Ris In - 05/25/2018 1:27 PM SMOKEHOUSE OPERATOR FINAL REPORT History: Distended gallbladder, possible cholecystitis. [...] Report Verified Date/Time: 05/25/2018 13:25:12 Reading Location: [facility] B1 P006J Ultrasound Reading Room Performing Organization Address City/State/Zipcode Phone Number GE RIS * RESPIRATORY PANEL [facility] (05/25/2018 11:08 AM SMOKEHOUSE OPERATOR) Human Metapneumovirus Not detected Not detected, Equivocal [facility] Rhinovirus Not detected Not detected, Equivocal [facility] Influenza A Not detected Not detected, Equivocal [facility] INFLUENZA A (NO SUBTYPE) Not detected Not detected, Equivocal [facility] Influenza A subtype H1 Not detected Not detected, Equivocal [facility] Influenza A Subtype H3 Not detected Not detected, Equivocal [facility] Influenza A Subtype Not detected Not detected, Equivocal [facility] H1-2009 [facility] Influenza B Not detected Not detected, Equivocal [facility] Respiratory Syncytial Not detected Not detected, Equivocal [facility] Virus [facility] Parainfluenza Virus 1 Not detected Not detected, Equivocal [facility] Parainfluenza Virus 2 Not detected Not detected, Equivocal [facility] Parainfluenza virus 3 Not detected Not detected, Equivocal [facility] Parainfluenza Virus 4 Not detected Not detected, Equivocal [facility] Adenovirus Not detected Not detected, Equivocal [facility] Coronavirus 229E Not detected Not detected, Equivocal [facility] Coronavirus HKU1 Not detected Not detected, Equivocal [facility] Coronavirus NL63 Not detected Not detected, Equivocal [facility] Coronavirus OC43 Not detected Not detected, Equivocal [facility] Bordetella Pertussis Not detected Not detected, Equivocal [facility] Chlamydophila Pneumoniae Not detected Not detected, Equivocal [facility] Mycoplasma Pneumoniae Not detected Not detected, Equivocal [facility] Specimen Nasopharyngeal Narrative Performed At Other viruses and bacteria not targeted by this PCR panel cannot be excluded; [facility] therefore clinical correlation and follow up of serology, culture results, and [facility] other molecular studies is required. The results are not intended to be used as the sole means for clinical diagnosis or patient management decisions. This sample was tested at the [facility] Molecular Diagnostics Laboratory using the Bio[employer] FilmArray Respiratory Panel. It is FDA cleared and has been verified and approved by the [facility] Molecular Diagnostics Laboratory for clinical use on nasal swab specimens. It is not FDA-cleared for use on bronchial wash/lavage samples. However, for this sample type, validation was performed and test characteristics were determined and approved, by [facility] Molecular Diagnostics laboratory for clinical use under the Clinical Laboratory Improvement Amendments (CLIA) of 1988 requirements. Therefore, FDA clearance is not required.This laboratory is CLIA-certified and [employer] (CAP)-accredited to perform high complexity testing. Performing Organization Address City/[facility] Phone Number [address] * Vancomycin level, trough (05/25/2018 9:28 AM SMOKEHOUSE OPERATOR) Vancomycin Tr 6.5 (L) 10.0 - 20.0 ug/mL [facility] Specimen Blood Performing Organization Address [facility] Phone Number [address] * HIV-1 Antigen with HIV-1/2 Antibody (05/25/2018 4:47 AM SMOKEHOUSE OPERATOR) HIV-1 Antigen with HIV NON-REACTIVE Nonreactive [facility] 1&2 Antibody [facility] Specimen Blood Performing Organization Address [place]/[facility] Phone Number [address] * Prealbumin (05/25/2018 4:47 AM SMOKEHOUSE OPERATOR) Prealbumin <3 (L) 14 - 45 mg/dL [facility] Specimen Blood Performing Organization Address [place]/[facility] Phone Number [address] * Folate, Serum (05/25/2018 4:47 AM SMOKEHOUSE OPERATOR) Folate 2.6 (L) >=7.0 ng/mL [facility] Specimen Blood Performing Organization Address [facility] Phone Number [address] [address] MED[facility]ENTER * CMV PCR,quantitative (05/25/2018 12:59 AM SMOKEHOUSE OPERATOR) Only the most recent of 2 results within the time period is included. Scan Result [facility] Specimen BAL - BAL Narrative Performed At Performing Organization Address City/State/Zipcode Phone Number [facility] [address] [place], [place] * Urinalysis w/Microscopic + Reflex to Culture (05/24/2018 11:21 PM SMOKEHOUSE OPERATOR) Color, UA Yellow [facility] Clarity, UA Clear [facility] Specific [place], UA >1.050 (H) 1.001 - 1.035 [facility] pH, UA 6.5 5.0 - 8.0 [facility] Protein, UA 50 mg/dL (A) Negative [facility] Glucose, UA Negative Negative [facility] Ketones, UA 40 mg/dL (A) Negative [facility] Bilirubin, UA Negative Negative [facility] Blood, UA Trace (A) Negative [facility] Nitrite, UA Negative Negative [facility] Leukocytes, UA Negative Negative [facility] Urobilinogen, UA 2.0 (H) 0.2 - 1.0 mg/dL [facility] RBC, UA 4 /HPF [facility] WBC, UA 1 /HPF [facility] Mucus Many [facility] Squam Epithel, UA <1 /HPF [facility] Specimen Source [facility] Specimen Urine Performing Organization Address City/State/Zipcode Phone Number [place] [phone] [place], [place] [phone] [facility] * Sodium, random urine (05/24/2018 11:21 PM SMOKEHOUSE OPERATOR) Sodium Urine 28 meq/L [facility] Specimen Urine Narrative Performed At Reference Range: No Normals [facility] Performing Organization Address City/[facility] Phone Number [address] [address] [facility] * Creatinine, random urine (05/24/2018 11:21 PM SMOKEHOUSE OPERATOR) Creatinine, Ur 144.6 mg/dL [facility] Specimen Urine Narrative Performed At Reference Range: No Normals [facility] Performing Organization Address [facility] Phone Number [address] [address] [facility] * Prothrombin time/INR (05/24/2018 10:28 PM SMOKEHOUSE OPERATOR) Protime 16.6 (H) 11.7 - 14.7 seconds [facility] INR 1.3 <=5.9 [facility] Specimen Blood Narrative Performed At RECOMMENDED COUMADIN/WARFARIN INR THERAPY RANGES [facility] STANDARD DOSE: 2.0 - 3.0 Includes: PROPHYLAXIS for venous thrombosis, [facility] systemic embolization; TREATMENT for venous thrombosis and/or pulmonary embolus. HIGH RISK: Target INR is 2.5-3.5 for patients with mechanical heart valves. Performing Organization Address City/[facility] Phone Number [address] [address] [facility] * Cytology (05/24/2018 10:22 PM SMOKEHOUSE OPERATOR) Case Report Medical Cytology [facility] Report [facility] Case: [id number] Authorizing Provider:Ambrose Weinberg MDCollected: 05/24/20182 Ordering Location: [place] [address] ICUReceived: 05/25/20 18 0819 Pathologist: Thong, Vicenta Ella Specimen:Lung, Left Upper Lobe, GMS/PCP DIAGNOSIS LEFT UPPER LOBE LUNG BAL [facility] (CYTOSPINS): [facility] - NEGATIVE FOR MALIGNANCY SQUAMOUS CELLS, ACUTE INFLAMMATION, AND FEW MACROPHAGES The GMS stains are negative for Pneumocystis organisms. Other fungal elements (YEAST) are identified. No viral inclusions are seen. Signing Pathologist Direct Phone Line: [phone] CPT Code(s) 56484, [address] [facility] CLINICAL DATA Acute hypoxemic respiratory [facility] failure, history of basal cell [facility] carcinoma SPECIMEN SOURCE LEFT UPPER LOBE LUNG BAL [facility] GROSS DESCRIPTION 20 mls mucoid; 3 cytospins, 1 [facility] Collected: [id number] Received: [id number] STATEMENT OF ADEQUACY Satisfactory [facility] SPECIAL STUDIES The interpretation of this [facility] case included the use of [facility] immunohistochemistry or special stains. GMS Immunohistochemistry technical testing was performed at [facility], Pathology Laboratory where it was developed and [...] complexity clinical laboratory testing. Gross assessment was [facility] performed at [place], Department of [facility] Pathology, [address] [place] [id number], Technical component was [facility] performed at [place], [facility] Pathology, [address] [place] [id number], Professional component [facility] was performed at [place], Department [facility] Pathology, [address] [place] [id number], Specimen BAL - Lung, Left Upper Lobe Narrative Performed At Performing Organization Address [facility]/Zipcode Phone Number [facility] [address] [place] [address] [facility] * Body fluid cell count with differential (05/24/2018 8:45 PM SMOKEHOUSE OPERATOR) Appearance Slightly Cloudy (A) Clear [facility] Color Colorless Colorless, Straw [facility] RBCs 1,530 (H) <=1 /cu mm [facility] Adjusted WBC Count 1,545 (H) <=5 /cu mm [facility] Lining Cells 15 (H) <=1 /cu mm [facility] % Segs 83 % [facility] % Lymphs 9 % [facility] % Monos 8 % [facility] % Eos 0 % [facility] % Baso 0 % [facility] Container Body Fluid EDTA Tube [facility] Specimen BAL - Lung, Left Upper Lobe Performing Organization Address [facility]/Zipcode Phone Number [facility] [address] [place] [address] [facility] * SPIN/CONCENTRATION CHARGE (05/24/2018 8:44 PM SMOKEHOUSE OPERATOR) Concentration charged Done [facility] Specimen BAL - Lung, Left Upper Lobe Performing Organization Address City/[facility]/Zipcode Phone Number [facility] [address] [place] [address] [facility] * AFB culture + smear (05/24/2018 8:44 PM SMOKEHOUSE OPERATOR) Result No acid-fast bacilli isolated [facility] in 42 days [facility] AFB Smear No acid fast bacilli seen [facility] Specimen BAL - Lung, Left Upper Lobe Performing Organization Address [facility]/Zipcode Phone Number [facility] [address] [place] [phone] [facility] * Legionella culture (05/24/2018 8:44 PM SMOKEHOUSE OPERATOR) Result No Legionella species isolated [facility] Specimen BAL - Lung, Left Upper Lobe Performing Organization Address [facility] Phone Number [facility] [address] [place] [address] [address] [facility] * Bacterial culture + gram stain (05/24/2018 8:44 PM SMOKEHOUSE OPERATOR) Result 3+ Normal respiratory jeb [facility] Gram Stain Result 2+ WBCs [facility] Gram Stain Result No organisms seen [facility] Specimen BAL - Lung, Left Upper Lobe Performing Organization Address [facility] Phone Number [address] [address] [facility] * Fungus culture + smear (05/24/2018 8:44 PM SMOKEHOUSE OPERATOR) Result KAROL TROPICALIS (A) [facility] Result YEAST (A) [facility] Fungus Smear No fungi seen [facility] Specimen BAL - Lung, Left Upper Lobe Narrative Performed At Corrected report: mold entered in error. [facility] Performing Organization Address [facility] Phone Number [address] [address] [facility] * Venous doppler legs bilateral (05/24/2018 5:49 PM SMOKEHOUSE OPERATOR) Ejection Fraction [facility] E[facility] HEART[facility] MKCKESSON CPACS Impressions Performed At Right Impression [facility] 1. There is no deep [...] PV LAB - Lower Extremities DVT Study [facility] Demographics [facility] Patient NameCOLLINS,Date of Study 05/24/2018 MAIRA 68 Visit [id number] male of 1950 Referring Stella Pringle Room Number [id number] Physician Daphne Meter Changes Records Clerk Richy Fatima Aisha Physician MD Ritesh Juan [...] External Ris In - 05/25/2018 9:37 AM SMOKEHOUSE OPERATOR PV LAB - Lower Extremities DVT Study Demographics Patient Name EARLY, Date of Study 05/24/2018 MAIRA Age 68 Visit Number [id number] Gender Female Accession Number [id number] Date of 1950 Referring Stella Pringle Room Number 7106 Physician Daphne Meter Changes Records Clerk Richy Sanchez Interpreting Veronica Fatima S Physician [...] cm Performing Organization Address City/State/Zipcode Phone Number [facility] [employer] * Venous doppler arms bilateral (05/24/2018 5:49 PM SMOKEHOUSE OPERATOR) Ejection Fraction [facility]ART[facility] NitroSellESSON CPACS Impressions Performed At Right Impression [facility] NanoH2O HEARTEggCartel 1. There is no deep venous obstruction in the jugular, subclavian, axillary, MKCKESSON Playsino brachial, radial or ulnar veins. 2. There [...] Upper Extremities Veins [facility]ART[facility] Demographics [facility] Patient NameCOLLINS,Date of Study 05/24/2018 MAIRA 68 Visit [id number] male of 1950 Referring Stella Pringle Room Number [id number] Physician Daphne Meter Changes Records Clerk SHAMIR Henley Physician MD Ritesh Juan Procedure Type [...] External Ris In - 05/25/2018 9:36 AM SMOKEHOUSE OPERATOR PV LAB - Upper Extremities Veins Demographics Patient Name EARLY, Date of Study 05/24/2018 MAIRA Age 68 Visit Number [id number] Gender Female Accession Number [id number] Date of 1950 Referring Stella Pringle Room Number 7106 Physician Daphne Meter Changes Records Clerk Richy Sanchez Interpreting Veronica Fatima S Physician [...] Performing Organization Address City/State/Zipcode Phone Number [facility] NanoH2O HEARTLAB MKCKESSON CPACS * MR cervical spine without & with IV contrast (05/24/2018 4:59 PM SMOKEHOUSE OPERATOR) Narrative Performed At FINAL REPORT [employer] MRI cervical spine with and without contrast [...] MD Report Verified Date/Time:05/24/2018 16:37:21 Reading Location: [address] Neuro Reading Room Procedure Note Interface, External Ris In - 05/24/2018 5:01 PM SMOKEHOUSE OPERATOR FINAL REPORT MRI cervical spine with and [...] Report Verified Date/Time: 05/24/2018 16:37:21 Reading Location: [address] Neuro Reading Room Performing Organization Address City/State/Zipcode Phone Number [employer] RIS * MR brain without & with IV contrast (05/24/2018 4:59 PM SMOKEHOUSE OPERATOR) Narrative Performed At FINAL REPORT [employer] MRI Brain with and without contrast 05/24/2018 [...] MD Report Verified Date/Time:05/24/2018 16:55:17 Reading Location: [address] Neuro Reading Room Procedure Note Interface, External Ris In - 05/24/2018 5:01 PM SMOKEHOUSE OPERATOR FINAL REPORT MRI Brain with and without [...] Report Verified Date/Time: 05/24/2018 16:55:17 Reading Location: [address] Neuro Reading Room Performing Organization Address City/State/Zipcode Phone Number [employer] * ECHOCARDIOGRAM REPORT - SCAN (05/24/2018 3:50 PM SMOKEHOUSE OPERATOR) Narrative Performed At * CT abdomen/pelvis with IV contrast (05/24/2018 2:40 PM SMOKEHOUSE OPERATOR) Narrative Performed At FINAL REPORT [employer] CT of the Chest, abdomen and pelvis [...] MD Report Verified Date/Time:05/24/2018 15:16:50 Reading Location: [address] Consult Reading Room Procedure Note Interface, External Ris In - 05/24/2018 3:18 PM SMOKEHOUSE OPERATOR FINAL REPORT CT of the Chest, abdomen [...] Report Verified Date/Time: 05/24/2018 15:16:50 Reading Location: [address] Consult Reading Room Performing Organization Address City/State/Zipcode Phone Number [employer] * CT chest with IV contrast (05/24/2018 2:40 PM SMOKEHOUSE OPERATOR) Narrative Performed At FINAL REPORT [employer] CT of the Chest, abdomen and pelvis [...] MD Report Verified Date/Time:05/24/2018 15:16:50 Reading Location: [address] Consult Reading Room Procedure Note Interface, External Ris In - 05/24/2018 3:18 PM SMOKEHOUSE OPERATOR FINAL REPORT CT of the Chest, abdomen [...] Report Verified Date/Time: 05/24/2018 15:16:50 Reading Location: [facility] [id number] Consult Reading Room Performing Organization Address City/State/Zipcode Phone Number GE RIS * Rapid Influenza A&B Screen (05/24/2018 12:38 PM SMOKEHOUSE OPERATOR) Rapid Influenza A Antigen NEGATIVE LABORATORY FINDING Negative, Inconclusive [facility] Rapid influenza B Antigen NEGATIVE LABORATORY FINDING Negative, Inconclusive [facility] Specimen Nasal - Nares Performing Organization Address City/[facility]/Zipcode Phone Number [facility] * MRSA screen (05/24/2018 12:38 PM SMOKEHOUSE OPERATOR) Result No MRSA isolated [facility] Specimen Nasal - Nares Performing Organization Address [facility] Phone Number [place] [phone] * TSH/Free T4 If Indicated (05/24/2018 12:28 PM SMOKEHOUSE OPERATOR) TSH 1.88 0.35 - 4.94 uIU/mL [facility] Specimen Blood Performing Organization Address [facility] Phone Number [address] * Folate, RBC (05/24/2018 12:28 PM SMOKEHOUSE OPERATOR) Folate, Rbc 606 >280 ng/mL RBC [facility] Specimen Blood Narrative Performed At Performing Lab [facility] [place] [address] [address] Delia Dow MD, PhD, SOBIA Performing Organization Address [facility] Phone Number [facility], [address] [place] [address] * Vitamin B12 (05/24/2018 12:28 PM SMOKEHOUSE OPERATOR) Vitamin B12 411 213 - 816 pg/mL [facility] Specimen Blood Performing Organization Address [facility] Phone Number [address] * 2D Echo W/Doppler(CW/PW/Color) (05/24/2018 10:47 AM SMOKEHOUSE OPERATOR) Ejection Fraction [facility] Narrative Performed At Transthoracic Echocardiography Report (TTE) [facility] Demographics [facility] Patient Name EARLY, Date of Study 05/24/2018 MAIRA [id number] GenderFemale Visit Number [id number] RaceUnknown [id number] Number 7106 Number Date of Birth1950 Referring Physician Ambrose Weinberg MD Age68 year(s) Meter Changes Records Clerk Daria Benito [facility] Tere Davila InterpretingBuddy Coppola MD Physician Procedure [...] External Ris In - 05/24/2018 3:06 PM SMOKEHOUSE OPERATOR Transthoracic Echocardiography Report (TTE) Demographics Patient Name EARLY, Date of Study 05/24/2018 MAIRA Gender Female Visit Number [id number] Race Unknown Room Number 7106 Number Date of 1950 Referring Physician Ambrose Weinberg MD Age 68 year(s) Meter Changes Records Clerk Daria Benito, [facility] Foil Operator Ashlie Davila Interpreting Buddy Coppola MD [...] TR Gradient: 32.34 mmHg Performing Organization Address [facility] Phone Number [facility]ART[facility] MKCKESSON CPA * Sjogren's antibodies (05/24/2018 10:23 AM SMOKEHOUSE OPERATOR) Anti-Ss-A <1.0 NEG <1.0 NEGATIVE AI [facility] Anti-Ss-B <1.0 NEG <1.0 NEGATIVE AI [facility] Specimen Blood Narrative Performed At Performing Lab [facility] [address] [address] Delia Dow MD, PhD, SOBIA Performing Organization Address [place]/[facility] Phone Number [facility] [employer] [place], [address] [place], [place] [address] [id number] * Anti-SHIRA Ab (RNA, Hendrickson) (05/24/2018 10:23 AM SMOKEHOUSE OPERATOR) Sm Antibody <1.0 NEG <1.0 NEGATIVE AI [facility] Sm/GROUP INSURANCE SPECIAL AGENT Antibody <1.0 NEG <1.0 NEGATIVE AI [facility] Specimen Blood Narrative Performed At Performing Lab [facility] Outline [address] [address] Delia Dow MD, PhD, SOBIA Performing Organization Address [place]/[facility] Phone Number [facility], [address] [place], [place] [address] [id number] * Double-Stranded DNA (dsDNA) Antibody (05/24/2018 10:23 AM SMOKEHOUSE OPERATOR) ds DNA Ab Negative [facility] Specimen Blood Performing Organization Address City/[facility] [place] [address] [phone] [place] [address] * Anti-Nuclear Antibody (GIOVANNI) (05/24/2018 10:23 AM SMOKEHOUSE OPERATOR) GIOVANNI Negative Negative [facility] Specimen Blood Narrative Performed At Test performed by IFA method. [facility] Test performed by IFA method. [facility] Performing Organization Address [facility] Phone Number [place] [phone] * Creatine Kinase (CK) (05/24/2018 10:23 AM SMOKEHOUSE OPERATOR) Total CK 196 29 - 200 U/L [facility] Specimen Blood Performing Organization Address [facility] [place] [address] [phone] [place] [address] * Blood culture (05/23/2018 9:59 PM SMOKEHOUSE OPERATOR) Only the most recent of 2 results within the time period is included. Result No growth in 5 days [facility] Specimen Blood - Arm, Left Performing Organization Address [facility] [place] [address] [phone] * Strep pneumoniae antigen (05/23/2018 8:40 PM SMOKEHOUSE OPERATOR) Strep pneumoniae Antigen Presumptive negative for Presumptive negative for [facility] pneumococcal pneumonia - see pneumococcal pneumonia - [facility] comment see comment, Presumptive negative for pneumococcal meningitis - see comment Specimen Urine - Urine, Unspecified Source Narrative Performed At Presumptive negative for pneumococcal pneumonia, suggesting no current or recent [facility] pneumococcal infection. Infection due to S. pneumoniae cannot be ruled out since [facility] the antigen present in the sample may be below the detection limit of the test. Performing Organization Address City/[facility]/Zipcode Phone Number [address] [address] [facility] * Legionella antigen, urine (05/23/2018 8:39 PM SMOKEHOUSE OPERATOR) Legionella Urine Antigen Negative - see commentComment: [facility] Negative for L. pneumophila [facility] serogroup 1 antigen, suggesting no recent or current infection with this serogroup. Legionellosis cannot be ruled out since other serogroups and species may cause disease. Specimen Urine Performing Organization Address City/[facility]/Zipcode Phone Number [address] [address] [facility] * Troponin I (05/23/2018 8:34 PM SMOKEHOUSE OPERATOR) Troponin I 0.02 0.00 - 0.03 ng/mL [facility] Specimen Blood Performing Organization Address City/[facility] Phone Number [address] [address] 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) Protein, Total 6.2 6.0 - 8.3 gm/dL [facility] Albumin 3.2 (L) 3.5 - 5.0 g/dL [facility] Alkaline Phosphatase 54 40 - 150 U/L [facility] Total Bilirubin 0.4 0.2 - 1.2 mg/dL [facility] Sodium 139 136 - 145 meq/L [facility] Potassium 4.5 3.5 - 5.1 meq/L [facility] Chloride 101 98 - 107 meq/L [facility] CO2 31 (H) 22 - 29 meq/L [facility] BUN 20 7 - 21 mg/dL [facility] Creatinine 0.61 0.57 - 1.25 mg/dL [facility] Glucose 131 (H) 70 - 105 mg/dL [facility] Calcium 8.6 8.4 - 10.2 mg/dL [facility] AST 21 5 - 34 U/L [facility] ALT 17 6 - 55 U/L [facility] EGFR 97Comment: ESTIMATED GFR IS mL/min/1.73 sq m [facility] NOT ACCURATE CREATININE [facility] CLEARANCE IN PREDICTING GLOMERULAR FILTRATION RATE. ESTIMATED GFR IS NOT APPLICABLE FOR DIALYSIS PATIENTS. Specimen Blood Performing Organization Address City/State/Zipcode Phone Number [address] [address] [facility] after 09/15/2017 Insurance Payer Benefit Subscriber ID Type Phone Address Plan / Group MEDICARE MEDICARE A xxxxxxxxxxx Medicare B OTHER-COMMERCIAL GENERIC xxxxxxxxxx COMMERCIAL [phone] (Work) Advance Directives For more information, please contact: [place] [phone] [place] [address] Date Inactivated Comments Code Status Date Activated Full Code 05/23/2018 8:08 PM This code status was determined by: Patient
[2018-09-16 09:47] LABS: ABG HCO3 42 mmol/L (23-28)
--- NOTE | 2018-09-16 09:59 | NUR ---
SPOKE WITH DR NIEVES TO LET HIM KNOW WHAT WAS GOING ON PER DR NIEVES ORDER ABG DR NIEVES INFORMED PT IN ICU PER DR NIEVES HE WOULD CONTACT ICU DIRECTLY
[2018-09-16] MEDS ORDERED: ACETAMINOPHEN 325 MG TAB GT PRN (10:00)
[2018-09-16] MEDS ORDERED: NON-FORMULARY MEDICATION (Ondansetron Hcl* (Zofran*) 4 MG) GT PRN (10:00)
[2018-09-16] MEDS ORDERED: IPRATROPIUM BROMIDE 0.02% 2.5 ML NEB NEB PRN (10:00)
[2018-09-16] MEDS ORDERED: POLYVINYL ALCOHOL OU PRN (10:00)
--- NOTE | 2018-09-16 10:06 | NUR ---
Per Dr Aisha Chiu, home meds restarted and Dr Winter consulted.
[2018-09-16] MEDS ORDERED: ACETAMINOPHEN 325 MG/10 ML UDC GT PRN (10:15)
[2018-09-16] MEDS ORDERED: ONDANSETRON HCL 4 MG ORAL DISINTEGRATING TAB GT PRN (10:15)
[2018-09-16] MEDS ORDERED: ARTIFICIAL TEARS (OPTH) 15 ML BTL OU PRN (10:15)
[2018-09-16] MEDS: LORAZEPAM 1 MG TAB GT PRN ×2 (10:27→19:23)
[2018-09-16] MEDS ORDERED: FUROSEMIDE INJ 10 MG/ML 4 ML VIAL IV ONE (11:15)
[2018-09-16] MEDS: DEXTROSE 5%/0.45% SOD CHL 1,000 ML IV SCH ×2 (11:15→22:00)
--- NOTE | 2018-09-16 11:24 | NUR ---
Aisha Chiu to bedside; consult called to Patience Chiu.
[2018-09-16] MEDS: DILTIAZEM HCL 30 MG TAB GT SCH ×2 (14:45→21:44)
--- NOTE | 2018-09-16 16:08 | NUR ---
Nutrition Intervention Note RD Recommendation(s) for Physician: -Rec to initiate continuous TF of Vital HP @30mL/hr and advance as tolerated to goal rate of 50mL/hr, providing 1200kcal, 105g protein, and 1003mL water -Rec 30mL water flushes q 4hr; additional water per MD discretion Plan of Care: RD following, monitoring for tolerance and adequacy, TF rec Nutrition reason for involvement: New TF RD Assessment 09/16 68yo F, who was admitted from [facility] for pulmonary edema. Pt was discussed during AM rounds. Pt was intubated and on vent. No pressor meds. Trach and PEG present on admission. Per RN, pt was getting Diabeticsource through PEG at [facility]. TF order has been placed for Glucerna 1.2. Awaiting Dr. Chiu to page back for order change. Unable to obtain hx from pt due to current medical condition. Will continue to monitor and follow. Principal Problems/Diagnoses: pulmonary edema PMH: No H&P in chart GI: PEG tube present Skin: no pressure wound noted Labs: (09/16) Creatinine 0.53 L, glucose 199 H, Ca 10.3 H Meds: dextrose, abx Ht: 62in Wt: 154lb BMI: 28.2kg/m2 IBW: 110lb Malnutrition Evaluation (09/16) The patient does not meet criteria for a specified degree of malnutrition at this time. Will re-evaluate at follow-up as appropriate. Nutrition Prescription (Diet Order): Glucerna 1.2 @50mL/hr Estimated Nutritional Needs: Calories: 1100 1250 kcal (22 25 kcal/kg/d) Weight used: IBW Protein: 75 125g(1.5-2.5g/kg/d) Weight used: IBW Diet Adequacy: Not meeting calorie needs, Not meeting protein needs Diet Education Needs Assessment: Diet education not indicated. Nutrition Care Level: mod Nutrition Diagnosis: Inadequate oral intake related to current medical status (intubated and in vent) as evidenced by pt requiring EN as main source of nutrition. Goal: Patient will meet 75-100% of estimated needs by follow up Progress: N/A Interventions: Composition, Rate, Route Monitoring/Evaluation: Total energy intake, Total protein intake, Formula/Solution, Weight change, Check labs, Check GI tolerance Signed: Caridad Chavarria MS, RD, LD
[2018-09-16] MEDS ORDERED: NON-FORMULARY MEDICATION ([Apixaban] 5 MG) GT SCH (17:00)
[2018-09-16] MEDS ORDERED: LINEZOLID 600 MG TAB GT SCH (17:00)
[2018-09-16] MEDS: APIXABAN 5 MG TABLET GT SCH (17:15)
--- NOTE | 2018-09-16 19:00 | NUR ---
Report received. Assumed care. Assessment done. See interventions. Trach to vent. Vent settings: TV 450, FIO2 45% & PRVC 14. Colostomy with small amt formed stool. PEG with Vital AF tube feeding @ 30ml/hr. IV D5 1/2NS @ 125ml/hr.
--- NOTE | 2018-09-16 19:23 | NUR ---
Daughter requests Ativan for pt. "She's getting really agitated". Medicated for comfort.
--- NOTE | 2018-09-16 21:00 | NUR ---
Complete bed bath given. Bed linens changed.
[2018-09-16] MEDS: BALSAM PERU/CASTOR OIL 60 GM OINT...G. TP SCH (21:36)
[2018-09-17] VITALS (20 sets, daily range): BP systolic 93–163; BP diastolic 42–71
[2018-09-17] MEDS: IPRATROPIUM BROMIDE 0.02% 2.5 ML NEB NEB SCH ×4 (01:00→19:45)
--- NOTE | 2018-09-17 02:36 | Consultation ---
DATE OF CONSULTATION: 09/16/2018 Pulmonary Medicine Consult HISTORY: Ms. Early is a pleasant 68-year-old female with respiratory failure. The patient was admitted on September 16, 2018. The patient was having oxygen saturation 88% on 60% FiO2 oxygen. The patient was felt to have a pattern of worsening. It was recommended to transfer her to the acute care hospital and into the ICU. The patient was having reported sputum production, although while here the sputum production has been low. No known fevers. Chest x-ray with bilateral vascular congestion suggestive of possible pulmonary edema. PAST MEDICAL HISTORY: Chronic respiratory failure, status post tracheostomy. Dysphagia, status post feeding tube. Colostomy. Depression. Diabetes. Atrial fibrillation. Motor neuron disease. Hypertension. MEDICATIONS: Medication list reviewed per electronic record. Zosyn, Eliquis, Ativan, ipratropium, diltiazem, vancomycin, trazodone, furosemide, Lexapro. ALLERGIES: ALBUTEROL REPORTED. SOCIAL HISTORY: The patient is able to disclose reliably. No alcohol. No drugs. No smoking right now. FAMILY HISTORY: Noncontributory for this condition. REVIEW OF SYSTEMS: Cannot get as she is on ventilator. PHYSICAL EXAMINATION: VITAL SIGNS: Afebrile, vital signs noted per the electronic record. The patient is more stable than she was before with more normalized respiratory rate. 85% FiO2, no PEEP. Peak pressure 33. GENERAL: In bed, comfortable. HEENT: Normocephalic, atraumatic. NECK: Supple. Tracheostomy in place. Shiley XLT proximal 7.0 inner diameter. LUNGS: Bilateral air entry, rare rhonchi. CARDIOVASCULAR: S1, S2. No murmurs, rubs, or gallops. ABDOMEN: Soft, nontender. EXTREMITIES: No clubbing, no cyanosis, no edema. INTEGUMENT: No rash. No purpura. LABORATORY DATA: Potassium 3.7, BUN 17, creatinine 0.5. White count 13, hematocrit 34, platelets 394. IMPRESSION: 1. Acute respiratory failure, on ventilator. 2. Chronic respiratory failure, status post tracheostomy. 3. Motor neuron disease for 6 months reported. 4. Abnormal chest radiography, pulmonary edema pattern. 5. Dysphagia, status post feeding tube. 6. Hypertension. 7. Debility/weakness. 8. Diabetes. 9. Atrial fibrillation. 10. Possible sepsis, possible pneumonia. PLAN: Empiric antibiotics to continue. Augment diuresis. Check BNP level. Consider CT chest if oxygen needs remain disproportionately high. Tube feeds resume for now. Follow up closely. Continue . The patient is already better after today's attack. We will follow along closely and give anxiolytics as needed. Thank you very much for this consult. Please call for questions. MD PRICE Naik/BLAZE /[id number]
[2018-09-17] MEDS: PIPER-TAZ 3.375 GM 50 ML IV SCH ×4 (03:30→21:25)
[2018-09-17] MEDS: LORAZEPAM 1 MG TAB GT PRN ×4 (03:30→22:18)
[2018-09-17 05:05] LABS: BASOPHILS % 0.2 % (0.0-1.0); EOSINOPHILS # (AUTO) 0.1 (0.0-0.4); EOSINOPHILS % 0.7 % (0.0-6.0); HEMATOCRIT 31.6 % (34.2-44.1); HEMOGLOBIN 9.2 g/dL (12.0-16.0); LYMPHOCYTES # (AUTO) 0.9 (1.0-3.2); LYMPHOCYTES % 8.3 % (18.0-39.1); MEAN CORPUSCULAR HEMOGLOBIN 27.5 pg (28-32); MEAN CORPUSCULAR HGB CONC 29.1 g/dL (31-35); MEAN CORPUSCULAR VOLUME 94.3 fL (81-99); MONOCYTES # (AUTO) 1.3 (0.2-0.8); MONOCYTES % 11.2 % (4.4-11.3); NEUTROPHILS # (AUTO) 8.9 (2.1-6.9); NEUTROPHILS % 79.1 % (38.7-80.0); PLATELET COUNT 357 x10e3/uL (140-360); RED BLOOD COUNT 3.35 x10e6/uL (3.6-5.1); RED CELL DISTRIBUTION WIDTH 15.3 % (11.7-14.4)
[2018-09-17 05:47] LABS: CREATINE KINASE < 7 IU/L (29-168)
[2018-09-17] MEDS: DILTIAZEM HCL 30 MG TAB GT SCH ×3 (06:06→21:28)
[2018-09-17] MEDS: DEXTROSE 5%/0.45% SOD CHL 1,000 ML IV SCH ×3 (06:06→19:15)
[2018-09-17 06:20] LABS: ANION GAP 10.8 mmol/L (8-16); BLOOD UREA NITROGEN 13 mg/dL (7-26); BUN/CREATININE RATIO 29 (6-25); CALCIUM 9.4 mg/dL (8.4-10.2); CARBON DIOXIDE 37 mmol/L (22-29); CHLORIDE 90 mmol/L (98-107); CREATININE, SERUM 0.45 mg/dL (0.57-1.11); EST GLOMERULAR FILTRATION RATE > 60 ML/MIN (60-); GLUCOSE 186 mg/dL (74-118); SODIUM 135 mmol/L (136-145)
[2018-09-17 06:21] LABS: POTASSIUM 2.8 mmol/L (3.5-5.1)
--- NOTE | 2018-09-17 06:53 | Diagnostic Imaging Report ---
Examination: Single AP view of the chest. COMPARISON: Portable chest 09/16/2018 INDICATION: CHF, AMS IMPRESSION: 1. Lines and Tubes: None 2. Interval worsening of central pulmonary venous congestion, bilateral interstitial and alveolar edema. Interval development of right pleural effusion and likely associated atelectasis. Persistent left retrocardiac opacity likely representing left effusion and atelectasis.. 3. Cardiomediastinal silhouette is obscured. 4. No acute bony abnormalities. Signed by: Dr. Julio Mendiola M.D. on 09/17/2018 6:50 AM
--- NOTE | 2018-09-17 07:47 | NUR ---
Called DR Aisha Chiu with [facility], awaiting callback.
[2018-09-17] MEDS: BALSAM PERU/CASTOR OIL 60 GM OINT...G. TP SCH ×2 (08:58→21:25)
[2018-09-17] MEDS: APIXABAN 5 MG TABLET GT SCH ×2 (08:58→17:49)
[2018-09-17] MEDS: FAMOTIDINE 20 MG/2 ML VIAL IV SCH (08:58)
[2018-09-17] MEDS: FUROSEMIDE 20 MG TAB GT SCH (08:58)
[2018-09-17] MEDS: ESCITALOPRAM OXALATE 10 MG TAB GT SCH (08:58)
[2018-09-17] MEDS: VANCOMYCIN 1GM/NS 250 ML 250 ML IV SCH (08:58)
[2018-09-17] MEDS: ZINC SULFATE 220 MG CAP GT SCH (08:58)
[2018-09-17] MEDS: POTASSIUM CHLORIDE 20MEQ/15ML UDC NG SCH ×4 (10:00→17:47)
[2018-09-17 11:48] LABS: ABG PH 7.39 (7.31-7.41)
[2018-09-17 11:49] LABS: ABG HCO3 41 mmol/L (23-28); ABG PCO2 68 mmHg (41-51); ABG PO2 70 mmHg (80-105)
--- NOTE | 2018-09-17 12:01 | Consultation ---
DATE OF CONSULTATION: Pulmonary Consultation The patient is a [facility] patient and saw the patient at [facility]. HISTORY OF PRESENT ILLNESS: Ms. Early is a 68-year-old female, who has chronic respiratory failure secondary to ALS, which was diagnosed late last year. She was desaturating at [facility] and was transferred to [facility] for further care. She is currently sleeping and not responding much. She has received Ativan. She was being treated for pneumonia at [facility] and she was on Zyvox and lorazepam over there. REVIEW OF SYSTEMS: Unable to elicit any as the patient is on mechanical ventilator. PAST MEDICAL HISTORY: Chronic respiratory failure, tracheostomy, ALS, has gastrostomy tube. FAMILY AND SOCIAL HISTORY: The patient's sister is at bedside. Daughter is also involved in the care. She does not smoke or drink. PHYSICAL EXAMINATION: VITAL SIGNS: Temperature 97.9, pulse of 84, and blood pressure 122/57. NECK: She has tracheostomy. CHEST: Clear to auscultation bilaterally. No wheezing. HEART: S1, S2 audible. ABDOMEN: Soft. She has colostomy and a PEG tube. EXTREMITIES: No pedal edema. NEUROLOGIC: She is arousable and at [facility], she was following commands. She is able to move all extremities, upper and lower. She has muscle weakness. LABS: White count of 11,000, hemoglobin 9.2, and platelets 357. Chemistry; sodium 135, potassium 2.8, chloride 90, BUN 13, and creatinine 0.45. She received potassium replacement. Chest x-ray is showing poor lung volumes, possibly right lower lobe infiltrate. ASSESSMENT: Ms. Early is a 68-year-old female. She was at [facility] for prolonged weaning. She has motor neuron disease, amyotrophic lateral sclerosis, diagnosed at [facility] and then she was at [facility], transferred to [facility] for prolonged weaning. Current problems: 1. Motor neuron disease, amyotrophic lateral sclerosis. 2. Possible pneumonia. 3. Acute on chronic respiratory failure. 4. Atrial fibrillation. 5. Dysphagia. The patient has feeding tube. PLAN: 1. Continue the patient on IV Zosyn and vancomycin as ordered. 2. Agree with the diuresis for now. We will consider increasing the diuretics if need to be. Sputum is growing gram-negative bacillus. We will follow the cultures and adjust the antibiotics accordingly. 3. Vent settings reviewed. Reduce the FiO2 to 50% and I have changed the PEEP to 5. The patient had last ABG done last night showing hypoxia with a pO2 of 78 and FiO2 of 100%. We will repeat the ABG again. Discussed with the patient's sister at bedside. MD ASHISH Aiken/BLAZE /[id number]
[2018-09-17] MEDS: TRAZODONE HCL 50 MG TAB GT PRN (21:25)
[2018-09-18] VITALS (26 sets, daily range): BP systolic 86–163; BP diastolic 43–89
[2018-09-18] MEDS: PIPER-TAZ 3.375 GM 50 ML IV SCH ×4 (02:20→20:14)
[2018-09-18] MEDS: DEXTROSE 5%/0.45% SOD CHL 1,000 ML IV SCH (03:49)
[2018-09-18 05:09] LABS: BASOPHILS % 0.2 % (0.0-1.0); EOSINOPHILS # (AUTO) 0.2 (0.0-0.4); EOSINOPHILS % 2.3 % (0.0-6.0); HEMATOCRIT 28.8 % (34.2-44.1); HEMOGLOBIN 8.3 g/dL (12.0-16.0); LYMPHOCYTES # (AUTO) 1.1 (1.0-3.2); LYMPHOCYTES % 16.6 % (18.0-39.1); MEAN CORPUSCULAR HEMOGLOBIN 27.3 pg (28-32); MEAN CORPUSCULAR HGB CONC 28.8 g/dL (31-35); MEAN CORPUSCULAR VOLUME 94.7 fL (81-99); MONOCYTES # (AUTO) 0.8 (0.2-0.8); MONOCYTES % 12.1 % (4.4-11.3); NEUTROPHILS # (AUTO) 4.5 (2.1-6.9); NEUTROPHILS % 68.2 % (38.7-80.0); PLATELET COUNT 294 x10e3/uL (140-360); RED BLOOD COUNT 3.04 x10e6/uL (3.6-5.1); RED CELL DISTRIBUTION WIDTH 15.2 % (11.7-14.4)
[2018-09-18 05:18] LABS: INR 1.17; PROTHROMBIN TIME 15.5 seconds (11.9-14.5)
[2018-09-18 05:27] LABS: ANION GAP 8.4 mmol/L (8-16); BLOOD UREA NITROGEN 9 mg/dL (7-26); BUN/CREATININE RATIO 19 (6-25); CALCIUM 9.2 mg/dL (8.4-10.2); CARBON DIOXIDE 37 mmol/L (22-29); CHLORIDE 97 mmol/L (98-107); CREATININE, SERUM 0.48 mg/dL (0.57-1.11); EST GLOMERULAR FILTRATION RATE > 60 ML/MIN (60-); GLUCOSE 187 mg/dL (74-118); MAGNESIUM 1.7 MG/DL (1.3-2.1); POTASSIUM 3.4 mmol/L (3.5-5.1); SODIUM 139 mmol/L (136-145)
[2018-09-18] MEDS: DILTIAZEM HCL 30 MG TAB GT SCH ×3 (06:30→22:12)
[2018-09-18] MEDS: IPRATROPIUM BROMIDE 0.02% 2.5 ML NEB NEB SCH ×4 (07:14→18:55)
[2018-09-18] MEDS: VANCOMYCIN 1GM/NS 250 ML 250 ML IV SCH (08:00)
--- NOTE | 2018-09-18 09:16 | NUR ---
Dr. Joey Chiu here to see patient
[2018-09-18] MEDS: APIXABAN 5 MG TABLET GT SCH ×2 (09:56→17:27)
[2018-09-18] MEDS: BALSAM PERU/CASTOR OIL 60 GM OINT...G. TP SCH ×2 (09:56→22:12)
[2018-09-18] MEDS: FUROSEMIDE 20 MG TAB GT SCH (09:56)
[2018-09-18] MEDS: FAMOTIDINE 20 MG/2 ML VIAL IV SCH (09:56)
[2018-09-18] MEDS: LORAZEPAM 1 MG TAB GT PRN ×2 (09:56→22:13)
[2018-09-18] MEDS: ZINC SULFATE 220 MG CAP GT SCH (09:56)
[2018-09-18] MEDS: ESCITALOPRAM OXALATE 10 MG TAB GT SCH (09:56)
--- NOTE | 2018-09-18 10:00 | NUR ---
Dr. Villavicencio here to see patient and decreased FIO2 from 50% to 40% and tolerating well with O2 sats at 94%.
--- NOTE | 2018-09-18 12:43 | NUR ---
[address] Joey Chiu, Dr. Angus Villavicencio, and case management about discharge planning. Discussed return back to SNF [facility] and LTACH evaluation. Dr. Villavicencio plans to wait a couple of days fro transfer to SNF but ok to have LTACH evaluation. Dr. Joey Chiu will follow along with Dr. Villavicencio recommendations.
--- NOTE | 2018-09-18 13:22 | NUR ---
ORDER FOR LTAC PT ONLY HAS [address] LUB[facility]
--- NOTE | 2018-09-18 17:00 | NUR ---
02 sats dropped from 92% to 78% with good wave form. I checked the vent and patient and then proceeded to inline suction her and thick, tenacious secretions obtained and RT-Elias arrived at that time and used saline to inline suction her again and also received thick, tenacious pale yellowish secretions. 02 sats immediately went up to 96%. Patient tolerated suctioning well. V/S are stable.
[2018-09-18] MEDS ORDERED: POTASSIUM CHLORIDE 10MEQ/100ML 200 ML IV ONE (19:30)
[2018-09-18] MEDS: TRAZODONE HCL 50 MG TAB GT PRN (22:13)
[2018-09-19] VITALS (23 sets, daily range): BP systolic 89–142; BP diastolic 44–73
[2018-09-19] MEDS: PIPER-TAZ 3.375 GM 50 ML IV SCH ×2 (02:24→08:10)
[2018-09-19] MEDS: IPRATROPIUM BROMIDE 0.02% 2.5 ML NEB NEB SCH ×4 (02:30→19:10)
[2018-09-19] MEDS: LORAZEPAM 1 MG TAB GT PRN ×3 (02:50→19:31)
[2018-09-19 06:20] LABS: BASOPHILS % 0.3 % (0.0-1.0); EOSINOPHILS # (AUTO) 0.1 (0.0-0.4); HEMATOCRIT 27.6 % (34.2-44.1); LYMPHOCYTES # (AUTO) 1.4 (1.0-3.2); LYMPHOCYTES % 21.6 % (18.0-39.1); MEAN CORPUSCULAR HEMOGLOBIN 27.6 pg (28-32); MEAN CORPUSCULAR VOLUME 95.2 fL (81-99); MONOCYTES # (AUTO) 0.7 (0.2-0.8); MONOCYTES % 10.6 % (4.4-11.3); NEUTROPHILS # (AUTO) 4.3 (2.1-6.9); PLATELET COUNT 347 x10e3/uL (140-360); RED CELL DISTRIBUTION WIDTH 15.3 % (11.7-14.4)
[2018-09-19 06:33] LABS: INR 1.26; PROTHROMBIN TIME 16.4 seconds (11.9-14.5)
[2018-09-19 06:39] LABS: ANION GAP 8.9 mmol/L (8-16); BLOOD UREA NITROGEN 9 mg/dL (7-26); BUN/CREATININE RATIO 19 (6-25); CALCIUM 9.3 mg/dL (8.4-10.2); CARBON DIOXIDE 36 mmol/L (22-29); CHLORIDE 100 mmol/L (98-107); CREATININE, SERUM 0.47 mg/dL (0.57-1.11); EST GLOMERULAR FILTRATION RATE > 60 ML/MIN (60-); GLUCOSE 146 mg/dL (74-118); POTASSIUM 3.9 mmol/L (3.5-5.1); SODIUM 141 mmol/L (136-145)
[2018-09-19] MEDS: DILTIAZEM HCL 30 MG TAB GT SCH ×3 (06:52→23:24)
[2018-09-19] MEDS: VANCOMYCIN 1GM/NS 250 ML 250 ML IV SCH (08:50)
[2018-09-19] MEDS: APIXABAN 5 MG TABLET GT SCH ×2 (09:24→15:58)
[2018-09-19] MEDS: FUROSEMIDE 20 MG TAB GT SCH (09:24)
[2018-09-19] MEDS: ESCITALOPRAM OXALATE 10 MG TAB GT SCH (09:24)
[2018-09-19] MEDS: FAMOTIDINE 20 MG/2 ML VIAL IV SCH (09:24)
[2018-09-19] MEDS: ZINC SULFATE 220 MG CAP GT SCH (09:24)
[2018-09-19] MEDS ORDERED: CEFEPIME HCL 2 GM VIAL IV SCH (10:15)
[2018-09-19] MEDS: CEFEPIME 2 GM/NS 0.9% 100 ML 100 ML IV SCH ×2 (11:29→23:40)
--- NOTE | 2018-09-19 14:12 | NUR ---
large puddle of clear liquid around brandon area possibly from mota. deflated balloon. 12 cc water in balloon of 16 fr catheter. will change catheter for larger to prevent leaking.
[2018-09-19] MEDS: BALSAM PERU/CASTOR OIL 60 GM OINT...G. TP SCH ×2 (14:15→23:23)
--- NOTE | 2018-09-19 15:32 | Progress Note ---
DATE: Internal Medicine Progress Note SUBJECTIVE: The patient is chronically on the ventilator, non-distressed today. PHYSICAL EXAMINATION: VITAL SIGNS: Blood pressure 106/62, temperature 98.2, heart rate is 78 per minute, respiratory rate is 22 per minute, and oxygen saturation 98%. HEART: Showed regular rhythm. No murmur or added sound. LUNGS: Clear bilaterally. ABDOMEN: Soft. Has a PEG tube in place. EXTREMITIES: Showed no evidence of cyanosis, edema, or trauma. LABORATORY DATA: On the blood work, we have BMP, sodium 141, potassium 3.9, chloride 100, CO2 36, BUN 9, creatinine 0.47, glucose 146. CBC; white blood count 6.54, hemoglobin 8.0, hematocrit 27.6, platelet count 347,000. PT 16.4, INR 1.26, PTT 43.9. AST 21, ALT 19, total bilirubin 0.3, alkaline phosphatase 107. Sputum culture shows Pseudomonas. FINAL IMPRESSION: 1. Fbyoe-az-ezjcjgr respiratory failure. 2. Amyotrophic lateral sclerosis. 3. Aspiration pneumonia. 4. Chronic anemia. 5. . PLAN OF TREATMENT: We are going to continue ventilator support. Continue Atrovent q.6 hours. Continue with cefepime 1 g IV twice a day, Balsam [place] and castor oil one application twice a day, furosemide 20 mg daily, trazodone 50 mg at bedtime, Eliquis 5 mg twice a day, zinc sulfate 220 mg daily. Tylenol 650 mg q.6 hours as needed for pain or fever. Pepcid 20 mg daily. Citalopram 2.5 mg daily. Artificial Tears q.6 hours. Lorazepam 1 mg three times a day as needed. 30 mg q.8 hours and Zofran 4 mg q.6 hours. The patient is probably going to the [facility] where she usually stays. MD ARABELLA Valdez/BLAZE /[id number]
--- NOTE | 2018-09-19 15:57 | NUR ---
monitoring Sanchez catheter for leaking. none noted. Colostomy bag changed due to leaking.
--- NOTE | 2018-09-19 17:32 | NUR ---
clear mucous liquid puddled around brandon area. attempted to change Sanchez catheter to larger size. patient refused exchange and wrote that its coming from her rectum.
[2018-09-19] MEDS: TRAZODONE HCL 50 MG TAB GT PRN (23:24)
[2018-09-20] VITALS (25 sets, daily range): BP systolic 83–140; BP diastolic 42–106
[2018-09-20] MEDS: IPRATROPIUM BROMIDE 0.02% 2.5 ML NEB NEB SCH ×4 (01:30→20:35)
[2018-09-20] MEDS ORDERED: SODIUM CHLORIDE 0.9% 250ML 250 ML ONE (02:41)
[2018-09-20] MEDS: LORAZEPAM 1 MG TAB GT PRN ×3 (02:41→22:46)
[2018-09-20 04:49] LABS: BASOPHILS % 0.2 % (0.0-1.0); EOSINOPHILS # (AUTO) 0.1 (0.0-0.4); EOSINOPHILS % 1.6 % (0.0-6.0); HEMATOCRIT 30.1 % (34.2-44.1); HEMOGLOBIN 8.9 g/dL (12.0-16.0); LYMPHOCYTES # (AUTO) 2.1 (1.0-3.2); LYMPHOCYTES % 25.4 % (18.0-39.1); MEAN CORPUSCULAR HEMOGLOBIN 27.9 pg (28-32); MEAN CORPUSCULAR HGB CONC 29.6 g/dL (31-35); MEAN CORPUSCULAR VOLUME 94.4 fL (81-99); MONOCYTES # (AUTO) 0.7 (0.2-0.8); MONOCYTES % 8.5 % (4.4-11.3); NEUTROPHILS # (AUTO) 5.2 (2.1-6.9); NEUTROPHILS % 63.8 % (38.7-80.0); PLATELET COUNT 382 x10e3/uL (140-360); RED BLOOD COUNT 3.19 x10e6/uL (3.6-5.1); RED CELL DISTRIBUTION WIDTH 15.7 % (11.7-14.4)
[2018-09-20 05:07] LABS: INR 1.19; PROTHROMBIN TIME 15.7 seconds (11.9-14.5)
[2018-09-20] MEDS: DILTIAZEM HCL 30 MG TAB GT SCH ×3 (06:45→22:47)
[2018-09-20] MEDS: ESCITALOPRAM OXALATE 10 MG TAB GT SCH (09:03)
[2018-09-20] MEDS: FAMOTIDINE 20 MG/2 ML VIAL IV SCH (09:03)
[2018-09-20] MEDS: ZINC SULFATE 220 MG CAP GT SCH (09:03)
[2018-09-20] MEDS: APIXABAN 5 MG TABLET GT SCH ×2 (09:03→16:21)
[2018-09-20] MEDS: FUROSEMIDE 20 MG TAB GT SCH (09:03)
[2018-09-20] MEDS: BALSAM PERU/CASTOR OIL 60 GM OINT...G. TP SCH ×2 (09:55→22:46)
[2018-09-20] MEDS: CEFEPIME 2 GM/NS 0.9% 100 ML 100 ML IV SCH ×2 (09:55→22:46)
--- NOTE | 2018-09-20 12:26 | Diagnostic Imaging Report ---
Examination: Single AP view of the chest. COMPARISON: September 17, 2018 INDICATION: congestive heart failure DISCUSSION: Lines/tubes: None. Lungs: Interstitial and alveolar opacities with enlargement of the central vasculature. Increased opacification in the right midlung. Pleura: Left effusion. Heart and mediastinum: Cardiomegaly. Bones and soft tissues: No acute bony abnormalities. IMPRESSION: Cardiomegaly with interstitial and an increasing alveolar edema. Correlate for superimposed pneumonia Signed by: Dr. Palomo Hong M.D. on 09/20/2018 12:23 PM
--- NOTE | 2018-09-20 13:26 | Progress Note ---
DATE: 09/20/2018 Internal Medicine Progress Note SUBJECTIVE: The patient is on ventilator, sleeping right now. OBJECTIVE: VITAL SIGNS: Blood pressure 133/66, temperature 98.1, heart rate 75 per minute, respiratory rate is 22 per minute, and oxygen saturation 90%. HEART: Regular rhythm. Normal S1, S2 sounds. LUNGS: Clear bilaterally, but significantly decreased. ABDOMEN: Soft. She got a PEG tube in place. LABORATORY DATA: BMP; sodium 141, potassium 3.9, chloride 100, CO2 of 36, BUN 9, creatinine 0.47, and glucose 146. CBC; white blood count 8.11, hemoglobin 8.9, hematocrit 30.1, and platelet count 382,000. PT 15.7, INR 1.19, and PTT 43.9. AST 21, ALT 19, total bilirubin 0.3, and alkaline phosphatase 107. FINAL IMPRESSION: 1. Acute recurrent respiratory failure. 2. Amyotrophic lateral sclerosis. 3. Aspiration pneumonia. 4. Chronic anemia. PLAN OF TREATMENT: Continue ventilator support. Continue Atrovent q.6 hours, cefepime 1 g IV twice a day, Balsam of [place] and castor oil one application to open area of the skin twice a day, furosemide 20 mg daily, trazodone 50 mg at bedtime, Eliquis 5 mg twice a day, zinc sulfate 220 mg daily, Tylenol 650 mg q.6 hours as needed for pain or fever, Pepcid 20 mg daily, citalopram 2.5 mg daily, Artificial tears one drop to each eye q.6 hours, lorazepam 1 mg three times a day as needed, Cardizem 30 mg q.8 hours, and Zofran 4 mg q.6 hours as needed. Labs have been reviewed. Child Support Specialist reports have been reviewed. Time spent 55 minutes. MD ARABELLA Valdez/BLAZE /[id number]
[2018-09-20] MEDS: TRAZODONE HCL 50 MG TAB GT PRN (22:46)
[2018-09-21] VITALS (17 sets, daily range): BP systolic 88–138; BP diastolic 46–80
[2018-09-21] MEDS: IPRATROPIUM BROMIDE 0.02% 2.5 ML NEB NEB SCH ×3 (00:50→13:15)
[2018-09-21] MEDS: LORAZEPAM 1 MG TAB GT PRN (04:31)
[2018-09-21] MEDS: DILTIAZEM HCL 30 MG TAB GT SCH ×2 (07:04→13:19)
[2018-09-21] MEDS: FAMOTIDINE 20 MG/2 ML VIAL IV SCH (08:19)
[2018-09-21] MEDS: APIXABAN 5 MG TABLET GT SCH (08:19)
[2018-09-21] MEDS: FUROSEMIDE 20 MG TAB GT SCH (08:19)
[2018-09-21] MEDS: BALSAM PERU/CASTOR OIL 60 GM OINT...G. TP SCH (08:19)
[2018-09-21] MEDS: ESCITALOPRAM OXALATE 10 MG TAB GT SCH (08:19)
[2018-09-21] MEDS: ZINC SULFATE 220 MG CAP GT SCH (08:19)
[2018-09-21] MEDS ORDERED: LORAZEPAM 1 MG TAB GT PRN (09:00)
[2018-09-21] MEDS: CEFEPIME 2 GM/NS 0.9% 100 ML 100 ML IV SCH (10:24)
--- NOTE | 2018-09-21 11:05 | NUR ---
ORDERS TODAY TO RETURN BACK TO [facility] NOTIFIED UPDATED CLINICALS GIVEN PLAN TRANSFER BACK TO [facility] TODAY RTF INITIATED
--- NOTE | 2018-09-21 11:40 | NUR ---
Per Sher Mondragon and Aisha Chiu, okay for patient to transfer back to [facility] when bed available.
--- NOTE | 2018-09-21 12:37 | NUR ---
Attempted to call report to [facility], KWABENA Pina will call back.
--- NOTE | 2018-09-21 14:44 | NUR ---
[facility] at bedside to transfer patient to [facility].
--- NOTE | 2018-09-21 15:39 | NUR ---
Patient transferred to [facility] via stretcher on portable ventilator.
== END 2018-09-21 15:38 | DRG 870 ==
LOC: ER 05:23 → ERHOLD 06:50 → ICU 09:52
PROC: 5A1955Z Respiratory Ventilation, Greater than 96 Consecutive Hours (ICD-10-PCS; principal; 2018-09-16)
DX: A41.9 Sepsis, unspecified organism (principal); J96.20 Acute and chronic respiratory failure, unspecified whether with hypoxia or hypercapnia; J69.0 Pneumonitis due to inhalation of food and vomit; G12.21 Amyotrophic lateral sclerosis; Z99.11 Dependence on respirator [ventilator] status; I48.91 Unspecified atrial fibrillation; Z79.01 Long term (current) use of anticoagulants; R13.10 Dysphagia, unspecified; Z93.1 Gastrostomy status; Z93.0 Tracheostomy status; E11.9 Type 2 diabetes mellitus without complications; Z79.899 Other long term (current) drug therapy; F32.9 Major depressive disorder, single episode, unspecified; D63.8 Anemia in other chronic diseases classified elsewhere
CPT/HCPCS: 36415; 36600; 71045; 80048; 80053; 81001; 82550; 82553; 82805; 83605; 83735; 83880; 84443; 84484; 85025; 85610; 85651; 85730; 87040; 87070; 87186; 87205; 93005; 93306; 94002; 94003; 94640; 99285; J1650; J1940; J2543; J3370; J3480; J7030; J7050

== ENCOUNTER 2018-09-23 00:13 | Emergency (ER) | payer MEDICARE, OTHER ==
[~2018-09-23] VITALS: Ht 157.5 cm; Wt 85.3 kg
[~2018-09-23 00:13] MED LIST: ACETAMINOPHEN325 M1 GT; APIXABAN GT; DILTIAZEM HCL30 MG GT; HUMALOG100 UNIT/3; IPRATROPIU0.2 MG/1 M NEB; LASIX20 MG GT; LEXAPRO10 MG GT; LORAZEPAM1 MG GT; POLYVINYL ALCOH15 ML OU; TRAZODONE HCL50 MG GT; VENELEX OINTMEN60 GM TOP; ZINC SULFATE220 MG GT; ZOFRAN4 MG GT; ZYVOX600 MG GT
--- OUTSIDE RECORDS SUMMARY | 2018-09-23 00:17 | XMS REPORT | Clinical Summary ---
Author Author LAURENCE [facility] Address Unknown Phone Unavailable Care Team Providers [employer] Name Role Phone Pcp, No PCP Unavailable [...] Care - Encounter 06/05/2018 05/23/2018 Travel after 09/22/2017 Family History Medical History Relation Name Comments [...] Taken Vital Sign Reading 06/05/2018 5:10 PM [employer] Blood Pressure 120/66 06/05/2018 5:10 PM [employer] Pulse 82 06/05/2018 5:10 PM [employer] Temperature 36.5 C (97.7 F) 06/05/2018 5:10 PM [employer] Respiratory Rate 14 06/05/2018 5:10 PM [employer] Oxygen Saturation 98% 06/05/2018 5:10 PM [employer] Inhaled Oxygen 40% Concentration 06/04/2018 5:00 AM [employer] Weight 117.1 kg (258 lb 2.5 oz) 05/23/2018 8:00 PM [employer] Height 157.5 cm (5' 2") 06/04/2018 5:00 AM [employer] Body Mass Index 47.22 Plan of Treatment Not on file Procedures Comments Procedure Name Priority Date/Time Associated Diagnosis REPORT OF PROCEDURE - 06/12/2018 ENDOSCOPY SCAN 10:21 AM [employer] RHYTHM STRIP - SCAN 06/12/2018 10:21 AM [employer] POCT-GLUCOSE METER Routine 06/05/2018 11:26 AM [employer] POCT-GLUCOSE METER Routine 06/05/2018 6:23 AM [employer] MAGNESIUM Routine 06/05/2018 4:47 AM [employer] BASIC METABOLIC PANEL (7) Routine 06/05/2018 4:47 AM [employer] POCT-GLUCOSE METER Routine 06/05/2018 12:12 AM [employer] CBC (HEMOGRAM ONLY) Routine 06/04/2018 10:02 PM [employer] POCT-GLUCOSE METER Routine 06/04/2018 3:31 PM [employer] POCT-GLUCOSE METER Routine 06/04/2018 1:13 PM [employer] POCT-GLUCOSE METER Routine 06/04/2018 6:42 AM [employer] POCT-GLUCOSE METER Routine 06/04/2018 6:02 AM [employer] BLOOD GAS, VENOUS Routine 06/04/2018 4:01 AM [employer] MAGNESIUM Routine 06/04/2018 4:01 AM [employer] BASIC METABOLIC PANEL (7) Routine 06/04/2018 4:01 AM [employer] XR CHEST 1 VIEW Routine 06/04/2018 PORTABLE/BEDSIDE 2:44 AM [employer] POCT-GLUCOSE METER Routine 06/04/2018 1:09 AM [employer] POCT-GLUCOSE METER Routine 06/04/2018 12:08 AM [employer] POCT-GLUCOSE METER Routine 06/03/2018 8:05 PM [employer] POCT-GLUCOSE METER Routine 06/03/2018 6:06 PM [employer] MAGNESIUM Routine 06/03/2018 12:56 PM [employer] POCT-GLUCOSE METER Routine 06/03/2018 12:52 PM [employer] ECG 12-LEAD Routine 06/03/2018 10:34 AM [employer] XR CHEST 1 VIEW Routine 06/03/2018 PORTABLE/BEDSIDE 3:56 AM [employer] CBC W/PLT COUNT & AUTO Routine 06/03/2018 DIFFERENTIAL 3:37 AM [employer] BLOOD GAS, VENOUS Routine 06/03/2018 3:37 AM [employer] CBC W/PLT COUNT & AUTO Routine 06/03/2018 DIFFERENTIAL 3:37 AM [employer] MAGNESIUM Routine 06/03/2018 3:37 AM [employer] BASIC METABOLIC PANEL (7) Routine 06/03/2018 3:37 AM [employer] POCT-GLUCOSE METER Routine 06/02/2018 7:42 PM [employer] POCT-GLUCOSE METER Routine 06/02/2018 4:43 PM [employer] ESOPHAGOGASTRODUODENOSCOP 06/02/2018 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) Case Notes 90 MINS PER [facility] Special Needs (ENDO EQUIPMENT) EGD SCOPE INSERTION,GASTROSTOMY 06/02/2018 Amyotrophic lateral TUBE-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 [employer] sclerosis (HCC) Case Notes 90 MINS PER [facility] Needs (ENDO EQUIPMENT) EGD SCOPE TRACHEOSTOMY 06/02/2018 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) Case Notes 90 MINS PER [facility] Special Needs (ENDO EQUIPMENT) EGD SCOPE POCT-GLUCOSE METER Routine 06/02/2018 2:51 PM [employer] POCT-GLUCOSE METER Routine 06/02/2018 12:35 PM [employer] XR CHEST 1 VIEW Routine 06/02/2018 PORTABLE/BEDSIDE 7:12 AM [employer] BLOOD GAS, VENOUS Routine 06/02/2018 3:53 AM [employer] MAGNESIUM Routine 06/02/2018 3:53 AM [employer] BASIC METABOLIC PANEL (7) Routine 06/02/2018 3:53 AM [employer] POCT-GLUCOSE METER Routine 06/01/2018 11:56 PM [employer] LACTIC ACID, VENOUS Routine 06/01/2018 8:33 PM [employer] POCT-GLUCOSE METER Routine 06/01/2018 6:41 PM [employer] POCT-GLUCOSE METER Routine 06/01/2018 12:57 PM [employer] XR CHEST 1 VIEW STAT 06/01/2018 PORTABLE/BEDSIDE 8:20 AM [employer] BLOOD GAS, VENOUS Routine 06/01/2018 3:46 AM [employer] HEPARIN ASSAY - LOW Routine 06/01/2018 MOLECULAR WEIGHT 3:46 AM [employer] MAGNESIUM Routine 06/01/2018 3:46 AM [employer] BASIC METABOLIC PANEL (7) Routine 06/01/2018 3:46 AM [employer] POCT-GLUCOSE METER Routine 05/31/2018 5:53 PM [employer] POCT-GLUCOSE METER Routine 05/31/2018 12:38 PM [employer] XR CHEST 1 VIEW STAT 05/31/2018 PORTABLE/BEDSIDE 12:35 PM [employer] POCT-GLUCOSE METER Routine 05/31/2018 12:00 PM [employer] SPUTUM CULTURE + GRAM Routine 05/31/2018 STAIN 10:13 AM [employer] POCT-GLUCOSE METER Routine 05/31/2018 6:17 AM [employer] XR CHEST 1 VIEW Routine 05/31/2018 PORTABLE/BEDSIDE 4:26 AM [employer] CBC W/PLT COUNT & AUTO Routine 05/31/2018 DIFFERENTIAL 4:23 AM [employer] PHOSPHORUS Add-On 05/31/2018 4:23 AM [employer] MAGNESIUM Routine 05/31/2018 4:23 AM [employer] BASIC METABOLIC PANEL (7) Routine 05/31/2018 4:23 AM [employer] CBC W/PLT COUNT & AUTO Routine 05/31/2018 DIFFERENTIAL 4:23 AM [employer] POCT-GLUCOSE METER Routine 05/31/2018 12:05 AM [employer] POCT-GLUCOSE METER Routine 05/30/2018 6:04 PM [employer] MR PELVIS WITHOUT & WITH Routine 05/30/2018 IV CONTRAST 1:11 PM [employer] POCT-GLUCOSE METER Routine 05/30/2018 7:01 AM [employer] XR CHEST 1 VIEW Routine 05/30/2018 PORTABLE/BEDSIDE 6:53 AM [employer] BLOOD GAS, ARTERIAL Routine 05/30/2018 3:37 AM [employer] CBC W/PLT COUNT & AUTO Routine 05/30/2018 DIFFERENTIAL 3:29 AM [employer] MAGNESIUM Routine 05/30/2018 3:29 AM [employer] BASIC METABOLIC PANEL (7) Routine 05/30/2018 3:29 AM [employer] CBC W/PLT COUNT & AUTO Routine 05/30/2018 DIFFERENTIAL 3:29 AM [employer] POCT-GLUCOSE METER Routine 05/30/2018 12:36 AM [employer] POCT-GLUCOSE METER Routine 05/29/2018 6:24 PM [employer] POCT-GLUCOSE METER Routine 05/29/2018 12:28 PM [employer] POCT-GLUCOSE METER Routine 05/29/2018 5:57 AM [employer] XR CHEST 1 VIEW Routine 05/29/2018 PORTABLE/BEDSIDE 4:55 AM [employer] BLOOD GAS, VENOUS STAT 05/29/2018 4:11 AM [employer] CBC W/PLT COUNT & AUTO Routine 05/29/2018 DIFFERENTIAL 4:06 AM [employer] MAGNESIUM Routine 05/29/2018 4:06 AM [employer] BASIC METABOLIC PANEL (7) Routine 05/29/2018 4:06 AM [employer] CBC W/PLT COUNT & AUTO Routine 05/29/2018 DIFFERENTIAL 4:06 AM [employer] POCT-GLUCOSE METER Routine 05/28/2018 11:59 PM [employer] POCT-GLUCOSE METER Routine 05/28/2018 5:07 PM [employer] POCT-GLUCOSE METER Routine 05/28/2018 12:16 PM [employer] XR CHEST 1 VIEW Routine 05/28/2018 PORTABLE/BEDSIDE 8:16 AM [employer] US PELVIS Routine 05/28/2018 6:20 AM [employer] POCT-GLUCOSE METER Routine 05/28/2018 5:36 AM [employer] CBC W/PLT COUNT & AUTO Routine 05/28/2018 DIFFERENTIAL 4:04 AM [employer] PHOSPHORUS Routine 05/28/2018 4:04 AM [employer] MAGNESIUM Routine 05/28/2018 4:04 AM [employer] BASIC METABOLIC PANEL (7) Routine 05/28/2018 4:04 AM [employer] CBC W/PLT COUNT & AUTO Routine 05/28/2018 DIFFERENTIAL 4:04 AM [employer] BLOOD GAS, ARTERIAL Routine 05/28/2018 4:04 AM [employer] POCT-GLUCOSE METER Routine 05/27/2018 11:46 PM [employer] POCT-GLUCOSE METER Routine 05/27/2018 5:59 PM [employer] XR CHEST 1 VIEW Routine 05/27/2018 PORTABLE/BEDSIDE 5:55 PM [employer] XR CHEST 1 VIEW STAT 05/27/2018 PORTABLE/BEDSIDE 4:26 PM [employer] BLOOD GAS, VENOUS STAT 05/27/2018 3:12 PM [employer] POCT-GLUCOSE METER Routine 05/27/2018 12:10 PM [employer] POCT-GLUCOSE METER Routine 05/27/2018 5:32 AM [employer] CBC W/PLT COUNT & AUTO Routine 05/27/2018 DIFFERENTIAL 4:05 AM [employer] APTT Routine 05/27/2018 4:05 AM [employer] PHOSPHORUS Routine 05/27/2018 4:05 AM [employer] MAGNESIUM Routine 05/27/2018 4:05 AM [employer] BASIC METABOLIC PANEL (7) Routine 05/27/2018 4:05 AM [employer] CBC W/PLT COUNT & AUTO Routine 05/27/2018 DIFFERENTIAL 4:05 AM [employer] BLOOD GAS, ARTERIAL Routine 05/27/2018 4:04 AM [employer] POCT-GLUCOSE METER Routine 05/27/2018 12:11 AM [employer] POCT-GLUCOSE METER Routine 05/26/2018 5:34 PM [employer] BLOOD GAS, ARTERIAL STAT 05/26/2018 3:12 PM [employer] NEEDLE EMG, 2 EXTREMITY Routine 05/26/2018 3:11 PM [employer] BLOOD GAS, ARTERIAL STAT 05/26/2018 12:55 PM [employer] POCT-GLUCOSE METER Routine 05/26/2018 11:57 AM [employer] APTT Routine 05/26/2018 11:12 AM [employer] BLOOD GAS, ARTERIAL STAT 05/26/2018 9:40 AM [employer] POCT-GLUCOSE METER Routine 05/26/2018 6:32 AM [employer] APTT Routine 05/26/2018 4:26 AM [employer] CBC W/PLT COUNT & AUTO Routine 05/26/2018 DIFFERENTIAL 4:23 AM [employer] LIPID PANEL Routine 05/26/2018 4:23 AM [employer] PHOSPHORUS Routine 05/26/2018 4:23 AM [employer] MAGNESIUM Routine 05/26/2018 4:23 AM [employer] BASIC METABOLIC PANEL (7) Routine 05/26/2018 4:23 AM [employer] CBC W/PLT COUNT & AUTO Routine 05/26/2018 DIFFERENTIAL 4:23 AM [employer] BLOOD GAS, ARTERIAL Routine 05/26/2018 4:23 AM [employer] XR CHEST 1 VIEW Routine 05/26/2018 PORTABLE/BEDSIDE 3:50 AM [employer] POCT-GLUCOSE METER Routine 05/26/2018 12:09 AM [employer] APTT Routine 05/25/2018 9:37 PM [employer] APTT Routine 05/25/2018 7:49 PM [employer] POCT-GLUCOSE METER Routine 05/25/2018 6:58 PM [employer] B-TYPE NATRIURETIC FACTOR STAT 05/25/2018 (BNP) 1:15 PM [employer] APTT Routine 05/25/2018 12:33 PM [employer] US ABDOMEN LIMITED Routine 05/25/2018 12:10 PM [employer] POCT-GLUCOSE METER Routine 05/25/2018 11:52 AM [employer] RESPIRATORY PANEL [facility] Add-On 05/25/2018 11:08 AM [employer] APTT Routine 05/25/2018 10:55 AM [employer] BLOOD GAS, ARTERIAL Routine 05/25/2018 10:55 AM [employer] APTT Routine 05/25/2018 9:28 AM [employer] VANCOMYCIN LEVEL, TROUGH Timed 05/25/2018 9:28 AM [employer] POCT-GLUCOSE METER Routine 05/25/2018 5:58 AM [employer] XR CHEST 1 VIEW Routine 05/25/2018 PORTABLE/BEDSIDE 5:09 AM [employer] BLOOD GAS, ARTERIAL Routine 05/25/2018 4:48 AM [employer] CBC W/PLT COUNT & AUTO Routine 05/25/2018 DIFFERENTIAL 4:47 AM [employer] HIV-1 ANTIGEN WITH Routine 05/25/2018 HIV-1/2 ANTIBODY 4:47 AM [employer] FOLATE, SERUM Routine 05/25/2018 4:47 AM [employer] PREALBUMIN Routine 05/25/2018 4:47 AM [employer] PHOSPHORUS Routine 05/25/2018 4:47 AM [employer] MAGNESIUM Routine 05/25/2018 4:47 AM [employer] BASIC METABOLIC PANEL (7) Routine 05/25/2018 4:47 AM [employer] CBC W/PLT COUNT & AUTO Routine 05/25/2018 DIFFERENTIAL 4:47 AM [employer] ECG 12-LEAD Routine 05/25/2018 4:46 AM [employer] Procedure Note - Interface, External Ris In - 05/25/2018 4:54 AM [employer] Ventricula r Rate 125 BPM Atrial Rate 110 BPM QRS Duration 96 ms Q-T Interval 274 ms QTC Calculatio n(Bazett) 395 ms R [place] 1 degrees T [place] 70 degrees Atrial fibrillati on with rapid ventricula r response Abnormal ECG No previous ECGs available ECG 12-LEAD STAT 05/25/2018 4:46 AM [employer] MISCELLANEOUS LAB ORDER Routine 05/25/2018 12:59 AM [employer] POCT-GLUCOSE METER Routine 05/24/2018 11:54 PM [employer] URINALYSIS W/ REFLEX Routine 05/24/2018 URINE CULTURE 11:21 PM [employer] CREATININE, RANDOM URINE STAT 05/24/2018 11:21 PM [employer] SODIUM, RANDOM URINE STAT 05/24/2018 11:21 PM [employer] BLOOD GAS, ARTERIAL STAT 05/24/2018 10:28 PM [employer] PROTHROMBIN TIME/INR STAT 05/24/2018 10:28 PM [employer] APTT STAT 05/24/2018 10:28 PM [employer] CYTOLOGY AP Routine 05/24/2018 10:22 PM [employer] BODY FLUID CELL COUNT Routine 05/24/2018 WITH DIFFERENTIAL 8:45 PM [employer] SPIN/CONCENTRATION CHARGE Routine 05/24/2018 8:44 PM [employer] FUNGUS CULTURE + SMEAR BUSTER 05/24/2018 8:44 PM [employer] AFB CULTURE + SMEAR BUSTER 05/24/2018 8:44 PM [employer] LEGIONELLA CULTURE Routine 05/24/2018 8:44 PM [employer] BRONCHIAL CULTURE + GRAM BUSTER 05/24/2018 STAIN 8:44 PM [employer] XR CHEST 1 VIEW STAT 05/24/2018 PORTABLE/BEDSIDE 7:38 PM [employer] POCT-GLUCOSE METER Routine 05/24/2018 6:02 PM [employer] VENOUS DOPPLER LEGS Routine 05/24/2018 BILATERAL 5:49 PM [employer] VENOUS DOPPLER ARMS Routine 05/24/2018 BILATERAL 5:49 PM [employer] MR CERVICAL SPINE W/WO STAT 05/24/2018 CONTRAST 4:59 PM [employer] MR BRAIN WITHOUT & WITH STAT 05/24/2018 IV CONTRAST 4:59 PM [employer] ECHOCARDIOGRAM REPORT - 05/24/2018 SCAN 3:[address] ABDOMEN/PELVIS WITH IV STAT 05/24/2018 CONTRAST 2:[address] CHEST WITH IV CONTRAST STAT 05/24/2018 2:40 PM [employer] POCT-GLUCOSE METER Routine 05/24/2018 1:24 PM [employer] MRSA SCREEN STAT 05/24/2018 12:38 PM [employer] RAPID INFLUENZA A&B BUSTER 05/24/2018 SCREEN 12:38 PM [employer] FOLATE, RBC STAT 05/24/2018 12:28 PM [employer] VITAMIN B12 STAT 05/24/2018 12:28 PM [employer] TSH/FREE T4 IF INDICATED STAT 05/24/2018 12:28 PM [employer] B-TYPE NATRIURETIC FACTOR Routine 05/24/2018 (BNP) 12:28 PM [employer] 2D ECHO W/ DOPPLER STAT 05/24/2018 (CW/PW/COLOR) 11:42 AM [employer] 2D ECHO W/ DOPPLER Routine 05/24/2018 (CW/PW/COLOR) 10:47 AM [employer] CREATINE KINASE (CK) Routine 05/24/2018 10:23 AM [employer] SJOGREN'S ANTIBODIES Routine 05/24/2018 10:23 AM [employer] DOUBLE-STRANDED DNA Routine 05/24/2018 (DSDNA) ANTIBODY 10:23 AM [employer] ANTI-SHIRA AB (RNA, HENDRICKSON) Routine 05/24/2018 10:23 AM [employer] ANTI-NUCLEAR ANTIBODY Routine 05/24/2018 (GIOVANNI) 10:23 AM [employer] SPUTUM CULTURE + GRAM Routine 05/24/2018 STAIN 10:19 AM [employer] MISCELLANEOUS LAB ORDER Routine 05/24/2018 9:21 AM [employer] XR CHEST 1 VIEW Routine 05/24/2018 PORTABLE/BEDSIDE 5:00 AM [employer] CBC W/PLT COUNT & AUTO Routine 05/24/2018 DIFFERENTIAL 3:19 AM [employer] MAGNESIUM Routine 05/24/2018 3:19 AM [employer] BASIC METABOLIC PANEL (7) Routine 05/24/2018 3:19 AM [employer] CBC W/PLT COUNT & AUTO Routine 05/24/2018 DIFFERENTIAL 3:19 AM [employer] BLOOD GAS, ARTERIAL STAT 05/24/2018 3:15 AM [employer] POCT-GLUCOSE METER Routine 05/24/2018 12:14 AM [employer] BLOOD GAS, ARTERIAL STAT 05/23/2018 9:59 PM [employer] BLOOD CULTURE Routine 05/23/2018 9:59 PM [employer] STREP PNEUMONIAE ANTIGEN Routine 05/23/2018 8:40 PM [employer] LEGIONELLA URINE ANTIGEN Routine 05/23/2018 8:39 PM [employer] CBC W/PLT COUNT & AUTO STAT 05/23/2018 DIFFERENTIAL 8:34 PM [employer] TROPONIN I STAT 05/23/2018 8:34 PM [employer] LACTIC ACID, VENOUS STAT 05/23/2018 8:34 PM [employer] MAGNESIUM STAT 05/23/2018 8:34 PM [employer] COMPREHENSIVE METABOLIC STAT 05/23/2018 PANEL 8:34 PM [employer] CBC W/PLT COUNT & AUTO STAT 05/23/2018 DIFFERENTIAL 8:34 PM [employer] BLOOD CULTURE Routine 05/23/2018 8:34 PM [employer] XR CHEST 1 VIEW STAT 05/23/2018 PORTABLE/BEDSIDE 8:27 PM [employer] after 09/22/2017 Results * EKG-SCANNED (06/12/2018 10:21 AM [employer]) Narrative Performed At * RHYTHM STRIP - SCAN (06/12/2018 10:21 AM [employer]) Narrative Performed At * POC-Glucose meter (06/05/2018 11:26 AM [employer]) Only the most recent of 50 results within the time period is included. POC-Glucose Meter 133 (H)Comment: TESTED AT 70 - 110 mg/dL [address] [address] Specimen Blood Performing Organization Address [facility] Phone Number [address] [address] [phone] * Magnesium (06/05/2018 4:47 AM [employer]) Only the most recent of 15 results within the time period is included. Magnesium 1.9Comment: Specimen slightly 1.6 - 2.6 mg/dL [facility] Specimen Blood - Arm, Left Performing Organization Address [facility] Phone Number [address] [address] [phone] [place] [address] * Basic Metabolic Panel (06/05/2018 4:47 AM [employer]) Only the most recent of 13 results within the time period is included. Sodium 138 136 - 145 meq/L [facility] Potassium 3.9Comment: Specimen slightly 3.5 - 5.1 meq/L [facility] Chloride 103 98 - 107 meq/L [facility] CO2 28 22 - 29 meq/L [facility] BUN 13 7 - 21 mg/dL [facility] Creatinine 0.52 (L)Comment: Specimen 0.57 - 1.25 mg/dL [facility] slightly hemolyzed [facility] Glucose 107 (H) 70 - 105 mg/dL [facility] Calcium 9.2 8.4 - 10.2 mg/dL [facility] EGFR 117Comment: ESTIMATED GFR IS mL/min/1.73 sq m [facility] NOT ACCURATE CREATININE [facility] CLEARANCE IN PREDICTING GLOMERULAR FILTRATION RATE. ESTIMATED GFR IS NOT APPLICABLE FOR DIALYSIS PATIENTS. Specimen Blood - Arm, Left Performing Organization Address [facility] Phone Number [facility] [address] [place] [address] [facility] * CBC (Hemogram only) (06/04/2018 10:02 PM [employer]) WBC 5.0 3.5 - 10.5 K/L [facility] RBC 3.98 3.93 - 5.22 M/L [facility] Hemoglobin 11.5 11.2 - 15.7 GM/DL [facility] Hematocrit 37.9 34.1 - 44.9 % [facility] MCV 95.2 (H) 79.4 - 94.8 fL [facility] MCH 28.9 25.6 - 32.2 pg [facility] MCHC 30.3 (L) 32.2 - 35.5 GM/DL [facility] RDW 13.5 11.7 - 14.4 % [facility] Platelets 167 150 - 450 K/CU MM [facility] MPV 9.3 (L) 9.4 - 12.3 fL [facility] nRBC 0 0 - 0 /100 WBC [facility] Specimen Blood - Arm, Left Performing Organization Address City/[facility]/Zipcode Phone Number [facility] [address] [place] [address] [phone] [address] * Blood gas, venous (06/04/2018 4:01 AM [employer]) Only the most recent of 6 results within the time period is included. pH, Luis Carlos 7.42 7.32 - 7.42 [facility] pCO2, Luis Carlos 46 41 - 51 mmHg [facility] pO2, Luis Carlos 41 (H) 25 - 40 mmHg [facility] O2 Sat, Luis Carlos 76.5 (H) 40.0 - 70.0 % [facility] HCO3, Luis Carlos 29 21 - 29 mmol/L [facility] Base Excess, Luis Carlos 4.0 (H) -2.0 - 3.0 mmol/L [facility] Patient Temperature 37.0 C [facility] FIO2 100.0 % [facility] Specimen Blood Performing Organization Address City/State/Zipcode Phone Number [facility] [address] [place] [address] [phone] [place] [address] * XR chest 1 view portable / bedside (06/04/2018 2:44 AM [employer]) Only the most recent of 16 results [...] MD Report Verified Date/Time:06/04/2018 03:18:20 Reading Location: [address] Reading Room Procedure Note Interface, External Ris In - 06/04/2018 3:36 AM [employer] FINAL REPORT CLINICAL INDICATION: Support lines. Comparison: 05/04/2018 The patient is rotated to the right. The cardiomediastinal contours are grossly stable. Central pulmonary vascular prominence and bilateral parenchymal and pleural opacities are similar within variation of acquisition technique. There is no pneumothorax. Support lines are stable. Signed: Dallas Mae MD Report Verified Date/Time: 06/04/2018 03:18:20 Reading Location: [address] Reading Room Performing Organization Address City/[facility] Phone Number GE [facility] * ECG 12 lead (06/03/2018 10:34 AM [employer]) Only the most recent of 2 results within the time period is included. Narrative Performed At Ventricular Rate 75 BPM [facility] MUSE Atrial Rate 75 BPM P-R Interval 176 ms QRS Duration 90 ms Q-T Interval 374 ms QTC Calculation(Bazett) 417 ms P [place] 42 degrees R [place] 18 degrees T [place] 38 degrees Normal sinus rhythm Normal ECG When compared with ECG of 25-MAY-2018 04:46, Sinus rhythm has replaced Atrial fibrillation Vent. rate has decreased BY50 BPM Confirmed by MD MELVIN JORGE ([id number]) on 06/03/2018 1:54:28 PM Procedure Note Interface, External Ris In - 06/03/2018 1:54 PM [employer] Ventricular Rate 75 BPM Atrial Rate 75 BPM P-R Interval 176 ms QRS Duration 90 ms Q-T Interval 374 ms QTC Calculation(Bazett) 417 ms P [place] 42 degrees R [place] 18 degrees T [place] 38 degrees Normal sinus rhythm Normal ECG When compared with ECG of 25-MAY-2018 04:46, Sinus rhythm has replaced Atrial fibrillation Vent. rate has decreased BY 50 BPM Confirmed by MD MELVIN JORGE ([id number]) on 06/03/2018 1:54:28 PM Performing Organization Address [facility] Phone Number [facility] * CBC with platelet count + automated diff (06/03/2018 3:37 AM [employer]) Only the most recent of 10 results within the time period is included. WBC 6.0 3.5 - 10.5 K/L [facility] RBC 4.15 3.93 - 5.22 M/L [facility] Hemoglobin 11.8 11.2 - 15.7 GM/DL [facility] Hematocrit 39.5 34.1 - 44.9 % [facility] MCV 95.2 (H) 79.4 - 94.8 fL [facility] MCH 28.4 25.6 - 32.2 pg [facility] MCHC 29.9 (L) 32.2 - 35.5 GM/DL [facility] RDW 13.3 11.7 - 14.4 % [facility] Platelets 159 150 - 450 K/CU MM [facility] MPV 9.2 (L) 9.4 - 12.3 fL [facility] nRBC 0 0 - 0 /100 WBC [facility] % Neutros 90 % [facility] % Lymphs 6 % [facility] % Monos 3 % [facility] % Eos 0 % [facility] % Baso 0 % [facility] # Neutros 5.39 1.56 - 6.13 K/L [facility] # Lymphs 0.36 (L) 1.18 - 3.74 K/L [facility] # Monos 0.20 (L) 0.24 - 0.36 K/L [facility] # Eos 0.00 (L) 0.04 - 0.36 K/L [facility] # Baso 0.01 0.01 - 0.08 K/L [facility] Immature 1 0 - 1 % [facility] Granulocytes-[facility] Specimen Blood Performing Organization Address City/State/Zipcode Phone Number [facility] [address] [place] [address] [facility] * Lactic acid, venous, whole blood (06/01/2018 8:33 PM [employer]) Only the most recent of 2 results within the time period is included. Lactate, Venous 0.7Comment: Specimen slightly 0.5 - 2.2 mmol/L [facility] hemolyzed [facility] Specimen Blood Performing Organization Address City/[facility] Phone Number [place] [phone] [place] [address] [facility] * Heparin Assay - Low Molecular Weight (06/01/2018 3:46 AM [employer]) Anti 10A-Lovenox 0.52 (L) 0.60 - 2.00 u/ml [facility] Specimen Blood Narrative Performed At Anti-Factor 10-A Level (Heparin Assay for Low Molecular Weight Heparin) [facility] Monitoring Guidelines: [facility] Blood samples should be obtained 4 hours post subcutaneous injection (time of Peak level) Therapeutic Peak Levels: 0.6-1.0 units/mLtwice daily enoxaparin 1.0-2.0 units/mLonce daily enoxaparin Ref: CHEST 2012;[id number] Please collect anti-Xa level 4 hours after second Lovenox dose Performing Organization Address [facility] Phone Number [address] [address] [facility] * Sputum Culture + Gram Stain (05/31/2018 10:13 AM [employer]) Only the most recent of 2 results within the time period is included. 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 pH, Arterial 7.49 (H) 7.35 - 7.45 [facility] pCO2, Arterial 41 35 - 45 mmHg [facility] pO2, Arterial 193 (H) 80 - 90 mmHg [facility] O2 Sat, Arterial 99.4 (H) 96.0 - 97.0 % [facility] HCO3, Arterial 31 (H) 21 - 29 mmol/L [facility] Base Excess, Arterial 6.7 (H) -2.0 - 3.0 mmol/L [facility] Patient Temperature 37.0 C [facility] FIO2 60.0 % [facility] Specimen Blood, Arterial Performing Organization Address City/State/Zipcode Phone Number [facility] [address] [place] [address] MEDICAL CENTER * US pelvis (05/28/2018 6:20 AM FOX FARMER) Narrative Performed At FINAL REPORT [employer] TECHNIQUE: Transabdominal grayscale ultrasound of the pelvis. [...] MD Report Verified Date/Time:05/28/2018 08:57:20 Reading Location: [address] Ultrasound Reading Room Procedure Note Interface, External Ris In - 05/28/2018 8:59 AM FOX FARMER FINAL REPORT TECHNIQUE: Transabdominal grayscale ultrasound of [...] Report Verified Date/Time: 05/28/2018 08:57:20 Reading Location: [address] Ultrasound Reading Room Performing Organization Address City/[facility] Phone Number [facility] * aPTT (05/27/2018 4:05 AM FOX FARMER) Only the most recent of 9 results within the time period is included. PTT 88.2 (H) 22.5 - 36.0 seconds [facility] Specimen Blood Performing Organization Address City/[facility]/Zipcode Phone Number [facility] [address] [place] [address] MEDICAL CENTER * NEEDLE EMG, 2 EXTREMITY (05/26/2018 3:11 PM FOX FARMER) Narrative Performed At [facility] Neurophysiology Department ELECTROMYOGRAPHY / NERVE CONDUCTION STUDY [address] [place] [address] [address] [place] [address] Name: Maira Early Address:Date of [...] External Ris In - 05/26/2018 5:18 PM FOX FARMER [facility] Neurophysiology Department ELECTROMYOGRAPHY / NERVE CONDUCTION STUDY [address] [place] [address] Name: Maira Early Address: Date of : [...] disorder. Lanie Cobb M.D. Performing Organization Address City/[facility] Phone Number [facility] * Lipid panel (05/26/2018 4:23 AM FOX FARMER) Triglycerides 135 mg/dL [facility] Cholesterol 122 mg/dL [facility] HDL 32 mg/dL [facility] LDL Calculated 63 mg/dL [facility] Specimen Blood Narrative Performed At Triglyceride Reference Range: [facility] Low Risk <150 [facility] [id number] High Risk 200-499 Very High Risk>=500 Cholesterol Reference Range: Low Risk <200 [id number] High Risk>240 HDL Cholesterol Reference Range: Low Risk >=60 High Risk <40 LDL Cholesterol Reference Range: Optimal<100 Near [id number] Pcrlioauym439-276 Rxjw412-337 Very High >=190 Performing Organization Address [facility] Phone Number [place] [phone] [place] [address] [facility] * B-type Natriuretic Factor (BNP) (05/25/2018 1:15 PM FOX FARMER) Only the most recent of 2 results within the time period is included. BNP 48 0 - 100 pg/mL [facility] Specimen Blood Performing Organization Address [facility] Phone Number [facility] [address] [place] [address] [facility] * US abdomen limited (05/25/2018 12:10 PM FOX FARMER) Narrative Performed At FINAL REPORT [employer] History: Distended gallbladder, possible cholecystitis. FINDINGS: No [...] MD Report Verified Date/Time:05/25/2018 13:25:12 Reading Location: [address] Ultrasound Reading Room Procedure Note Interface, External Ris In - 05/25/2018 1:27 PM [employer]ER FINAL REPORT History: Distended gallbladder, possible cholecystitis. [...] Report Verified Date/Time: 05/25/2018 13:25:12 Reading Location: [facility] B1 P006J Ultrasound Reading Room Performing Organization Address City/State/Zipcode Phone Number [facility] * RESPIRATORY PANEL [facility] (05/25/2018 11:08 AM [employer] FARMER) Human Metapneumovirus Not detected Not detected, Equivocal [facility] Rhinovirus Not detected Not detected, Equivocal [facility] Influenza A Not detected Not detected, Equivocal [facility] INFLUENZA A (NO SUBTYPE) Not detected Not detected, Equivocal [facility] Influenza A subtype H1 Not detected Not detected, Equivocal [facility] Influenza A Subtype H3 Not detected Not detected, Equivocal [facility] Influenza A Subtype Not detected Not detected, Equivocal [facility] H1-2009 [facility] Influenza B Not detected Not detected, Equivocal [facility] Respiratory Syncytial Not detected Not detected, Equivocal [facility] Virus [facility] Parainfluenza Virus 1 Not detected Not detected, Equivocal [facility] Parainfluenza Virus 2 Not detected Not detected, Equivocal [facility] Parainfluenza virus 3 Not detected Not detected, Equivocal [facility] Parainfluenza Virus 4 Not detected Not detected, Equivocal [facility] Adenovirus Not detected Not detected, Equivocal [facility] Coronavirus 229E Not detected Not detected, Equivocal [facility] Coronavirus HKU1 Not detected Not detected, Equivocal [facility] Coronavirus NL63 Not detected Not detected, Equivocal [facility] Coronavirus OC43 Not detected Not detected, Equivocal [facility] Bordetella Pertussis Not detected Not detected, Equivocal [facility] Chlamydophila Pneumoniae Not detected Not detected, Equivocal [facility] Mycoplasma Pneumoniae Not detected Not detected, Equivocal [facility] Specimen Nasopharyngeal Narrative Performed At Other viruses and bacteria not targeted by this PCR panel cannot be excluded; [facility] therefore clinical correlation and follow up of serology, culture results, and [facility] other molecular studies is required. The results are not intended to be used as the sole means for clinical diagnosis or patient management decisions. This sample was tested at the [facility] Molecular Diagnostics Laboratory using the [employer] Film[employer] Respiratory Panel. It is FDA cleared and has been verified and approved by the [facility] Molecular Diagnostics Laboratory for clinical use on nasal swab specimens. It is not FDA-cleared for use on bronchial wash/lavage samples. However, for this sample type, validation was performed and test characteristics were determined and approved, by [facility] Molecular Diagnostics laboratory for clinical use under the Clinical Laboratory Improvement Amendments (CLIA) of 1988 requirements. Therefore, FDA clearance is not required.This laboratory is CLIA-certified and [employer] [place] [employer] (CAP)-accredited to perform high complexity testing. Performing Organization Address City/[facility] Phone Number [address] * Vancomycin level, trough (05/25/2018 9:28 AM FOX FARMER) Vancomycin Tr 6.5 (L) 10.0 - 20.0 ug/mL [facility] Specimen Blood Performing Organization Address [facility] Phone Number [address] * HIV-1 Antigen with HIV-1/2 Antibody (05/25/2018 4:47 AM FOX FARMER) HIV-1 Antigen with HIV NON-REACTIVE Nonreactive [facility] 1&2 Antibody [facility] Specimen Blood Performing Organization Address [facility] Phone Number [address] * Prealbumin (05/25/2018 4:47 AM FOX FARMER) Prealbumin <3 (L) 14 - 45 mg/dL [facility] Specimen Blood Performing Organization Address [facility] Phone Number [address] * Folate, Serum (05/25/2018 4:47 AM FOX FARMER) Folate 2.6 (L) >=7.0 ng/mL [facility] Specimen Blood Performing Organization Address [facility] Phone Number [address] [address] MEDICAL CENTER * CMV PCR,quantitative (05/25/2018 12:59 AM FOX FARMER) Only the most recent of 2 results within the time period is included. Scan Result [facility] Specimen BAL - BAL Narrative Performed At Performing Organization Address City/State/Zipcode Phone Number [facility] [address] [place], [place] * Urinalysis w/Microscopic + Reflex to Culture (05/24/2018 11:21 PM FOX FARMER) Color, UA Yellow [facility] Clarity, UA Clear [facility] Specific Neal, UA >1.050 (H) 1.001 - 1.035 [facility] pH, UA 6.5 5.0 - 8.0 [facility] Protein, UA 50 mg/dL (A) Negative [facility] Glucose, UA Negative Negative [facility] Ketones, UA 40 mg/dL (A) Negative [facility] Bilirubin, UA Negative Negative [facility] Blood, UA Trace (A) Negative [facility] Nitrite, UA Negative Negative [facility] Leukocytes, UA Negative Negative [facility] Urobilinogen, UA 2.0 (H) 0.2 - 1.0 mg/dL [facility] RBC, UA 4 /HPF [facility] WBC, UA 1 /HPF [facility] Mucus Many [facility] Squam Epithel, UA <1 /HPF [facility] Specimen Source [facility] Specimen Urine Performing Organization Address City/State/Zipcode Phone Number [place] [phone] [place], [place] [phone] [facility] * Sodium, random urine (05/24/2018 11:21 PM FOX FARMER) Sodium Urine 28 meq/L [facility] Specimen Urine Narrative Performed At Reference Range: No Normals [facility] Performing Organization Address City/[facility] Phone Number [address] [address] [facility] * Creatinine, random urine (05/24/2018 11:21 PM FOX FARMER) Creatinine, Ur 144.6 mg/dL [facility] Specimen Urine Narrative Performed At Reference Range: No Normals [facility] Performing Organization Address [facility] Phone Number [address] [address] [facility] * Prothrombin time/INR (05/24/2018 10:28 PM FOX FARMER) Protime 16.6 (H) 11.7 - 14.7 seconds [facility] INR 1.3 <=5.9 [facility] Specimen Blood Narrative Performed At RECOMMENDED COUMADIN/WARFARIN INR THERAPY RANGES [facility] STANDARD DOSE: 2.0 - 3.0 Includes: PROPHYLAXIS for venous thrombosis, [facility] systemic embolization; TREATMENT for venous thrombosis and/or pulmonary embolus. HIGH RISK: Target INR is 2.5-3.5 for patients with mechanical heart valves. Performing Organization Address City/[facility] Phone Number [address] [address] [facility] * Cytology (05/24/2018 10:22 PM FOX FARMER) Case Report Medical Cytology [facility] Report [facility] Case: [id number] Authorizing Provider:Ambrose Weinberg MDCollected: 05/24/20182 Ordering Location: [place] [address] ICUReceived: 05/25/20 18 0819 Pathologist: Thong, Vicenta Ella Specimen:Lung, Left Upper Lobe, GMS/PCP DIAGNOSIS LEFT UPPER LOBE LUNG BAL [facility] (CYTOSPINS): [facility] - NEGATIVE FOR MALIGNANCY SQUAMOUS CELLS, ACUTE INFLAMMATION, AND FEW MACROPHAGES The GMS stains are negative for Pneumocystis organisms. Other fungal elements (YEAST) are identified. No viral inclusions are seen. Signing Pathologist Direct Phone Line: [phone] CPT Code(s) 75695, [address]45 [facility] CLINICAL DATA Acute hypoxemic respiratory [facility] failure, history of basal cell [facility] carcinoma SPECIMEN SOURCE LEFT UPPER LOBE LUNG BAL [facility] GROSS DESCRIPTION 20 mls mucoid; 3 cytospins, 1 [facility] Collected: [id number] Received: [id number] STATEMENT OF ADEQUACY Satisfactory [facility] SPECIAL STUDIES The interpretation of this [facility] case included the use of [facility] immunohistochemistry or special stains. GMS Immunohistochemistry technical testing was performed at [facility], Pathology Laboratory where it was developed [...] complexity clinical laboratory testing. Gross assessment was [facility] performed at [place], Department of [facility] Pathology, [address] [place] [address], Technical component was [facility] performed at [place], [facility] Pathology, [address] [place] [address], Professional component [facility] was performed at [place], Department [facility] Pathology, [address] [place] [address], Specimen BAL - Lung, Left Upper Lobe Narrative Performed At Performing Organization Address [facility]/Zipcode Phone Number [facility] [address] [place] [address] [facility] * Body fluid cell count with differential (05/24/2018 8:45 PM FOX FARMER) Appearance Slightly Cloudy (A) Clear [facility] Color Colorless Colorless, Straw [facility] RBCs 1,530 (H) <=1 /cu mm [facility] Adjusted WBC Count 1,545 (H) <=5 /cu mm [facility] Lining Cells 15 (H) <=1 /cu mm [facility] % Segs 83 % [facility] % Lymphs 9 % [facility] % Monos 8 % [facility] % Eos 0 % [facility] % Baso 0 % [facility] Container Body Fluid EDTA Tube [facility] Specimen BAL - Lung, Left Upper Lobe Performing Organization Address [facility]/Zipcode Phone Number [facility] [address] [place] [address] [facility] * SPIN/CONCENTRATION CHARGE (05/24/2018 8:44 PM FOX FARMER) Concentration charged Done [facility] Specimen BAL - Lung, Left Upper Lobe Performing Organization Address City/[facility]/Zipcode Phone Number [facility] [address] [place] [address] [facility] * AFB culture + smear (05/24/2018 8:44 PM FOX FARMER) Result No acid-fast bacilli isolated [facility] in 42 days [facility] AFB Smear No acid fast bacilli seen [facility] Specimen BAL - Lung, Left Upper Lobe Performing Organization Address [facility]/Zipcode Phone Number [facility] [address] [place] [phone] [facility] * Legionella culture (05/24/2018 8:44 PM FOX FARMER) Result No Legionella species isolated [facility] Specimen BAL - Lung, Left Upper Lobe Performing Organization Address [facility] Phone Number [facility] [address] [place] [address] [facility] * Bacterial culture + gram stain (05/24/2018 8:44 PM FOX FARMER) Result 3+ Normal respiratory jeb [facility] Gram Stain Result 2+ WBCs [facility] Gram Stain Result No organisms seen [facility] Specimen BAL - Lung, Left Upper Lobe Performing Organization Address [facility] Phone Number [address] [address] [facility] * Fungus culture + smear (05/24/2018 8:44 PM FOX FARMER) Result KAROL TROPICALIS (A) [facility] Result YEAST (A) [facility] Fungus Smear No fungi seen [facility] Specimen BAL - Lung, Left Upper Lobe Narrative Performed At Corrected report: mold entered in error. [facility] Performing Organization Address [facility] Phone Number [address] [address] [facility] * Venous doppler legs bilateral (05/24/2018 5:49 PM FOX FARMER) Ejection Fraction [facility] MKCKESSON CPACS Impressions Performed At Right Impression [facility] 1. There is no deep [...] PV LAB - Lower Extremities DVT Study [facility] Demographics [facility] Patient NameCOLLINS,Date of Study 05/24/2018 MAIRA 68 Visit [id number] male of 1950 Referring Stella Pringle Room Number 7106 Physician Daphne 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 Richy Fatima Aisha Physician MD Ritesh Juan [...] External Ris In - 05/25/2018 9:37 AM FOX FARMER PV LAB - Lower Extremities DVT Study Demographics Patient Name EARLY, Date of Study 05/24/2018 MAIRA Age 68 Visit Number [id number] Gender Female Accession Number [id number] Date of 1950 Referring Stella Pringle Room Number 7106 Physician Daphne 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 Richy Sanchez Interpreting Veronica Fatima S Physician [...] cm Performing Organization Address City/State/Zipcode Phone Number [facility] [employer] * Venous doppler arms bilateral (05/24/2018 5:49 PM FOX FARMER) Ejection Fraction [facility] [employer]ON CPACS Impressions Performed At Right Impression [facility] [employer] 1. There is no deep venous obstruction in the jugular, subclavian, axillary, [employer]CK[employer] brachial, radial or ulnar veins. 2. There [...] Upper Extremities Veins [facility] Demographics [facility] Patient NameCOLLINS,Date of Study 05/24/2018 MAIRA 68 Visit [id number] male of 1950 Referring Stella Pringle Room Number 7106 Physician Daphne 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 SHAMIR Henley Physician MD Ritesh Juan Procedure [...] External Ris In - 05/25/2018 9:36 AM FOX FARMER PV LAB - Upper Extremities Veins Demographics Patient Name EARLY, Date of Study 05/24/2018 MAIRA Age 68 Visit Number [id number] Gender Female Accession Number [id number] Date of 1950 Referring Stella Pringle Room Number 7106 Physician Daphne 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 Richy Sanchez Interpreting Veronica Fatima S Physician [...] Performing Organization Address City/State/Zipcode Phone Number [facility] [employer] HEART[facility] MKCKESSON CPACS * MR cervical spine without & with IV contrast (05/24/2018 4:59 PM FOX FARMER) Narrative Performed At FINAL REPORT [facility] MRI cervical spine with and without contrast [...] MD Report Verified Date/Time:05/24/2018 16:37:21 Reading Location: [address] Neuro Reading Room Procedure Note Interface, External Ris In - 05/24/2018 5:01 PM [employer]ER FINAL REPORT MRI cervical spine with and [...] Report Verified Date/Time: 05/24/2018 16:37:21 Reading Location: [address] Neuro Reading Room Performing Organization Address City/State/Zipcode Phone Number [facility] * MR brain without & with IV contrast (05/24/2018 4:59 PM FOX FARMER) Narrative Performed At FINAL REPORT [employer] MRI Brain with and without contrast 05/24/2018 [...] MD Report Verified Date/Time:05/24/2018 16:55:17 Reading Location: [address] Neuro Reading Room Procedure Note Interface, External Ris In - 05/24/2018 5:01 PM [employer]ER FINAL REPORT MRI Brain with and without [...] Report Verified Date/Time: 05/24/2018 16:55:17 Reading Location: [address] Neuro Reading Room Performing Organization Address City/State/Zipcode Phone Number [employer] [facility] * ECHOCARDIOGRAM REPORT - SCAN (05/24/2018 3:50 PM [employer]ER) Narrative Performed At * CT abdomen/pelvis with IV contrast (05/24/2018 2:40 PM FOX FARMER) Narrative Performed At FINAL REPORT [facility] CT of the Chest, abdomen and pelvis [...] MD Report Verified Date/Time:05/24/2018 15:16:50 Reading Location: [address] Consult Reading Room Procedure Note Interface, External Ris In - 05/24/2018 3:18 PM FOX [employer]ER FINAL REPORT CT of the Chest, abdomen [...] Report Verified Date/Time: 05/24/2018 15:16:50 Reading Location: [address] Consult Reading Room Performing Organization Address City/State/Zipcode Phone Number [facility] * CT chest with IV contrast (05/24/2018 2:40 PM FOX FARMER) Narrative Performed At FINAL REPORT [facility] CT of the Chest, abdomen and pelvis [...] MD Report Verified Date/Time:05/24/2018 15:16:50 Reading Location: [address] Consult Reading Room Procedure Note Interface, External Ris In - 05/24/2018 3:18 PM [employer]ER FINAL REPORT CT of the Chest, abdomen [...] Report Verified Date/Time: 05/24/2018 15:16:50 Reading Location: [facility] C013W Consult Reading Room Performing Organization Address City/State/Zipcode Phone Number GE RIS * Rapid Influenza A&B Screen (05/24/2018 12:38 PM FOX FARMER) Rapid Influenza A Antigen NEGATIVE LABORATORY FINDING Negative, Inconclusive [facility] Rapid influenza B Antigen NEGATIVE LABORATORY FINDING Negative, Inconclusive [facility] Specimen Nasal - Nares Performing Organization Address City/[facility]/Zipcode Phone Number [facility] * MRSA screen (05/24/2018 12:38 PM FOX FARMER) Result No MRSA isolated [facility] Specimen Nasal - Nares Performing Organization Address [facility] Phone Number [place] [phone] * TSH/Free T4 If Indicated (05/24/2018 12:28 PM FOX FARMER) TSH 1.88 0.35 - 4.94 uIU/mL [facility] Specimen Blood Performing Organization Address [facility] Phone Number [address] * Folate, RBC (05/24/2018 12:28 PM FOX FARMER) Folate, Rbc 606 >280 ng/mL RBC [facility] Specimen Blood Narrative Performed At Performing Lab [facility] [place] [address] [address] Delia Dow MD, PhD, SOBIA Performing Organization Address [facility] Phone Number [facility], [address] [place] [phone] * Vitamin B12 (05/24/2018 12:28 PM FOX FARMER) Vitamin B12 411 213 - 816 pg/mL [facility] Specimen Blood Performing Organization Address [facility] Phone Number [address] * 2D Echo W/Doppler(CW/PW/Color) (05/24/2018 10:47 AM FOX FARMER) Ejection Fraction [facility] Narrative Performed At Transthoracic Echocardiography Report (TTE) [facility] Demographics [facility] Patient Name EARLY, Date of Study 05/24/2018 MAIRA [id number] GenderFemale Visit Number [id number] RaceUnknown [id number] Number [id number] Number Date of Birth1950 Referring Physician Ambrose Weinberg MD Age68 year(s) 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 [facility] Tere Davila InterpretingBuddy Coppola MD Physician [...] External Ris In - 05/24/2018 3:06 PM FOX FARMER Transthoracic Echocardiography Report (TTE) Demographics Patient Name EARLY, Date of Study 05/24/2018 MAIRA Gender Female Visit Number [id number] Race Unknown Room Number 7106 Number Date of 1950 Referring Physician Ambrose Weinberg MD Age 68 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(s) 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, [facility] 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 Inside Ashlie Davila Interpreting Buddy Coppola MD Physician [...] TR Gradient: 32.34 mmHg Performing Organization Address [facility] Phone Number [facility] MKCKESSON CPA * Sjogren's antibodies (05/24/2018 10:23 AM FOX FARMER) Anti-Ss-A <1.0 NEG <1.0 NEGATIVE AI [facility] Anti-Ss-B <1.0 NEG <1.0 NEGATIVE AI [facility] Specimen Blood Narrative Performed At Performing Lab [facility] [address] [address] Delia Dow MD, PhD, SOBIA Performing Organization Address [facility] Phone Number [facility] [employer] [place], [address] [place], [place] [address] [address] * Anti-SHIRA Ab (RNA, Hendrickson) (05/24/2018 10:23 AM FOX FARMER) Sm Antibody <1.0 NEG <1.0 NEGATIVE AI [facility] Sm/CLEANERS Antibody <1.0 NEG <1.0 NEGATIVE AI [facility] Specimen Blood Narrative Performed At Performing Lab [facility] [address] [address] Delia Dow MD, PhD, SOBIA Performing Organization Address [facility] Phone Number [facility], [address] [place], [place] [email or web address] [phone] * Double-Stranded DNA (dsDNA) Antibody (05/24/2018 10:23 AM FOX FARMER) ds DNA Ab Negative [facility] Specimen Blood Performing Organization Address City/[facility] [place] [address] [phone] [place] [address] * Anti-Nuclear Antibody (GIOVANNI) (05/24/2018 10:23 AM FOX FARMER) GIOVANIN Negative Negative [facility] Specimen Blood Narrative Performed At Test performed by IFA method. [facility] Test performed by IFA method. [facility] Performing Organization Address [facility] Phone Number [place] [phone] * Creatine Kinase (CK) (05/24/2018 10:23 AM FOX FARMER) Total CK 196 29 - 200 U/L [facility] Specimen Blood Performing Organization Address [facility] [place] [address] [phone] [place] [address] * Blood culture (05/23/2018 9:59 PM FOX FARMER) Only the most recent of 2 results within the time period is included. Result No growth in 5 days [facility] Specimen Blood - Arm, Left Performing Organization Address [facility] [place] [address] [phone] [address] * Strep pneumoniae antigen (05/23/2018 8:40 PM FOX FARMER) Strep pneumoniae Antigen Presumptive negative for Presumptive negative for [facility] pneumococcal pneumonia - see pneumococcal pneumonia - [facility] comment see comment, Presumptive negative for pneumococcal meningitis - see comment Specimen Urine - Urine, Unspecified Source Narrative Performed At Presumptive negative for pneumococcal pneumonia, suggesting no current or recent [facility] pneumococcal infection. Infection due to S. pneumoniae cannot be ruled out since [facility] the antigen present in the sample may be below the detection limit of the test. Performing Organization Address City/[facility]/Zipcode Phone Number [address] [address] [facility] * Legionella antigen, urine (05/23/2018 8:39 PM FOX FARMER) Legionella Urine Antigen Negative - see commentComment: [facility] Negative for L. pneumophila [facility] serogroup 1 antigen, suggesting no recent or current infection with this serogroup. Legionellosis cannot be ruled out since other serogroups and species may cause disease. Specimen Urine Performing Organization Address City/[facility]/Zipcode Phone Number [address] [address] [facility] * Troponin I (05/23/2018 8:34 PM FOX FARMER) Troponin I 0.02 0.00 - 0.03 ng/mL [facility] Specimen Blood Performing Organization Address City/[facility] Phone Number [address] [address] [facility] * Comprehensive metabolic panel (05/23/2018 8:34 PM FOX FARMER) Protein, Total 6.2 6.0 - 8.3 gm/dL [facility] Albumin 3.2 (L) 3.5 - 5.0 g/dL [facility] Alkaline Phosphatase 54 40 - 150 U/L [facility] Total Bilirubin 0.4 0.2 - 1.2 mg/dL [facility] Sodium 139 136 - 145 meq/L [facility] Potassium 4.5 3.5 - 5.1 meq/L [facility] Chloride 101 98 - 107 meq/L [facility] CO2 31 (H) 22 - 29 meq/L [facility] BUN 20 7 - 21 mg/dL [facility] Creatinine 0.61 0.57 - 1.25 mg/dL [facility] Glucose 131 (H) 70 - 105 mg/dL [facility] Calcium 8.6 8.4 - 10.2 mg/dL [facility] AST 21 5 - 34 U/L [facility] ALT 17 6 - 55 U/L [facility] EGFR 97Comment: ESTIMATED GFR IS mL/min/1.73 sq m [facility] NOT ACCURATE CREATININE [facility] CLEARANCE IN PREDICTING GLOMERULAR FILTRATION RATE. ESTIMATED GFR IS NOT APPLICABLE FOR DIALYSIS PATIENTS. Specimen Blood Performing Organization Address City/State/Zipcode Phone Number [address] [address] [facility] after 09/22/2017 Insurance Payer Benefit Subscriber ID Type Phone Address Plan / Group MEDICARE MEDICARE A xxxxxxxxxxx Medicare B OTHER-COMMERCIAL GENERIC xxxxxxxxxx COMMERCIAL [phone] (Work) Advance Directives For more information, please contact: [place] [id number] [place] [address] Date Inactivated Comments Code Status Date Activated Full Code 05/23/2018 8:08 PM This code status was determined by: Patient
[2018-09-23] MEDS ORDERED: AMIODARONE HCL 150 MG/100 ML BAG IV ONE (01:00)
[2018-09-23] MEDS ORDERED: AMIODARONE 900MG 500 ML IV ONE ×2 (01:44→02:00)
[2018-09-23 02:52] LABS: BASOPHILS % 0.2 % (0.0-1.0); EOSINOPHILS # (AUTO) 0.1 (0.0-0.4); EOSINOPHILS % 0.6 % (0.0-6.0); HEMOGLOBIN 10.2 g/dL (12.0-16.0); LYMPHOCYTES # (AUTO) 1.9 (1.0-3.2); LYMPHOCYTES % 16.9 % (18.0-39.1); MEAN CORPUSCULAR HEMOGLOBIN 27.6 pg (28-32); MEAN CORPUSCULAR VOLUME 92.1 fL (81-99); MONOCYTES # (AUTO) 0.7 (0.2-0.8); MONOCYTES % 6.3 % (4.4-11.3); NEUTROPHILS # (AUTO) 8.4 (2.1-6.9); NEUTROPHILS % 75.6 % (38.7-80.0); PLATELET COUNT 384 x10e3/uL (140-360); RED BLOOD COUNT 3.69 x10e6/uL (3.6-5.1); RED CELL DISTRIBUTION WIDTH 15.9 % (11.7-14.4)
[2018-09-23 03:15] LABS: ALANINE AMINOTRANSFERASE 15 IU/L (0-55); ALBUMIN 2.3 g/dL (3.5-5.0); ALBUMIN/GLOBULIN RATIO 0.5 (0.8-2.0); ALKALINE PHOSPHATASE 76 IU/L (40-150); ANION GAP 15.8 mmol/L (8-16); BLOOD UREA NITROGEN 11 mg/dL (7-26); BUN/CREATININE RATIO 22 (6-25); CALCIUM 10.3 mg/dL (8.4-10.2); CARBON DIOXIDE 34 mmol/L (22-29); CHLORIDE 92 mmol/L (98-107); CREATININE, SERUM 0.49 mg/dL (0.57-1.11); EST GLOMERULAR FILTRATION RATE > 60 ML/MIN (60-); GLUCOSE 124 mg/dL (74-118); POTASSIUM 3.8 mmol/L (3.5-5.1); SODIUM 138 mmol/L (136-145)
[2018-09-23 03:22] LABS: CREATINE KINASE < 7 IU/L (29-168)
[2018-09-23] MEDS ORDERED: SODIUM CHLORIDE 0.9% 1000ML 1,000 ML IV SCH (03:28)
--- NOTE | 2018-09-23 07:30 | NUR ---
ASSUMED CARE AT THIS TIME. PATIENT AWAKE AND ALERT SITTING IN BED. RESP EVEN AND UNLABORED. SKIN WARM AND DRY. NO SIGNS OF ACUTE DISTRESS NOTED AT THIS TIME. TOLERATING VENT WELL. DENIES ANY C/O AT THIS TIME.
--- NOTE | 2018-09-23 08:50 | NUR ---
TRACH SUCTIONED AND ORAL CARE PROVIDED, TOLERATED WELL. NO SIGNS OF ACUTE DISTRESS NOTED AT THIS TIME.
--- NOTE | 2018-09-23 09:03 | NUR ---
COLOSTOMY BAG BURPED, TOLERATED WELL. NO SIGNS OF ACUTE DISTRESS NOTED AT THIS TIME. DENIES ANY C/O AT THIS TIME.
--- NOTE | 2018-09-23 09:43 | NUR ---
SPOKE WITH FABRICIO,FROM IR, STATES PATIENT IS ON THE IR SCHEDULE BUT DOES NOT HAVE A TIME AVILABLE AT THIS TIME.
--- NOTE | 2018-09-23 12:01 | NUR ---
PATIENT AWAKE AND ALERT SITTING IN BED. RESP EVEN AND UNLABORED. SKIN WARM AND DRY. NO SIGNS OF ACUTE DISTRESS NOTED AT THIS TIME. TOLERATING VENT WELL. DENIES ANY C/O AT THIS TIME.
--- NOTE | 2018-09-23 13:10 | NUR ---
RADIOLOGY NURSEFABRICIO RN AT BEDSIDE, CONSENT FORM SIGNED FOR PEG TUBE REPLACEMENT WITH RADIOLOGY NURSE.
[2018-09-23] MEDS ORDERED: LIDOCAINE HCL 1% LOCAL INJ 20 ML VIAL ONE (14:16)
[2018-09-23] MEDS ORDERED: DIATRIZOATE MEGL/DIATRIZOA SOD 30 ML BTL PO ONE (14:17)
[2018-09-23] MEDS ORDERED: SODIUM CHLORIDE 0.9% 250ML 250 ML ONE (14:17)
--- NOTE | 2018-09-23 14:20 | NUR ---
PATIENT TRANSPORTED TO IR FOR PEG TUBE PLACEMENT WITH PORTABLE VENT AND PROGRAM LEAD,SPO2, WITH RESPIRATORY AND BONING ROOM WORKER. NO SIGNS OF ACUTE DISTRESS NOTED AT THIS TIME.
--- NOTE | 2018-09-23 15:01 | NUR ---
PATIENT TANSPORTED BACK TO ER VIA STRETCHER WITH RESPIRATORY AND CRYPTOGRAPHIC TECHNICIAN.
--- NOTE | 2018-09-23 15:16 | NUR ---
NOTIFIED [facility] FOR PATIENT TRANSPORT VIA STRETCHER D/C [facility] WITH [facility],SPOKE WITH AMARIS.
--- NOTE | 2018-09-23 15:50 | Diagnostic Imaging Report ---
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 Tineo Pre-operative diagnosis: Dislodged gastrostomy catheter Post-operative diagnosis: Replaced gastrostomy catheter Conscious Sedation: None The patient's heart rate and pulse oximetry were continuously monitored by the interventional radiology nurse. Blood pressure was monitored at 5 minute intervals. Additional Medications: Lidocaine 1% for local anesthesia Fluoroscopy time: 0.6 minutes Dose-area Product: 2.82 Gycm2. Frontal Air Kerma: 8.69 mGy Contrast used: 20 cc Gastrografin Estimated blood loss: None Specimens: Sanchez catheter discarded Implants: 18 Afghan balloon retention gastrostomy catheter Blood products administered: None Condition at completion: Stable Disposition: Returned to ER DISCUSSION: Informed consent was obtained and documented in the medical record. The patient was placed in the supine position on the fluoroscopic table. The midepigastric region and existing Sanchez catheter, which had been placed to preserve the gastrostomy tract, were prepped and draped in standard sterile fashion. 1% lidocaine was infiltrated along the Sanchez catheter for local anesthesia. The Sanchez catheter was then removed and a 5 Afghan angled catheter was advanced through the tract and into the stomach under fluoroscopic guidance, with appropriate positioning confirmed by injection of dilute contrast material. 0.0 3 5-in. Amplatz Super Stiff wire was then advanced through the catheter and coiled within the stomach. The catheter was removed over the wire. Then, an 18 Afghan balloon retention gastrostomy catheter was advanced over the wire under fluoroscopic guidance. The retention balloon was inflated with 6 cc sterile saline. The wire was removed and the catheter was retracted to the gastric wall. Appropriate position was confirmed by injection of dilute contrast material. The catheter was then flushed with sterile saline. IMPRESSION: Successful replacement of a dislodged percutaneous gastrostomy catheter under fluoroscopic guidance. The new catheter is an 18 Afghan balloon retention device and may be used immediately. Signed by: Dr. Rashard Tineo M.D. on 09/23/2018 3:46 PM
== END 2018-09-23 16:45 | disposition home or self-care (01) ==
LOC: ER 00:13 → ERHOLD 03:28 → UNDOADMOB 03:28 → ERHOLD 19:33
DX: Z43.1 Encounter for attention to gastrostomy (principal); I48.1 Persistent atrial fibrillation; Z93.0 Tracheostomy status; Z99.11 Dependence on respirator [ventilator] status; Z93.3 Colostomy status; Z87.891 Personal history of nicotine dependence; I95.9 Hypotension, unspecified; Z79.01 Long term (current) use of anticoagulants; Z79.4 Long term (current) use of insulin; E11.9 Type 2 diabetes mellitus without complications; G12.21 Amyotrophic lateral sclerosis; J96.10 Chronic respiratory failure, unspecified whether with hypoxia or hypercapnia
CPT/HCPCS: 36415; 49450; 74470; 80053; 82550; 82553; 84484; 85025; 93005; 94002; 94003; 96365; 99284; C1769; J2001; J7030; J7050

== ENCOUNTER 2018-12-17 15:53 | Inpatient (IN) | payer MEDICARE, OTHER ==
[~2018-12-17] VITALS: Ht 157.5 cm; Wt 90.8 kg
[2018-12-17] MEDS ORDERED: PANTOPRAZOLE 40 MG 10ML VIAL IV STA (16:00)
[2018-12-17] MEDS ORDERED: SODIUM CHLORIDE 0.9% 1000ML 1,000 ML IV STA (16:00)
[2018-12-17 16:17] LABS: BASOPHILS % 0.2 % (0.0-1.0); EOSINOPHILS % 0.1 % (0.0-6.0); HEMATOCRIT 30.7 % (34.2-44.1); HEMOGLOBIN 8.7 g/dL (12.0-16.0); LYMPHOCYTES # (AUTO) 2.9 (1.0-3.2); LYMPHOCYTES % 15.7 % (18.0-39.1); MEAN CORPUSCULAR HEMOGLOBIN 25.8 pg (28-32); MEAN CORPUSCULAR HGB CONC 28.3 g/dL (31-35); MEAN CORPUSCULAR VOLUME 91.1 fL (81-99); MONOCYTES # (AUTO) 1.8 (0.2-0.8); MONOCYTES % 9.7 % (4.4-11.3); NEUTROPHILS # (AUTO) 13.5 (2.1-6.9); NEUTROPHILS % 73.5 % (38.7-80.0); PLATELET COUNT 335 x10e3/uL (140-360); RED BLOOD COUNT 3.37 x10e6/uL (3.6-5.1); RED CELL DISTRIBUTION WIDTH 17.5 % (11.7-14.4)
[2018-12-17 16:20] LABS: BILIRUBIN,URINE NEGATIVE (NEGATIVE); CLARITY,URINE SL CLOUDY (CLEAR); COLOR,URINE YELLOW (YELLOW); KETONES,URINE NEGATIVE (NEGATIVE); LEUKOCYTE ESTERASE ,URINE NEGATIVE (NEGATIVE); NITRITE,URINE NEGATIVE (NEGATIVE); PROTEIN,URINE DIPSTICK 1+ (NEGATIVE); URINE UROBILINOGEN 1 mg/dL (0.2 - 1)
[2018-12-17 16:22] LABS: INR 1.52; PROTHROMBIN TIME 18.9 seconds (11.9-14.5)
[2018-12-17 16:23] LABS: PARTIAL THROMBOPLASTIN TIME 49.9 seconds (23.8-35.5)
[2018-12-17 16:29] LABS: ABG HCO3 45 mmol/L (23-28); ABG PCO2 70 mmHg (41-51); ABG PH 7.41 (7.31-7.41); ABG PO2 127 mmHg (80-105)
[2018-12-17 16:32] LABS: BACTERIA,URINE MODERATE /HPF; EPITHELIAL CELLS,URINE MODERATE /LPF
[2018-12-17 16:34] LABS: ALANINE AMINOTRANSFERASE 17 IU/L (0-55); ALBUMIN 1.8 g/dL (3.5-5.0); ALBUMIN/GLOBULIN RATIO 0.3 (0.8-2.0); ALKALINE PHOSPHATASE 106 IU/L (40-150); BLOOD UREA NITROGEN 15 mg/dL (7-26); BUN/CREATININE RATIO 38 (6-25); CALCIUM 10.4 mg/dL (8.4-10.2); CHLORIDE 89 mmol/L (98-107); CREATINE KINASE < 7 IU/L (29-168); EST GLOMERULAR FILTRATION RATE > 60 ML/MIN (60-); GLUCOSE 105 mg/dL (74-118); MAGNESIUM 1.9 MG/DL (1.3-2.1); SODIUM 139 mmol/L (136-145)
[2018-12-17 16:35] LABS: CARBON DIOXIDE 43 mmol/L (22-29)
--- NOTE | 2018-12-17 17:35 | Diagnostic Imaging Report ---
EXAM: CHEST SINGLE (PORTABLE) DATE: 12/17/2018 4:00 PM INDICATION: ^HYPOXIA, TRACH/VENT DUE TO ALS COMPARISON: Chest x-ray, 09/20/2018 FINDINGS: Lines and tubes: Again noted is tracheostomy tube with the tip approximately 2.5 cm above the elissa. Cardiac silhouette remains slightly enlarged. Dense consolidation is developed in the left upper lobe. Airspace opacity has resolved from the right upper lobe. Atelectasis is seen at the lung bases. Possible small pleural effusions. Upper abdomen unremarkable. No acute bony abnormality identified. IMPRESSION: 1. Mild cardiomegaly with improvement of pulmonary vascular congestion and edema. 2. Dense airspace opacity has developed in the left upper lobe concerning for pneumonia. Signed by: Dr. Shawn Issa M.D. on 12/17/2018 5:31 PM
[2018-12-17] MEDS: MEROPENEM 1GM 100 ML IV SCH (18:08)
[2018-12-17] MEDS ORDERED: D5.45%NS/KCL 20MEQ 1,000 ML IV ONE (18:15)
[2018-12-17] MEDS: VANCOMYCIN 1GM/NS 250 ML 250 ML IV SCH (19:01)
[2018-12-17] MEDS ORDERED: ACETAMINOPHEN 1000 MG/100 ML IV PRN (19:15)
[2018-12-17 20:10] VITALS: BP 107/58
[2018-12-17] MEDS: IPRATROPIUM BROMIDE 0.02% 2.5 ML NEB NEB SCH (20:10)
[2018-12-17 20:15] VITALS: BP 106/41
[2018-12-17 20:30] VITALS: BP 106/41
[2018-12-17 21:00] VITALS: BP 80/43
--- NOTE | 2018-12-17 21:29 | NUR ---
Patient Code status discussed with Vaishali Taylor, medical POA, by myself and Elena YUAN. They want patient to be DNR status - specifically no compression, no defibrillation, no antiarrhythmics and no vasopressors. Dr. Aisha Chiu notified and agrees with POA wishes
[2018-12-17] MEDS ORDERED: TRAZODONE HCL 50 MG TAB GT PRN (21:45)
[2018-12-17] MEDS ORDERED: ACETAMINOPHEN 325 MG TAB GT PRN (21:45)
[2018-12-17] MEDS ORDERED: IPRATROPIUM BROMIDE 0.02% 2.5 ML NEB NEB PRN (21:45)
[2018-12-17] MEDS: AZTREONAM 2GM/NS 100ML 100 ML IV SCH (21:46)
--- NOTE | 2018-12-17 21:56 | NUR ---
Call placed to answering service for Dr. Villavicencio to notify of new consult
[2018-12-17 22:00] VITALS: BP 96/47
[2018-12-17] MEDS: DILTIAZEM HCL 30 MG TAB GT SCH (22:00)
[2018-12-17] MEDS ORDERED: ONDANSETRON HCL 4 MG ORAL DISINTEGRATING TAB GT PRN (22:15)
[2018-12-17 23:00] VITALS: BP 89/47
[2018-12-18] VITALS (24 sets, daily range): BP systolic 94–174; BP diastolic 38–99
[2018-12-18 00:46] LABS: CREATINE KINASE < 7 IU/L (29-168)
[2018-12-18] MEDS: IPRATROPIUM BROMIDE 0.02% 2.5 ML NEB NEB SCH ×4 (01:02→19:15)
[2018-12-18] MEDS: MEROPENEM 1GM 100 ML IV SCH ×3 (03:19→18:59)
[2018-12-18] MEDS: AZTREONAM 2GM/NS 100ML 100 ML IV SCH ×3 (04:02→20:30)
[2018-12-18 05:12] LABS: BASOPHILS % 0.1 % (0.0-1.0); EOSINOPHILS % 0.3 % (0.0-6.0); HEMATOCRIT 24.8 % (34.2-44.1); HEMOGLOBIN 7.1 g/dL (12.0-16.0); LYMPHOCYTES # (AUTO) 1.9 (1.0-3.2); LYMPHOCYTES % 18.6 % (18.0-39.1); MEAN CORPUSCULAR HEMOGLOBIN 25.4 pg (28-32); MEAN CORPUSCULAR HGB CONC 28.6 g/dL (31-35); MEAN CORPUSCULAR VOLUME 88.9 fL (81-99); MONOCYTES # (AUTO) 1.1 (0.2-0.8); MONOCYTES % 10.8 % (4.4-11.3); NEUTROPHILS # (AUTO) 7.3 (2.1-6.9); NEUTROPHILS % 69.6 % (38.7-80.0); PLATELET COUNT 248 x10e3/uL (140-360); RED BLOOD COUNT 2.79 x10e6/uL (3.6-5.1); RED CELL DISTRIBUTION WIDTH 17.7 % (11.7-14.4)
[2018-12-18 05:35] LABS: ALANINE AMINOTRANSFERASE 11 IU/L (0-55); ALBUMIN 1.6 g/dL (3.5-5.0); ALBUMIN/GLOBULIN RATIO 0.3 (0.8-2.0); ALKALINE PHOSPHATASE 79 IU/L (40-150); ANION GAP 11.6 mmol/L (8-16); BLOOD UREA NITROGEN 12 mg/dL (7-26); BUN/CREATININE RATIO 35 (6-25); CALCIUM 9.6 mg/dL (8.4-10.2); CARBON DIOXIDE 35 mmol/L (22-29); CHLORIDE 96 mmol/L (98-107); CREATININE, SERUM 0.34 mg/dL (0.57-1.11); EST GLOMERULAR FILTRATION RATE > 60 ML/MIN (60-); GLUCOSE 86 mg/dL (74-118); POTASSIUM 3.6 mmol/L (3.5-5.1); SODIUM 139 mmol/L (136-145)
[2018-12-18] MEDS: DILTIAZEM HCL 30 MG TAB GT SCH ×3 (05:52→22:00)
--- NOTE | 2018-12-18 06:20 | NUR ---
Left message with answering service regarding hemoglobin level with Dr. Chiu. Awaiting return call.
--- NOTE | 2018-12-18 06:24 | NUR ---
Dr. Joey Chiu returned call and notified of hemoglobin level. No orders received.
[2018-12-18 06:48] LABS: CREATINE KINASE < 7 IU/L (29-168)
--- NOTE | 2018-12-18 09:14 | Diagnostic Imaging Report ---
EXAM: CHEST SINGLE (PORTABLE) DATE: 12/18/2018 7:36 AM INDICATION: Anemia, UTI ^mech ventilator ^[id number] ^[id number] COMPARISON: Chest x-ray, 12/17/2018 FINDINGS: Lines and tubes: Stable position of tracheostomy tube. Cardiac silhouette remains slightly enlarged. Improvement of dense left upper lobe consolidation. Small left pleural effusion that appears increased from last exam. Likely right pleural effusion, with elevation of the right diaphragm or subpulmonic fluid. No pneumothorax. Upper abdomen unremarkable. No acute bony abnormality. IMPRESSION: 1. Left upper lobe consolidation is improved from previous exam. 2. Increased left pleural effusion. Elevation of right hemidiaphragm, possibly representing moderate subpulmonic right pleural effusion. Signed by: Dr. Shawn Issa M.D. on 12/18/2018 9:10 AM
[2018-12-18] MEDS ORDERED: SODIUM CHLORIDE 0.9% 250ML 250 ML IV ONE (09:15)
[2018-12-18] MEDS ORDERED: FUROSEMIDE INJ 10 MG/ML 2 ML VIAL IV PRN (09:15)
[2018-12-18] MEDS: FUROSEMIDE 20 MG TAB GT SCH (09:45)
[2018-12-18] MEDS: ESCITALOPRAM OXALATE 10 MG TAB GT SCH (09:45)
[2018-12-18] MEDS: LINEZOLID 600 MG TAB GT SCH ×2 (09:45→18:59)
[2018-12-18] MEDS: ZINC SULFATE 220 MG CAP GT SCH (09:45)
--- NOTE | 2018-12-18 09:52 | Consultation ---
DATE OF CONSULTATION: 12/18/2018 Pulmonary Consultation HISTORY OF PRESENT ILLNESS: Patient of Dr. Dhruv Chiu. The patient well known to Pulmonary service, history of ALS, recurrent pneumonias, chronic respiratory failure, largely ventilator dependent, admitted with hypoxia and low-grade fever from [facility]. History of hypertension, diabetes, intermittent atrial fibrillation. She has had a colostomy, tracheostomy, Sanchez catheter and PEG placed. Colostomy presumably for wound care. MEDICATIONS: Her snf medicines included Tylenol, , Cardizem, Lexapro, Lasix, Atrovent, linezolid, Ativan, trazodone, apixaban. ALLERGIES: SHE IS ALLERGIC TO ALBUTEROL. SOCIAL HISTORY: No history of smoking or drinking. PHYSICAL EXAMINATION: GENERAL: A well-developed white female, awake and alert, unable to communicate, tracheostomy in place, on mechanical ventilator support. LUNGS: Rhonchi bilaterally, left greater than right. HEART: Regular rhythm. ABDOMEN: PEG is in place. Colostomy tube in place. Sanchez catheter. EXTREMITIES: Nonedematous. There is large sacral wound. Plan is to continue mechanical ventilator support. Check sputum Gram stain and culture. We will use antibiotics. Hemoglobin is 7.1, transfusion is planned. The patient's long-term prognosis is grim. Family requests DNR status though to continue mechanical ventilator support for now. We will also begin tube feedings. Continue bronchodilators. Maintain endotracheal tube cuff pressure less than 20. Rashard Mondragon MD DS/MODL /[id number]
[2018-12-18] MEDS: VANCOMYCIN 1GM/NS 250 ML 250 ML IV SCH ×2 (10:15→21:30)
[2018-12-18] MEDS: APIXABAN 5 MG TABLET GT SCH ×2 (11:00→17:00)
--- NOTE | 2018-12-18 11:30 | Diagnostic Imaging Report ---
Exam: Mediastinal ultrasound: History: Respiratory distress Comparison: None available Findings: There is small bilateral pleural effusions. Left side slightly larger than right. Neither side warrants thoracentesis at this time. Impression: Small bilateral pleural effusions. Signed by: Dr. Almas Brown DO on 12/18/2018 11:27 AM
[2018-12-18] MEDS ORDERED: IPRATROPIUM BROMIDE 0.02% 2.5 ML NEB NEB SCH (13:00)
[2018-12-18] MEDS ORDERED: SODIUM CHLORIDE 0.9% 250ML 250 ML ONE ×3 (13:04→21:00)
--- NOTE | 2018-12-18 16:27 | NUR ---
WOUND CARE NURSE INITIAL CONSULTATION. 68 YEAR OLD FEMALE ADMITTED TO [facility] WITH DX OF ALS, ANEMIA, UTI, AND VENTILATOR ASSOCIATED PNEUMONIA. HEAD TO TOE SKIN ASSESSMENT DONE TODAY. PT PRESENTS WITH A 8X3.5X0.7CM UNSTAGEABLE PRESSURE ULCER TO SACRUM AND LEFT BUTTOCK. 100% NECROTIC. PT ALSO PRESENTS WITH A 2X3X0.2CM UNSTAGEABLE PRESSURE ULCER TO RIGHT BUTTOCK. LEFT ARM IS EDEMATOUS, NEGATIVE FOR DVT. THERE ARE NO OTHER AREAS OF CONCERN AT THIS TIME. NO S/S OF INFECTION. PT REQUIRES MAXIMUM ASSISTANCE TO REPOSITION. LABS: WBC: 10.43 ALB: 1.8 BLOOD CX RESULTS ARE PENDING. DNR STATUS. RECOMMENDATIONS: CONTINUE WITH ALTERNATING LOW AIR LOSS MATTRESS CONTINUE WITH BILATERAL HEEL PROTECTORS AND PILLOW SUSPENSIONS. TURN PT EVERY TWO HOURS AND PRN. CLEAN SACRAL AND RIGHT BUTTOCK ULCER WITH NS, APPLY SANTYL AND COVER WITH 4X4 GAUZE AND TAPE. CHANGE DRESSING DAILY AND PRN. THANKS DR. NIEVES FOR THIS CONSULTATION. Addendum: 12/18/18 at 1635 by Kassi Bailey RN Amended: Links added.
[2018-12-18] MEDS: BALSAM PERU/CASTOR OIL 60 GM OINT...G. TP SCH ×2 (20:48→21:00)
[2018-12-18] MEDS: LORAZEPAM 1 MG TAB GT PRN (23:47)
[2018-12-19] VITALS (23 sets, daily range): BP systolic 96–178; BP diastolic 44–117
[2018-12-19] MEDS: IPRATROPIUM BROMIDE 0.02% 2.5 ML NEB NEB SCH ×4 (01:02→19:30)
[2018-12-19] MEDS: MEROPENEM 1GM 100 ML IV SCH ×3 (01:37→18:08)
[2018-12-19] MEDS: AZTREONAM 2GM/NS 100ML 100 ML IV SCH ×3 (03:26→20:55)
[2018-12-19 04:33] LABS: BASOPHILS % 0.2 % (0.0-1.0); EOSINOPHILS # (AUTO) 0.1 (0.0-0.4); EOSINOPHILS % 1.1 % (0.0-6.0); HEMATOCRIT 28.1 % (34.2-44.1); HEMOGLOBIN 8.5 g/dL (12.0-16.0); LYMPHOCYTES # (AUTO) 1.7 (1.0-3.2); LYMPHOCYTES % 18.6 % (18.0-39.1); MEAN CORPUSCULAR HEMOGLOBIN 26.5 pg (28-32); MEAN CORPUSCULAR HGB CONC 30.2 g/dL (31-35); MEAN CORPUSCULAR VOLUME 87.5 fL (81-99); MONOCYTES # (AUTO) 0.9 (0.2-0.8); MONOCYTES % 9.8 % (4.4-11.3); NEUTROPHILS # (AUTO) 6.4 (2.1-6.9); NEUTROPHILS % 69.9 % (38.7-80.0); PLATELET COUNT 211 x10e3/uL (140-360); RED BLOOD COUNT 3.21 x10e6/uL (3.6-5.1); RED CELL DISTRIBUTION WIDTH 16.6 % (11.7-14.4)
[2018-12-19] MEDS: DILTIAZEM HCL 30 MG TAB GT SCH ×3 (05:37→22:00)
[2018-12-19] MEDS ORDERED: DEXMEDETOMIDINE HCL 200 MCG in SODIUM CHLORIDE 0.9% 50ML 48 ML IV PRN (08:00)
[2018-12-19] MEDS: LINEZOLID 600 MG TAB GT SCH ×2 (10:15→18:08)
[2018-12-19] MEDS: FUROSEMIDE 20 MG TAB GT SCH (10:15)
[2018-12-19] MEDS: ESCITALOPRAM OXALATE 10 MG TAB GT SCH (10:15)
[2018-12-19] MEDS: APIXABAN 5 MG TABLET GT SCH ×2 (10:15→18:08)
[2018-12-19] MEDS: ZINC SULFATE 220 MG CAP GT SCH (10:15)
[2018-12-19] MEDS: BALSAM PERU/CASTOR OIL 60 GM OINT...G. TP SCH ×2 (11:00→21:55)
[2018-12-19] MEDS: VANCOMYCIN 1GM/NS 250 ML 250 ML IV SCH ×2 (11:40→21:54)
--- NOTE | 2018-12-19 13:31 | NUR ---
Nutrition Intervention Note RD Recommendation(s) for Physician: - Current continuous TF with Vital HP @50mL/hr, providing 1200kcal, 105g protein, and 1003mL water - Water flushes per MD - Check gastric tolerance, labs, weight daily - Rec MVi w/ minerals and vitamin C for wound healing Plan of Care: RD following, monitoring for tolerance and adequacy, TF rec Nutrition reason for involvement: Pressure ulcer, tube feeding RD Assessment 12/19 - 68yo F, who was admitted for hypoxia and low-grade fever from [facility]. Admitted with PEG, tracheostomy and colostomy. Wound care following for pressure ulcer. Visited pt in the room. TF was running with Vital HP @50mL/hr. Per RN, pt was tolerating well without any issue. Per family on bedside, pt has been on PEG feeding and NPO at the facility. Per family, they have noticed some weight loss in patient. No further info obtained from family. Will continue to monitor and follow. Principal Problems/Diagnoses: ALS, anemia, UTI, ventilator associated PNA PMH: ALS, recurrent pneumonias, chronic respiratory failure, HTN, DM, Afib, colostomy, tracheostomy, PEG dependent GI: abdomen large, non-tender, soft, LBM - 12/19, colostomy, + PEG Skin: UNSTAGEABLE PRESSURE ULCER TO SACRUM AND LEFT BUTTOCK, UNSTAGEABLE PRESSURE ULCER TO RIGHT BUTTOCK Labs: (12/19) creatinine 0.34 L Meds: abx, eliquis, zinc sulfate, lasix Ht: 62in Wt: 194lb - current; 08/2018 medical record - 188lb BMI: 35.5kg/m2 IBW: 110lb Malnutrition Evaluation (12/19) Unable to evaluate. Pt came from [facility] with PEG. Nutrition Prescription (Diet Order): Vital HP @50mL/hr Estimated Nutritional Needs: Calories: 1100 1250 kcal (22 25 kcal/kg/d) Weight used: IBW Protein: 75 125g (1.5-2.5g/kg/d) Weight used: IBW Diet Adequacy: Meeting calorie needs, Meeting protein needs Diet Education Needs Assessment: Diet education not indicated. Nutrition Care Level: Moderate Nutrition Diagnosis: Inadequate oral intake related to current medical status (ventilated) as evidenced by pt requring EN as main source of nutrition. Goal: Patient will meet 75-100% of estimated needs by follow up Progress: Goal Met Interventions: Composition, Rate, Route, IVF, Prescription medications, Multivitamin/mineral supplement therapy Monitoring/Evaluation: Total energy intake, Total protein intake, Formula/Solution, IVF, Prescription medication, Weight change, Gastric tolerance, Labs Signed: Caridad Chavarria MS, RD, LD
[2018-12-19] MEDS: LORAZEPAM 1 MG TAB GT PRN ×2 (14:10→22:55)
[2018-12-19] MEDS: ARTIFICIAL TEARS (OPTH) 15 ML BTL OU PRN (15:08)
[2018-12-19] MEDS: COLLAGENASE OINTMENT 30 GM TUBE TP SCH (16:00)
[2018-12-19] MEDS ORDERED: SODIUM CHLORIDE 0.9% 250ML 250 ML ONE (21:06)
[2018-12-20] VITALS (26 sets, daily range): BP systolic 104–155; BP diastolic 38–80
[2018-12-20] MEDS ORDERED: HYDROCODONE/APAP 5MG-325MG TAB PO PRN
[2018-12-20] MEDS: IPRATROPIUM BROMIDE 0.02% 2.5 ML NEB NEB SCH ×4 (01:17→19:05)
[2018-12-20] MEDS: MEROPENEM 1GM 100 ML IV SCH ×3 (02:19→19:14)
[2018-12-20] MEDS: AZTREONAM 2GM/NS 100ML 100 ML IV SCH ×3 (04:10→20:10)
[2018-12-20 04:54] LABS: BASOPHILS % 0.4 % (0.0-1.0); EOSINOPHILS # (AUTO) 0.1 (0.0-0.4); EOSINOPHILS % 1.8 % (0.0-6.0); HEMATOCRIT 28.4 % (34.2-44.1); HEMOGLOBIN 8.5 g/dL (12.0-16.0); LYMPHOCYTES # (AUTO) 1.7 (1.0-3.2); LYMPHOCYTES % 24.1 % (18.0-39.1); MEAN CORPUSCULAR HEMOGLOBIN 26.5 pg (28-32); MEAN CORPUSCULAR HGB CONC 29.9 g/dL (31-35); MEAN CORPUSCULAR VOLUME 88.5 fL (81-99); MONOCYTES # (AUTO) 0.7 (0.2-0.8); MONOCYTES % 10.5 % (4.4-11.3); NEUTROPHILS # (AUTO) 4.4 (2.1-6.9); NEUTROPHILS % 62.8 % (38.7-80.0); PLATELET COUNT 218 x10e3/uL (140-360); RED BLOOD COUNT 3.21 x10e6/uL (3.6-5.1); RED CELL DISTRIBUTION WIDTH 16.8 % (11.7-14.4)
[2018-12-20 05:15] LABS: ALANINE AMINOTRANSFERASE 13 IU/L (0-55); ALBUMIN 1.4 g/dL (3.5-5.0); ALBUMIN/GLOBULIN RATIO 0.3 (0.8-2.0); ALKALINE PHOSPHATASE 69 IU/L (40-150); ANION GAP 9.5 mmol/L (8-16); BLOOD UREA NITROGEN 15 mg/dL (7-26); BUN/CREATININE RATIO 44 (6-25); CARBON DIOXIDE 34 mmol/L (22-29); CHLORIDE 100 mmol/L (98-107); CREATININE, SERUM 0.34 mg/dL (0.57-1.11); EST GLOMERULAR FILTRATION RATE > 60 ML/MIN (60-); GLUCOSE 123 mg/dL (74-118); POTASSIUM 3.5 mmol/L (3.5-5.1); SODIUM 140 mmol/L (136-145)
[2018-12-20] MEDS: HYDROCODONE/APAP 5MG-325MG TAB GT PRN ×2 (05:56→20:12)
[2018-12-20] MEDS: DILTIAZEM HCL 30 MG TAB GT SCH ×4 (06:37→23:48)
--- NOTE | 2018-12-20 08:00 | Diagnostic Imaging Report ---
Examination: Single AP view of the chest. COMPARISON: Portable chest 12/18/2018 INDICATION: ALS, anemia, pneumonia IMPRESSION: 1. Lines and Tubes: Stable tracheostomy tube. 2. Interval worsening of bilateral interstitial opacities, suggesting pulmonary edema. Bilateral pleural effusions. 3. Cardiomediastinal silhouette is normal. Central pulmonary venous congestion. 4. No acute bony abnormalities. Signed by: Dr. Julio Mendiola M.D. on 12/20/2018 7:57 AM
[2018-12-20] MEDS: COLLAGENASE OINTMENT 30 GM TUBE TP SCH (09:00)
[2018-12-20] MEDS: BALSAM PERU/CASTOR OIL 60 GM OINT...G. TP SCH ×2 (09:00→21:19)
[2018-12-20] MEDS: LINEZOLID 600 MG TAB GT SCH ×2 (10:00→19:13)
[2018-12-20] MEDS: FUROSEMIDE 20 MG TAB GT SCH (10:00)
[2018-12-20] MEDS: ESCITALOPRAM OXALATE 10 MG TAB GT SCH (10:00)
[2018-12-20] MEDS: VANCOMYCIN 1GM/NS 250 ML 250 ML IV SCH ×2 (10:00→21:19)
[2018-12-20] MEDS: ZINC SULFATE 220 MG CAP GT SCH (10:00)
[2018-12-20] MEDS: APIXABAN 5 MG TABLET GT SCH ×2 (10:00→19:13)
[2018-12-20] MEDS: LORAZEPAM 1 MG TAB GT PRN (10:01)
[2018-12-20] MEDS: ARTIFICIAL TEARS (OPTH) 15 ML BTL OU PRN (11:52)
--- NOTE | 2018-12-20 18:18 | NUR ---
changed colostomy wafer and bag d/t leaking. pt tolerated well
[2018-12-20] MEDS ORDERED: SODIUM CHLORIDE 0.9% 250ML 250 ML ONE (23:33)
[2018-12-21] VITALS (24 sets, daily range): BP systolic 102–150; BP diastolic 45–77
[2018-12-21] MEDS: ARTIFICIAL TEARS (OPTH) 15 ML BTL OU PRN (00:50)
[2018-12-21] MEDS: IPRATROPIUM BROMIDE 0.02% 2.5 ML NEB NEB SCH ×4 (01:10→19:18)
[2018-12-21] MEDS: HYDROCODONE/APAP 5MG-325MG TAB GT PRN ×2 (01:35→06:14)
[2018-12-21] MEDS: MEROPENEM 1GM 100 ML IV SCH ×3 (02:29→18:00)
[2018-12-21] MEDS: AZTREONAM 2GM/NS 100ML 100 ML IV SCH ×3 (04:28→20:29)
[2018-12-21] MEDS: DILTIAZEM HCL 30 MG TAB GT SCH ×3 (06:38→23:48)
[2018-12-21] MEDS: LINEZOLID 600 MG TAB GT SCH ×2 (09:00→17:00)
[2018-12-21] MEDS: VANCOMYCIN 1GM/NS 250 ML 250 ML IV SCH ×2 (09:00→23:33)
[2018-12-21] MEDS: ESCITALOPRAM OXALATE 10 MG TAB GT SCH (09:00)
[2018-12-21] MEDS: FUROSEMIDE 20 MG TAB GT SCH (09:00)
[2018-12-21] MEDS: APIXABAN 5 MG TABLET GT SCH ×2 (09:00→17:00)
[2018-12-21] MEDS: ZINC SULFATE 220 MG CAP GT SCH (09:00)
[2018-12-21] MEDS: BALSAM PERU/CASTOR OIL 60 GM OINT...G. TP SCH ×2 (09:48→21:25)
[2018-12-21] MEDS: COLLAGENASE OINTMENT 30 GM TUBE TP SCH (09:49)
[2018-12-22] VITALS (20 sets, daily range): BP systolic 130–159; BP diastolic 52–93
--- NOTE | 2018-12-22 00:43 | NUR ---
Dr. Chiu notified of vancomycin trough. Orders received to change frequency.
[2018-12-22] MEDS: HYDROCODONE/APAP 5MG-325MG TAB GT PRN ×2 (01:00→11:00)
[2018-12-22] MEDS: IPRATROPIUM BROMIDE 0.02% 2.5 ML NEB NEB SCH ×3 (01:05→12:45)
[2018-12-22] MEDS: MEROPENEM 1GM 100 ML IV SCH ×3 (03:00→17:20)
[2018-12-22] MEDS: AZTREONAM 2GM/NS 100ML 100 ML IV SCH ×2 (04:00→12:00)
[2018-12-22] MEDS: DILTIAZEM HCL 30 MG TAB GT SCH ×2 (07:10→13:57)
[2018-12-22] MEDS: APIXABAN 5 MG TABLET GT SCH ×2 (09:00→17:20)
[2018-12-22] MEDS: ZINC SULFATE 220 MG CAP GT SCH (09:00)
[2018-12-22] MEDS: LINEZOLID 600 MG TAB GT SCH (09:00)
[2018-12-22] MEDS: ESCITALOPRAM OXALATE 10 MG TAB GT SCH (09:00)
[2018-12-22] MEDS: FUROSEMIDE 20 MG TAB GT SCH (09:00)
--- NOTE | 2018-12-22 10:33 | NUR ---
FAXING CLINICALS TO RETURN PT TO [facility], COMPLETING RTF TO GIVE TO NURSE
[2018-12-22] MEDS: BALSAM PERU/CASTOR OIL 60 GM OINT...G. TP SCH (10:40)
[2018-12-22] MEDS: COLLAGENASE OINTMENT 30 GM TUBE TP SCH (10:40)
--- NOTE | 2018-12-22 13:40 | NUR ---
SPOKE WITH DAUGHTER EDUARDO STARKEY, , SHE IS IN AGREEMENT TO SPEAK WITH [facility]. HER CONCERN IS SHE AND THE REST OF HER FAMILY WANT TO COME SAY GOOD BYE AND LIVE 70 [address]ES AWAY. THEY WANT TO SEE HER ON FRIDAY AND LET THEIR DAD SEE HER BEFORE THEY REMOVE HER FROM THE [facility]. SHE WILL SIGN TH OOH DNR AND SPEAK WITH THE HOSPICE COMPANY. GET SIGNATURE FROM DAUGHTER, WILL SPEAK WITH DR AND ALSO HOSPICE COMPANY TO ADMIT WHEN GET BACK TO FACILITY.
--- NOTE | 2018-12-22 15:48 | NUR ---
PT ACCEPTED TO ROOM [address] NIEVES CARE, HOSPICE NOTIFIED AND WILL CONTACT FAMILY TO SIGN UP.
--- NOTE | 2018-12-22 17:20 | NUR ---
Report called to Keeley Ragland LVN at [facility]. [facility] also called after giving report and said ETA will be 1-1.5 hours from now.
[2018-12-22] MEDS ORDERED: VANCOMYCIN 1GM/NS 250 ML 250 ML IV SCH (21:00)
--- NOTE | 2019-01-19 05:54 | Discharge Summary ---
CHIEF COMPLAINT: Hypoxia. FINAL DIAGNOSES: Amyotrophic lateral sclerosis, respiratory failure, vent dependence. DISPOSITION: retirement. HOSPITAL COURSE: A 68-year-old female with known history of amyotrophic lateral sclerosis, chronic respiratory failure, trach and vent dependence. Brought to the ER with issues of hypoxia evaluation. She underwent workup and evaluation in the emergency room. The patient was showing pale conjunctiva, trach is in place. Chest was demonstrating inspiratory crackles. Abdomen shows a G-tube in place. Colostomy tube in place and with further management and monitoring of data, admission was made regarding chronic respiratory failure, vent dependence hypoxia on vent, left upper lobe pneumonia, ALS. The patient will be in ICU. We will start on IV antibiotics. We will continue vent management. Maintained on DNR status. Regarding the ALS and vent dependence, the patient was continued to be monitored and followed by Pulmonary, Dr. Mondragon and with his evaluation, his plan is to continue mechanical vent support. Check sputum Gram stain and culture. Continue current antibiotics. The patient is anemic. We will be addressing transfusion protocols. The patient's long-term prognosis is grim. Family requested DNR status though to continue mechanical vent support for now. We will continue to tube feedings. From the ER, the patient was upgraded to ICU, was n.p.o. diet, was continued on vent management, being monitored by Dr. Mondragon, was resting comfortably, O2 sats were noted to be at 97%. Respiratory treatments being given. The patient was being placed on IV antibiotics. Daily medications were continuing. Routine colostomy. NG tube care was being managed. The presentation of anemia was noted. The patient was typed and cross-matched for packed RBCs transfusion. She continued on current care, her hemoglobin responded post transfusion, she received 2 units of packed RBCs. Continued on DNR status. Discussion with patient and family were directed toward end of life with hospice. X-rays were showing issues of left lower lobe pneumonia along with urinary tract infection findings. She was continued on her antibiotic protocols and the family was possibly considering withdrawal support. Palliative care was being discussed. She was continued on vent support with case management assistance directions being made. The patient discharged back to long-term and she was transferred back to that location on 12/22/2018, in guarded condition. IMAGING: Chest reveals mild cardiomegaly with improvement of pulmonary vascular congestion and edema. Dense airspace opacity has developed in the left upper lobe concerning for pneumonia. Multiple chest x-rays were carried out. Follow up chest x-ray was conducted on 12/20, the findings showing interval worsening of bilateral interstitial opacities suggesting pulmonary edema, bilateral pleural effusions. Cardiomediastinal silhouette is normal. Central pulmonary venous congestion. No acute bony abnormalities. Venous Doppler of upper extremities, left reveals no evidence of venous thrombosis in subclavian vein, axillary vein, brachial vein, basilic vein, cephalic vein, all vessels are compressible. Culture studies shows, negative blood culture; urine culture was negative. Sputum was showing Pseudomonas aeruginosa. LABORATORY STUDIES: Begins with a CBC showing a white blood cell count 18,300. Followup white cell counts were normal, final study 7000. Initial H and H are 8.7 and 30.7, values fell to 7.1 and 24.8. Following transfusion, H and H were 8.5 and 28.4. Additional studies; influenza studies A and B were negative. Urine studies shows 1+ protein, 11 to 20 wbc's by high-power field, moderate amount of bacteria. Chemistries; shows initial panel, electrolytes stable. Carbon dioxide is 33, glucose 105. Kidney function stable. Followup chemistries continued to reveal normal electrolytes, BUN and creatinine stable. Glucose level stable. Cardiac enzymes were stable. She reached her potential recovery and arrangements were being made for discharge planning. She will be transferred to [facility] for further care. She will continue on vent. She will continue on her ongoing diet. She will continue colostomy care, G-tube care, vent care. I will be monitoring her care at that facility on a daily basis. Staff will be contacting me in my office as needed. Dictated by JESUS Yusuf Dhruv Chiu MD CC/MODL /[id number]
== END 2018-12-22 19:46 | disposition hospice, inpatient (51) | DRG 208 ==
LOC: ER 15:53 → ERHOLD 18:09 → ICU 19:34
PROC: 5A1945Z Respiratory Ventilation, 24-96 Consecutive Hours (ICD-10-PCS; principal; 2018-12-17)
DX: J96.11 Chronic respiratory failure with hypoxia (principal); J18.9 Pneumonia, unspecified organism; G12.21 Amyotrophic lateral sclerosis; Z93.0 Tracheostomy status; I48.91 Unspecified atrial fibrillation; Z79.01 Long term (current) use of anticoagulants; Z93.3 Colostomy status; Z66 Do not resuscitate
CPT/HCPCS: 36415; 36600; 71045; 76604; 80053; 80162; 80202; 81001; 82550; 82553; 82805; 83605; 83735; 84484; 85025; 85610; 85730; 86850; 86900; 86920; 87040; 87070; 87086; 87186; 87205; 87400; 93005; 93971; 94002; 94003; 94640; 96360; 99284; J1940; J3370; J7050; P9016